=== PATIENT | male | born 1960 | race Caucasian/White ===

== ENCOUNTER → 2016-12-31 | Outpatient (CLI) | payer BC ==
[~2016-12-31] MED LIST: ALBU1AER9 INH; AMLO-110 PO; ASPI81TA28 PO; CLOP1TAB15 PO; LISI20TA3 PO; LPT40 PO; OMEP40CA PO
[2016-12-31 13:35] LABS: ARTERIAL BLD GAS O2 SATURATION 96.1 % (90-95); ARTERIAL BLOOD GAS BASE EXCESS 0.5 mEq/L (-9-1.8); ARTERIAL BLOOD GAS HCO3 23 mmol/L (19-24); ARTERIAL BLOOD GAS PO2 76 mm/Hg (80-95); ARTERIAL BLOOD GAS pH 7.47 (7.35-7.45)
[2016-12-31 13:36] LABS: O2 ADMINISTRATION ROOM TEMP
[2016-12-31 13:37] LABS: ALLEN TEST POS (POS)
== END | disposition home or self-care (01) ==
LOC: C.LAB 13:01
PROVIDERS: ATTEND Thoracic Surgery (Cardiothoracic Vascular Surgery)
DX: I25.10 Atherosclerotic heart disease of native coronary artery without angina pectoris (principal); I34.0 Nonrheumatic mitral (valve) insufficiency; I35.2 Nonrheumatic aortic (valve) stenosis with insufficiency

== ENCOUNTER → 2017-01-06 | Day surgery (SDC) | payer BC ==
[~2017-01-06] VITALS: Ht 180.3 cm; Wt 123.5 kg
[~2017-01-06] MED LIST changes: +ACETAMINOPHEN 325 MG TAB PO PRN; +ATROPINE SULFATE 0.1 MG/ML 5ML SYR IV PRN; +FENTANYL CITRATE INJ 50 MCG/1 ML 2 ML VIAL ONE; +HEPARIN SOD (PORCINE) 1000 UNIT/ML 10 ML VIAL ONE; +MIDAZOLAM HCL 1 MG/ML 2ML VIAL ONE; +NITROGLYCERIN/D5W 100MCG/ML 20ML SYR ONE; +NiCARDipine HCL INJ 2.5 MG/ML 10 ML AMP ONE; +ONDANSETRON INJ 2 MG/ML 2 ML VIAL IV PRN; +ONDANSETRON INJ 2 MG/ML 2 ML VIAL ONE; +SODIUM CHLORIDE 0.9% 1000ML 1,000 ML IV SCH; +SODIUM CHLORIDE 0.9% 1000ML 250 ML IV PRN
[2017-01-06 08:58] VITALS: BP 147/70; PULSE 77; TEMP 36.8; O2SAT 98; Ht 180.3 cm; Wt 123.5 kg
--- NOTE | 2017-01-06 11:41 | History & Physical Bridge Note ---
H&P Re-Evaluation Bridge Note: I have examined the patient, reviewed the History & Physical and in the interval since the performance of the History & Physical I have noted the following changes of clinical significance: No changes noted
--- NOTE | 2017-01-06 12:08 | [facility] Post Operative Brief Note ---
Preliminary Procedure Note Procedure Date Jan 06, 2017. Pre-Procedure Diagnosis Valvular Disease AUC Score 7 Post-Procedure Diagnosis Moderate CAD Procedure(s) Performed Coronary Angiography Fisheries Director Dr. Mathieu Adhikari Fire Tower Keeper(s) Daniele Goins Estimated Blood Loss <15 cc Medication(s) Heparin (5000u IV), Nicardipine (250mcg intraarterial after arterial sheath insertion), Lidocaine 1% (local infiltration) Preliminary Findings Right dominant coronary anatomy LM long with distal 40-50% extending into origin of LAD LAD Type 2 with large diagonal Patent proximal vessel stent. LAD origin discrete 50% Ramus no disease LCX Large OM with mild irregularities RCA Large dominant 30% mid vessel, origin PDA Recommendations valve replacement Specimens None Fluids (cc crystalloids) 60 Anesthesia Versed 1 mg , Fentanyl 12.5 mcg IV Procedural Complication(s) Nausea after first coronary injection Disposition Software Team Leader Holding/Recovery
--- NOTE | 2017-01-06 12:12 | Discharge Instructions ---
Discharge Instructions Procedure Procedure Date: Jan 06, 2017. Reason for Visit: Aoritc Valve Replacment Dr. Adhikari To Do*. Discharge Discharge Date: Jan 06, 2017. Discharge Diagnosis: Severe Aortic Valve Disease Moderate coronary artery disease Last Recorded Wt (Kilograms): 123.5 Anesthesia Post Anesthesia Instructions: If you have had General Anesthesia or IV Sedation: * Do not drive today. * Resume driving when surgeon permits. * Do not make important decisions or sign legal documents today. * Call surgeon for: 1. Temperature elevations greater than 101 degrees F. 2. Uncontrollable pain. 3. Excessive bleeding. 4. Persistent nausea and vomiting. 5. Medication intolerance (nausea, vomiting or rash). * For nausea and vomiting use only clear liquids such as: tea, soda, bouillon until nausea subsides, then gradually increase diet as tolerated. * If you have any concerns or questions, call your surgeon's office. If physician is unavailable and it is an emergency, call 911 or go to the nearest emergency room. Instructions Activity Recommendations: limitations as noted below Recommended Home Diet: resume previous diet Allergies: Coded Allergies: Acetaminophen (Unverified Allergy, Mild, ., 01/06/17) NSAIDs (Unverified Allergy, Mild, ., 01/06/17) Iodinated Diagnostic Agents (Verified Adverse Reaction, Mild, IMMEDIATE NAUSEA& VOMITING, 02/25/16) Methadone (Verified Adverse Reaction, Mild, HALLUCINATIONS, TREMBLING, ) Varenicline (Verified Adverse Reaction, Mild, HALLUCINATIONS, TREMBLING, ) Provider Instructions ACTIVITY RECOMMENDATIONS: Excess manipulation of the wrist should be avoided for the next 24-48 hours. * No lifting over 2 pounds (approximately a 1/2 gallon of milk) with the utilized arm for 24 hours. * No strenuous activity such as bowling or tennis for 3 days. * Keep the site of the procedure covered with a bandage for 24 hours. *You may shower the day after the procedure. Do not take a tub bath or submerge the puncture site in water for the next 3 days. *Do not operate any motorized equipment for 3 days. SPECIAL CARE INSTRUCTIONS: The site may be slightly bruised and sore following your procedure. Should any of the following occur, contact the DrAgustín who performed your procedure. 1. Redness/inflammation, swelling, chills, or fever, or colored drainage at procedure site within 3-7 days after your procedure. 2. Coldness, discoloration, ongoing numbness, severe pain, or swelling. Expect mild tingling of hand and tenderness at the puncture site for up to three days. If this persists beyond three days, or other symptoms develop, notify the Dr. who performed your procedure. BLEEDING: If the procedure site on your wrist begins to bleed, do not panic 1. Place 1 or 2 fingers firmly just slightly above the insertion site to stop the bleeding. You may be able to feel your pulse as you hold pressure. 2. Lift your finger after 5 minutes to see if the bleeding has stopped. 3. Once the bleeding has stopped, gently wipe the wrist area clean with a bandage. * If the bleeding from your wrist does not stop after 10 minutes, or if there is a large amount of bleeding or spurting, call 911 (do not drive yourself to the hospital). SKIN IRRITATION: * You may experience some redness and/or swelling in the area where radiation was administered. If any skin irritation occurs, please contact your family physician. FOLLOW UP VISIT: Keep any scheduled doctor appointments.ACTIVITY RECOMMENDATIONS: Excess manipulation of the wrist should be avoided for the next 24-48 hours. * No lifting over 2 pounds (approximately a 1/2 gallon of milk) with the utilized arm for 24 hours. * No strenuous activity such as bowling or tennis for 3 days. * Keep the site of the procedure covered with a bandage for 24 hours. *You may shower the day after the procedure. Do not take a tub bath or submerge the puncture site in water for the next 3 days. *Do not operate any motorized equipment for 3 days. SPECIAL CARE INSTRUCTIONS: The site may be slightly bruised and sore following your procedure. Should any of the following occur, contact the Dr. who performed your procedure. 1. Redness/inflammation, swelling, chills, or fever, or colored drainage at procedure site within 3-7 days after your procedure. 2. Coldness, discoloration, ongoing numbness, severe pain, or swelling. Expect mild tingling of hand and tenderness at the puncture site for up to three days. If this persists beyond three days, or other symptoms develop, notify the Dr. who performed your procedure. BLEEDING: If the procedure site on your wrist begins to bleed, do not panic 1. Place 1 or 2 fingers firmly just slightly above the insertion site to stop the bleeding. You may be able to feel your pulse as you hold pressure. 2. Lift your finger after 5 minutes to see if the bleeding has stopped. 3. Once the bleeding has stopped, gently wipe the wrist area clean with a bandage. * If the bleeding from your wrist does not stop after 10 minutes, or if there is a large amount of bleeding or spurting, call 911 (do not drive yourself to the hospital). SKIN IRRITATION: * You may experience some redness and/or swelling in the area where radiation was administered. If any skin irritation occurs, please contact your family physician. FOLLOW UP VISIT: Keep any scheduled doctor appointments. Follow Up Follow-up with: Dr Aldana as scheduled tomorrow [facility] Recommendations: Call your doctor if: * Temperature above 101 degrees * Pain not relieved by pain medicine ordered * There is increased drainage or redness from any incision * You have any unanswered questions or concerns. Your Doctors Instructions noted above were prepared by provider Mathieu Adhikari. Patient Signature Section: Patient Instructions Signature Page Jonas Dorsey Patient (or Guardian) Signature/Date: I have read and understand the instructions given to me by my caregivers. Caregiver/RN/Doctor Signature/Date: The above-named patient and/or guardian has received patient instructions on this date. + Original Patient Signature Page (only) stays with chart. Please make copy for patient.
[2017-01-06 13:45] VITALS: BP 118/71; PULSE 66; O2SAT 98
--- NOTE | 2017-01-06 15:31 | CARDIAC CATH REPORT ---
INDICATIONS: Preoperative evaluation, known coronary disease, planned aortic valve replacement. BRIEF CARDIAC HISTORY: The patient is a 56-year-old male who has had a history of known coronary disease having undergone prior coronary intervention with stent to the proximal left anterior descending in February 2016, known history of valvular heart disease that represented with worsening chest pain symptoms and evidence of progression of aortic valve disease now severe with aortic stenosis and aortic insufficiency. He is referred for diagnostic cardiac catheterization in anticipation of aortic valve replacement on 01/07/2017. There is no evidence of recurrent heart failure, symptoms of progressive to class 3+ severity of exertional dyspnea and fatigue. His history is also notable for contrast reaction with acute nausea on dye injections in the past. He did receive preoperative prep. ACCESS: Right radial artery. CATHETERS: A 6-[place] long sheath, 5-[place] brachial 3.5, 5-[place] JL 3.5. CONTRAST: Nonionic x120 mL Visipaque. IV FLUIDS: 60 mL normal saline solution. MEDICATIONS: Prior to procedure, the patient received oral prednisone prep and day of procedure received local anesthesia access site with 1% lidocaine. After arterial access gained, the patient received 250 mcg intra-arterial injection of nicardipine. After central access was gained, the patient received 5,000 units IV heparin. The patient did experience acute nausea after initial coronary injection was treated with a single dose of Zofran. SEDATION: Start time 11:11, end time 11:33. The patient received 1 mg IV Versed and 12.5 mcg of fentanyl. COMPLICATIONS: None other than nausea as noted above. RADIATION EXPOSURE: 3.4 minutes of fluoroscopy time, 2161 milligrays, DAP score 11296. RESULTS: CORONARY ANGIOGRAPHY: Coronary anatomy is right dominant. LEFT MAIN: Left main is long and large in caliber. It trifurcates to give rise to left anterior descending in ramus intermedius and the left circumflex. Within the left main there is a discrete calcified lesion at its distal portion, narrowing the vessel by 40-50% extending into the origin of the left anterior descending narrowing of origin of the left anterior descending by 50%. LEFT ANTERIOR DESCENDING: Left anterior descending is type 3 in distribution, gives rise to a trivial small diagonal branch followed by a large multi-branching second diagonal at the end of its proximal third. The left anterior descending then courses to terminate beyond the apex. Within the left anterior descending, there is an area of prior stenting in its proximal portion with excellent post-procedure result and no restenosis. As is described in the left main an area of discrete calcification and narrowing of the ostium of the left anterior descending, narrowing it by 50%. RAMUS INTERMEDIUS: This is a small caliber vessel without significant disease. LEFT CIRCUMFLEX: Left circumflex is moderately large consisting of a large multi-branching obtuse marginal and 2 small posterolateral branches. There are minimal irregularities in the left circumflex without obstruction. RIGHT CORONARY ARTERY: The right coronary is large and dominant in distribution, gives rise to a right ventricular branch in its mid portion, a long posterior descending artery reaching well beyond the apex and along the AV groove a large terminal posterior ventricular branch. Within the right coronary artery, there are moderate irregularities with a 30% narrowing just proximal to the acute margin and 30% narrowing at the origin of the posterior descending artery. LV angiography was not performed. Aortic valve was not crossed. Aortic root angiography was not performed due to issues with contrast reaction. HEMODYNAMICS: Initial aortic root pressure was 138/59 with a mean of 88. Following completion of the study aortic root pressure was 139/64 with a mean of 95. FINAL IMPRESSIONS: 1. Severe aortic valve disease with mixed aortic stenosis, aortic insufficiency with high velocity jet observed during current procedure. 2. Patent left anterior descending stent placed in February 2016. 3. Progression in coronary disease involving the distal left main and ostium of the left anterior descending and narrowing the left main by 40-50% ostium and left anterior descending by 50% with mild irregularities all vasculature. RECOMMENDATIONS: The patient will be referred for surgical therapies.
== END | disposition home or self-care (01) ==
LOC: C.CATH 08:24
PROVIDERS: ATTEND Internal Medicine Cardiovascular Disease
DX: I25.10 Atherosclerotic heart disease of native coronary artery without angina pectoris (principal); I35.1 Nonrheumatic aortic (valve) insufficiency; Z79.02 Long term (current) use of antithrombotics/antiplatelets; Z95.818 Presence of other cardiac implants and grafts; I34.0 Nonrheumatic mitral (valve) insufficiency; I10 Essential (primary) hypertension; E78.5 Hyperlipidemia, unspecified; K21.9 Gastro-esophageal reflux disease without esophagitis; E66.9 Obesity, unspecified; Z68.38 Body mass index [BMI] 38.0-38.9, adult; Z98.1 Arthrodesis status; Z79.82 Long term (current) use of aspirin; I73.9 Peripheral vascular disease, unspecified; Z90.89 Acquired absence of other organs; Z82.49 Family history of ischemic heart disease and other diseases of the circulatory system; Z83.3 Family history of diabetes mellitus; Z80.6 Family history of leukemia

== ENCOUNTER → 2018-01-28 | Outpatient (CLI) | payer BC ==
[~2018-01-28] MED LIST changes: -ACETAMINOPHEN 325 MG TAB PO PRN; -ALBU1AER9 INH; -AMLO-110 PO; +AMLO5TAB3 PO; +AMOX500C3 PO; +ASPCH81X PO; -ASPI81TA28 PO; +ATOR80TA PO; -ATROPINE SULFATE 0.1 MG/ML 5ML SYR IV PRN; -CLOP1TAB15 PO; -FENTANYL CITRATE INJ 50 MCG/1 ML 2 ML VIAL ONE; +GABA-113 PO; -HEPARIN SOD (PORCINE) 1000 UNIT/ML 10 ML VIAL ONE; -LISI20TA3 PO; -LPT40 PO; +METO50TA16 PO; -MIDAZOLAM HCL 1 MG/ML 2ML VIAL ONE; -NITROGLYCERIN/D5W 100MCG/ML 20ML SYR ONE; -NiCARDipine HCL INJ 2.5 MG/ML 10 ML AMP ONE; -OMEP40CA PO; +OMEP40CA41 PO; -ONDANSETRON INJ 2 MG/ML 2 ML VIAL IV PRN; -ONDANSETRON INJ 2 MG/ML 2 ML VIAL ONE; -SODIUM CHLORIDE 0.9% 1000ML 1,000 ML IV SCH; -SODIUM CHLORIDE 0.9% 1000ML 250 ML IV PRN; +TRAZ50TA35 PO; +VNTHFA/IN INH
[2018-01-28 09:05] LABS: BLOOD UREA NITROGEN 11 mg/dl (7-18); CALCIUM 9.2 mg/dl (8.5-10.1); CARBON DIOXIDE 23 mmol/L (21-32); CREATININE 0.91 mg/dl (0.60-1.40); GLUCOSE 116 mg/dl (70-99); POTASSIUM 4.3 mmol/L (3.5-5.1); SODIUM 137 mmol/L (136-145)
== END | disposition home or self-care (01) ==
LOC: C.LAB 08:11
PROVIDERS: ATTEND Internal Medicine
DX: I10 Essential (primary) hypertension (principal)

== ENCOUNTER 2023-08-22 06:42 | Inpatient (IN) ==
[2023-08-22] MEDS: ALBUT/IPRATROP 3MG/0.5MG NEB 3 ML VIAL INH STA (07:00)
[2023-08-22] MEDS: methylPREDNISolone 125 MG/2 ML VIAL IV STA (07:08)
[2023-08-22 07:17] LABS: iSTAT Hemoglobin 13.9 g/dl (14.0-18.0); iSTAT Ionized Calcium 1.15 mmol/l (1.12-1.32); iSTAT Potassium 4.6 mmol/L (3.3-5.0)
[2023-08-22 07:17] LABS: Basophils # (auto) 0.02 K/uL (0.00-0.20); Basophils % (auto) 0.3 %; Eosinophils # (auto) 0.02 K/uL (0.00-0.50); Eosinophils % (auto) 0.3 %; Hematocrit (blood only) 39.5 % (42.0-52.0); Hemoglobin 13.6 g/dl (14.0-18.0); Immature Granulocytes # (auto) 0.04 K/uL (0.01-0.20); Immature Granulocytes % (auto) 0.7 %; Lymphocytes # (auto) 1.02 K/uL (1.20-3.40); Lymphocytes % (auto) 17.7 %; Mean Corpuscular Hemoglobin 29.1 pg (25.0-34.0); Mean Corpuscular Hgb Conc 34.4 g/dL (32.0-36.0); Mean Corpuscular Volume 84.6 fL (80.0-100.0); Mean Platelet Volume 10.8 fL (9.4-12.4); Monocytes # (auto) 0.22 K/uL (0.11-0.59); Monocytes % (auto) 3.8 %; Neutrophils # (auto) 4.43 K/uL (1.40-6.50); Neutrophils % (auto) 77.2 %; Platelet Count 248 K/uL (130-400); RDW Coefficient of Variation 13.5 % (11.5-14.5); RDW Standard Deviation 41.3 fL (36.4-46.3); Red Blood Count 4.67 M/uL (4.70-6.10); White Blood Count 5.75 K/ul (4.8-10.8)
[2023-08-22 07:32] LABS: Albumin Globulin Ratio 1.5 (0.9-2); Albumin Level 4.6 gm/dl (3.4-5.0); BUN Creatinine Ratio 13.7 (10-20); Bilirubin,Total 0.7 mg/dl (0.2-1.0); Calcium 9.4 mg/dl (8.6-10.3); Creatinine Clr Calc Pharmacy 106.4 ml/min; Est GFR (African American) 98.3 ml/min; Est GFR (Non-African American) 84.9 ml/min; Potassium 4.6 mmol/L (3.5-5.1); Total Protein 7.6 gm/dl (6.0-8.3)
[2023-08-22 07:38] LABS: Troponin I High Sensitivity 23.9 pg/ml (0-20)
--- NOTE | 2023-08-22 07:39 | XRay Report ---
XR chest 1V portable HISTORY: Dyspnea COMPARISON: Chest 03/11/2017. FINDINGS: There are poststernotomy changes and cervical spinal fusion hardware again noted. The heart is mildly enlarged. There is diffuse interstitial/vascular thickening consistent with pulmonary poncho a. There are small bilateral pleural effusions. There is a right lower lobe airspace opacity which is new from the prior study. IMPRESSION: 1. Interval development of mild interstitial pulmonary edema and small bilateral pleural effusions. 2. There is a right lower lobe airspace opacity which is new from the prior study. This may represent a component of the pulmonary edema or superimposed pneumonia. ACT 112: Negative or not required by law. Electronically signed by: Gerson Nobles M.D. 08/22/2023 7:37 AM
[2023-08-22 07:47] LABS: INR 2.7 (0.9-1.1); Partial Thromboplastin Ratio 1.3; Partial Thromboplastin Time 38 Seconds (21-31); Prothrombin Time 28.2 Seconds (9.0-12.0)
[2023-08-22] MEDS: FUROSEMIDE 40 MG/4 ML VIAL IV ONE ×2 (07:50→11:55)
--- NOTE | 2023-08-22 08:04 | Emergency Department Note ---
Impression & Plan Acute dyspnea, Tobacco abuse disorder, CHF (congestive heart failure), Aortic stenosis, severe, Elevated troponin ED Provider Note NAME: GARY PUTNAM AGE: 63 SEX: Male INFORMANT: Patient ED PROVIDER(S): Jj Gloria MD CHIEF COMPLAINT: Shortness of breath PLAN: Disposition: Transferred Outpatient prescription management: none Referral: [facility] MEDICAL DECISION MAKING: Patient presented because of acute dyspnea that has been progressive over the last 3 weeks. History was concerning for his aortic valve problem. I did obtain old records from the [facility] system based upon his echocardiogram and March he has severe . The patient's cardiology visit from last month noted significant dyspnea on exertion and symptoms consistent with his AAS. I did emergently order a stat bedside echo as well as placed a consult with cardiology. The patient was given a DuoNeb and Solu-Medrol based upon his smoking history and some relief at home. The patient was on supplemental oxygen. He was mildly hypertensive. ECG showed lateral T wave inversions which were more concerning when compared to his 2016 ECG here however I did obtain an ECG from the [facility] system from 01 August 2023 and there is no significant change. I did consult with Dr. Braswell who reviewed his testing. Patient did have an echo performed here which shows severe aortic stenosis which has worsened since his prior. Cardiology recommended a dose of IV Lasix and this was administered. Patient did have some anxiety and tachypnea. He was given a Xopenex neb as well as a small dose of IV Ativan. He did feel much better with this. Vital signs stabilized. He did not do well lying flat for the echo. He feels much better sitting up. The patient was evaluated by cardiology in the emergency department and recommended for transfer to [facility] for definitive care via [facility]. Unfortunately [facility] does not have any medical or ICU beds available at this current time. The patient will be admitted under the care of of the ICU, [facility] hospitalist, as well as cardiology here for treatment and plan for transfer hopefully later today. Care/management discussed with: vessel manager Level of care consideration(s): After review of the information above and other included data, I feel the patient is admission Triage Nursing notes: reviewed and agree them. Vital Signs: reviewed and remarkable for tachycardia and tachypnea Additional History obtained from: none Chronic Medical/Social Conditions affecting care: Aortic stenosis Prior/ Outside/ External records reviewed: none Differential Diagnosis: Complications aortic stenosis reactive airway disease, pneumonia, pneumothorax, COPD, CHF, infections, cardiac ischemia, pulmonary embolism, musculoskeletal, gastrointestinal, as well as other pathologies. Diagnostics, independently interpreted by me: ECG: Twelve-lead ECG reveals sinus tachycardia with first-degree AV block at 101 bpm. LVH. Lateral T wave inversions noted. When compared to his prior ECG of 2016 these changes are new however when compared to his most recent hCG of 01 August 2023 they are not new. Cardiac Monitoring: Cardiac monitoring ordered by me: The patient was placed on continuous cardiac monitoring and observed. It revealed a sinus tachycardic rhythm at 116 Medical decision rules: none Imaging studies: Chest x-ray reveals cardiomegaly and pulmonary edema. HPI: 63 year old Male arrives for evaluation of acute shortness of breath. Patient has a history of severe arctic stenosis and is pending surgery. The patient notes over the last 3 weeks has had progressive symptoms with chest tightness, burning, and dyspnea on exertion. Patient also notes significant orthopnea. Symptoms progressed and he came to emergency room this morning for evaluation. He is supposed to see cardiothoracic surgery today for [facility]. No recent flu symptoms. Patient does note some relief with his nebulizer at home. Has some mild lower leg swelling but that has been unchanged. Patient did not take his home medications today. Pt denies LOC, headache, fevers, chills, diaphoresis, visual changes, neck pain, nausea, vomiting, abdominal pain, back pain, melena, hematochezia, urinary symptoms, numbness, weakness, lymphadenopathy, rash, or other complaints. PAST MEDICAL HISTORY: See Below, aortic stenosis, hypertension, CAD, PAD PAST SURGICAL HISTORY: See Below, aortic valve replacement SOCIAL HISTORY: See Below, HOME MEDICATIONS: See Below ALLERGIES: See Below VITALS: See Below PHYSICAL EXAMINATION: GENERAL: Awake, alert, dyspneic-appearing, in no distress HENT: Normocephalic, atraumatic. Oropharynx unremarkable. EYES: Normal conjunctiva. Sclera non-icteric. NECK: Inspection normal. Non-tender. Supple. No nuchal rigidity. FROM. No masses. RESPIRATORY: Few basilar crackles otherwise clear to auscultation. No wheezes. No rales. Increased respiratory effort. CARDIAC: Normal rate. Normal rhythm. Significant holosystolic murmur. No rubs. Extremities warm and well perfused. Pulses equal. No JVD. GI: Soft, non-distended. No tenderness to palpation. No rebound or guarding. No masses. RECTAL: Deferred. MUSCULOSKELETAL: Atraumatic. Chest examination reveals no tenderness. The back is symmetrical on inspection without obvious abnormality. There is no CVA tenderness to palpation. No joint edema. LOWER EXTREMITIES: Calves are equal size bilaterally and non-tender. 1+ edema. No discoloration. NEURO: Normal sensorium. No sensory or motor deficits noted. SKIN: No rash or jaundice noted. PROCEDURES: none CRITICAL CARE: I have personally spent 35 minutes of critical care time in the direct management of this patient. This includes bedside care, interpretation of diagnostic studies, and testing, discussion with consultants, patient, and family members, and other required patient management activities. These minutes are in excess of all separately billable procedures. OBSERVATION NOTE: none Past Med/Surg History Medical History Suspected sleep apnea On anticoagulant therapy Peripheral neuropathy Borderline diabetes no medications -- monitoring Chronic back pain Degenerative disc disease GERD (gastroesophageal reflux disease) Hyperlipemia HTN (hypertension) Alcohol abuse PAD (peripheral artery disease) CAD (coronary artery disease) s/p CABG x2 2017 Aortic stenosis, severe s/p TAVR Lumbar spinal stenosis (05/16/14) Surgical History History of esophagogastroduodenoscopy (EGD) S/P epidural steroid injection History of heart artery stent with 1 stent placed ~ (in the LAD that later was bypassed with CABG 2016). History of cardiac cath total of 4 or 5 caths. patient recalls 1 stent in the past ~2013/2014 (pt is unsure of the date) but the stent was placed at [facility] in the past. S/P peripheral artery angioplasty with stent placement done at [facility] in 2014 S/P cervical spinal fusion unsure of levels -- Full ROM "most of the time, depends on the day" H/O heart valve replacement with bioprosthetic valve ~2015 at [facility]. follows with Dr Braswell H/O heart bypass surgery unsure of the number of vessels done at [facility] ~2016 during the valve replacement [place] teeth extracted S/P lumbar spinal fusion "1997" History of lumbar laminectomy for spinal cord decompression "2013" History of appendectomy History of tonsillectomy and adenoidectomy Family History Other Cancer Heart disease No family history of adverse response to anesthesia Stroke Social History Smoking Status: Former smoker Tobacco Type: Cigarettes Cigarettes Per Day: 10-15; Second Hand Exposure: Yes; Do You Dip or Chew Tobacco: No; Hx Alcohol Use: Yes Alcohol type: beer Hx Substance Use: No Preferred Language: Fijian Communication Ability: Effective Alterations Workroom Clerk Required: No Beliefs That Will Affect Care: None Current Living Situation: Spouse Current Living Situation Comment: and adult daughter Other Information That Helps Us Care for You: No Feels Safe at Home: Yes Safety Concerns: Feels Safe At This Time Assistive Devices: Brace/Splint/Immobilizer Allergies Allergies Allergy/AdvReac Type Severity Reaction Status Date / Time valdecoxib AdvReac Intermediate "felt odd" Verified 04/07/23 07:06 per [facility] EMR Iodinated Contrast Media AdvReac Mild IMMEDIATE Verified 04/07/23 07:06 NAUSEA& VOMITING methadone AdvReac Mild HALLUCINATIONS, Verified 04/07/23 07:06 TREMBLING varenicline AdvReac Mild HALLUCINATIONS, Verified 04/07/23 07:06 TREMBLING Home Meds Home Medications Medication Instructions Recorded Confirmed lisinopril 40 mg tablet 40 mg PO QAM 06/19/19 08/22/23 ezetimibe 10 mg tablet (Zetia) 10 mg PO QAM 11/10/22 08/22/23 albuterol sulfate 90 mcg/actuation 1 inh inhalation QID PRN sob 03/30/23 08/22/23 aerosol inhaler amlodipine 10 mg tablet 10 mg PO QAM 03/30/23 08/22/23 amoxicillin 500 mg tablet 2,000 mg PO UD PRN dental work 03/30/23 08/22/23 aspirin 81 mg capsule 81 mg PO QAM 03/30/23 08/22/23 atorvastatin 80 mg tablet 80 mg PO QAM 03/30/23 08/22/23 diphenhydramine HCl 25 mg tablet 25 mg PO [id number] 03/30/23 08/22/23 (Benadryl Allergy) diphenhydramine HCl 25 mg tablet 25 mg PO UD 03/30/23 08/22/23 (Benadryl Allergy) isosorbide mononitrate 60 mg 60 mg PO QAM 03/30/23 08/22/23 tablet,extended release 24 hr metoprolol tartrate 50 mg tablet 50 mg PO QAM 03/30/23 08/22/23 omeprazole 40 mg capsule,delayed 40 mg PO QAM 03/30/23 08/22/23 release Results & Data (ED) Vital Signs Vital Signs - 24 hr 08/22/23 06:48 08/22/23 06:55 08/22/23 06:55 Temperature 37 C Temperature Source Oral Pulse Rate 96 H 90 Pulse Rate [Apical] Pulse Rate from SpO2 Sensor 89 Pulse Rhythm Regular Pulse Strength Normal Respiratory Rate 32 H 29 H Respiratory Effort / Characteristics Spontaneous Labored Short of Breath Respiratory Depth Deep Respiratory Pattern Tachypnea Blood Pressure 160/102 H 149/89 H Blood Pressure Mean 121 121 Blood Pressure Position Sitting Pulse Oximetry 90 93 Oxygen Delivery Method Nasal Cannula Oxygen Flow Rate 3 Fraction of Inspired Oxygen Sepsis Recent Fever Within 48 Hours No Sepsis New/Unexplained Change in Mental Status N/A Sepsis Action Taken by Nursing No Action Required 08/22/23 06:59 08/22/23 07:00 08/22/23 07:18 Temperature Temperature Source Pulse Rate 92 H 87 Pulse Rate [Apical] 107 H Pulse Rate from SpO2 Sensor 91 H Pulse Rhythm Pulse Strength Respiratory Rate 30 H Respiratory Effort / Characteristics Respiratory Depth Respiratory Pattern Blood Pressure Blood Pressure Mean Blood Pressure Position Pulse Oximetry 93 95 Oxygen Delivery Method High Flow Nasal Cannula Oxygen Flow Rate 40 Fraction of Inspired Oxygen 40 Sepsis Recent Fever Within 48 Hours Sepsis New/Unexplained Change in Mental Status Sepsis Action Taken by Nursing 08/22/23 07:30 08/22/23 07:30 08/22/23 07:47 Temperature Temperature Source Pulse Rate 83 Pulse Rate [Apical] Pulse Rate from SpO2 Sensor 84 Pulse Rhythm Pulse Strength Respiratory Rate 18 Respiratory Effort / Characteristics Respiratory Depth Respiratory Pattern Blood Pressure 96/62 L 163/103 H Blood Pressure Mean 75 119 Blood Pressure Position Pulse Oximetry 95 Oxygen Delivery Method High Flow Nasal Cannula Oxygen Flow Rate 40 Fraction of Inspired Oxygen 40 Sepsis Recent Fever Within 48 Hours Sepsis New/Unexplained Change in Mental Status Sepsis Action Taken by Nursing 08/22/23 07:47 08/22/23 08:00 08/22/23 08:02 Temperature Temperature Source Pulse Rate 98 H 105 H Pulse Rate [Apical] Pulse Rate from SpO2 Sensor 96 H 106 H Pulse Rhythm Pulse Strength Respiratory Rate 34 H 34 H Respiratory Effort / Characteristics Respiratory Depth Respiratory Pattern Blood Pressure 151/84 H Blood Pressure Mean 87 Blood Pressure Position Pulse Oximetry 93 93 Oxygen Delivery Method High Flow Nasal Cannula Oxygen Flow Rate 40 Fraction of Inspired Oxygen 40 Sepsis Recent Fever Within 48 Hours Sepsis New/Unexplained Change in Mental Status Sepsis Action Taken by Nursing 08/22/23 08:02 08/22/23 08:12 08/22/23 08:15 Temperature Temperature Source Pulse Rate 112 H Pulse Rate [Apical] 126 H 103 H Pulse Rate from SpO2 Sensor Pulse Rhythm Pulse Strength Respiratory Rate 24 34 H 20 Respiratory Effort / Characteristics Labored Short of Breath SOB on Exertion Splinting (from pain) Tripoding Spontaneous Labored Short of Breath Respiratory Depth Respiratory Pattern Blood Pressure Blood Pressure Mean Blood Pressure Position Pulse Oximetry 95 95 Oxygen Delivery Method Oxymask High Flow Nasal Cannula Oxygen Flow Rate 10 50 Fraction of Inspired Oxygen 40 Sepsis Recent Fever Within 48 Hours Sepsis New/Unexplained Change in Mental Status Sepsis Action Taken by Nursing 08/22/23 08:30 08/22/23 09:00 08/22/23 09:00 Temperature Temperature Source Pulse Rate 102 H 86 Pulse Rate [Apical] Pulse Rate from SpO2 Sensor 102 H 85 Pulse Rhythm Pulse Strength Respiratory Rate 19 13 Respiratory Effort / Characteristics Respiratory Depth Respiratory Pattern Blood Pressure 118/77 Blood Pressure Mean 91 Blood Pressure Position Pulse Oximetry 95 95 Oxygen Delivery Method High Flow Nasal Cannula High Flow Nasal Cannula Oxygen Flow Rate Fraction of Inspired Oxygen Sepsis Recent Fever Within 48 Hours Sepsis New/Unexplained Change in Mental Status Sepsis Action Taken by Nursing 08/22/23 09:30 08/22/23 10:00 08/22/23 10:00 Temperature Temperature Source Pulse Rate 95 H 95 H Pulse Rate [Apical] Pulse Rate from SpO2 Sensor 95 H Pulse Rhythm Pulse Strength Respiratory Rate 15 20 Respiratory Effort / Characteristics Respiratory Depth Respiratory Pattern Blood Pressure 139/80 Blood Pressure Mean 90 Blood Pressure Position Pulse Oximetry 96 Oxygen Delivery Method Room Air Oxygen Flow Rate Fraction of Inspired Oxygen Sepsis Recent Fever Within 48 Hours Sepsis New/Unexplained Change in Mental Status Sepsis Action Taken by Nursing Laboratory Data 08/22/23 06:55 08/22/23 06:55 Lab Results 08/22/23 08/22/23 08/22/23 Range/Units 06:55 07:02 07:04 WBC 5.75 (4.8-10.8) K/ul RBC 4.67 L (4.70-6.10) M/uL Hgb 13.6 L (14.0-18.0) g/dl POC Hgb 13.9 L (14.0-18.0) g/dl Hct 39.5 L (42.0-52.0) % POC Hct 41 L (42-52) % MCV 84.6 (80.0-100.0) fL MCH 29.1 (25.0-34.0) pg MCHC 34.4 (32.0-36.0) g/dL RDW Std Deviation 41.3 (36.4-46.3) fL RDW Coeff of Cricket 13.5 (11.5-14.5) % Plt Count 248 (130-400) K/uL MPV 10.8 (9.4-12.4) fL Immature Gran % (Auto) 0.7 % Neut % (Auto) 77.2 % Lymph % (Auto) 17.7 % [place] % (Auto) 3.8 % Eos % (Auto) 0.3 % Baso % (Auto) 0.3 % Neut # (Auto) 4.43 (1.40-6.50) K/uL Lymph # (Auto) 1.02 L (1.20-3.40) K/uL [place] # (Auto) 0.22 (0.11-0.59) K/uL Eos # (Auto) 0.02 (0.00-0.50) K/uL Baso # (Auto) 0.02 (0.00-0.20) K/uL Immature Gran # (Auto) 0.04 (0.01-0.20) K/uL PT 28.2 H (9.0-12.0) Seconds INR 2.7 H (0.9-1.1) APTT 38 H (21-31) Seconds PTT Ratio 1.3 POC Sodium 128 L (135-144) mmol/L Sodium 126 L (136-145) mmol/L POC Potassium 4.6 (3.3-5.0) mmol/L Potassium 4.6 (3.5-5.1) mmol/L POC Chloride 97 L (101-112) mmol/L Chloride 96 L (98-107) mmol/L Carbon Dioxide 18 L (21-32) mmol/L POC Total CO2 17 L (24-31) mmol/L Anion Gap 12 H (3-11) POC Anion Gap 19.0 (16-25) mmol/L POC BUN 13 (7-18) mg/dl BUN 13 (6-23) mg/dl Creatinine 0.95 (0.6-1.4) mg/dl POC Creatinine 1.0 (0.6-1.3) mg/dl Est Cr Clr Drug Dosing 106.4 ml/min Est GFR ( Amer) 98.3 ml/min Est GFR (Non-Af Amer) 84.9 ml/min BUN/Creatinine Ratio 13.7 (10-20) Glucose 150 H (70-99(Fasting)) mg/dl POC Glucose (other) 148 H (70-99) mg/dl Osmolality (280-300) mOsm/kg Calcium 9.4 (8.6-10.3) mg/dl POC Ioniz Calcium Dev 1.15 (1.12-1.32) mmol/l Total Bilirubin 0.7 (0.2-1.0) mg/dl AST 25 (13-39) U/L ALT 38 (7-52) U/L Alkaline Phosphatase 96 (34-104) U/L Troponin I High Sens 23.9 H (0-20) pg/ml B-Natriuretic Peptide 734 H (0-100) pg/ml Total Protein 7.6 (6.0-8.3) gm/dl Albumin 4.6 (3.4-5.0) gm/dl Globulin 3.0 (2.5-4.0) gm/dl Albumin/Globulin Ratio 1.5 (0.9-2) TSH 1.647 (0.300-4.500) uIu/ml Urine Color Urine Appearance (Clear) Urine pH (4.5-7.5) Ur Specific [place] (1.000-1.030) Urine Protein (Negative) Urine Glucose (UA) (Negative) Urine Ketones (Negative) Urine Blood (Negative) Urine Nitrite (Negative) Urine Bilirubin (Negative) Urine Urobilinogen (Negative) Ur Leukocyte Esterase (Negative) Urine Osmolality (500-800) mOsm/kg Ur Random Creatinine mg/dl Ur Random Sodium mmol/L Ur Random Potassium mmol/L Ur Random Chloride mmol/L Adenovirus (PCR) (NotDetected) B. pertussis DNA (PCR) (NotDetected) B.parapertussis DNA PCR (NotDetected) C. pneumoniae DNA (PCR) (NotDetected) Coronavirus OC43 (PCR) (NotDetected) Coronavirus HKU1 (PCR) (NotDetected) Coronavirus 229E (PCR) (NotDetected) SARS-CoV-2 (PCR) (NotDetected) Coronavirus NL63 (PCR) (NotDetected) Human Metapneumovir PCR (NotDetected) Influenza Type A (PCR) (NotDetected) Influenza Type B (PCR) (NotDetected) M. pneumoniae (PCR) (NotDetected) Parainfluenza 1 (PCR) (NotDetected) Parainfluenza 2 (PCR) (NotDetected) Parainfluenza 3 (PCR) (NotDetected) Parainfluenza 4 (PCR) (NotDetected) RSV (PCR) (NotDetected) Entero/Rhino (PCR) (NotDetected) Blood Type O Positive Antibody Screen NEGATIVE 08/22/23 08/22/23 08/22/23 Range/Units 07:15 08:48 09:55 WBC (4.8-10.8) K/ul RBC (4.70-6.10) M/uL Hgb (14.0-18.0) g/dl POC Hgb (14.0-18.0) g/dl Hct (42.0-52.0) % POC Hct (42-52) % MCV (80.0-100.0) fL MCH (25.0-34.0) pg MCHC (32.0-36.0) g/dL RDW Std Deviation (36.4-46.3) fL RDW Coeff of Cricket (11.5-14.5) % Plt Count (130-400) K/uL MPV (9.4-12.4) fL Immature Gran % (Auto) % Neut % (Auto) % Lymph % (Auto) % [place] % (Auto) % Eos % (Auto) % Baso % (Auto) % Neut # (Auto) (1.40-6.50) K/uL Lymph # (Auto) (1.20-3.40) K/uL [place] # (Auto) (0.11-0.59) K/uL Eos # (Auto) (0.00-0.50) K/uL Baso # (Auto) (0.00-0.20) K/uL Immature Gran # (Auto) (0.01-0.20) K/uL PT (9.0-12.0) Seconds INR (0.9-1.1) APTT (21-31) Seconds PTT Ratio POC Sodium (135-144) mmol/L Sodium (136-145) mmol/L POC Potassium (3.3-5.0) mmol/L Potassium (3.5-5.1) mmol/L POC Chloride (101-112) mmol/L Chloride (98-107) mmol/L Carbon Dioxide (21-32) mmol/L POC Total CO2 (24-31) mmol/L Anion Gap (3-11) POC Anion Gap (16-25) mmol/L POC BUN (7-18) mg/dl BUN (6-23) mg/dl Creatinine (0.6-1.4) mg/dl POC Creatinine (0.6-1.3) mg/dl Est Cr Clr Drug Dosing ml/min Est GFR ( Amer) ml/min Est GFR (Non-Af Amer) ml/min BUN/Creatinine Ratio (10-20) Glucose (70-99(Fasting)) mg/dl POC Glucose (other) (70-99) mg/dl Osmolality (280-300) mOsm/kg Calcium (8.6-10.3) mg/dl POC Ioniz Calcium Dev (1.12-1.32) mmol/l Total Bilirubin (0.2-1.0) mg/dl AST (13-39) U/L ALT (7-52) U/L Alkaline Phosphatase (34-104) U/L Troponin I High Sens 30.2 H (0-20) pg/ml B-Natriuretic Peptide (0-100) pg/ml Total Protein (6.0-8.3) gm/dl Albumin (3.4-5.0) gm/dl Globulin (2.5-4.0) gm/dl Albumin/Globulin Ratio (0.9-2) TSH (0.300-4.500) uIu/ml Urine Color Yellow Urine Appearance Clear (Clear) Urine pH 5.0 (4.5-7.5) Ur Specific [place] 1.007 (1.000-1.030) Urine Protein Negative (Negative) Urine Glucose (UA) Negative (Negative) Urine Ketones Negative (Negative) Urine Blood Negative (Negative) Urine Nitrite Negative (Negative) Urine Bilirubin Negative (Negative) Urine Urobilinogen Negative (Negative) Ur Leukocyte Esterase Negative (Negative) Urine Osmolality 290 L (500-800) mOsm/kg Ur Random Creatinine 23.2 mg/dl Ur Random Sodium 83 mmol/L Ur Random Potassium 28.3 mmol/L Ur Random Chloride 108 mmol/L Adenovirus (PCR) Not Detected (NotDetected) B. pertussis DNA (PCR) Not Detected (NotDetected) B.parapertussis DNA PCR Not Detected (NotDetected) C. pneumoniae DNA (PCR) Not Detected (NotDetected) Coronavirus OC43 (PCR) Not Detected (NotDetected) Coronavirus HKU1 (PCR) Not Detected (NotDetected) Coronavirus 229E (PCR) Not Detected (NotDetected) SARS-CoV-2 (PCR) Not Detected (NotDetected) Coronavirus NL63 (PCR) Not Detected (NotDetected) Human Metapneumovir PCR Not Detected (NotDetected) Influenza Type A (PCR) Not Detected (NotDetected) Influenza Type B (PCR) Not Detected (NotDetected) M. pneumoniae (PCR) Not Detected (NotDetected) Parainfluenza 1 (PCR) Not Detected (NotDetected) Parainfluenza 2 (PCR) Not Detected (NotDetected) Parainfluenza 3 (PCR) Not Detected (NotDetected) Parainfluenza 4 (PCR) Not Detected (NotDetected) RSV (PCR) Not Detected (NotDetected) Entero/Rhino (PCR) Not Detected (NotDetected) Blood Type Antibody Screen 08/22/23 Range/Units 10:24 WBC (4.8-10.8) K/ul RBC (4.70-6.10) M/uL Hgb (14.0-18.0) g/dl POC Hgb (14.0-18.0) g/dl Hct (42.0-52.0) % POC Hct (42-52) % MCV (80.0-100.0) fL MCH (25.0-34.0) pg MCHC (32.0-36.0) g/dL RDW Std Deviation (36.4-46.3) fL RDW Coeff of Cricket (11.5-14.5) % Plt Count (130-400) K/uL MPV (9.4-12.4) fL Immature Gran % (Auto) % Neut % (Auto) % Lymph % (Auto) % [place] % (Auto) % Eos % (Auto) % Baso % (Auto) % Neut # (Auto) (1.40-6.50) K/uL Lymph # (Auto) (1.20-3.40) K/uL [place] # (Auto) (0.11-0.59) K/uL Eos # (Auto) (0.00-0.50) K/uL Baso # (Auto) (0.00-0.20) K/uL Immature Gran # (Auto) (0.01-0.20) K/uL PT (9.0-12.0) Seconds INR (0.9-1.1) APTT (21-31) Seconds PTT Ratio POC Sodium (135-144) mmol/L Sodium (136-145) mmol/L POC Potassium (3.3-5.0) mmol/L Potassium (3.5-5.1) mmol/L POC Chloride (101-112) mmol/L Chloride (98-107) mmol/L Carbon Dioxide (21-32) mmol/L POC Total CO2 (24-31) mmol/L Anion Gap (3-11) POC Anion Gap (16-25) mmol/L POC BUN (7-18) mg/dl BUN (6-23) mg/dl Creatinine (0.6-1.4) mg/dl POC Creatinine (0.6-1.3) mg/dl Est Cr Clr Drug Dosing ml/min Est GFR ( Amer) ml/min Est GFR (Non-Af Amer) ml/min BUN/Creatinine Ratio (10-20) Glucose (70-99(Fasting)) mg/dl POC Glucose (other) (70-99) mg/dl Osmolality 276 L (280-300) mOsm/kg Calcium (8.6-10.3) mg/dl POC Ioniz Calcium Dev (1.12-1.32) mmol/l Total Bilirubin (0.2-1.0) mg/dl AST (13-39) U/L ALT (7-52) U/L Alkaline Phosphatase (34-104) U/L Troponin I High Sens (0-20) pg/ml B-Natriuretic Peptide (0-100) pg/ml Total Protein (6.0-8.3) gm/dl Albumin (3.4-5.0) gm/dl Globulin (2.5-4.0) gm/dl Albumin/Globulin Ratio (0.9-2) TSH (0.300-4.500) uIu/ml Urine Color Urine Appearance (Clear) Urine pH (4.5-7.5) Ur Specific [place] (1.000-1.030) Urine Protein (Negative) Urine Glucose (UA) (Negative) Urine Ketones (Negative) Urine Blood (Negative) Urine Nitrite (Negative) Urine Bilirubin (Negative) Urine Urobilinogen (Negative) Ur Leukocyte Esterase (Negative) Urine Osmolality (500-800) mOsm/kg Ur Random Creatinine mg/dl Ur Random Sodium mmol/L Ur Random Potassium mmol/L Ur Random Chloride mmol/L Adenovirus (PCR) (NotDetected) B. pertussis DNA (PCR) (NotDetected) B.parapertussis DNA PCR (NotDetected) C. pneumoniae DNA (PCR) (NotDetected) Coronavirus OC43 (PCR) (NotDetected) Coronavirus HKU1 (PCR) (NotDetected) Coronavirus 229E (PCR) (NotDetected) SARS-CoV-2 (PCR) (NotDetected) Coronavirus NL63 (PCR) (NotDetected) Human Metapneumovir PCR (NotDetected) Influenza Type A (PCR) (NotDetected) Influenza Type B (PCR) (NotDetected) M. pneumoniae (PCR) (NotDetected) Parainfluenza 1 (PCR) (NotDetected) Parainfluenza 2 (PCR) (NotDetected) Parainfluenza 3 (PCR) (NotDetected) Parainfluenza 4 (PCR) (NotDetected) RSV (PCR) (NotDetected) Entero/Rhino (PCR) (NotDetected) Blood Type Antibody Screen Administered Medications Miscellaneous (Icu Protocol For Hyperglycemia) 1 each N/A ACHS JES Stop: 08/24/23 13:14 Last Admin: 08/22/23 14:44 Dose: Not Given Documented By: IVONNE Discontinued Medications Albuterol (Albut/Ipratrop 3mg/0.5mg Neb 3 Ml Vial) 3 ml INH NOW STA Stop: 08/22/23 07:02 Last Admin: 08/22/23 07:00 Dose: 3 ml Documented By: RITO Aspirin (Aspirin 81 Mg Ectab) 81 mg PO NOW STA Stop: 08/22/23 09:30 Last Admin: 08/22/23 09:50 Dose: 81 mg Documented By: RITO Atorvastatin Calcium (Atorvastatin 40 Mg Tab) 80 mg PO NOW ONE Stop: 08/22/23 12:01 Last Admin: 08/22/23 12:28 Dose: 80 mg Documented By: CAPRI Ezetimibe (Ezetimibe 10 Mg Tab) 10 mg PO NOW ONE Stop: 08/22/23 12:01 Last Admin: 08/22/23 12:27 Dose: 10 mg Documented By: CAPRI Furosemide (Furosemide 40 Mg/4 Ml Vial) 40 mg IV ONE ONE Stop: 08/22/23 07:34 Last Admin: 08/22/23 07:50 Dose: 40 mg Documented By: RITO Furosemide (Furosemide 40 Mg/4 Ml Vial) 40 mg IV ONE ONE Stop: 08/22/23 12:01 Last Admin: 08/22/23 11:55 Dose: 40 mg Documented By: RITO Levalbuterol HCl (Levalbuterol Hcl 0.63 Mg/3 Ml Neb) 0.63 mg NEB NOW STA; Protocol Stop: 08/22/23 08:07 Last Admin: 08/22/23 08:12 Dose: 0.63 mg Documented By: [id number] Lidocaine HCl (Lidocaine 2% Jelly 5 Ml Tube) 5 ml EXT NOW ONE Stop: 08/22/23 09:28 Last Admin: 08/22/23 09:50 Dose: Not Given Documented By: RITO Lisinopril (Lisinopril 10 Mg Tab) 10 mg PO NOW STA Stop: 08/22/23 10:52 Last Admin: 08/22/23 11:11 Dose: 10 mg Documented By: RITO Lorazepam (Lorazepam 1 Mg/1 Ml Syr Ed Inj Use) 0.25 mg IV ONE STA Stop: 08/22/23 08:06 Last Admin: 08/22/23 08:09 Dose: 0.25 mg Documented By: RITO Methylprednisolone (Methylprednisolone 125 Mg/2 Ml Vial) 125 mg IV NOW STA Stop: 08/22/23 07:02 Last Admin: 08/22/23 07:08 Dose: 125 mg Documented By: RITO Metoprolol Succinate (Metoprolol Succ 50mg Ext Rel Tab) 50 mg PO NOW STA Stop: 08/22/23 10:53 Last Admin: 08/22/23 11:11 Dose: 50 mg Documented By: RITO Imaging Data Radiologist's Impression: Chest X-Ray 08/22/23 07:01 XR chest 1V portable HISTORY: Dyspnea COMPARISON: Chest 03/11/2017. FINDINGS: There are poststernotomy changes and cervical spinal fusion hardware again noted. The heart is mildly enlarged. There is diffuse interstitial/vascular thickening consistent with pulmonary edema. There are small bilateral pleural effusions. There is a right lower lobe airspace opacity which is new from the prior study. IMPRESSION: 1. Interval development of mild interstitial pulmonary edema and small bilateral pleural effusions. 2. There is a right lower lobe airspace opacity which is new from the prior study. This may represent a component of the pulmonary edema or superimposed pneumonia. ACT 112: Negative or not required by law. Electronically signed by: Gerson Nobles M.D. 08/22/2023 7:37 AM Discharge Plan Visit Data Chief Complaint: Respiratory Problems Stated Complaint: HAVING TROUBLE BREATHING ED Provider: Jj Gloria Discharge Problem: Acute dyspnea, Tobacco abuse disorder, CHF (congestive heart failure), Aortic stenosis, severe, Elevated troponin Patient Disposition: Admitted As Inpatient Discharge Instructions Interventions: ED Discharge Assessment Last Done: 08/22/23 12:40
[2023-08-22] MEDS: LORazepam 1 MG/1 ML SYR ED Inj Use IV STA (08:09)
[2023-08-22] MEDS: LEVALBUTEROL HCL 0.63 MG/3 ML NEB NEB STA (08:12)
[2023-08-22 08:15] LABS: Adenovirus PCR Not Detected (NotDetected); Bordetella parapertussis PCR Not Detected (NotDetected); Bordetella pertussis PCR Not Detected (NotDetected); Chlamydia pneumoniae PCR Not Detected (NotDetected); Coronavirus 229E PCR Not Detected (NotDetected); Coronavirus CoV-2 (COVID19)PCR Not Detected (NotDetected); Coronavirus HKU1 PCR Not Detected (NotDetected); Coronavirus NL63 PCR Not Detected (NotDetected); Coronavirus OC43PCR Not Detected (NotDetected); Human Metapneumovirus PCR Not Detected (NotDetected); Influenza A PCR Not Detected (NotDetected); Influenza B PCR Not Detected (NotDetected); Mycoplasma pneumoniae PCR Not Detected (NotDetected); Parainfluenza Virus 1 PCR Not Detected (NotDetected); Parainfluenza Virus 2 PCR Not Detected (NotDetected); Parainfluenza Virus 3 PCR Not Detected (NotDetected); Parainfluenza Virus 4 PCR Not Detected (NotDetected); Respiratory Syncytial VirusPCR Not Detected (NotDetected); Rhinovirus/Enterovirus PCR Not Detected (NotDetected)
[2023-08-22] MEDS: LIDOCAINE 2% JELLY 5 ML TUBE EXT ONE (09:50)
[2023-08-22] MEDS: ASPIRIN 81 MG ECTAB PO STA (09:50)
--- NOTE | 2023-08-22 09:54 | Cardiology Consultation ---
Date of Consultation August 22, 2023 Assessment & Plan (1) Acute on chronic heart failure with reduced ejection fraction and diastolic dysfunction: (2) Aortic stenosis, severe: Plan The patient underwent bedside transthoracic echocardiogram in the emergency department after receiving a dose of IV Solu-Medrol as well as 40 mg of IV furosemide. He was noted to be orthopneic at the time of the echocardiogram. Moderate concentric left ventricular hypertrophy was present with a moderate- sized apical, septal, anteroseptal, and anterior wall motion abnormality with hypokinesis of the segments, and mildly reduced left ventricular systolic function, LVEF in the range of 40-45%. Severe stenosis of the bioprosthetic aortic valve noted with peak continuous- wave Doppler velocity of 5.2 m/s, mean gradient 66 mmHg, dimensionless index= 0.14. No significant prosthetic regurgitation present. Mild tricuspid regurgitation, mild to moderate mitral regurgitation, moderate to severe pulmonary hypertension present with pulmonary artery systolic pressure estimated to be 57 mmHg. Grade II diastolic dysfunction is present The aortic root is mildly dilated, 4.1 cm Compared to the previous outpatient transthoracic echocardiogram performed in February, there has been interval decline in the left ventricular systolic function with ejection fraction in the range of 60-64% at that time. The peak continuous-wave Doppler velocity at the time of the previous study was 4.6 m/s as compared to 5.2 m/s on the present study consistent with worsening prosthetic stenosis. Mild to moderate mitral gravitation is now present as well as elevated pulmonary artery systolic pressure. The patient initially had shortness of breath in the spring 2022 and has had progression of his symptoms which have been especially worse over the last 4 weeks in the last 2 weeks. As previously noted, a trial of anticoagulation was initiated in November, due to concerns that thrombus could be playing a role in the early prosthetic valve stenosis, however ongoing prosthetic stenosis has persisted despite a trial of anticoagulation and I feel his transthoracic echocardiogram as well as transesophageal echocardiogram studies are consistent with early prosthetic degeneration. At this time we will hold Coumadin. The patient's degree of respiratory distress has significantly improved as far. Continue supplementary oxygen. Recommend placement of a Pierson catheter and transferred to the medical intensive care unit. Continue aspirin 81 mg daily, atorvastatin 80 mg daily and ezetimibe 10 mg daily. He did not have any of his medications yet today. Instead of his prior to hospital treatment with metoprolol tartrate 50 mg daily will utilize metoprolol succinate 50 mg daily. At present, will hold amlodipine, isosorbide mononitrate and lisinopril due to concerns of not wanting to reduce his afterload to abruptly in the setting of severe aortic stenosis and will continue furosemide. Patient to be reassessed later today with regards to candidacy for another dose of diuretic therapy. Recommend transfer to tertiary center for further optimization and expediting valve procedure. It is noted that the patient has a contrast allergy and will need prophylaxis for preprocedure CT scan performed or repeat coronary angiography if deemed to be indicated. The patient has been accepted in transfer by Dr. Walsh [place] [facility] [place]. [facility] Dr Thomas of the ICU for the purpose of coordination of care. I spent a total of 65 minutes on the date of service in preparation, delivery, and documentation of the care provided to this patient, excluding any time spent in the performance of separately billed services. History of Present Illness History of Present Illness Mr Dorsey is a 63 year old male seen in cardiology consultation per the request of Dr Gloria for the evaluation of shortness of breath. Patient notes worsening shortness of breath for the last month, and acutely worse for the last two weeks. Last night had difficulty catching his breath with an associated burning sensation in his midline anterior chest with noted orthopnea. Patient seen in the emergency room, bay A10, accompanied by his spouse, Debo. Patient has a h/o CAD and severe aortic stenosis prompting surgical AVR (27 mm Magna Ease pericardial valve) & CABG x 2 (SVG-LAD, SVG-OM) 12/2016 In the spring 2022, he was noted to have shortness of breath and underwent diagnostic coronary/bypass angiography at [facility] revealing patent grafts and ongoing medical therapy was recommended. An echocardiogram in Oct, 2022 revealed preserved left ventricular ejection fraction of 6065%, with abnormal prosthetic valve gradient suggestive of p rosthetic stenosis, maximum continuous-wave Doppler velocity of 4.78 m/s, mean gradient 54 mmHg at that time. The patient was placed on a trial of anticoagulation with Coumadin in November, and a repeat transthoracic echocardiogram performed in February, was suggestive of ongoing prosthetic stenosis not improved with anticoagulation. He went on to have a transesophageal echocardiogram performed by the undersigned in March, with findings of severe prosthetic leaflet thickening and reduced excursion and severe prosthetic aortic valve stenosis with aortic valve area of 0.94 cm by planimetry. He had been referred to the comprehensive valve clinic within the [facility] and ultimately had an appointment in July, with discussion with regards to proceeding with valve in valve transcatheter aortic valve replacement for open procedure. He was to receive a cardiac CT scan for preprocedure planning and to have a CT surgery consultation. The CT surgery consultation was actually planned for today. History: S/P RIGHT SFA 07/09/2015 S/P LAD PCI (Xience) 02/25/2016 S/P AVR (27 mm Magna Ease pericardial valve) & CABG x 2 (SVG-LAD, SVG-OM) 12/2016 - Dr. Aldana ECHO 08/2020 (The qualitative LV ejection fraction is 55-59% (normal). The LV wall thickness is mildly increased (concentric). The septal motion is abnormal consistent with the post-operative state. The regional left ventricular wall motion is otherwise normal. There is an aortic valve bioprosthetic present. The aortic valve prosthesis systolic gradients are normal for this type prosthesis. Ao V2 max: 230.6 cm/sec, Ao mean PG (full): 10.6 mmHg, EMMANUEL(I,D): 1.4 cm2) Significant aortic valve prosthesis regurgitation is absent. The aortic root is mildly enlarged. Compared to last available study changes are noted as follows: Bioprosthetic aortic valve replacement now present.) CARDIAC CATH 10/2022 @ [facility] (patent SVG-LAD & patent SVG-OM. 30% dLM, 99% instent LAD stenosis, 40% D1, 30% pCIRC, 80% OM, 30% pRCA, 50% ostial rPDA) ECHO 10/2022 (EF 60-65%, abnormal AVR gradients (VMax 478, mean 54, EMMANUEL 0.61) ECHO 02/2023 (The qualitative LV ejection fraction is 60-64% (normal). The LV wall thickness is moderately increased (concentric). There is an aortic valve bioprosthetic present. Bioprosthetic leaflets appear thickened with reduced excursion. The aortic valve prosthesis systolic gradients are abnormal for this type prosthesis suggesting obstruction. Dimensionless index 0.14 (Ao V2 max: 462.8 cm/sec, Ao mean PG (full): 51.2 mmHg, EMMANUEL(I,D): 0.42 cm2) SANDRA 03/2023 @ [facility] (EF 55-60%, the bioprosthetic leaflets are thickened with severely reduced excursion. There is severe with an EMMANUEL .94) EFRAIN 02/25/2024: EFRAIN at rest is 0.64 on the right and 0.57 on the left. Allergies Allergy/AdvReac Type Severity Reaction Status Date / Time valdecoxib AdvReac Intermediate "felt odd" Verified 04/07/23 07:06 per [facility] EMR Iodinated Contrast Media AdvReac Mild IMMEDIATE Verified 04/07/23 07:06 NAUSEA& VOMITING methadone AdvReac Mild HALLUCINATIONS, Verified 04/07/23 07:06 TREMBLING varenicline AdvReac Mild HALLUCINATIONS, Verified 04/07/23 07:06 TREMBLING Home Medications Medication Instructions Recorded Confirmed Type lisinopril 40 mg tablet 40 mg PO QAM 06/19/19 04/07/23 History ezetimibe 10 mg tablet (Zetia) 10 mg PO QAM 11/10/22 04/07/23 History albuterol sulfate 90 mcg/actuation 1 inh inhalation QID PRN sob 03/30/23 04/07/23 History aerosol inhaler amlodipine 10 mg tablet 10 mg PO QAM 03/30/23 04/07/23 History amoxicillin 500 mg tablet 2,000 mg PO UD PRN dental work 03/30/23 04/07/23 Histo ry aspirin 81 mg capsule 81 mg PO QAM 03/30/23 04/07/23 History atorvastatin 80 mg tablet 80 mg PO QAM 03/30/23 04/07/23 History diphenhydramine HCl 25 mg tablet 25 mg PO 5XWK 03/30/23 04/07/23 History (Benadryl Allergy) diphenhydramine HCl 25 mg tablet 25 mg PO UD 03/30/23 04/07/23 History (Benadryl Allergy) isosorbide mononitrate 60 mg 60 mg PO QAM 03/30/23 03/30/23 History tablet,extended release 24 hr metoprolol tartrate 50 mg tablet 50 mg PO QAM 03/30/23 04/07/23 History omeprazole 40 mg capsule,delayed 40 mg PO QAM 03/30/23 04/07/23 History release warfarin 5 mg tablet 5 mg PO 5XWK 03/30/23 04/07/23 History warfarin 5 mg tablet 10 mg PO 2XWK 03/30/23 04/07/23 History Patient History Medical History Suspected sleep apnea On anticoagulant therapy Peripheral neuropathy Borderline diabetes no medications -- monitoring Chronic back pain Degenerative disc disease GERD (gastroesophageal reflux disease) Hyperlipemia HTN (hypertension) Alcohol abuse PAD (peripheral artery disease) CAD (coronary artery disease) s/p CABG x2 2017 Aortic stenosis, severe s/p TAVR Lumbar spinal stenosis (05/16/14) Surgical History History of esophagogastroduodenoscopy (EGD) S/P epidural steroid injection History of heart artery stent with 1 stent placed ~ (in the LAD that later was bypassed with CABG 2015). History of cardiac cath total of 4 or 5 caths. patient recalls 1 stent in the past ~ (pt is unsure of the date) but the stent was placed at [facility] in the past. S/P peripheral artery angioplasty with stent placement done at [facility] in 2014 S/P cervical spinal fusion unsure of levels -- Full ROM "most of the time, depends on the day" H/O heart valve replacement with bioprosthetic valve ~2015 at [facility]. follows with Dr Braswell H/O heart bypass surgery unsure of the number of vessels done at [facility] ~2015 during the valve replacement [place] teeth extracted S/P lumbar spinal fusion "1997" History of lumbar laminectomy for spinal cord decompression "2013" History of appendectomy History of tonsillectomy and adenoidectomy Family History Other Cancer Heart disease No family history of adverse response to anesthesia Stroke Social History Smoking Status: Current every day smoker Tobacco Type: Cigarettes Cigarettes Per Day: 10-15; Second Hand Exposure: Yes; Do You Dip or Chew Tobacco: No; Hx Alcohol Use: Yes Alcohol type: beer and hard liquor Hx Substance Use: No Preferred Language: Turkmen Communication Ability: Effective Lsat Instructor Required: No Beliefs That Will Affect Care: None Current Living Situation: Spouse and Family Current Living Situation Comment: and adult daughter Feels Safe at Home: Yes Assistive Devices: Brace/Splint/Immobilizer Review of Systems Review of Systems: All systems reviewed & are unremarkable except as noted in HPI & below Physical Exam Constitutional: + ill appearing Respiratory: + respiratory distress and + tachypneic; no cough Auscultation: + diminished lung sounds (decreased BS bilaterally at the bases ); no crackles and no wheezes Cardiovascular: Rate/Rhythm: regular rate Heart Sounds: + murmur (2/6 SM ) Extremities: + edema (2+ LE edema ) Gastrointestinal (Abdomen): normal bowel sounds, soft, nontender, no hepatosplenomegaly Neurologic: PERRL, EOMI, accommodation nl, no face palsy, no dysarthria Psychiatric: A+Ox3, euthymic affect Results & Data Vital Signs (Past 12 Hours) Vital Signs Temp Pulse Pulse Resp BP Pulse Ox O2 Del Method 08/22/23 09:00 86 13 95 High Flow Nasal Cannula 08/22/23 09:00 118/77 08/22/23 08:30 102 H 19 95 High Flow Nasal Cannula 08/22/23 08:15 103 H 20 95 High Flow Nasal Cannula 08/22/23 08:12 126 H 34 H 95 Oxymask 08/22/23 08:02 112 H 24 08/22/23 08:02 151/84 H 08/22/23 08:00 105 H 34 H 93 08/22/23 07:47 98 H 34 H 93 High Flow Nasal Cannula 08/22/23 07:47 163/103 H 08/22/23 07:30 83 18 95 High Flow Nasal Cannula 08/22/23 07:30 96/62 L 08/22/23 07:18 107 H 95 High Flow Nasal Cannula 08/22/23 07:00 87 30 H 93 08/22/23 06:59 92 H 08/22/23 06:55 90 29 H 93 08/22/23 06:55 149/89 H 08/22/23 06:48 37 C 96 H 32 H 160/102 H 90 Nasal Cannula O2 Flow Rate FiO2 08/22/23 09:00 08/22/23 09:00 08/22/23 08:30 08/22/23 08:15 50 40 08/22/23 08:12 10 08/22/23 08:02 08/22/23 08:02 08/22/23 08:00 08/22/23 07:47 40 40 08/22/23 07:47 08/22/23 07:30 40 40 08/22/23 07:30 08/22/23 07:18 40 40 08/22/23 07:00 08/22/23 06:59 08/22/23 06:55 08/22/23 06:55 08/22/23 06:48 3 Laboratory Results Cardiac Enzymes 08/22/23 08/22/23 Range/Units 06:55 08:48 AST 25 (13-39) U/L Troponin I High Sens 23.9 H 30.2 H (0-20) pg/ml B-Natriuretic Peptide 734 H (0-100) pg/ml Coagulation 08/22/23 Range/Units 06:55 PT 28.2 H (9.0-12.0) Seconds APTT 38 H (21-31) Seconds B-Natriuretic Peptide 734 H (0-100) pg/ml CBC 08/22/23 Range/Units 06:55 WBC 5.75 (4.8-10.8) K/ul RBC 4.67 L (4.70-6.10) M/uL Hgb 13.6 L (14.0-18.0) g/dl Hct 39.5 L (42.0-52.0) % Plt Count 248 (130-400) K/uL Neut # (Auto) 4.43 (1.40-6.50) K/uL Lymph # (Auto) 1.02 L (1.20-3.40) K/uL [place] # (Auto) 0.22 (0.11-0.59) K/uL Eos # (Auto) 0.02 (0.00-0.50) K/uL Baso # (Auto) 0.02 (0.00-0.20) K/uL Comprehensive Metabolic Panel 08/22/23 Range/Units 06:55 Sodium 126 L (136-145) mmol/L Potassium 4.6 (3.5-5.1) mmol/L Chloride 96 L (98-107) mmol/L Carbon Dioxide 18 L (21-32) mmol/L BUN 13 (6-23) mg/dl Creatinine 0.95 (0.6-1.4) mg/dl Glucose 150 H (70-99(Fasting)) mg/dl Calcium 9.4 (8.6-10.3) mg/dl AST 25 (13-39) U/L ALT 38 (7-52) U/L Alkaline Phosphatase 96 (34-104) U/L Total Protein 7.6 (6.0-8.3) gm/dl Albumin 4.6 (3.4-5.0) gm/dl Diagnostic Findings EKG performed 08/22/2023 at 6:49 AM revealed sinus tachycardia 101 bpm with first-degree AV block, ST-T wave abnormality consistent with lateral ischemia versus left ventricular hypertrophy.Compared to the previous outpatient tracing, T wave changes are slightly more prominent.
[2023-08-22 10:04] LABS: Appearance Urine Clear (Clear); Bilirubin Urine Negative (Negative); Blood Urine Negative (Negative); Color Urine Yellow; Glucose Urine UA Negative (Negative); Ketones Urine Negative (Negative); Leukocyte Esterase Urine Negative (Negative); Nitrite Urine Negative (Negative); Protein Urine Negative (Negative); Specific Gravity Urine 1.007 (1.000-1.030); Urobilinogen Urine Negative (Negative)
--- NOTE | 2023-08-22 10:16 | History & Physical Report ---
Date of Service August 22, 2023 Assessment & Plan (1) Aortic stenosis, severe: (2) CHF (congestive heart failure): (3) Acute dyspnea: Plan Mr. Jonas Dorsey is a 63 year old year old gentleman with known CAD s/p CABG, aortic stenosis s/p AVR, bioprosthetic , hypertension, hyperlipidemia, PAD, COPD, GERD and tobacco use who presented for acute dyspnea and found to be in acute heart failure secondary to progression for bioprosthetic AVR stenosis. Dyspnea has been an ongoing onconcern over last year with repeated ECHO/imaging demonstarting severe . Patient established with interventional cardiology for evaluation of SUE replacement or surgical options, but has not yet completed process for moving forward. Patient with hemodynamically tenuous circumstances requiring close ICU monitoring for IV diuersis and management of heart failure while awaiting boyle sfer to [facility] [place]. #Acute hypoxic respiratory failure -ISO decompensated heart failure 2/2 aortic valve stenosis -Didn't tolerate bipap, currently on HFNC -Improving with lasix -CTM and wean as tolerated Management of airway per ICU recommendations #Acute heart failure with mid-rang EF (40-45% 2023) #Pulmonary hypertension, PASP 57mmhg #Severe aortic stenosis now c/b severe bioprosthetic aortic valve stenosis (AVR in 2017) #Multivessel coronary artery disease s/p LAD PCI 02/25/2016; s/p CABG x 2 (SVG- LAD, SVG-OM) 12/2016 #Peripheral arterial disease s/p RSFA stenting 2015 ECHO 08/22/2023 aortic stenosis, velocity 5.2m/s, gradient 66, DI 0.14 [facility] 10/2022 with patent grafts and non obstructive CAD Established with interventional at [facility] [place], Dr Lovell last seen 07/2023 -Plans for CT coronary for surgical planning -BNP 734, biofire negative -Cardiology following - Lisinopril 10mg BID -Metoprolol XL 50mg daily -Wright placed -Continue ASA -IV diuresis per cards/ICU -Given hemodynamic liability of patient's valvular pathology will monitor in ICU until transfer facilitated to [facility] [employer] on consult, appreciate further recommendations #Chronic anticoagulation -Warfarin started to r/o valve thrombosis as etiology of progressive stenosis -Will discontinue at this time 2/2 cardiology recommendations as there are no other indications for AC at this time Trend INR, SCDs at this time #Hypervolemic hyponatremia iso congestive heart failure -IV diuresis per Cardiology -Repeat BMP q12 #Acute anemia, borderline microcytic -Reports occasional hematochezia/hemorrhoids -on warfarin -Iron studies, B12, folate in am Hold AC at this time #Elevated Troponin likely iso decompensated HF -Trend troponin -Monitor on tele #HLD Continue zetia and statin #Tobacco use -1 week ago last cigarette Declines any need for patch at this time #COPD -appears stable, symptoms likely 2/2 ongoing decompensated heart failure albuterol prn, duonebs prn at home duonebs prn while admitted Incruse inhaler daily Continue home loratadine #Alcohol Use -Reports daily alcohol use -AWSS Folate, thiamine supplementation Diet NPO until stable improvement in respiratory status DVT SCDS, INR 2.7, repeat INR in am (no further coumadin per Cards) Admit ICU pending transfer to [facility] for valve assessment Admission and Anticipated Discharge Date Admission Date: Time spent evaluating patient, direct bedside care, chart review, placing orders, interpretation of diagnostic studies, discussion with consultants, patient, and family members, as well as other required patient management activities is 60 minutes. History of Present Illness Chief Complaint: Dyspnea Primary Care Provider: Brad Thompson MD Mr. Jonas Dorsey is a 63 year old year old gentleman with known CAD s/p CABG, aortic stenosis s/p AVR, bioprosthetic , hypertension, hyperlipidemia, PAD, COPD, GERD and tobacco use who presented to [facility] ED due to for acute dyspnea and found to be in acute heart failure secondary to progression for bioprosthetic AVR stenosis Patient with concerns of dyspnea for nearly the last year and undergoing evalua tion for replacement of bioprosthetic valve that is severely stenosis. Patient trialed on coumadin in hopes to assess if thrombosis the source of progressive stenosis with no improvement noted. Patient states symptoms worsened prompting him to stop smoking over 1 week prior to presentation given difficulty breathing. Patient reports occasional chest tightness, mostly IRIZARRY and orthopnea. In the ED, vitals were notable for BP of 90s-160s, HR of 80-100s, and O2 sat of high 90s on HFNC labs with hyponatremia to 128, bicarb 18, gap 12, low osmo 276, lactate 2.9, trop 30.2 and BNP 734, biofire negative Imaging revealed EKG sinus tachy ACV block,artifact, t wave changes noted ECHO with reduced EF to 40-45%, phtn 57mmhg and severe aortic stenosis noted ED interventions: wright placed, IV lasix 40mg Consultants: Cardiology Patient to be admitted to ICU for further evaluation and management of acute heart failure iso severe aortic bioprosthetic valve stenosis. Awaiting transfer contingent on bed availability Allergies Allergy/AdvReac Type Severity Reaction Status Date / Time valdecoxib AdvReac Intermediate "felt odd" Verified 04/07/23 07:06 per S EMR Iodinated Contrast Media AdvReac Mild IMMEDIATE Verified 04/07/23 07:06 NAUSEA& VOMITING methadone AdvReac Mild HALLUCINATIONS, Verified 04/07/23 07:06 TREMBLING varenicline AdvReac Mild HALLUCINATIONS, Verified 04/07/23 07:06 TREMBLING Home Medications Medication Instructions Recorded Confirmed Type lisinopril 40 mg tablet 40 mg PO QAM 06/19/19 08/22/23 History ezetimibe 10 mg tablet (Zetia) 10 mg PO QAM 11/10/22 08/22/23 History albuterol sulfate 90 mcg/actuation 1 inh inhalation QID PRN sob 03/30/23 08/22/23 History aerosol inhaler amlodipine 10 mg tablet 10 mg PO QAM 03/30/23 08/22/23 History amoxicillin 500 mg tablet 2,000 mg PO UD PRN dental work 03/30/23 08/22/23 History aspirin 81 mg capsule 81 mg PO QAM 03/30/23 08/22/23 History atorvastatin 80 mg tablet 80 mg PO QAM 03/30/23 08/22/23 History diphenhydramine HCl 25 mg tablet 25 mg PO 5XWK 03/30/23 08/22/23 History (Benadryl Allergy) diphenhydramine HCl 25 mg tablet 25 mg PO UD 03/30/23 08/22/23 History (Benadryl Allergy) isosorbide mononitrate 60 mg 60 mg PO QAM 03/30/23 08/22/23 History tablet,extended release 24 hr metoprolol tartrate 50 mg tablet 50 mg PO QAM 03/30/23 08/22/23 History omeprazole 40 mg capsule,delayed 40 mg PO QAM 03/30/23 08/22/23 History release warfarin 5 mg tablet 5 mg PO 5XWK 03/30/23 08/22/23 History warfarin 5 mg tablet 10 mg PO 2XWK 03/30/23 08/22/23 History Past Med/Surg History Medical History Suspected sleep apnea On anticoagulant therapy Peripheral neuropathy Borderline diabetes no medications -- monitoring Chronic back pain Degenerative disc disease GERD (gastroesophageal reflux disease) Hyperlipemia HTN (hypertension) Alcohol abuse PAD (peripheral artery disease) CAD (coronary artery disease) s/p CABG x2 2017 Aortic stenosis, severe s/p TAVR Lumbar spinal stenosis (05/16/14) Surgical History History of esophagogastroduodenoscopy (EGD) S/P epidural steroid injection History of heart artery stent with 1 stent placed ~ (in the LAD that later was bypassed with CABG 2015). History of cardiac cath total of 4 or 5 caths. patient recalls 1 stent in the past ~ (pt is unsure of the date) but the stent was placed at [facility] in the past. S/P peripheral artery angioplasty with stent placement done at [facility] in 2014 S/P cervical spinal fusion unsure of levels -- Full ROM "most of the time, depends on the day" H/O heart valve replacement with bioprosthetic valve ~2015 at [facility]. follows with Dr Braswell H/O heart bypass surgery unsure of the number of vessels done at [facility] ~2015 during the valve replacement Ernul teeth extracted S/P lumbar spinal fusion "1997" History of lumbar laminectomy for spinal cord decompression "2013" History of appendectomy History of tonsillectomy and adenoidectomy Family History Other Cancer Heart disease No family history of adverse response to anesthesia Stroke Social History Smoking Status: Current every day smoker Tobacco Type: Cigarettes Cigarettes Per Day: 10-15; Second Hand Exposure: Yes; Do You Dip or Chew Tobacco: No; Hx Alcohol Use: Yes Alcohol type: beer and hard liquor Hx Substance Use: No Preferred Language: Maltese Communication Ability: Effective Transfer [employer] Operator Required: No Beliefs That Will Affect Care: None Current Living Situation: Spouse and Family Current Living Situation Comment: and adult daughter Feels Safe at Home: Yes Assistive Devices: Brace/Splint/Immobilizer Review of Systems Review of Systems: Constitutional: (-) fever/chills, (-) recent loss of weight, (-) appetite changes, (-) night sweats. Head: (-) headache, (-) dizziness. Eye: (-) blurring of vision, (-) double vision, (-) redness. Ear: (-) hearing loss, (-) discharge, (-) vertigo Nose: (-) discharge, (-) bleeding, (-) congestion, (-) post nasal drip. Throat: (-) sore throat, (-) hoarseness of voice, (-) odynophagia. Cardiovascular: (+) chest pain, (-) palpitations, (-) syncope, (++) orthopnea, (++) PND, (++) leg swelling. Respiratory: (+)shortness of breath, (-) cough, (-) wheezing, (-) hemoptysis. Neuro: (-) weakness in extremities, (-) numbness, (-) tingling, (-) tremor. Gastrointestinal: (-) belly pain, (-) belly distension, (-) nausea, (-) vomiting, (-) diarrhea, (-) constipation Genitourinary: (-) hematuria, (-) dysuria, (-) polyuria, (-) hesitancy, (-) frequency, (-) urinary incontinence. Musculoskeletal: (-) myalgia, (-) arthralgia. Skin: (-) rashes. Endocrine: (-) heat/cold intolerance. Psychiatry: (-) depression, (-) hallucination. Physical Exam Physical Exam: GENERAL APPEARANCE: AxOx4, generally uncomfortable appearing male, mild distress with abrupt positional changes HEENT: NC, AT. MMM. EOMI, clear conjunctiva, oropharynx clear. NECK: Supple without lymphadenopathy. No stiffness or restricted ROM. HEART: Normal rate and regular rhythm, +EDNA, 2+edema to mid BLE LUNGS: bilateral crackles appreciated L>R, decreased basilar breathsounds HFNC in place ABDOMEN: Soft, nontender, nondistended with good bowel sounds heard. Wright in place, yellow/clear urine draining BACK: No CVAT, no obvious deformity. EXTREMITIES: Without cyanosis, clubbing or edema. NEUROLOGICAL: Grossly nonfocal. Alert and oriented, moving all 4 extremities. CN not formally tested but appear grossly intact Skin: Warm and dry without any rash, few excoriations/lesions on hands 2/2 career, no signs of superimposed infection Results & Data Results & Data Vital Signs (Past 12 Hours) Vital Signs Temp Pulse Pulse Resp BP Pulse Ox O2 Del Method 08/22/23 10:00 139/80 08/22/23 10:00 95 H 20 96 Room Air 08/22/23 09:30 95 H 15 08/22/23 09:00 86 13 95 High Flow Nasal Cannula 08/22/23 09:00 118/77 08/22/23 08:30 102 H 19 95 High Flow Nasal Cannula 08/22/23 08:15 103 H 20 95 High Flow Nasal Cannula 08/22/23 08:12 126 H 34 H 95 Oxymask 08/22/23 08:02 112 H 24 08/22/23 08:02 151/84 H 08/22/23 08:00 105 H 34 H 93 08/22/23 07:47 98 H 34 H 93 High Flow Nasal Cannula 08/22/23 07:47 163/103 H 08/22/23 07:30 83 18 95 High Flow Nasal Cannula 08/22/23 07:30 96/62 L 08/22/23 07:18 107 H 95 High Flow Nasal Cannula 08/22/23 07:00 87 30 H 93 08/22/23 06:59 92 H 08/22/23 06:55 90 29 H 93 08/22/23 06:55 149/89 H 08/22/23 06:48 37 C 96 H 32 H 160/102 H 90 Nasal Cannula O2 Flow Rate FiO2 08/22/23 10:00 08/22/23 10:00 08/22/23 09:30 08/22/23 09:00 08/22/23 09:00 08/22/23 08:30 08/22/23 08:15 50 40 08/22/23 08:12 10 08/22/23 08:02 08/22/23 08:02 08/22/23 08:00 08/22/23 07:47 40 40 08/22/23 07:47 08/22/23 07:30 40 40 08/22/23 07:30 08/22/23 07:18 40 40 08/22/23 07:00 08/22/23 06:59 08/22/23 06:55 08/22/23 06:55 08/22/23 06:48 3 Laboratory Results Short CBC 08/22/23 Range/Units 06:55 WBC 5.75 (4.8-10.8) K/ul Hgb 13.6 L (14.0-18.0) g/dl Hct 39.5 L (42.0-52.0) % Plt Count 248 (130-400) K/uL BMP 08/22/23 06:55 Sodium 126 L Potassium 4.6 Chloride 96 L Carbon Dioxide 18 L BUN 13 Creatinine 0.95 Glucose 150 H Calcium 9.4 Liver Function 08/22/23 Range/Units 06:55 Total Bilirubin 0.7 (0.2-1.0) mg/dl AST 25 (13-39) U/L ALT 38 (7-52) U/L Alkaline Phosphatase 96 (34-104) U/L Albumin 4.6 (3.4-5.0) gm/dl Urine 08/22/23 Range/Units 09:55 Urine Color Yellow Urine Appearance Clear (Clear) Urine pH 5.0 (4.5-7.5) Ur Specific Colo 1.007 (1.000-1.030) Urine Protein Negative (Negative) Urine Glucose (UA) Negative (Negative) Medications Administered Home Medications Medication Instructions Recorded Confirmed Last Taken lisinopril 40 mg tablet 40 mg PO QAM 06/19/19 04/07/23 04/07/23 ezetimibe 10 mg tablet (Zetia) 10 mg PO QAM 11/10/22 04/07/23 Unknown albuterol sulfate 90 mcg/actuation 1 inh inhalation QID PRN sob 03/30/23 04/07/23 Unknown aerosol inhaler amlodipine 10 mg tablet 10 mg PO QAM 03/30/23 04/07/23 04/07/23 amoxicillin 500 mg tablet 2,000 mg PO UD PRN dental work 03/30/23 04/07/23 Unknown aspirin 81 mg capsule 81 mg PO QAM 03/30/23 04/07/23 04/07/23 atorvastatin 80 mg tablet 80 mg PO QAM 03/30/23 04/07/23 04/07/23 diphenhydramine HCl 25 mg tablet 25 mg PO 5XWK 03/30/23 04/07/23 04/07/23 (Benadryl Allergy) diphenhydramine HCl 25 mg tablet 25 mg PO UD 03/30/23 04/07/23 04/07/23 (Benadryl Allergy) isosorbide mononitrate 60 mg 60 mg PO QAM 03/30/23 03/30/23 Unknown tablet,extended release 24 hr metoprolol tartrate 50 mg tablet 50 mg PO QA 03/30/23 04/07/23 04/07/23 omeprazole 40 mg capsule,delayed 40 mg PO QA 03/30/23 04/07/23 Unknown release warfarin 5 mg tablet 5 mg PO 5XWK 03/30/23 04/07/23 04/06/23 warfarin 5 mg tablet 10 mg PO 2XWK 03/30/23 04/07/23 04/04/23
--- NOTE | 2023-08-22 10:31 | Critical Care Consultation ---
Date of Consultation August 22, 2023 Assessment & Plan (1) Acute on chronic heart failure with reduced ejection fraction and diastolic dysfunction: (2) Elevated troponin: (3) Aortic stenosis, severe: (4) CHF (congestive heart failure): (5) Tobacco abuse disorder: (6) HTN (hypertension): (7) Hyponatremia: (8) Acute respiratory failure with hypoxia: (9) Metabolic acidosis: Plan Reason Critically Ill: 63-year-old male past medical history of CABG and prosthetic aortic valve with severe aortic stenosis presents to the hospital with complaints of shortness of breath. He was found to be in CHF exacerbation Neuro - [facility] ICU: Negative Cardiac - --Acute systolic plus diastolic CHF exacerbation Continue with diuretics to keep the patient negative balance Strict ins and out Will benefit from BiPAP 2D echo 08/22/2023: Does show new wall motion abnormalities with EF 40-45%, grade 2 diastolic dysfunction --Elevated troponin Likely type II UT Continue to trend troponin EKG 08/22/2023 6:49 AM: Sinus tachycardia, T wave inversions appreciated in leads I and II, no ST changes, normal axis -- History of coronary artery disease s/p CABG Respiratory - -- Acute hypoxic respiratory failure Secondary to systolic CHF along with severe aortic stenosis BNP 734 Respiratory bio fire negative for everything on 08/22/2023 Chest x-ray 08/22/2023: Portable film, good inspiratory effort, increased pulmonary vascular markings appreciated bilaterally with hilar vascular congestion, increased cardiac silhouette -- Current smoker [id number] smoking history Currently smoking half a pack a day Importance of quitting explained to the patient in depth GI - -- Hematochezia On and off every 2 to 3 days Denies any constipation Was supposed to follow-up with GI RENAL/LYTES - -- Hyponatremia with hypochloremia Hypervolemic Follow-up urine osmolality, urine sodium as well as serum osmolality -- Normal anion gap metabolic acidosis Follow-up lactic acid - -- Continue with Pierson catheter ENDO - Continue with ICU hyperglycemia protocol HEME - --On chronic anticoagulation a trial of anticoagulation was initiated in November, due to concerns that thrombus could be playing a role in the early prosthetic valve stenosis But given the persistence of prosthetic stenosis on anticoagulation, cardiology feels his transthoracic echocardiogram as well as transesophageal echocardiogram studies are consistent with early prosthetic degeneration. -- Monitor H&H ID - -- No current issues --Prophylaxis VTE: Warfarin, which will be held GI: PPI Lines: Peripheral Diet: Cardiac Plan: Patient with severe aortic stenosis are preload dependent, avoid getting the patient to hypotensive. Gradually decreasing afterload will be beneficial. Continue with diuretics to keep the patient negative balance. Consider another dose to be given later today based on patient's output Follow-up TSH and lactate Patient has been accepted at [facility] for possible aortic valve intervention. BiPAP nightly and as needed shortness of breath. Patient does have severe anxiety/claustrophobia. I do not think he needs BiPAP right now given the improvement with diuretics. But if there is any worsening this would be the next step. He was made to understand and is agreeable to use it in future if need be Case was discussed with Dr. Braswell on the phone and Dr. Morrison at bedside I have personally spent 52 minutes of critical care time in the direct management of this patient. This is a life/limb threatening event. This includes time spent evaluating patient, direct bedside care, chart review, placing orders, interpretation of diagnostic studies, discussion with consultants, patient, and family members, as well as other required patient management activities. This time is exclusive of all separately billable procedures, and teaching time and separate from and in addition to any other critical care service time. History of Present Illness History of Present Illness 63-year-old male present to the hospital complains of shortness of breath Past medical history: Coronary artery disease status post CABG, aortic valve replacement with severe aortic stenosis, hypertension, active smoker, dyslipidemia ICU was consulted for requirement of high flow At the time of examination patient was on 50 L high flow, 50% saturating 97-98%. By the end of the interrogation I was able to go down to 35 L and 35% with patient still maintaining saturation around 93-94% Patient said that he was progressively getting short of breath but today in the morning he was really short of breath is worse when he is laying down. He had some chest discomfort as well which was nonradiating. [place] little bit of nausea. Did not throw up. No recent upper respite tract infection. Bringing up clear phlegm. Denies any hemoptysis. Has been compliant with his medications. Does complain of hematochezia which is on and off every couple of days. No constipation No hematuria. Social history: 95-zybv-cist smoking history, currently smoking half a pack a day, Allergies Allergy/AdvReac Type Severity Reaction Status Date / Time valdecoxib AdvReac Intermediate "felt odd" Verified 04/07/23 07:06 per S EMR Iodinated Contrast Media AdvReac Mild IMMEDIATE Verified 04/07/23 07:06 NAUSEA& VOMITING methadone AdvReac Mild HALLUCINATIONS, Verified 04/07/23 07:06 TREMBLING varenicline AdvReac Mild HALLUCINATIONS, Verified 04/07/23 07:06 TREMBLING Home Medications Medication Instructions Recorded Confirmed Type lisinopril 40 mg tablet 40 mg PO QAM 06/19/19 08/22/23 History ezetimibe 10 mg tablet (Zetia) 10 mg PO QAM 11/10/22 08/22/23 History albuterol sulfate 90 mcg/actuation 1 inh inhalation QID PRN sob 03/30/23 08/22/23 History aerosol inhaler amlodipine 10 mg tablet 10 mg PO QAM 03/30/23 08/22/23 History amoxicillin 500 mg tablet 2,000 mg PO UD PRN dental work 03/30/23 08/22/23 History aspirin 81 mg capsule 81 mg PO QAM 03/30/23 08/22/23 History atorvastatin 80 mg tablet 80 mg PO QAM 03/30/23 08/22/23 History diphenhydramine HCl 25 mg tablet 25 mg PO 5XWK 03/30/23 08/22/23 History (Benadryl Allergy) diphenhydramine HCl 25 mg tablet 25 mg PO UD 03/30/23 08/22/23 History (Benadryl Allergy) isosorbide mononitrate 60 mg 60 mg PO QAM 03/30/23 08/22/23 History tablet,extended release 24 hr metoprolol tartrate 50 mg tablet 50 mg PO QAM 03/30/23 08/22/23 History omeprazole 40 mg capsule,delayed 40 mg PO QAM 03/30/23 08/22/23 History release warfarin 5 mg tablet 5 mg PO 5XWK 03/30/23 08/22/23 History warfarin 5 mg tablet 10 mg PO 2XWK 03/30/23 08/22/23 History Patient History Medical History Suspected sleep apnea On anticoagulant therapy Peripheral neuropathy Borderline diabetes no medications -- monitoring Chronic back pain Degenerative disc disease GERD (gastroesophageal reflux disease) Hyperlipemia HTN (hypertension) Alcohol abuse PAD (peripheral artery disease) CAD (coronary artery disease) s/p CABG x2 2017 Aortic stenosis, severe s/p TAVR Lumbar spinal stenosis (05/16/14) Surgical History History of esophagogastroduodenoscopy (EGD) S/P epidural steroid injection History of heart artery stent with 1 stent placed ~ (in the LAD that later was bypassed with CABG 2015). History of cardiac cath total of 4 or 5 caths. patient recalls 1 stent in the past ~ (pt is unsure of the date) but the stent was placed at [facility] in the past. S/P peripheral artery angioplasty with stent placement done at [facility] in 2014 S/P cervical spinal fusion unsure of levels -- Full ROM "most of the time, depends on the day" H/O heart valve replacement with bioprosthetic valve ~2015 at [facility]. follows with Dr Braswell H/O heart bypass surgery unsure of the number of vessels done at [facility] ~2015 during the valve replacement [place] teeth extracted S/P lumbar spinal fusion "1997" History of lumbar laminectomy for spinal cord decompression "2013" History of appendectomy History of tonsillectomy and adenoidectomy Family History Other Cancer Heart disease No family history of adverse response to anesthesia Stroke Social History Smoking Status: Current every day smoker Tobacco Type: Cigarettes Cigarettes Per Day: 10-15; Second Hand Exposure: Yes; Do You Dip or Chew Tobacco: No; Hx Alcohol Use: Yes Alcohol type: beer and hard liquor Hx Substance Use: No Preferred Language: Yi Communication Ability: Effective Education Rep Required: No Beliefs That Will Affect Care: None Current Living Situation: Spouse and Family Current Living Situation Comment: and adult daughter Feels Safe at Home: Yes Assistive Devices: Brace/Splint/Immobilizer Review of Systems 2 Review of Systems: All systems reviewed & are unremarkable except as noted in HPI & below Physical Exam 2 Physical Exam: Constitutional: No acute distress HEENT: EOMI, PERRLA Respiratory system: Decreased air entry bilaterally, no wheeze, no rhonchi, mild crackles bilaterally CVS: S1-S2 positive, positive 3 out of 6 systolic murmur appreciated best at aorta Abdomen: Soft, nontender, nondistended, positive bowel sounds x4, obese Extremities: +2 pulses bilaterally radialis/ dorsalis pedis, no cyanosis, +2 pitting edema bilateral lower extremity Neuro: Awake alert oriented x3 Psych: Normal mood and affect G/U: Positive Pierson Skin: no rashes, warm and dry Lymphatic: no cervical or axillary lymphadenopathy Results & Data Results & Data Vital Signs (Past 12 Hours) Vital Signs Temp Pulse Pulse Resp BP Pulse Ox O2 Del Method 08/22/23 10:00 139/80 08/22/23 10:00 95 H 20 96 Room Air 08/22/23 09:30 95 H 15 08/22/23 09:00 86 13 95 High Flow Nasal Cannula 08/22/23 09:00 118/77 08/22/23 08:30 102 H 19 95 High Flow Nasal Cannula 08/22/23 08:15 103 H 20 95 High Flow Nasal Cannula 08/22/23 08:12 126 H 34 H 95 Oxymask 08/22/23 08:02 112 H 24 08/22/23 08:02 151/84 H 08/22/23 08:00 105 H 34 H 93 08/22/23 07:47 98 H 34 H 93 High Flow Nasal Cannula 08/22/23 07:47 163/103 H 08/22/23 07:30 83 18 95 High Flow Nasal Cannula 08/22/23 07:30 96/62 L 08/22/23 07:18 107 H 95 High Flow Nasal Cannula 08/22/23 07:00 87 30 H 93 08/22/23 06:59 92 H 08/22/23 06:55 90 29 H 93 08/22/23 06:55 149/89 H 08/22/23 06:48 37 C 96 H 32 H 160/102 H 90 Nasal Cannula O2 Flow Rate FiO2 08/22/23 10:00 08/22/23 10:00 08/22/23 09:30 08/22/23 09:00 08/22/23 09:00 08/22/23 08:30 08/22/23 08:15 50 40 08/22/23 08:12 10 08/22/23 08:02 08/22/23 08:02 08/22/23 08:00 08/22/23 07:47 40 40 08/22/23 07:47 08/22/23 07:30 40 40 08/22/23 07:30 08/22/23 07:18 40 40 08/22/23 07:00 08/22/23 06:59 08/22/23 06:55 08/22/23 06:55 08/22/23 06:48 3 Laboratory Results 08/22/23 06:55 08/22/23 06:55 Diagnostic Findings 08/22/23 06:55 08/22/23 06:55 Coding Level of Care Code 60001 CRITICAL CARE 1ST 30-74M Diagnoses Acute on chronic heart failure with reduced ejection fraction and diastolic dysfunction I50.43 Elevated troponin R79.89 Aortic stenosis, severe I35.0 CHF (congestive heart failure) I50.9 Tobacco abuse disorder Z72.0 HTN (hypertension) I10 Hyponatremia E87.1 Acute respiratory failure with hypoxia J96.01 Metabolic acidosis E87.20
[2023-08-22] MEDS: lisinopril 10 MG TAB PO STA (11:11)
[2023-08-22] MEDS: METOPROLOL SUCC 50MG EXT REL TAB PO STA (11:11)
[2023-08-22 11:21] LABS: Potassium Random Urine 28.3 mmol/L
[2023-08-22 11:29] LABS: Creatinine Urine Random 23.2 mg/dl
[2023-08-22] MEDS ORDERED: ATORVASTATIN 40 MG TAB PO ONE (12:00)
[2023-08-22 12:03] LABS: Thyroid Stimulating Hormone 1.647 uIu/ml (0.300-4.500)
[2023-08-22] MEDS: EZETIMIBE 10 MG TAB PO ONE (12:27)
[2023-08-22] MEDS: ATORVASTATIN 40 MG TAB PO ONE (12:28)
--- NOTE | 2023-08-22 12:38 | Communication Note ---
Date of Service: August 22, 2023 Patient reassessed after Pierson catheter was placed with 700 mL of urine output noted at that time. Second dose of furosemide 40 mg IV x 1 ordered. Discussed plan with nursing. Transfer paperwork completed. Heide Braswell DO
[2023-08-22] MEDS ORDERED: ALBUT/IPRATROP 3MG/0.5MG NEB 3 ML VIAL NEB PRN (13:15)
[2023-08-22] MEDS: ICU Protocol for HYPERglycemia SCH (14:44)
[2023-08-22 16:45] LABS: BUN Creatinine Ratio 22.4 (10-20); Calcium 6.8 mg/dl (8.6-10.3); Creatinine Clr Calc Pharmacy 150.9 ml/min; Est GFR (African American) 118.5 ml/min; Est GFR (Non-African American) 102.3 ml/min; Potassium 3.2 mmol/L (3.5-5.1)
--- NOTE | 2023-08-22 17:20 | Communication Note ---
Date of Service: August 22, 2023 Patient reassessed in the medical ICU. He is comfortable. Oxygen requirements down to 4 L/min high flow nasal cannula Repeat EKG performed at 1520 revealed sinus rhythm 81 bpm with first-degree AV block left ventricular hypertrophy by voltage criteria, T wave inversions in the high lateral leads I and aVL, unchanged compared to previous. 2.8 L of urine output noted thus far. Data: Repeat metabolic panel performed at 1555 revealed stable kidney function. Potassium down to 3.2 having been 4.6 earlier today. Sodium now 133 having been 126. it is felt that the sodium was low due to dilution from volume overload. Plan: Supplement potassium. Hold of on additional diuretic until reassessed on 08/23/23.
[2023-08-22] MEDS: POTASSIUM CHLORIDE CRTAB 20 MEQ TABCR PO STA (17:40)
[2023-08-22] MEDS ORDERED: BEER 1 CAN PO SCH (21:00)
[2023-08-22] MEDS ORDERED: GLUCAGON FOR INJ 1 MG VIAL SQ PRN (21:07)
[2023-08-22] MEDS ORDERED: GLUCOSE 40% GEL 15 GM TUBE PO PRN (21:07)
[2023-08-22] MEDS ORDERED: DEXTROSE 50% 50 ML SYRINGE IV PRN (21:07)
[2023-08-22] MEDS ORDERED: GLUCOSE 10 TAB/TUBE PO PRN (21:07)
[2023-08-22] MEDS ORDERED: CARBOHYDRATES FOR HYPOGLYCEMIA PO PRN (21:07)
[2023-08-22] MEDS: lisinopril 10 MG TAB PO SCH (21:14)
[2023-08-22] MEDS: ALBUT/IPRATROP 3MG/0.5MG NEB 3 ML VIAL ONE (22:30)
[2023-08-22] MEDS: INSULIN ASPART PER UNIT CHARGE ONE (22:30)
--- OUTSIDE RECORDS SUMMARY | 2023-08-22 23:07 | External Medical Summary | Summary of Care ---
Author Name Unknown Organization [facility] Address [address] [facility] [place] [address] Phone [phone] Care Team Providers Care Quality Assurance Coach Name Role Phone Brad Thompson MD Primary Care Provider + Reason for Visit * Reason Comments eRx-Medication Refill Encounter Details Date Type Department Care Team (Late st Contact Info) Description 08/12/2023 Refill General Internal Medicine [facility] [place] [address] [facility] [place] [address] [facility] [address] HTN, goal below 140/90 Allergies Active Allergy Reactions Criticality Noted Date Comments Varenicline Tartrate Nausea/vomiting,Psy ch complications High 08/05/2010 Iodinated Contrast Media Nausea/vomiting 2015 Methadone Other (Please comment) 09/04/2010 Shakes Valdecoxib 03/18/2004 felt odd documented as of this encounter (statuses as of 2023) Medications Medication Sig Dispensed Refills Start Date End Date Status acetaminophen (TYLENOL) 500 MG TabletIndications:G eneralized headache Take 2 Tablets by mouth every 8 hours as needed for Pain. 100 Tab 0 9 Active Fluticasone Propionate 50 MCG/ACT Nasal SuspensionIndicatio ns:Runny nose Administer 2 Sprays into each nostril daily. 16 g 1 0 Active Isosorbide Mononitrate ER 60 MG Oral Tablet Extended Release 24 Hour (Imdur) Take 1 Tablet by mouth in the morning. 34 Tablet 11 3 Active Atorvastatin Calcium 80 MG Oral Tablet (Lipitor)Indication s:Dyslipidemia, goal LDL below 70 Take 1 Tablet by mouth in the morning. 90 Tablet 3 3 Active Amoxicillin 500 MG Oral Capsule (Amoxil)Indications :S/P AVR (aortic valve replacement) TAKE FOUR CAPSULES BY MOUTH ONE HOUR PRIOR TO APPOINTMENT 4 Capsule 0 3 Active Warfarin Sodium 10 MG Oral Tablet (Jantoven) take 1 tablet by mouth on tuesday, tuesday, and tuesday 30 Tablet 3 3 Active Albuterol Sulfate HFA 108 (90 Base) MCG/ACT Inhalation Aerosol SolutionIndications :Bronchospasm INHALE TWO PUFFS BY MOUTH EVERY 6 HOURS NEEDED FOR WHEEZING 18 g 5 3 Active diphenhydrAMINE HCl 25 MG Oral Capsule (Benadryl Allergy) Take 1 Capsule by mouth every 6 hours as needed for Itching. 0 Active Loratadine 10 MG Oral Tablet (Claritin)Indicatio ns:Itchy skin Take 1 Tablet by mouth in the morning. 0 3 Active Ezetimibe 10 MG Oral Tablet (Zetia)Indications: Dyslipidemia, goal LDL below 70 TAKE ONE TABLET BY MOUTH ONE TIME DAILY 90 Tablet 3 3 Active Lisinopril 40 MG Oral TabletIndications:H TN, goal below 140/90 TAKE ONE TABLET BY MOUTH ONE TIME DAILY 90 Tablet 3 3 Active Metoprolol Tartrate 50 MG Oral Tablet (Lopressor)Indicati ons:HTN, goal below 140/90 TAKE 1 TABLET BY MOUTH ONCE DAILY 90 Tablet 1 4 Active amLODIPine Besylate 10 MG Oral Tablet (Norvasc)Indication s:HTN, goal below 140/90 TAKE 1 TABLET BY MOUTH ONCE DAILY 90 Tablet 1 4 Active Omeprazole 40 MG Oral Capsule Delayed Release (PriLOSEC) TAKE 1 CAPSULE BY MOUTH ONCE DAILY 90 Capsule 1 4 Active Nitroglycerin 0.4 MG Sublingual Tablet Sublingual (Nitrostat)Indicati ons:Coronary artery disease involving hoh coronary artery of hoh heart without angina pectoris Place 1 Tablet under the tongue every 5 minutes as needed for Pain, Chest. up to 3 doses in 15 minutes 25 Tablet 11 4 Active Additional Information Patient not taking.Reported on 08/01/2023 Ipratropium-Albuter ol 0.5-2.5 (3) MG/3ML Inhalation Solution (Duoneb)Indications :IRIZARRY (dyspnea on exertion),Tobacco use disorder,COPD, group B, by GOLD 2017 classification ([facility]) Inhale 3 mL via nebulizer 4 times a day as needed for Wheezing. 360 mL 1 4 Active Aspirin Low Dose 81 MG Oral Tablet Delayed Release (aspirin enteric coated)Indications: HTN, goal below 140/90 TAKE 1 TABLET BY MOUTH EVERY MORNING 90 Tablet 3 4 Active Warfarin Sodium 5 MG Oral Tablet (Guerotoven)Indicatio ns:Accelerating angina ([facility]),S/P CABG (coronary artery bypass graft) Take 1 tablet by mouth Tues, Wed, Th, Sat, and Sun. 45 Tablet 0 4 Active Aspirin 81 MG Oral Tablet Delayed Release (Aspirin Low Dose)Indications:HT N, goal below 140/90 Take 1 Tablet by mouth in the morning. 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 10/15/2021 Spinal stenosis of lumbar re gion with neurogenic claudication 03/11/2021 Moderate single current epis ode of major depressive disorder 10/10/2020 Dyslipidemia, goal LDL below 70 10/24/2019 DISH (diffuse idiopathic skeletal hyperostosis) 05/15/2019 Type 2 diabetes mellitus wit h hemoglobin A1c goal of less than 7.5% 05/08/2019 Diabetes mellitus with peripheral angiopathy Chronic bilateral low back pain with bilateral s ciatica 07/18/2017 S/P AVR (aortic valve replacement) 01/11/2017 S/P CABG (coronary artery bypass graft) 01/12/20 17 Coronary artery disease invo lving hoh coronary artery of hoh heart without angina pectoris 03/01/2016 Overview: [facility] 02/25/16 - . Severe single vessel coronary artery disease with Successful PCI of mid LAD with 2.75 x 18 Xience DICK post-dilated to 3.5 mm PAD (peripheral artery disease) 08/20/2015 Overview: Bilateral HTN, goal below 140/90 03/11/2010 Obesity, Class II, BMI 35-39.9, isolated (see ac tual BMI) 11/24/2009 Overview: Per Obesity Protocol, #19 Cervical spinal stenosis 12/11/2008 Impotence of organic origin 05/29/2008 Tobacco use disorder 09/07/2004 Esophageal reflux 05/13/2004 documented as of this encounter (statuses as of 2023) Resolved Problems Problem Noted Date Diagnosed Date Resolved Date Food insecurity 01/19/2021 05/27/2022 Overview: Per [facility] Protocol Alcohol abuse 01/11/2017 01/11/2017 Beta-blockers contraindicated 03/01/2016 07/20/2017 Overview: Due to [facility] cardiology Spinal stenosis of lumbar re gion without neurogenic claudication 11/21/2008 03/11/2021 ADVANCE DIRECTIVE INFORMATION 03/02/2006 12/13/2017 Overview: No, Advance Directive brochure given to patient at prior appointment. Displacement of lumbar inter vertebral disc without myelopathy 09/01/2010 documented as of this encounter (statuses as of 2023) Immunizations Name Administration Dates Next Due COVID-19 mRNA, LNP-s, No Pre serve, 2-Dose Series (Moderna) 08/11/2020,07/14/2020 COVID-19, mRNA, LNP-s, PF, B ooster, 100mcg/0.5mg (Moderna) 05/04/2021 Hepatitis B, 20+ yrs 03/11/2021,07/09/2019,05/0811/06/2019 PPD 03/11/2010,03/05/2008,03/02/2006 Pneumococcal Conjugate Vacci ne, 20-valent ([id number]) 10/28/2022 Pneumococcal Polysaccharide PPV23 (Pneumovax) 09/04/2010 Seasonal Influenza, PF, 6 M & above, IM , (FluLaval or Fluzone) 03/19/2023,04/26/2022,03/11/2021,02/11,05/08/2019,03/11/2017 Seasonal Influenza, Quad, Na june (Flumist) 03/29/2018 Seasonal Influenza, Quadriva lent, No Preserve, IM 03/01/2016 Seasonal Influenza, Split, I IV3, With Preserve, Inj 05/01/2014,02/28/2013 TD, Preservative Free 07/09/2019 TDAP (age 11 and older)(Adacel) 06/17/2009 Zoster Vaccine Recombinant (Shingrix) 07/09/2019 ,05/08/2019 07/08/2019 documented as of this encounter Social History Tobacco Use Types Packs/Day Years Used Date Smoking Tobacco: Every Day Cigarettes 1 47 Smokeless Tobacco: Never Comments:Cut back to / to 3/4 ppd 11/10/22. Less than 10 cigarettes a day as of 08/01/23. Alcohol Use Standard Drinks/Week Comments Yes 70 (1 standard drink = 0.6 oz pu re alcohol) Beer PHQ-2 Answer Date Recorded PHQ Adult Total Score 11 05/02/2023 Hunger Vital Sign Answer Date Recorded Within the past 12 months, y ou worried that your food would run out before you got the money to buy more. Never true 04/26/20 22 Within the past 12 months, t he food you bought just didn't last and you didn't have money to get more. Never true 04/26/2022 Sex and Gender Information Value Date Recorded Sex Assigned at Male 01/31/2019 1:30 PM EDT Gender Identity Male 01/31/2019 1:30 PM EDT Sexual Orientation Straight 01/31/2019 1: 30 PM EDT Job Start Date Occupation Industry Not on file Not on file Not on file documented as of this encounter Functional Status Functional Status Response Date of Assess ment Are you deaf or do you have serious difficulty h earing? No 01/07/2017 Are you blind or do you have serious difficulty seeing, even when wearing glasses? No 01/07/2017 Do you have serious difficul ty walking or climbing stairs? (5 years old or older) No 01/07/2017 Do you have difficulty dress ing or bathing? (5 years old or older) No 01/07/2017 Because of a physical, menta l, or emotional condition, do you have difficulty doing errands alone such as visiting a doctor s office or shopping? (15 years old or older) No 01/08/20 17 Cognitive Status Response Date of Assessm ent Because of a physical, menta l, or emotional condition, do you have serious difficulty concentrating, remembering, or making decisions? (5 years old or older) No 01/07/2017 documented as of this encounter Miscellaneous Notes * Telephone Encounter - Abbe Thompson RPh - 2023 8:47 AM ESTSigned Prescriptions: Disp Refills Aspirin Low Dose 81 MG Oral Tablet Delayed*90 Tab*3 Sig: TAKE 1 TABLET BY MOUTH EVERY MORNINGAuthorizing Provider: BRAD THOMPSON User: ABBE THOMPSON C documented in this encounter Plan of Treatment Upcoming Encounters Date Type Department Care Team (Late st Contact Info) Description 08/22/2023 10:30 AM EDT [facility]ointment [facility], [place] [address] [facility] [place] [phone] 08/22/2023 12:00 PM EDT [facility] [place] [address] [facility] [address] Servando West [facility] [address] [facility] [place] [address] 08/23/2023 8:50 AM EDT Anticoagulation Pharmacy, [facility] [address] [facility] [place] [address] [facility] [address] [facility] [place] [address] 10/05/2023 2:00 PM EDT Office Visit Gastroenterology, [facility] [address] [place] [address] Ama Robertson CRNP [address] [place] [address] 10/31/2023 2:20 PM EDT Office Visit General Internal Medicine [facility] [address] [place] [address] Brad Thompson MD [address] [facility] [place] [address] Health Maintenance Due Date Last Done Comments DISCUSS TOBACCO CESSATION (REFER TO SMARTSET #3291) 1960 Cologuard 2005 Colonoscopy 2005 Colorectal Cancer Screening 2005 Fecal Occult Blood Test 2005 Sigmoidoscopy 2005 COVID-19 Vaccine ( season) 2023 05/04/2021, 08/11/2020, 07/14/2020 Depression, Most Recent Score >= 10 (will fire each visit until score < 10) 05/03/2023 05/02/2023 Diabetic Foot Exam 10/29/2023 10/28/2022, 0 10/15/2021, 10/10/2020, Additional history exists HbA1c 11/02/2023 05/04/2023, 04/14, 10/28/2022, Additional history exists Diabetic Eye Exam 11/24/2023 11/23/2022, , 10/10/2020, Additional history exists Albumin/Creatinine Ratio 05/02/2024 023, 04/26/2022, 05/08/2019, Additional history exists GFR 05/04/2024 05/04/2023, 04/14, 03/29/2023, Additional history exists DTaP,Tdap,and Td Vaccines (3 - Td or Tdap) 07/09/2029 07/09/2019, 06/17/2009 Zoster Vaccines Completed 07/09/2019, 05/08/2019 Hepatitis B Completed 03/11/2021, 06/14, 05/08/2019 Pneumococcal Vaccine: Pediatrics (0 to 5 Years) and At-Risk Patients (6 to 64 Years) Completed 10/28/2022, 05/17/2014, 09/04/2010 Influenza Vaccine (FLU shot) Completed 12/2022, 04/26/2022, 03/11/2021, Additional history exists LUNG CANCER SCREENING - USE SMARTSET 60911 Completed 03/29/2023, 03/25/2022, 03/24/2021, Additional history exists GARDASIL-HPV IMMUNIZATION SERIES Aged Out No longer eligible based on patient's age to complete this topic MENINGOCOCCAL (MENACTRA/MENVEO) Aged Out No longer eligible based on patient's age to complete this topic documented as of this encounter Medical Devices Implanted Type Area Intern Brand Device Identifier Shelf Expiration Date Model / Serial / Lot Sut Steel 6 [id number] - [id number] Implanted:Qty: 4 on 01/07/2017 by Silas Aldana MD at OR [facility] N/A: Sternum JNJ : [employer] 09/10/2021 [id number] / / [id number] Vavle Aortic 27mm [id number] - [id number] - [id number] Implanted:Qty: 1 on 01/07/2017 by Silas Aldana MD at OR [facility] Heart [employer] 03/29/2020 [id number] / [id number] / documented as of this encounter Visit Diagnoses Diagnosis HTN, goal below 140/90 Unspecified essential hypertension documented in this encounter Advance Directives Latest Code Status on File Code Status Date Activated Date Inactivated Comments Full Code 09/15/2022 9:38 AM 09/15/2022 2:57 PM This or rick reflects the patients wishes and were consensually agreed upon. Question Answer Comments Discussion of Advance Directives occurred with: Patient Code Status History Code Status Date Activated Date Inactivated Comments Full Code 09/15/2022 6:58 AM 09/15/2022 9:38 AM This or rick reflects the patients wishes and were consensually agreed upon. Question Answer Comments Discussion of Advance Directives occurred with: Patient Full Code 01/07/2017 12:49 PM 01/11/2017 2:57 PM This order reflects the patients wishes and were consensually agreed upon. Care Teams Quality Assurance Coach Relationship Specialty Start Date End Date Brad Thompson MD [address] [place] [address] PCP - General Internal Medicine 11/20/17 documented as of this encounter
--- OUTSIDE RECORDS SUMMARY | 2023-08-22 23:07 | External Medical Summary | Summary of Care ---
Author Name Unknown Organization [facility] Address [address] [facility] [place] [address] Phone [phone] Care Team Providers Care Touch Up Carver Name Role Phone Brad Thompson MD Primary Care Provider + Reason for Visit * Reason Comments eRx-Medication Refill Encounter Details Date Type Department Care Team (Late st Contact Info) Description 08/12/2023 Refill Pharmacy, [facility] [address] [place] [address] Nicola Brower DO [address] [place] [address] Accelerating angina (HCC); S/P CABG (coronary artery bypass graft) Allergies Active Allergy Reactions Criticality Noted Date Comments Varenicline Tartrate Nausea/vomiting,Psy ch complications High 08/05/2010 Iodinated Contrast Media Nausea/vomiting 2015 Methadone Other (Please comment) 09/04/2010 Shakes Valdecoxib 03/18/2004 felt odd documented as of this encounter (statuses as of 2023) Medications Medication Sig Dispensed Refills Start Date End Date Status acetaminophen (TYLENOL) 500 MG TabletIndications: Generalized headache Take 2 Tablets by mouth every 8 hours as needed for Pain. 100 Tab 0 02/01/20 19 Active Fluticasone Propionate 50 MCG/ACT Nasal SuspensionIndicati ons:Runny nose Administer 2 Sprays into each nostril daily. 16 g 1 06/04/20 20 Active Aspirin 81 MG Oral Tablet Delayed Release (Aspirin Low Dose)Indications:H TN, goal below 140/90 Take 1 Tablet by mouth in the morning. 90 Tablet 3 08/17/19 23 Active Isosorbide Mononitrate ER 60 MG Oral Tablet Extended Release 24 Hour (Imdur) Take 1 Tablet by mouth in the morning. 34 Tablet 11 11/06/19 23 Active Atorvastatin Calcium 80 MG Oral Tablet (Lipitor)Indicatio ns:Dyslipidemia, goal LDL below 70 Take 1 Tablet by mouth in the morning. 90 Tablet 3 11/23/19 23 Active Amoxicillin 500 MG Oral Capsule (Amoxil)Indication s:S/P AVR (aortic valve replacement) TAKE FOUR CAPSULES BY MOUTH ONE HOUR PRIOR TO APPOINTMENT 4 Capsule 0 12/03/19 23 Active Warfarin Sodium 10 MG Oral Tablet (Jantoven) take 1 tablet by mouth on tuesday, tuesday, and tuesday 30 Tablet 3 12/28/19 23 Active Albuterol Sulfate HFA 108 (90 Base) MCG/ACT Inhalation Aerosol SolutionIndication s:Bronchospasm INHALE TWO PUFFS BY MOUTH EVERY 6 HOURS NEEDED FOR WHEEZING 18 g 5 01/07/20 23 Active diphenhydrAMINE HCl 25 MG Oral Capsule (Benadryl Allergy) Take 1 Capsule by mouth every 6 hours as needed for Itching. 0 Active Loratadine 10 MG Oral Tablet (Claritin)Indicati ons:Itchy skin Take 1 Tablet by mouth in the morning. 0 05/02/20 23 Active Ezetimibe 10 MG Oral Tablet (Zetia)Indications :Dyslipidemia, goal LDL below 70 TAKE ONE TABLET BY MOUTH ONE TIME DAILY 90 Tablet 3 05/14/20 23 Active Lisinopril 40 MG Oral TabletIndications: HTN, goal below 140/90 TAKE ONE TABLET BY MOUTH ONE TIME DAILY 90 Tablet 3 05/14/20 23 Active Metoprolol Tartrate 50 MG Oral Tablet (Lopressor)Indicat ions:HTN, goal below 140/90 TAKE 1 TABLET BY MOUTH ONCE DAILY 90 Tablet 1 06/21/19 24 Active amLODIPine Besylate 10 MG Oral Tablet (Norvasc)Indicatio ns:HTN, goal below 140/90 TAKE 1 TABLET BY MOUTH ONCE DAILY 90 Tablet 1 06/21/19 24 Active Omeprazole 40 MG Oral Capsule Delayed Release (PriLOSEC) TAKE 1 CAPSULE BY MOUTH ONCE DAILY 90 Capsule 1 06/21/19 24 Active Nitroglycerin 0.4 MG Sublingual Tablet Sublingual (Nitrostat)Indicat ions:Coronary artery disease involving [place] coronary artery of [place] heart without angina pectoris Place 1 Tablet under the tongue every 5 minutes as needed for Pain, Chest. up to 3 doses in 15 minutes 25 Tablet 11 06/28/19 24 Active Additional Information Patient not taking.Reported on 08/01/2023 Ipratropium-Albute rol 0.5-2.5 (3) MG/3ML Inhalation Solution (Duoneb)Indication s:IRIZARRY (dyspnea on exertion),Tobacco use disorder,COPD, group B, by GOLD 2017 classification (HCC) Inhale 3 mL via nebulizer 4 times a day as needed for Wheezing. 360 mL 1 07/26/19 24 Active Warfarin Sodium 5 MG Oral Tablet (Jantoven)Indicati ons:Accelerating angina (HCC),S/P CABG (coronary artery bypass graft) Take 1 tablet by mouth Tues, Wed, , Sat, and Sun. 45 Tablet 0 08/13/19 24 Active Warfarin Sodium 5 MG Oral Tablet (Coumadin)Indicati ons:Accelerating angina (HCC),S/P CABG (coronary artery bypass graft) Take 1 to 2 tablets by mouth every evening as directed by anticoagulation clinic 45 Tablet 5 11/24/19 23 024 Discontinued documented as of this encounter (statuses as of 2023) Active Problems Problem Noted Date Diagnosed Date Stenosis of prosthetic aortic valve 03/31/2023 Accelerating angina 11/12/2022 Coronary artery disease of n ative artery of [place] heart with stable angina pectoris 10/15/2021 Spinal [...] 01/12/20 17 Coronary artery disease invo lving [place] coronary artery of [place] heart without angina pectoris 03/01/2016 Overview: [facility] 02/25/16 - . Severe single vessel coronary [...] PPD 03/11/2010,03/05/2008,03/02/2006 Pneumococcal Conjugate Vacci ne, 20-valent ([id number]) 10/28/2022 Pneumococcal Polysaccharide PPV23 (Pneumovax) 09/04/2010 Seasonal [...] 47 Smokeless Tobacco: Never Comments:Cut back to 1/2 to 3/4 ppd 11/10/22. Less than 10 [...] encounter Miscellaneous Notes * Telephone Encounter - Nicola Brower DO - 2023 7:27 AM ESTSigned Prescriptions: Disp Refills Warfarin Sodium 5 MG Oral Tablet (Jantoven)45 Tab*0 Sig: Take 1 tablet by mouth Tu, Tue, Th, Sat, and Sun. Authorizing Provider: NICOLA BROWER * Telephone Encounter - Tere Nunes MED ZEESHAN - 08/12/2023 3:38 PM EST Pending Prescriptions: Disp Refills Jantoven 5 MG Oral Tablet [Pharmacy Med Na*45 Tab*0 Sig: TAKE 1TO 2 TABLETS BY MOUTH EVERY EVENING DIRECTED BY ANTICOAGULATION CLINIC documented in this encounter Plan of Treatment Upcoming Encounters Date Type Department Care Team (Late st Contact Info) Description 08/22/2023 10:30 AM EDT Appointment Radiology, [place] [address] [place] [id number] 08/22/2023 12:00 PM EDT Office Visit [facility]or[facility], [place] [address] [place] [address] Nicola West MD [address] [place] [address] 08/23/2023 8:50 AM EDT Anticoagulation Pharmacy, [facility] [address] [facility] [place] [address] [facility] [address] [facility] [place] [address] 10/05/2023 2:00 PM EDT Office Visit Gastroenterology, [facility] [address] [facility] [place] [address] Ama Robertson CRNP [address] [facility] [place] [address] 10/31/2023 2:20 PM EDT Office Visit General Internal Medicine [facility] [place] [address] [place] [address] Brad Thompson MD [address] [place] [address] Health Maintenance Due Date Last Done Comments [...] exists LUNG CANCER SCREENING - USE SMARTSET 65682 Completed 03/29/2023, 03/25/2022, 03/24/2021, Additional history exists GARDASIL-HPV IMMUNIZATION SERIES Aged Out No longer eligible based on patient's age to complete this topic MENINGOCOCCAL (MENACTRA/MENVEO) Aged Out No longer eligible based on patient's age to complete this topic documented as of this encounter Medical Devices Implanted Type Area Administrative Clerk Device Identifier Shelf Expiration Date Model / Serial / Lot Sut Steel 6 M654g - [id number] Implanted:Qty: 4 on 01/07/2017 by Silas Aldana MD at [place] [facility] [place] N/A: Sternum JNJ : [employer] 09/10/2021 [id number] / / [id number] Vavle Aortic 27mm 3300tfx - [id number] - [id number] Implanted:Qty: 1 on 01/07/2017 by Silas Aldana MD at [place] [facility] Heart [employer]EL [employer]IGAIL 03/29/2020 [id number] / [id number] / documented as of this encounter Visit Diagnoses Diagnosis Accelerating angina (HCC) Intermediate coronary syndrome S/P CABG (coronary artery bypass graft) Postsurgical aortocoronary bypass status documented in this encounter Advance Directives Latest Code Status on File Code Status Date Activated Date Inactivated Comments Full Code 09/15/2022 9:38 AM 09/15/2022 2:57 PM This o rder reflects the patients wishes and were consensually [...] and were consensually agreed upon. Care Teams Touch Up Carver Relationship Specialty Start Date End Date Brad Thompson MD [address] [facility], [place] [address] PCP - General Internal Medicine 11/20/17 documented as of this encounter
--- OUTSIDE RECORDS SUMMARY | 2023-08-22 23:07 | External Medical Summary | Summary of Care ---
Author Name Unknown Organization [facility] Address [address] [place] [address] Phone [phone] Care Team Providers Care Rn Maternal Child Name Role Phone Brad Thompson MD Primary Care Provider + Encounter Details Date Type Department Care Team (Late st Contact Info) Description 08/16/2023 Orders Only [facility]iology [facility] [address] [place] [address] Shannan Shetty CRNP [address] [place] [address] Allergies Active Allergy Reactions Criticality Noted Date Comments Varenicline Tartrate Nausea/vomiting,Psy ch complications High 08/05/2010 Iodinated Contrast Media Nausea/vomiting 2015 Methadone Other (Please comment) 09/04/2010 Shakes Valdecoxib 03/18/2004 felt odd documented as of this encounter (statuses as of 08/16/2023) Medications Medication Sig Dispensed Refills Start Date End Date Status acetaminophen (TYLENOL) 500 MG TabletIndications:Ge neralized headache Take 2 Tablets by mouth every 8 hours as needed for Pain. 100 Tab 0 01/31/2019 Active Fluticasone Propionate 50 MCG/ACT Nasal SuspensionIndication s:Runny nose Administer 2 Sprays into each nostril daily. 16 g 1 06/04/2020 Active Isosorbide Mononitrate ER 60 MG Oral Tablet Extended Release 24 Hour (Imdur) Take 1 Tablet by mouth in the morning. 34 Tablet 11 11/05/2022 Active Atorvastatin Calcium 80 MG Oral Tablet (Lipitor)Indications :Dyslipidemia, goal LDL below 70 Take 1 Tablet by mouth in the morning. 90 Tablet 3 11/22/2022 Active Amoxicillin 500 MG Oral Capsule (Amoxil)Indications: S/P AVR (aortic valve replacement) TAKE FOUR CAPSULES BY MOUTH ONE HOUR PRIOR TO APPOINTMENT 4 Capsule 0 12/02/2022 Active Warfarin Sodium 10 MG Oral Tablet (Jantoven) take 1 tablet by mouth on tuesday, tuesday, and tuesday 30 Tablet 3 12/27/2022 Active Albuterol Sulfate HFA 108 (90 Base) MCG/ACT Inhalation Aerosol SolutionIndications: Bronchospasm INHALE TWO PUFFS BY MOUTH EVERY 6 HOURS NEEDED FOR WHEEZING 18 g 5 01/06/2023 Active diphenhydrAMINE HCl 25 MG Oral Capsule (Benadryl Allergy) Take 1 Capsule by mouth every 6 hours as needed for Itching. 0 Active Loratadine 10 MG Oral Tablet (Claritin)Indication s:Itchy skin Take 1 Tablet by mouth in the morning. 0 05/02/2023 Active Ezetimibe 10 MG Oral Tablet (Zetia)Indications:D yslipidemia, goal LDL below 70 TAKE ONE TABLET BY MOUTH ONE TIME DAILY 90 Tablet 3 05/14/2023 Active Lisinopril 40 MG Oral TabletIndications:HT N, goal below 140/90 TAKE ONE TABLET BY MOUTH ONE TIME DAILY 90 Tablet 3 05/14/2023 Active Metoprolol Tartrate 50 MG Oral Tablet (Lopressor)Indicatio ns:HTN, goal below 140/90 TAKE 1 TABLET BY MOUTH ONCE DAILY 90 Tablet 1 06/21/2023 Active amLODIPine Besylate 10 MG Oral Tablet (Norvasc)Indications :HTN, goal below 140/90 TAKE 1 TABLET BY MOUTH ONCE DAILY 90 Tablet 1 06/21/2023 Active Omeprazole 40 MG Oral Capsule Delayed Release (PriLOSEC) TAKE 1 CAPSULE BY MOUTH ONCE DAILY 90 Capsule 06/21/2023 Active Nitroglycerin 0.4 MG Sublingual Tablet Sublingual (Nitrostat)Indicatio ns:Coronary artery disease involving [place] coronary artery of [place] heart without angina pectoris Place 1 Tablet under the tongue every 5 minutes as needed for Pain, Chest. up to 3 doses in 15 minutes 25 Tablet 11 06/28/2023 Active Additional Information Patient not taking.Reported on 08/01/2023 Ipratropium-Albutero l 0.5-2.5 (3) MG/3ML Inhalation Solution (Duoneb)Indications: IRIZARRY (dyspnea on exertion),Tobacco use disorder,COPD, group B, by GOLD 2017 classification ([facility]) Inhale 3 mL via nebulizer 4 times a day as needed for Wheezing. 360 mL 1 07/26/2023 Active Aspirin Low Dose 81 MG Oral Tablet Delayed Release (aspirin enteric coated)Indications:H TN, goal below 140/90 TAKE 1 TABLET BY MOUTH EVERY MORNING 90 Tablet 3 2023 Active Warfarin Sodium 5 MG Oral Tablet (Jantoven)Indication s:Accelerating angina ([facility]),S/P CABG (coronary artery bypass graft) Take 1 tablet by mouth Tues, Wed, Thurs, Sat, and Sun. 45 Tablet 0 2023 Active predniSONE 50 MG Oral Tablet (Deltasone) Take 1 tablet 13 hours, 7 hours and [address] scan 3 Tablet 2 08/16/2023 Active documented as of this encounter (statuses as of 08/16/2023) Active Problems Problem Noted Date Diagnosed Date Stenosis of prosthetic aortic valve 03/31/2023 Accelerating angina 11/12/2022 Coronary artery disease of n ative artery of [place] heart with stable angina pectoris 10/15/2021 Spinal [...] 01/12/20 17 Coronary artery disease invo lving [place] coronary artery of [place] heart without angina pectoris 03/01/2016 Overview: [facility] 02/25/16 - . Severe single vessel [...] as of this encounter (statuses as of 08/16/2023) Resolved Problems Problem Noted Date Diagnosed Date [...] as of this encounter (statuses as of 08/16/2023) Immunizations Name Administration Dates Next Due COVID-19 mRNA, LNP-s, No Pre serve, 2-Dose Series (Moderna) 08/11/2020,07/14/2020 COVID-19, mRNA, LNP-s, PF, B ooster, 100mcg/0.5mg (Moderna) 05/04/2021 Hepatitis B, 20+ yrs 03/11/2021,07/09/2019,05/0811/06/2019 PPD 03/11/2010,03/05/2008,03/02/2006 Pneumococcal Conjugate Vacci ne, 20-valent ([id number]) 10/28/2022 Pneumococcal Polysaccharide PPV23 (Pneumovax) 09/04/2010 Seasonal [...] No 01/07/2017 documented as of this encounter Plan of Treatment Upcoming Encounters Date Type Department Care Team (Late st Contact Info) Description 08/22/2023 10:30 AM EDT Appointment Radiology, [place] [address] [place] [address] 08/22/2023 12:00 PM EDT Office Visit Cardiothoracic Surg [facility], [place] [address] [place] [address] Servando West MD [address] [place] [address] 08/23/2023 8:50 AM EDT Anticoagulation Pharmacy, [facility] [address] [facility] [place] [address] [facility] [address] [facility] [place] [address] 10/05/2023 2:00 PM EDT Office Visit [facility]enterology, [facility] [place] [address] Ama Robertson CRNP [address] [facility] [place] [address] 10/31/2023 2:20 PM EDT Office Visit General Internal Medicine [address] [place] [address] [place] [address] Brad Thompson MD [address] [place] [address] Health Maintenance Due Date Last Done Comments [...] exists LUNG CANCER SCREENING - USE SMARTSET 06883 Completed 03/29/2023, 03/25/2022, 03/24/2021, Additional history exists GARDASIL-HPV IMMUNIZATION SERIES Aged Out No longer eligible based on patient's age to complete this topic MENINGOCOCCAL (MENACTRA/MENVEO) Aged Out No longer eligible based on patient's age to complete this topic documented as of this encounter Medical Devices Implanted Type Area Case Making Machine Operator Device Identifier Shelf Expiration Date Model / Serial / Lot Sut Steel 6 [id number] - [id number] Implanted:Qty: 4 on 01/07/2017 by Silas Aldana MD [place] [facility] [place]/A: Sternum J[place] : [employer] 09/10/2021 [id number] / / [id number] Vavle Aortic 27mm [id number] - [id number] - [id number] Implanted:Qty: 1 on 01/07/2017 by Silas Aldana MD at [place] [facility] [place] Heart PATEL LIFESCINanapi ABIGAIL 03/29/2020 [id number] / [id number] / documented as of this encounter Advance Directives Latest Code Status [...] and were consensually agreed upon. Care Teams Rn Maternal Child Relationship Specialty Start Date End Date Brad Thompson MD [address] [facility] [place] [address] PCP - General Internal Medicine 11/20/17 documented as of this encounter
--- OUTSIDE RECORDS SUMMARY | 2023-08-22 23:08 | External Medical Summary ---
Author Name Unknown Address Unknown Organization [id number]:[facility] [address] [place] [id number] Laboratory Report Ordering Provider Test Date Status MOSES MONET 06/28/2023 14:28:38 Final Therapeutic ranges for non-o perative patients:
Prophylaxsis/treatment of DVT: (Range:2.0-3.0)
Treatment of pulmonary embolism:(Range:2.0-3.0)
Prevention of systemic embolism from:
-tissue heart valves
-acute myocardial infarction
-valvular heart disease
-atrial fibrillation
(Range: 2.0-3.0)
Mechanical prosthetic valves: (Range: 2.5-3.5) Observation Date Value Abnormality Reference (Units ) Status INR in Capillary blood by Coagulation assay 06/28/2023 14:28:38 1.5 (INR) Final Performing Location [facility] [address] - [address] [place] [address]
--- OUTSIDE RECORDS SUMMARY | 2023-08-22 23:08 | External Medical Summary ---
Author Name Unknown Address Unknown Organization [id number]:[facility] [address] - [address] [place] [address] Laboratory Report Ordering Provider Test Date Status MOSES MONET 08/02/2023 08:45:54 Final Therapeutic ranges for non-o perative patients:
Prophylaxsis/treatment of DVT: (Range:2.0-3.0)
Treatment of pulmonary embolism:(Range:2.0-3.0)
Prevention of systemic embolism from:
-tissue heart valves
-acute myocardial infarction
-valvular heart disease
-atrial fibrillation
(Range: 2.0-3.0)
Mechanical prosthetic valves: (Range: 2.5-3.5) Observation Date Value Abnormality Reference (Units ) Status INR in Capillary blood by Coagulation assay 08/02/2023 08:45:54 1.7 (INR) Final Performing Location [facility] [address] - [address] [place] [address]
--- OUTSIDE RECORDS SUMMARY | 2023-08-22 23:08 | External Medical Summary | Summary of Care ---
Author Name Unknown Organization [facility] Address [address] [facility] [place] [address] Phone [phone] Care Team Providers Care Chief Ophthalmic Technician Name Role Phone Brad Thompson MD Primary Care Provider + Reason for Visit * Reason Comments Dosage Adjustment In Person (Anticoag Cl inic) Encounter Details Date Type Department Care Team (Latest Contact Info) Description 06/28/2023 2:50 PM EST Anticoagulation Pharmacy, [facility] 132 [facility] [place] [address] [facility] 132 [facility] [place] [address] Accelerating angina (HCC)*; S/P CABG (coronary artery bypass graft); S/P AVR (aortic valve replacement) Allergies Active Allergy Reactions Criticality Noted Date Comments Varenicline Tartrate Nausea/vomiting,Psy ch complications High 08/05/2010 Iodinated Contrast Media Nausea/vomiting 2015 Methadone Other (Please comment) 09/04/2010 Shakes Valdecoxib 03/18/2004 felt odd documented as of this encounter (statuses as of 06/28/2023) Medications Medication Sig Dispensed Refills Start Date End Date Status acetaminophen (TYLENOL) 500 MG TabletIndications :Generalized headache Take 2 Tablets by mouth every 8 hours as needed for Pain. 100 Tab 0 01/31/2019 Active Fluticasone Propionate 50 MCG/ACT Nasal SuspensionIndicat ions:Runny nose Administer 2 Sprays into each nostril daily. 16 g 1 06/04/2020 Active Aspirin 81 MG Oral Tablet Delayed Release (Aspirin Low Dose)Indications: HTN, goal below 140/90 Take 1 Tablet by mouth in the morning. 90 Tablet 3 08/16/2022 Active Nitroglycerin 0.4 MG Sublingual Tablet Sublingual (Nitrostat)Indica tions:Coronary artery disease involving [place] coronary artery of [place] heart without angina pectoris Place 1 Tablet under the tongue every 5 minutes as needed for Pain, Chest. up to 3 doses in 15 minutes 25 Tablet 11 11/01/2022 Active Isosorbide Mononitrate ER 60 MG Oral Tablet Extended Release 24 Hour (Imdur) Take 1 Tablet by mouth in the morning. 34 Tablet 11 11/05/2022 Active Atorvastatin Calcium 80 MG Oral Tablet (Lipitor)Indicati ons:Dyslipidemia, goal LDL below 70 Take 1 Tablet by mouth in the morning. 90 Tablet 3 11/22/2022 Active Warfarin Sodium 5 MG Oral Tablet (Coumadin)Indicat ions:Accelerating angina (HCC),S/P CABG (coronary artery bypass graft) Take 1 to 2 tablets by mouth every evening as directed by anticoagulation clinic 45 Tablet 5 11/23/2022 Active Additional Information Patient taking differently: Take 1 tablet by mouth , Tue, , Sat, and Sun., Reported on 05/02/2023 Amoxicillin 500 MG Oral Capsule (Amoxil)Indicatio ns:S/P AVR (aortic valve replacement) TAKE FOUR CAPSULES BY MOUTH ONE HOUR PRIOR TO APPOINTMENT 4 Capsule 0 12/02/2022 Active Warfarin Sodium 10 MG Oral Tablet (Jantoven) take 1 tablet by mouth on tuesday, tuesday, and tuesday 30 Tablet 3 12/27/2022 Active Additional Information Patient taking differently: take 1 tablet by mouth on Tuesday and tuesday, Reported on 05/02/2023 Albuterol Sulfate HFA 108 (90 Base) MCG/ACT Inhalation Aerosol SolutionIndicatio ns:Bronchospasm INHALE TWO PUFFS BY MOUTH EVERY 6 HOURS NEEDED FOR WHEEZING 18 g 5 01/06/2023 Active diphenhydrAMINE HCl 25 MG Oral Capsule (Benadryl Allergy) Take 1 Capsule by mouth every 6 hours as needed for Itching. 0 Active Loratadine 10 MG Oral Tablet (Claritin)Indicat ions:Itchy skin Take 1 Tablet by mouth in the morning. 0 05/02/2023 Active Ezetimibe 10 MG Oral Tablet (Zetia)Indication s:Dyslipidemia, goal LDL below 70 TAKE ONE TABLET BY MOUTH ONE TIME DAILY 90 Tablet 3 05/14/2023 Active Lisinopril 40 MG Oral TabletIndications :HTN, goal below 140/90 TAKE ONE TABLET BY MOUTH ONE TIME DAILY 90 Tablet 3 05/14/2023 Active Metoprolol Tartrate 50 MG Oral Tablet (Lopressor)Indica tions:HTN, goal below 140/90 TAKE 1 TABLET BY MOUTH ONCE DAILY 90 Tablet 1 06/21/2023 Active amLODIPine Besylate 10 MG Oral Tablet (Norvasc)Indicati ons:HTN, goal below 140/90 TAKE 1 TABLET BY MOUTH ONCE DAILY 90 Tablet 1 06/21/2023 Active Omeprazole 40 MG Oral Capsule Delayed Release (PriLOSEC) TAKE 1 CAPSULE BY MOUTH ONCE DAILY 90 Capsule 1 06/21/2023 Active Fluticasone-Salme terol 250-50 MCG/ACT Inhalation Aerosol Powder Breath Activated (Wixela Inhub)Indications :IRIZARRY (dyspnea on exertion) Inhale 1 Puff by mouth in the morning and 1 Puff before bedtime. 60 Each 12 06/21/2023 Active Hospital, Clinic, or Other Facility Administered Medication Ordered Dose Route Frequency Start Date End Date Status Albuterol Sulfate (Proventil) (2.5 MG/3ML) 0.083% inhalation solution 2.5 mgIndications:IRIZARRY (dyspnea on exertion) 2.5 mg NEBULIZER PRN 06/29/2022 06/29/2023 Act shirley documented as of this encounter (statuses as of 06/28/2023) Active Problems Problem Noted Date Diagnosed Date Stenosis of prosthetic aortic valve 03/31/2023 Accelerating angina 11/12/2022 Coronary artery disease of n ative artery of [place] heart with stable angina pectoris 10/15/2021 Spinal [...] 01/12/20 17 Coronary artery disease invo lving [place] coronary artery of [place] heart without angina pectoris 03/01/2016 Overview: [facility] 02/25/16 - . Severe single vessel [...] as of this encounter (statuses as of 06/28/2023) Resolved Problems Problem Noted Date Diagnosed Date [...] as of this encounter (statuses as of 06/28/2023) Immunizations Name Administration Dates Next Due COVID-19 mRNA, LNP-s, No Pre serve, 2-Dose Series (Moderna) 08/11/2020,07/14/2020 COVID-19, mRNA, LNP-s, PF, B ooster, 100mcg/0.5mg (Moderna) 05/04/2021 Hepatitis B, 20+ yrs 03/11/2021,07/09/2019,05/0811/06/2019 PPD 03/11/2010,03/05/2008,03/02/2006 Pneumococcal Conjugate Vacci ne, 20-valent ([id number]) 10/28/2022 Pneumococcal Polysaccharide PPV23 (Pneumovax) 09/04/2010 Seasonal [...] Comments:Cut back to 1/2 to 3/4 ppd 11/10/22 Alcohol Use Standard Drinks/Week Comments Yes 70 (1 standard drink = 0.6 oz pu re alcohol) beer PHQ-2 Answer Date Recorded PHQ Adult Total [...] No 01/07/2017 documented as of this encounter Progress Notes * Charisse Bae RPh - 06/28/2023 2:24 PM EST Images from the original note were not included. Medication Therapy Disease Management - Anticoagulation Patient: Jonas Dorsey | : 1960 Subjective Patient-Reported Symptoms: Patient Findings Positives: Missed doses (patient stopped 10 mg doses due to itchiness) Negatives: Signs/symptoms of thrombosis, Signs/symptoms of bleeding, Change in health, Change in alcohol use, Change in activity, Upcoming invasive procedure, Extra doses, Change in medications, Change in diet/appetite, Bruising Objective Current Warfarin Dose As of 06/28/2023 Warfarin maintenance plan: 5 mg (5 mg x 1) every Tue, Emily, Sat; 7.5 mg (5 mg x 1.5) all other days INR Result As of 06/28/2023 INR goal: 2.0-3.0 INR used for dosin.5 (06/28/2023) Assessment & Plan Warfarin Plan As of 06/28/2023 Full warfarin instructions: 5 mg every Tue, Emily, Sat; 7.5 mg all other days Next INR check: 07/12/2023 Repeat PT/INR in 2 week(s) Weekly dose: not changed Additional Dosing Information: Charisse Bae [facility] Clinical Pharmacist 06/28/2023, 2:50 PM documented in this encounter Plan of Treatment Upcoming Encounters Date Type Department Care Team (Late st Contact Info) Description 07/12/2023 3:10 PM EST Anticoagulation Pharmacy, [facility] [address] [facility] [place] [address] [facility] [address] [facility] [place] [address] 08/01/2023 9:30 AM EST Cardiac Studies Cardiac Studies [facility] [place] [address] [place] [address] [place], [facility] [address] [place] [address] 08/01/2023 10:00 AM EST Office Visit Cardiology [facility] [place] [address] [place] [address] oLuis Mckeon MD [address] [place] [address] 10/05/2023 2:00 PM EDT Office Visit Gastroenterology, [facility] [address] [facility] [place] [address] Ama Robertson CRNP 132 [facility] [place] [address] 10/31/2023 2:20 PM EDT Office Visit General Internal Medicine [facility] [place] [address] [address] [place] [address] Brad Thompson MD [address] [place] [address] [place] [address] Health Maintenance Due Date Last Done Comments DISCUSS TOBACCO CESSATION (REFER TO SMARTSET #3012) 1960 Cologuard 2005 Colonoscopy 2005 Colorectal Cancer [...] exists Diabetic Eye Exam 11/24/2023 11/23/2022, , 05/08/2019 Albumin/Creatinine Ratio 05/02/2024 023, 04/26/2022, 05/08/2019, Additional [...] exists LUNG CANCER SCREENING - USE SMARTSET 52187 Completed 03/29/2023, 03/25/2022, 03/24/2021, Additional history exists GARDASIL-HPV IMMUNIZATION SERIES Aged Out No longer eligible based on patient's age to complete this topic MENINGOCOCCAL (MENACTRA/MENVEO) Aged Out No longer eligible based on patient's age to complete this topic documented as of this encounter Medical Devices Implanted Type Area Inter Fold Roll Cutter Device Identifier Shelf Expiration Date Model / Serial / Lot Vavle Aortic 27mm 3300tfx - [id number] - [id number] Implanted:Qty: 1 on 01/07/2017 by Silas Ald[place] [facility] [place] [employer]EL [employer] ABIGAIL 03/29/2020 [id number] / [id number] / documented as of this encounter Procedures Procedure Name Priority Date/Time Associated Diagnosis Comments INR FINGERSTICK, POINT OF CARE STAT 06/28/2023 2:28 PM EST S/P CABG (coronary artery bypass graft) S/P AVR (aortic valve replacement) documented in this encounter Results * INR FINGERSTICK, POINT OF CARE (06/28/2023 2:28 PM EST) Fingerstick INR 1.5 INR 2:35 PM EST [facility] Blood 06/28/2023 2:28 PM EST 06/28/2023 2:35 PM EST Narrative [facility] - 06/28/2023 2:35 PM EST Therapeutic ranges for non-operative patients: Prophylaxsis/treatment of DVT: (Range:2.0-3.0) Treatment of pulmonary embolism:(Range:2.0-3.0) Prevention of systemic embolism from: -tissue heart valves -acute myocardial infarction -valvular heart disease -atrial fibrillation (Range: 2.0-3.0) Mechanical prosthetic valves: (Range: 2.5-3.5) [facility] LAB POINT O F CARE TEST DOCKED DEVICE UNSOLICITED RESULTS [facility] [facility] [place] [address] documented in this encounter Visit Diagnoses Diagnosis Accelerating angina (HCC)- Primary Intermediate coronary syndrome S/P CABG (coronary artery bypass graft) Postsurgical aortocoronary bypass status S/P AVR (aortic valve replacement) Heart valve replaced by other means documented in this encounter Advance Directives Latest [...] 09/15/2022 6:58 AM 09/15/2022 9:38 AM This o rder reflects the patients wishes and were consensually agreed upon. Question Answer Comments Discussion of Advance Directives occurred with: Patient Full Code 01/07/2017 12:49 PM 01/11/2017 2:57 PM This order reflects the patients wishes and were consensually agreed upon. Care Teams Chief Ophthalmic Technician Relationship Specialty Start Date End Date Brad Thompson MD [address] [place] [address] PCP - General Internal Medicine 11/20/17 documented as of this encounter"
--- OUTSIDE RECORDS SUMMARY | 2023-08-22 23:08 | External Medical Summary | Summary of Care ---
Author Name Unknown Organization [facility] Address [address] [facility] [place] [address] Phone [phone] Care Team Providers Care Coatings Inspector Name Role Phone Brad Thompson MD Primary Care Provider + Reason for Visit * Reason Comments Dosage Adjustment In Person (Anticoag Cl inic) Encounter Details Date Type Department Care Team (Latest Contact Info) Description 07/12/2023 3:10 PM EST Anticoagulation Pharmacy, [facility] [address] [facility] [place] [address] [facility] 132 [facility] [place] [address] Accelerating angina (HCC)*; S/P CABG (coronary artery bypass graft); S/P AVR (aortic valve replacement) Allergies Active Allergy Reactions Criticality Noted Date Comments Varenicline Tartrate Nausea/vomiting,Psy ch complications High 08/05/2010 Iodinated Contrast Media Nausea/vomiting 2015 Methadone Other (Please comment) 09/04/2010 Shakes Valdecoxib 03/18/2004 felt odd documented as of this encounter (statuses as of 07/12/2023) Medications Medication Sig Dispensed Refills Start Date [...] the morning. 90 Tablet 3 08/16/2022 Active Isosorbide Mononitrate ER 60 MG Oral [...] Tablet 3 12/27/2022 Active Additional Information Patient not taking.Reported on 06/28/2023 Albuterol Sulfate HFA 108 (90 Base) MCG/ACT [...] ONCE DAILY 90 Capsule 1 06/21/2023 Active Nitroglycerin 0.4 MG Sublingual Tablet Sublingual (Nitrostat)Indica tions:Coronary artery disease involving klamath coronary artery of klamath heart without angina pectoris Place 1 Tablet under the tongue every 5 minutes as needed for Pain, Chest. up to 3 doses in 15 minutes 25 Tablet 11 06/28/2023 Active Fluticasone-Salme terol 115-21 MCG/ACT Inhalation Aerosol (Advair HFA) Inhale 2 Puffs by mouth in the morning and 2 Puffs before bedtime. 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 Severe single [...] as of this encounter (statuses as of 07/12/2023) Resolved Problems Problem Noted Date Diagnosed Date [...] as of this encounter (statuses as of 07/12/2023) Immunizations Name Administration Dates Next Due COVID-19 mRNA, LNP-s, No Pre serve, 2-Dose Series (Moderna) 08/11/2020,07/14/2020 COVID-19, mRNA, LNP-s, PF, B ooster, 100mcg/0.5mg (Moderna) 05/04/2021 Hepatitis B, 20+ yrs 03/11/2021,07/09/2019,05/0811/06/2019 PPD 03/11/2010,03/05/2008,03/02/2006 Pneumococcal Conjugate Vacci ne, 20-valent ([id number]) 10/28/2022 Pneumococcal Polysaccharide PPV23 (Pneumovax) 09/04/2010 Seasonal [...] Progress Notes * Charisse Bae RPh - 07/12/2023 2:11 PM EST Images from the original note were not included. Medication Therapy Disease Management - Anticoagulation Patient: Jonas Dorsey | : 1960 Subjective Patient-Reported Symptoms: Patient Findings Negatives: Signs/symptoms of thrombosis, Signs/symptoms of bleeding, Change in health, Change in alcohol use, Change in activity, Upcoming invasive procedure, Missed doses, Extra doses, Change in medications, Change in diet/appetite, Bruising Objective Current Warfarin Dose As of 07/12/2023 Warfarin maintenance plan: 5 mg (5 mg x 1) every Tue, Emily, Sat; 7.5 mg (5 mg x 1.5) all other days INR Result As of 07/12/2023 INR goal: 2.0-3.0 INR used for dosin.6 (07/12/2023) Assessment & Plan Warfarin Plan As of 07/12/2023 Full warfarin instructions: 5 mg every Tue, Emily, Sat; 7.5 mg all other days Next INR check: 08/02/2023 Repeat PT/INR in 3 week(s) Weekly dose: not changed Additional Dosing Information: Charisse Bae [facility] Clinical Pharmacist 07/12/2023, 2:39 PM documented in this encounter Plan of Treatment Upcoming Encounters Date Type Department Care Team (Late st Contact Info) Description 08/01/2023 9:30 AM EST Cardiac Studies Cardiac Studies [facility], [place] [address] [place] [address] [place], [place] [address] [place] [address] 08/01/2023 10:00 AM EST Office Visit Cardiology [facility], [place] [address] [place] [address] Louis Mckeon MD [address] [place] [address] 08/02/2023 8:50 AM EST Anticoagulation Pharmacy, [facility] 132 [place] [address] [facility], [facility] 132 [facility] [place] [address] 10/05/2023 2:00 PM EDT Office Visit Gastroenterology, [facility] [address] [place] [address] Ama Robertson CRNP 132 [place] [address] 10/31/2023 2:20 PM EDT Office Visit General Internal Medicine [facility] [address] [place] [address] Brad Thompson MD [address] [place] [address] Health Maintenance Due Date Last Done Comments DISCUSS TOBACCO CESSATION (REFER TO SMARTSET #[id number]) 1960 Cologuard 2005 Colonoscopy 2005 Colorectal Cancer [...] exists LUNG CANCER SCREENING - USE SMARTSET 29048 Completed 03/29/2023, 03/25/2022, 03/24/2021, Additional history exists GARDASIL-HPV IMMUNIZATION SERIES Aged Out No longer eligible based on patient's age to complete this topic MENINGOCOCCAL (MENACTRA/MENVEO) Aged Out No longer eligible based on patient's age to complete this topic documented as of this encounter Medical Devices Implanted Type Area Director Semiconductor Device Identifier Shelf Expiration Date Model / Serial / Lot Vavle Aortic 27mm [id number] - [id number] - [id number] Implanted:Qty: 1 on 01/07/2017 by Silas Aldana MD at [place] [facility] Company[employer] ABIGAIL 03/29/2020 [id number] / [id number] / documented as of this encounter Procedures Procedure Name Priority Date/Time Associated Diagnosis Comments INR FINGERSTICK, POINT OF CARE STAT 07/12/2023 2:15 PM EST S/P CABG (coronary artery bypass graft) S/P AVR (aortic valve replacement) documented in this encounter Results * INR FINGERSTICK, POINT OF CARE (07/12/2023 2:15 PM EST) Fingerstick INR 1.6 INR 2:22 PM EST [facility]ORAT[facility] SU[facility]IL SANTAMARIA 57-10 Blood 07/12/2023 2:15 PM EST 07/12/2023 2:22 PM EST Narrative [facility] SANTAMARIA 57-10 - 07/12/2023 2:22 PM EST Therapeutic ranges for non-operative patients: Prophylaxsis/treatment of DVT: (Range:2.0-3.0) Treatment of pulmonary embolism:(Range:2.0-3.0) Prevention of systemic embolism from: -tissue heart valves -acute myocardial infarction -valvular heart disease -atrial fibrillation (Range: 2.0-3.0) Mechanical prosthetic valves: (Range: 2.5-3.5) Bryant Allen [facility] LAB POINT O F CARE TEST DOCKED DEVICE UNSOLICITED RESULTS Performing Organization Address City/State/[facility] Co de Phone Number LABORATORY SUHAIL [address] [place] [address] documented in this encounter Visit Diagnoses Diagnosis Accelerating angina (HCC)- Primary Intermediate coronary syndrome S/P CABG (coronary artery bypass graft) Postsurgical aortocoronary bypass status S/P AVR (aortic valve replacement) Heart valve replaced by other means documented in this encounter Advance Directives Latest Code Status on File Code Status Date Activated Date Inactivated Comments Full Code 09/15/2022 9:38 AM 09/15/2022 2:57 PM This or irck reflects the patients wishes and were consensually [...] and were consensually agreed upon. Care Teams Coatings Inspector Relationship Specialty Start Date End Date Brad Thompson MD [address] [place] [address] PCP - General Internal Medicine 11/20/17 documented as of this encounter"
--- OUTSIDE RECORDS SUMMARY | 2023-08-22 23:08 | External Medical Summary | Summary of Care ---
Author Name Unknown Organization [facility] Address [address] [place] [address] Phone [phone] Care Team Providers Care Rubber Flap Cutter Name Role Phone Brad Thompson MD Primary Care Provider + Reason for Referral * Precert (Within 10 days (routine)) - Authorized Specialty Diagnoses / Procedures Referred By Contac t Referred To Contact Radiology Diagnoses Aortic stenosis Procedures CTA TAVR GATED STUDY Louis Mckeon MD [address] [place] [address] Referral ID Status Reason Start Date Expiration Date V isits Requested Visits Authorized [id number] Authorized 08/16/2023 999 [id number] Encounter Details Date Type Department Care Team (Late st Contact Info) Description 08/02/2023 Orders Only [facility], Cardiac Recovery Suite, [facility] [address] [place] [address] Vanessa Benson RN Aortic stenosis* Allergies Active Allergy Reactions Criticality Noted Date Comments Varenicline Tartrate Nausea/vomiting,Psy ch complications High 08/05/2010 Iodinated Contrast Media Nausea/vomiting 2015 Methadone Other (Please comment) 09/04/2010 Shakes Valdecoxib 03/18/2004 felt odd documented as of this encounter (statuses as of 08/02/2023) Medications Medication Sig Dispensed Refills Start Date End Date Status acetaminophen (TYLENOL) 500 MG TabletIndications:G eneralized headache Take 2 Tablets by mouth every 8 hours as needed for Pain. 100 Tab 0 01/31/2019 Active Fluticasone Propionate 50 MCG/ACT Nasal SuspensionIndicatio [...] Active Warfarin Sodium 5 MG Oral Tablet (Coumadin)Indicatio ns:Accelerating angina (HCC),S/P CABG (coronary artery bypass graft) Take 1 to 2 tablets by mouth every evening as directed by anticoagulation clinic 45 Tablet 5 11/23/2022 Active Additional Information Patient taking differently: Take 1 tablet by mouth , Tue, , Sat, and Sun., Reported on 05/02/2023 Amoxicillin 500 MG Oral Capsule (Amoxil)Indications :S/P [...] 05/02/2023 Active Ezetimibe 10 MG Oral Tablet (Zetia)Indications: Dyslipidemia, goal LDL below 70 TAKE ONE TABLET BY MOUTH ONE TIME DAILY 90 Tablet 3 05/14/2023 Active Lisinopril 40 MG Oral TabletIndications:H TN, [...] Tablet Sublingual (Nitrostat)Indicati ons:Coronary artery disease involving pala coronary artery of pala heart without angina pectoris Place 1 Tablet [...] for Wheezing. 360 mL 1 07/26/2023 Active documented as of this encounter (statuses as of 08/02/2023) Active Problems Problem Noted Date Diagnosed Date Stenosis of prosthetic aortic valve 03/31/2023 Accelerating angina 11/12/2022 Coronary artery disease of n ative artery of pala heart with stable angina pectoris 10/15/2021 Spinal [...] 01/12/20 17 Coronary artery disease invo lving pala coronary artery of pala heart without angina pectoris 03/01/2016 Overview: [facility] 02/25/16 - . Severe single [...] as of this encounter (statuses as of 08/02/2023) Resolved Problems Problem Noted Date Diagnosed Date [...] as of this encounter (statuses as of 08/02/2023) Immunizations Name Administration Dates Next Due COVID-19 mRNA, LNP-s, No Pre serve, 2-Dose Series (Moderna) 08/11/2020,07/14/2020 COVID-19, mRNA, LNP-s, PF, B ooster, 100mcg/0.5mg (Moderna) 05/04/2021 Hepatitis B, 20+ yrs 03/11/2021,07/09/2019,05/0811/06/2019 PPD 03/11/2010,03/05/2008,03/02/2006 Pneumococcal Conjugate Vacci ne, 20-valent ([id number]) 10/28/2022 Pneumococcal Polysaccharide PPV23 (Pneumovax) 09/04/2010 Seasonal [...] 47 Smokeless Tobacco: Never Comments:Cut back to 1/ to 3/4 ppd 11/10/22. Less than 10 [...] Description 08/22/2023 10:30 AM EDT Appointment Radiology, [place] [address] [place] [address] 08/22/2023 12:00 PM EDT Office Visit Cardiothoracic Surg [facility], [place] [address] [place] [address] Servando West MD [address] [place] [address] 08/23/2023 8:50 AM EDT Anticoagulation Pharmacy, [facility] 132 [facility] [place] [address] [facility] 132 [facility] [place] [address] 10/05/2023 2:00 PM EDT Office Visit Gastroenterology, [facility] [address] [place] [address] Ama Robertson CRNP 132 [facility] [place] [address] 10/31/2023 2:20 PM EDT Office Visit General Internal Medicine [facility] [place] [address] [facility] [place], [place] [address] Brad Thompson MD [address] [facility] [place] [address] Scheduled Orders Name Type Priority Associated Diagnoses Orde r Schedule CTA TAVR GATED STUDY Medical Imaging Routine Aortic stenosis Expected: 08/16/2023, Expires: 08/31/2023 Health Maintenance Due Date Last Done Comments [...] exists LUNG CANCER SCREENING - USE SMARTSET [id number] Completed 03/29/2023, 03/25/2022, 03/24/2021, Additional history exists GARDASIL-HPV IMMUNIZATION SERIES Aged Out No longer eligible based on patient's age to complete this topic MENINGOCOCCAL (MENACTRA/MENVEO) Aged Out No longer eligible based on patient's age to complete this topic documented as of this encounter Medical Devices Implanted Type Area Distribution Specialist Device Identifier Shelf Expiration Date Model / Serial / Lot Sut Steel 6 [id number] - [id number] Implanted:Qty: 4 on 01/07/2017 by Silas Aldana MD at OR [facility] N/A: Sternum [place] : [employer] 09/10/2021 [id number] / / [id number] Vavle Aortic 27mm [id number] - [id number] - [id number] Implanted:Qty: 1 on 01/07/2017 by Silas Aldana MD at OR [facility] Heart [employer] ABIGAIL 03/29/2020 [id number] / [id number] / documented as of this encounter Visit Diagnoses Diagnosis Aortic stenosis- Primary Aortic valve disorders documented in this encounter Advance Directives Latest [...] and were consensually agreed upon. Care Teams Rubber Flap Cutter Relationship Specialty Start Date End Date Brad Thompson MD [address] [place] [address], [place] [address] PCP - General Internal Medicine 11/20/17 documented as of this encounter
--- OUTSIDE RECORDS SUMMARY | 2023-08-22 23:08 | External Medical Summary | Summary of Care ---
Author Name Unknown Organization [facility] Address [address] [place] [address] Phone [phone] Care Team Providers Care Corridor Redevelopment Manager Name Role Phone Brad Thomposn MD Primary Care Provider + Reason for Visit * Reason Comments NEW PATIENT Encounter Details Date Type Department Care Team (Late st Contact Info) Description 08/01/2023 10:00 AM EST Office Visit Cardiology [facility] [address], [place] [id number] Louis Mckeon MD [address], [place] [phone] Coronary artery disease involving mentasta coronary artery of mentasta heart without angina pectoris*; Dyslipidemia, goal LDL below 70; Tobacco use disorder; PAD (peripheral artery disease) ([facility]); HTN, goal below 140/90; S/P CABG (coronary artery bypass graft); S/P AVR (aortic valve replacement); Stenosis of prosthetic aortic valve, subsequent encounter Allergies Active Allergy Reactions Criticality Noted Date Comments Varenicline Tartrate Nausea/vomiting,Psy ch complications High 08/05/2010 Iodinated Contrast Media Nausea/vomiting 2015 Methadone Other (Please comment) 09/04/2010 Shakes Valdecoxib 03/18/2004 felt odd documented as of this encounter (statuses as of 08/01/2023) Medications Medication Sig Dispensed Refills Start Date [...] Tablet Sublingual (Nitrostat)Indicati ons:Coronary artery disease involving mentasta coronary artery of mentasta heart without angina pectoris Place 1 Tablet [...] as of this encounter (statuses as of 08/01/2023) Active Problems Problem Noted Date Diagnosed Date Stenosis of prosthetic aortic valve 03/31/2023 Accelerating angina 11/12/2022 Coronary artery disease of n ative artery of mentasta heart with stable angina pectoris 10/15/2021 Spinal [...] 01/12/20 17 Coronary artery disease invo lving mentasta coronary artery of mentasta heart without angina pectoris 03/01/2016 Overview: [facility] 02/25/16 - . Severe single vessel [...] as of this encounter (statuses as of 08/01/2023) Resolved Problems Problem Noted Date Diagnosed Date [...] as of this encounter (statuses as of 08/01/2023) Immunizations Name Administration Dates Next Due COVID-19 mRNA, LNP-s, No Pre serve, 2-Dose Series (Moderna) 08/11/2020,07/14/2020 COVID-19, mRNA, LNP-s, PF, B ooster, 100mcg/0.5mg (Moderna) 05/04/2021 Hepatitis B, 20+ yrs 03/11/2021,07/09/2019,05/0811/06/2019 PPD 03/11/2010,03/05/2008,03/02/2006 Pneumococcal Conjugate Vacci ne, 20-valent ([id number]) 10/28/2022 Pneumococcal Polysaccharide PPV23 (Pneumovax) 09/04/2010 Seasonal [...] on file documented as of this encounter Last Filed Vital Signs Vital Sign Reading Time Taken Comments Blood Pressure 102/64 08/01/2023 9:58 AM EST Pulse 66 08/01/2023 9:54 AM EST Temperature - - Respiratory Rate - - Oxygen Saturation 95% 08/01/2023 9:54 AM EST Inhaled Oxygen Concentration - - Weight 117.3 kg (258 lb 8 oz) 08/01/2023 9:54 AM EST Height 180.3 cm (5' 11") 08/01/2023 9:54 AM EST Body Mass Index 36.05 08/01/2023 9:54 AM EST documented in this encounter Functional Status Functional Status Response [...] as of this encounter Progress Notes * Louis Mckeon MD - 08/01/2023 10:14 AM EST I have reviewed the advanced practitioner's documentation on the date of service referenced in note, and I agree with, and take responsibility for the plan of care. 62 year old male with bioprosthetic AVR and CABG in 2017 Now with aortic stenosis. SOBOE and chest tightness Cath in 10/2022 showed patent SVG-LAD, SVG-OM and non obstructive disease Vmax: 462 with normal EF in 02/2023 SANDRA was performed in 03/2023 which confirmed severe H/o PAD, RSFA stent in 2015 Current smoker--> PFTs in 07/2022 normal FEV1 Plan for CT scan to assess coronary height / access and surgical risk stratification. On coronary angiogram, coronary height appears feasible for a SUE implantation He has been instructed to contact his dentist for clearance. Louis Mckeon MD MPH Interventional Cardiology Pager: [phone] 08/01/23 10:25 AM * Shannan Shetty CRNP - 08/01/2023 10:00 AM EST PCP: MD Cyndee Powers PA-C requested a consultation for this 62 year old year old male for evaluation of: -BIOPROSTHETIC AORTIC VALVE STENOSIS Jonas Dorsey is a 62 year old year old male with known CAD s/p CABG, aortic stenosis s/p AVR, bioprosthetic , hypertension, hyperlipidemia, PAD, COPD, GERD and tobacco use (cutting back). Over the last 7-10 months, he has experienced worsening dyspnea and chest tightness. He underwent repeat cardiac cath in October 2022 with stable findings, patent grafts without obstructive disease elsewhere. Med management recommended. AVR was found to have elevated gradients suggesting obstruction. He was started on anticoagulation to see if this would improve and if obstruction was caused by thrombus. Unfortunately no significant improvement. Since last visit, patient underwent SANDRA with Dr. Braswell at [facility]. SANDRA revealed severe stenosis of his AVR. He gets very weak and tired with exertion. With continued walking, he notices a pinching sensation in the upper part of his chest. If he does not stop to rest, his symptoms will worsen and then he has to take NTG. He also feels very short of breath. He can walk about 1/2 block before having to stop due to his symptoms. He has no symptoms that start at rest. If he overdoes it during the day, he may wake up feeling short of breath and chest discomfort. Symptoms resolve within 30 minutes without intervention. He has no leg swelling. He has upper dentures. He has some lower teeth and is waiting for a partial. He was at the dentist last month. No issues with his own teeth. He is no longer working, he is disabled due to issues with his back. When he walks, he feels as if he is walking on stumps. The more he walks, the more severe his leg symptoms get and he eventually feels like his legs might explode. Prior cardiac testing: S/P RIGHT SFA 07/09/2015 S/P LAD PCI ([facility]) 02/25/2016 S/P AVR (27 mm Magna Ease pericardial valve) & CABG x 2 (SVG-LAD, SVG-OM) 12/2016 - Dr. Aldana ECHO 08/2020 (The qualitative LV ejection fraction is 55-59% (normal). The LV wall thickness is mildly increased (concentric). The septal motion is abnormal consistent with the post-operative state. The regional left ventricular wall motion is otherwise normal. There is an aortic valve bioprostheticpresent. The aortic valve prosthesis systolic gradients are normal for this type prosthesis. Ao V2 max: 230.6 cm/sec, Ao mean PG (full): 10.6 mmHg, EMMANUEL(I,D): 1.4 cm2) Significant aortic valve prosthesis regurgitation is absent. The aortic root is mildly enlarged. Compared to last available study changes are noted as follows: Bioprosthetic aortic valve replacement now present.) CARDIAC CATH 10/2022 @ [facility] (patent SVG-LAD & patent SVG-OM. 30% dLM, 99% instent LAD stenosis, 40% D1, 30% pCIRC, 80% OM, 30% pRCA, 50% ostial rPDA) ECHO 10/2022 (EF 60-65%, abnormal AVR gradients (VMax 478, mean 54, EMMANUEL 0.61) ECHO 02/2023 (The qualitative LV ejection fraction is 60-64% (normal). The LV wall thickness is moderately increased (concentric). There is an aortic valve bioprosthetic present. Bioprosthetic leaflets appear thickened with reduced excursion. The aortic valve prosthesis systolic gradients are abnormal for this type prosthesis suggesting obstruction. Dimensionless index 0.14 (Ao V2 max: 462.8 cm/sec, Ao mean PG (full): 51.2 mmHg, EMMANUEL(I,D): 0.42 cm2) SANDRA 03/2023 @ [facility] (EF 55-60%, the bioprosthetic leaflets are thickened with severely reduced excursion. There is severe with an EMMANUEL .94) EFRAIN 02/25/2024: EFRAIN at rest is 0.64 on the right and 0.57 on the left. PFT's 07/2022: FEV1 was normal Current Outpatient Medications Medication Sig Dispense Refill Fluticasone Propionate 50 MCG/ACT Nasal Suspension Administer 2 Sprays into each nostril daily. 16 g 1 Aspirin 81 MG Oral Tablet Delayed Release (Aspirin Low Dose) Take 1 Tablet by mouth in the morning.90 Tablet 3 Isosorbide Mononitrate ER 60 MG Oral Tablet Extended Release 24 Hour (Imdur) Take 1 Tablet by mouthin the morning. 34 Tablet 11 Atorvastatin Calcium 80 MG Oral Tablet (Lipitor) Take 1 Tablet by mouth in the morning. 90 Tablet 3 Warfarin Sodium 5 MG Oral Tablet (Coumadin) Take 1 to 2 tablets by mouth every evening as directed by anticoagulation clinic (Patient taking differently: Take 1 tablet by mouth , Tue, , Tue,and Sun.) 45 Tablet 5 Amoxicillin 500 MG Oral Capsule (Amoxil) TAKE FOUR CAPSULES BY MOUTH ONE HOUR PRIOR TO APPOINTMENT 4 Capsule 0 Warfarin Sodium 10 MG Oral Tablet (Jantoven) take 1 tablet by mouth on tuesday, tuesday, and tuesday 30 Tablet 3 Albuterol Sulfate HFA 108 (90 Base) MCG/ACT Inhalation Aerosol Solution INHALE TWO PUFFS BY MOUTH EVERY 6 HOURS NEEDED FOR WHEEZING 18 g 5 diphenhydrAMINE HCl 25 MG Oral Capsule (Benadryl Allergy) Take 1 Capsule by mouth every 6 hours as needed for Itching. Ezetimibe 10 MG Oral Tablet (Zetia) TAKE ONE TABLET BY MOUTH ONE TIME DAILY 90 Tablet 3 Lisinopril 40 MG Oral Tablet TAKE ONE TABLET BY MOUTH ONE TIME DAILY 90 Tablet 3 Metoprolol Tartrate 50 MG Oral Tablet (Lopressor) TAKE 1 TABLET BY MOUTH ONCE DAILY 90 Tablet 1 amLODIPine Besylate 10 MG Oral Tablet (Norvasc) TAKE 1 TABLET BY MOUTH ONCE DAILY 90 Tablet 1 Omeprazole 40 MG Oral Capsule Delayed Release (PriLOSEC) TAKE 1 CAPSULE BY MOUTH ONCE DAILY 90 Capsule 1 Ipratropium-Albuterol 0.5-2.5 (3) MG/3ML Inhalation Solution (Duoneb) Inhale 3 mL via nebulizer 4 times a day as needed for Wheezing. 360 mL 1 acetaminophen (TYLENOL) 500 MG Tablet Take 2 Tablets by mouth every 8 hours as needed for Pain. 100Tab 0 Loratadine 10 MG Oral Tablet (Claritin) Take 1 Tablet by mouth in the morning. Nitroglycerin 0.4 MG Sublingual Tablet Sublingual (Nitrostat) Place 1 Tablet under the tongue every5 minutes as needed for Pain, Chest. up to 3 doses in 15 minutes (Patient not taking: Reported on 08/01/2023) 25 Tablet 11 No current facility-administered medications for this visit. Review of patient's allergies indicates: Allergen Reactions Chantix [Varenicline Tartrate] Nausea/vomiting and Psych complications Iodinated Contrast Media Nausea/vomiting Methadone Other (Please comment) Shakes Valdecoxib felt odd Past Medical History: Diagnosis Date Aortic regurgitation 08/20/2015 Aortic valve stenosis 08/20/2015 Beta-blockers contraindicated 03/01/2016 Due to AI per cardiology COPD (chronic obstructive pulmonary disease) ([facility]) DISH (diffuse idiopathic skeletal hyperostosis) 05/15/2019 Displacement of lumbar intervertebral disc without myelopathy 1997 Esophageal reflux HTN (hypertension) Hyperlipidemia PAD (peripheral artery disease) ([facility]) 08/20/2015 Bilateral Past Surgical History: Procedure Laterality Date CORONARY ARTERIES BYPASS, TWO 01/07/2017 CORONARY ARTERY BYPASS GRAFT WITH 2 VEIN GRAFTS performed [place] Silas Aldana MD [place] [facility] LUMBAR SPINAL CORD SEG 06/13/2013 Dr. Yip, L4/5 DENTAL SURGERY PROCEDURE NEC wisdom teeth ENDO,VIDEO ASSIST HARVEST KAYDEN 01/07/2017 ENDOSCOPY VIDEO ASSISTED HARVEST VEIN performed by Silas Aldana MD [place] [facility] INFORMATION orif right metacarpal INFORMATION Right 06/2015 right SFA stent 06/[address] Bright for claudication LEG ARTERY DISEASE EDU. 06/13/2014 right sfa LUMBAR SPINE FUSION, POST INTERBODY 04/13/1998 Lumbar Spine Fusion,Post Interbody, Dr Shonna Rolle NECK/CHEST SURGERY PROCEDURE NEC 06/13/[address] Yip REMOVAL OF APPENDIX age 8 REMOVAL OF HYDROCELE, UNILATERAL Left 09/15/2022 EXCISION HYDROCELE UNILATERAL performed by Silvio Morgan MD at OR [facility] REMOVE TONSILS & ADENOIDS, UNDER 12 Tonsillectomy/Adenoids,<12 Y/O REPLACEMENT AORTIC VALVE, BYPASS WITH PROSTHETIC VALVE N/A 01/07/2017 REPLACEMENT AORTIC VALVE, BYPASS WITH PROSTHETIC VALVE performed by Silas Aldana MD [place] [facility] RIGHT HEART CATHETERIZATION 06/13/2000 Cardiac Catheterization, Right Heart UPPER GI ENDOSCOPY/EXAM 01/11/2001 Family History Problem Relation Age of Onset Heart Disorder Father age 52 [place] Cancer Mother age 62, unknown [place] Diabetes Mother Blood Disorder Sister age 15 leukemia Diabetes Sister Social History Tobacco Use Smoking status: Every Day Current packs/day: 1.00 Average packs/day: 1 pack/day for 47.0 years (47.0 ttl pk-yrs) Types: Cigarettes Smokeless tobacco: Never Tobacco comments: Cut back to 1/2 to 3/4 ppd 11/10/22. Less than 10 cigarettes a day as of 08/01/23. Vaping Use Vaping Use: Never used Substance Use Topics Alcohol use: Yes Alcohol/week: 70.0 standard drinks of alcohol Types: 70 12 oz of beer per week Comment: Beer Drug use: No Occupational History: disabled. 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 Pulmonary: No dyspnea, no cough. Cardiac: As above Gastrointestinal: Negative Vascular: + claudication. Hematology: Denies bleeding problems. Musculoskeletal: back and neck pain Skin: Negative Neuro: No TIA/CVA symptoms. : No dysuria, no frequency and no nocturia. Psych: No depression and no anxiety. Physical Exam: BP 102/64 (BP Site: Right Arm, BP Position: Sitting, BP Cuff Size: Large) | Pulse 66 | Ht 1.803 m (5' 11") | Wt 117.3 kg (258 lb 8 oz) | SpO2 95% | BMI 36.05 kg/m | BSA 2.42 m General: No acute distress. HEENT: Unremarkable. Neck: No adenopathy; thyroid ok; no JVD. Pulmonary: Clear to auscultation bilaterally, no distress, no dullness to percussion, no wheezing. Cardiac: Regular, III/ EDNA @ [facility], normal S1, and S2, no S3, no S4, no rub, normal PMI. CAROTID Right +3 Left+3 Bruit no BRACHIAL Right +3 Left+3 RADIAL Right +2 Left+2 FEMORAL Right +1 LEFT +1 Neuro: AAOx3, car examiner strength equal, no facial drooping. Abdomen: soft, nontender, no hepatomegaly felt, +BS, no bruits. Musculoskeletal: Unremarkable. Extremities: No edema. Skin: Unremarkable. Lipid Panel Results: Results for orders placed or performed in visit on 03/29/23 LIPID PANEL WITH DIRECT LDL IF TG IS HIGH Result Value Ref Range Triglycerides 61 <=174 mg/dL Cholesterol 117 <200 mg/dL HDL Cholesterol 45 >39 mg/dL Non-HDL Cholesterol 72 <=159 mg/dL LDL Cholesterol 60 <=129 mg/dL Impressions and Recommendations: 1. SEVERE AORTIC STENOSIS NOW WITH SEVERE BIOPROSTHETIC AORTIC STENOSIS S/P AVR (27 mm Magna Ease pericardial valve) 12/2016 - Dr. Aldana 2. CORONARY ARTERY DISEASE S/P LAD PCI (Xience) 02/25/2016 S/P CABG x 2 (SVG-LAD, SVG-OM) 12/2016 3. HYPERTENSION 4. HYPERLIPIDEMIA 5. PERIPHERAL ARTERIAL DISEASE S/P RSFA stenting 2015 6. TOBACCO USE Mr. Dorsey had AVR & CABG in 2016. Over the past 7-10 months, he has experienced increasing IRIZARRY and chest tightness. Catheterization in October showed patent bypass grafts with non-obstructive CAD elsewhere. Echo showed elevated AVR gradients. He was started on warfarin and repeat echo showed no improvement in AV gradients. Recent SANDRA confirms severe . Will get CTA for further risk stratification. Likely will recommend redo SAVR, will consider mechanical AVR now that he is retired. It was previously decided not to use a mechanical valve due to his bleeding risk related to his occupation. However, he states that he has been itching since starting warfarin. BP and lipids are excellent. He is trying to stop smoking. PFT's last year showed a normal FEV1 Dental exam is up to date EFRAIN shows moderate PAD STS score = 2.1% [facility] [address] [id number] cc: Brad Thompson MD documented in this encounter Plan of Treatment Upcoming Encounters Date Type Department Care Team (Late st Contact Info) Description 08/02/2023 8:50 AM EST Anticoagulation Pharmacy, [address] [place] [id number] [facility] [address] [place] [id number] 10/05/2023 2:00 PM EDT Office Visit Gastroenterology, [facility] [address] [place] [id number] Ama Robertson CRNP [address] [place] [id number] 10/31/2023 2:20 PM EDT Office Visit General Internal Medicine [facility] [address] [facility] [address] [id number] Brad Thompson MD [address] [facility] [place] [address] Health Maintenance Due Date Last Done Comments [...] exists LUNG CANCER SCREENING - USE SMARTSET [id number] Completed 03/29/2023, 03/25/2022, 03/24/2021, Additional history exists GARDASIL-HPV IMMUNIZATION SERIES Aged Out No longer eligible based on patient's age to complete this topic MENINGOCOCCAL (MENACTRA/MENVEO) Aged Out No longer eligible based on patient's age to complete this topic documented as of this encounter Medical Devices Implanted Type Area Manager Pediatric Device Identifier Shelf Expiration Date Model / Serial / Lot Sut Steel 6 [id number] - [id number] Implanted:Qty: 4 on 01/07/2017 by Silas Aldana [place] [facility] N/A: Sternum J[place] : [employer] 09/10/2021 [id number] / / [id number] Vavle Aortic 27mm [id number] - [id number] - [id number] Implanted:Qty: 1 on 01/07/2017 by Silas Aldana MD [place] [facility] Heart [employer]IGAIL 03/29/2020 [id number] / [id number] / documented as of this encounter Visit Diagnoses Diagnosis Coronary artery disease involving mentasta coronary artery of mentasta heart without angina pectoris- Primary Dyslipidemia, goal LDL below 70 Other and unspecified hyperlipidemia Tobacco use disorder PAD (peripheral artery disease) (HCC) Peripheral vascular disease, unspecified HTN, goal below 140/90 Unspecified essential hypertension S/P CABG (coronary artery bypass graft) Postsurgical aortocoronary bypass status S/P AVR (aortic valve replacement) Heart valve replaced by other means Stenosis of prosthetic aortic valve, subsequent encounter documented in this encounter Advance Directives Latest [...] and were consensually agreed upon. Care Teams Corridor Redevelopment Manager Relationship Specialty Start Date End Date Brad Thompson MD [address] [place] [address] PCP - General Internal Medicine 11/20/17 documented as of this encounter
--- OUTSIDE RECORDS SUMMARY | 2023-08-22 23:08 | External Medical Summary | Summary of Care ---
Author Name Unknown Organization [facility] Address [address] [facility] [place] [address] Phone [phone] Care Team Providers Care Matching Machine Operator Name Role Phone Brad Thompson MD Primary Care Provider + Reason for Visit * Reason Comments eRx-Medication Refill Encounter Details Date Type Department Care Team (Late st Contact Info) Description 06/20/2023 Refill General Internal Medicine [facility] [place] [address] [facility] [place] [address] Brad Thompson MD [facility] [address] HTN, goal below 140/90 Allergies Active Allergy Reactions Criticality Noted Date Comments Varenicline Tartrate Nausea/vomiting,Psy ch complications High 08/05/2010 Iodinated Contrast Media Nausea/vomiting 2015 Methadone Other (Please comment) 09/04/2010 Shakes Valdecoxib 03/18/2004 felt odd documented as of this encounter (statuses as of 06/21/2023) Medications Medication Sig Dispensed Refills Start Date End Date Status acetaminophen (TYLENOL) 500 MG TabletIndicatio ns:Generalized headache Take 2 Tablets by mouth every 8 hours as needed for Pain. 100 Tab 0 9 Active Fluticasone Propionate 50 MCG/ACT Nasal SuspensionIndic ations:Runny nose Administer 2 Sprays into each nostril daily. 16 g 1 0 Active Aspirin 81 MG Oral Tablet Delayed Release (Aspirin Low Dose)Indication s:HTN, goal below 140/90 Take 1 Tablet by mouth in the morning. 90 Tablet 3 3 Active Nitroglycerin 0.4 MG Sublingual Tablet Sublingual (Nitrostat)Mayra cations:Coronar y artery disease involving grindstone coronary artery of grindstone heart without angina pectoris Place 1 Tablet under the tongue every 5 minutes as needed for Pain, Chest. up to 3 doses in 15 minutes 25 Tablet 11 3 Active Isosorbide Mononitrate ER 60 MG Oral Tablet Extended Release 24 Hour (Imdur) Take 1 Tablet by mouth in the morning. 34 Tablet 11 3 Active Atorvastatin Calcium 80 MG Oral Tablet (Lipitor)Indica tions:Dyslipide jocelin, goal LDL below 70 Take 1 Tablet by mouth in the morning. 90 Tablet 3 3 Active Warfarin Sodium 5 MG Oral Tablet (Coumadin)Indic ations:Accelera ting angina (HCC),S/P CABG (coronary artery bypass graft) Take 1 to 2 tablets by mouth every evening as directed by anticoagulation clinic 45 Tablet 5 3 Active Additional Information Patient taking differently: Take 1 tablet by mouth , Tue, , Sat, and Sun., Reported on 05/02/2023 Amoxicillin 500 MG Oral Capsule (Amoxil)Indicat ions:S/P AVR (aortic valve replacement) TAKE FOUR CAPSULES BY MOUTH ONE HOUR PRIOR TO APPOINTMENT 4 Capsule 0 3 Active Warfarin Sodium 10 MG Oral Tablet (Jantoven) take 1 tablet by mouth on tuesday, tuesday, and tuesday 30 Tablet 3 3 Active Additional Information Patient taking differently: take 1 tablet by mouth on Tuesday and tuesday, Reported on 05/02/2023 Albuterol Sulfate HFA 108 (90 Base) MCG/ACT Inhalation Aerosol SolutionIndicat ions:Bronchospa sm INHALE TWO PUFFS BY MOUTH EVERY 6 HOURS NEEDED FOR WHEEZING 18 g 5 3 Active diphenhydrAMINE HCl 25 MG Oral Capsule (Benadryl Allergy) Take 1 Capsule by mouth every 6 hours as needed for Itching. 0 Active Loratadine 10 MG Oral Tablet (Claritin)Indic ations:Itchy skin Take 1 Tablet by mouth in the morning. 0 3 Active Ezetimibe 10 MG Oral Tablet (Zetia)Indicati ons:Dyslipidemi a, goal LDL below 70 TAKE ONE TABLET BY MOUTH ONE TIME DAILY 90 Tablet 3 3 Active Lisinopril 40 MG Oral TabletIndicatio ns:HTN, goal below 140/90 TAKE ONE TABLET BY MOUTH ONE TIME DAILY 90 Tablet 3 3 Active Metoprolol Tartrate 50 MG Oral Tablet (Lopressor)Mayra cations:HTN, goal below 140/90 TAKE 1 TABLET BY MOUTH ONCE DAILY 90 Tablet 1 4 Active amLODIPine Besylate 10 MG Oral Tablet (Norvasc)Indica tions:HTN, goal below 140/90 TAKE 1 TABLET BY MOUTH ONCE DAILY 90 Tablet 1 4 Active Omeprazole 40 MG Oral Capsule Delayed Release (PriLOSEC) TAKE 1 CAPSULE BY MOUTH ONCE DAILY 90 Capsule 1 4 Active amLODIPine Besylate 10 MG Oral Tablet (Norvasc)Indica tions:HTN, goal below 140/90 TAKE ONE TABLET BY MOUTH DAILY 90 Tablet 1 3 06/21/19 24 Discontinued Omeprazole 40 MG Oral Capsule Delayed Release (PriLOSEC) TAKE ONE CAPSULE BY MOUTH DAILY 90 Capsule 1 3 06/21/19 24 Discontinued Metoprolol Tartrate 50 MG Oral Tablet (Lopressor)Mayra cations:HTN, goal below 140/90 TAKE ONE TABLET BY MOUTH DAILY 90 Tablet 1 3 06/21/19 24 Discontinued Hospital, Clinic, or Other Facility Administered Medication Ordered Dose Route Frequency Start Date End Date Status Albuterol Sulfate (Proventil) (2.5 MG/3ML) 0.083% inhalation solution 2.5 mgIndications:IRIZARRY (dyspnea on exertion) 2.5 mg NEBULIZER PRN 06/29/2022 06/29/2023 Act shirley documented as of this encounter (statuses as of 06/21/2023) Active Problems Problem Noted Date Diagnosed Date Stenosis of prosthetic aortic valve 03/31/2023 Accelerating angina 11/12/2022 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 Severe single vessel [...] as of this encounter (statuses as of 06/21/2023) Resolved Problems Problem Noted Date Diagnosed Date [...] as of this encounter (statuses as of 06/21/2023) Immunizations Name Administration Dates Next Due COVID-19 mRNA, LNP-s, No Pre serve, 2-Dose Series (Moderna) 08/11/2020,07/14/2020 COVID-19, mRNA, LNP-s, PF, B ooster, 100mcg/0.5mg (Moderna) 05/04/2021 Hepatitis B, 20+ yrs 03/11/2021,07/09/2019,05/0811/06/2019 PPD 03/11/2010,03/05/2008,03/02/2006 Pneumococcal Conjugate Vacci ne, 20-valent ([id number]) 10/28/2022 Pneumococcal Polysaccharide PPV23 (Pneumovax) 09/04/2010 Seasonal [...] encounter Miscellaneous Notes * Telephone Encounter - Norberto Rooney RPh - 06/21/2023 9:22 AM ESTSigned Prescriptions: Disp Refills Metoprolol Tartrate 50 MG Oral Tablet (Lop*90 Tab*1 Sig: TAKE 1 TABLET BY MOUTH ONCE DAILYAuthorizing Provider: BRAD THOMPSON User: NORBERTO ROONEY amLODIPine Besylate 10 MG Oral Tablet (Nor*90 Tab*1 Sig: TAKE 1 TABLET BY MOUTH ONCE DAILYAuthorizing Provider: BRAD THOMPSON User: NORBERTO ROONEY Omeprazole 40 MG Oral Capsule Delayed Rele*90Cap*1 Sig: TAKE 1 CAPSULE BY MOUTH ONCE DAILYAuthorizing Provider: BRAD THOMPSON User: NORBERTO ROONEY documented in this encounter Plan of Treatment Upcoming Encounters Date Type Department Care Team (Late st Contact Info) Description 06/22/2023 10:40 AM EST Office Visit General Surgery Soham Haines [address] [place] [address] Hiro Bryson MD [facility] [place] [address] 06/28/2023 2:50 PM EST Anticoagulation Pharmacy, [facility] [address] [facility] [place] [address] [facility] [address] [facility] [place] [address] 06/28/2023 3:00 PM EST Office Visit Cardiology, [facility] [address] [facility] [place] [address] Cyndee Paul, MAURIZIO [facility] [place] [address] 08/01/2023 9:30 AM EST Cardiac Studies Card[facility] Studies [facility] [address] [place] [address] [place], [facility] [address] [place] [address] 08/01/2023 10:00 AM EST Office Visit Cardiology [facility] [address] [place] [address] Louis Mckeon MD [address] [place] [address] 08/08/2023 12:30 PM EST Office Visit Gastroenterology, [facility] [address] [facility] [place] [address] Ama Robertson CRNP [address] [place] [address] 10/31/2023 2:20 PM EDT Office Visit General Internal Medicine [place] Jamel Barlow [address] [place], [place] [address] Brad Thompson MD [address] [facility] [place] [address] Health Maintenance Due Date Last Done Comments DISCUSS TOBACCO CESSATION (REFER TO SMARTSET #6329) 1960 Cologuard 2005 Colonoscopy 2005 Colorectal Cancer [...] exists LUNG CANCER SCREENING - USE SMARTSET 26144 Completed 03/29/2023, 03/25/2022, 03/24/2021, Additional history exists GARDASIL-HPV IMMUNIZATION SERIES Aged Out No longer eligible based on patient's age to complete this topic MENINGOCOCCAL (MENACTRA/MENVEO) Aged Out No longer eligible based on patient's age to complete this topic documented as of this encounter Medical Devices Implanted Type Area Cardiovascular Surgical Tech Device Identifier Shelf Expiration Date Model / Serial / Lot Vavle Aortic 27mm 3300tfx - [id number] - [id number] Implanted:Qty: 1 on 01/07/2017 [place] Ald[place] [facility] [place] [employer] ABIGAIL 03/29/2020 [id number] / [id number] / documented as of this encounter Visit [...] and were consensually agreed upon. Care Teams Matching Machine Operator Relationship Specialty Start Date End Date Brad Thompson MD [address] [facility] [place] [address] PCP - General Internal Medicine 11/20/17 documented as of this encounter
--- OUTSIDE RECORDS SUMMARY | 2023-08-22 23:08 | External Medical Summary | Summary of Care ---
Author Name Unknown Organization [facility] Address [address] [place] [address] Phone [phone] Care Team Providers Care Industrial Roof Plumber Name Role Phone Brad Thompson MD Primary Care Provider + Encounter Details Date Type Department Care Team (Late st Contact Info) Description 07/29/2023 Documentation [facility] [facility] [address] [place] [address] Vanessa Benson, RN Allergies Active Allergy Reactions Criticality Noted Date Comments Varenicline Tartrate Nausea/vomiting,Psy ch complications High 08/05/2010 Iodinated Contrast Media Nausea/vomiting 2015 Methadone Other (Please comment) 09/04/2010 Shakes Valdecoxib 03/18/2004 felt odd documented as of this encounter (statuses as of 07/29/2023) Medications Medication Sig Dispensed Refills Start Date [...] Tablet Sublingual (Nitrostat)Indicati ons:Coronary artery disease involving [place] coronary artery of [place] heart without angina pectoris Place 1 Tablet under the tongue every 5 minutes as needed for Pain, Chest. up to 3 doses in 15 minutes 25 Tablet 11 06/28/2023 Active Ipratropium-Albuter ol 0.5-2.5 (3) MG/3ML Inhalation Solution (Duoneb)Indications :IRIZARRY (dyspnea on exertion),Tobacco use disorder,COPD, group B, by GOLD 2017 classification ([facility]) Inhale 3 mL via nebulizer 4 times a day as needed for Wheezing. 360 mL 1 07/26/2023 Active documented as of this encounter (statuses as of 07/29/2023) Active Problems Problem Noted Date Diagnosed Date Stenosis of prosthetic aortic valve 03/31/2023 Accelerating angina 11/12/2022 Coronary artery disease of n ative artery of red lake heart with stable angina pectoris 10/15/2021 Spinal [...] 01/12/20 17 Coronary artery disease invo lving [place] coronary artery of [place] heart without angina pectoris 03/01/2016 Overview: [facility] 02/25/16 - . Severe single vessel coronary artery disease with Successful PCI of mid LAD with 2.75 x 18 Xience DICK post-dilated to 3.5 mm PAD (peripheral artery disease) 08/20/2015 Overview: Bilateral HTN, goal below 140/90 03/11/2010 Obesity, Class II, BMI 35-39.9, isolated (see ac al BMI) 11/24/2009 Overview: Per Obesity Protocol, #19 Cervical spinal stenosis 12/11/2008 Impotence of organic origin 05/29/2008 Tobacco use disorder 09/07/2004 Esophageal reflux 05/13/2004 documented as of this encounter (statuses as of 07/29/2023) Resolved Problems Problem Noted Date Diagnosed Date [...] as of this encounter (statuses as of 07/29/2023) Immunizations Name Administration Dates Next Due COVID-19 mRNA, LNP-s, No Pre serve, 2-Dose Series (Moderna) 08/11/2020,07/14/2020 COVID-19, mRNA, LNP-s, PF, B ooster, 100mcg/0.5mg (Moderna) 05/04/2021 Hepatitis B, 20+ yrs 03/11/2021,07/09/2019,05/0811/06/2019 PPD 03/11/2010,03/05/2008,03/02/2006 Pneumococcal Conjugate Vacci ne, 20-valent ([id number]) 10/28/2022 Pneumococcal Polysaccharide PPV23 (Pneumovax) 09/04/2010 Seasonal [...] as of this encounter Progress Notes * Vanessa Benson, RN - 07/29/2023 8:59 AM EST Images from the original note were not included. Risk Factors: Severe bioprosthetic (#27 Magna Ease - '17) & CABGx2 ([id number], JQB-Julzn-SI) hx prior PCIx2 (LAD), PVD s/p R SFA stenting, HTN, smoker, ETOH, BMI-37, hx multiple back surgeries JEAN NavaN Interventional Valve Nurse Navigator documented in this encounter Plan of Treatment Upcoming Encounters Date Type Department Care Team (Late st Contact Info) Description 08/01/2023 9:30 AM EST Cardiac Studies [facility] [place] [address] [place] [address] [place] [address] [place] [address] 08/01/2023 10:00 AM EST Office Visit Cardiology [facility] [address] [place] [address] Louis Mckeon MD [address] [place] [address] 08/02/2023 8:50 AM EST Anticoagulation Pharmacy, [facility] [address] [place] [address] [facility] [address] [place] [address] 10/05/2023 2:00 PM EDT Office Visit Gastroenterology, [facility] [address] [place] [address] Ama Robertson CRNP [address] [place] [address] 10/31/2023 2:20 PM EDT Office Visit General Internal Medicine [place] Barlow [address] [place] [address] Brad Thompson MD 200 [facility] [place] [address] Health Maintenance Due Date Last Done Comments DISCUSS TOBACCO CESSATION (REFER TO SMARTSET #9583) 1960 Cologuard 2005 Colonoscopy 2005 Colorectal Cancer [...] exists LUNG CANCER SCREENING - USE SMARTSET 60998 Completed 03/29/2023, 03/25/2022, 03/24/2021, Additional history exists GARDASIL-HPV IMMUNIZATION SERIES Aged Out No longer eligible based on patient's age to complete this topic MENINGOCOCCAL (MENACTRA/MENVEO) Aged Out No longer eligible based on patient's age to complete this topic documented as of this encounter Medical Devices Implanted Type Area Sheep Boner Device Identifier Shelf Expiration Date Model / Serial / Lot Sut Steel 6 [id number] - [id number] Implanted:Qty: 4 on 01/07/2017 by Silas Ald[place] [facility]: Sternum [place] : [employer] 09/10/2021 [id number] / / [id number] Vavle Aortic 27mm 3300tfx - [id number] - [id number] Implanted:Qty: 1 on 01/07/2017 by Silas Aldana MD [place] [facility] Heart [employer] ABIGAIL 03/29/2020 [id number] / [id number] / documented as of this encounter Advance [...] and were consensually agreed upon. Care Teams Industrial Roof Plumber Relationship Specialty Start Date End Date Brad Thompson MD [address] [place] [address] PCP - General Internal Medicine 11/20/17 documented as of this encounter
--- OUTSIDE RECORDS SUMMARY | 2023-08-22 23:08 | External Medical Summary | Summary of Care ---
Author Name Unknown Organization [facility] Address [address] [facility] [place] [address] Phone [phone] Care Team Providers Care Patrol Commander Name Role Phone Brad Thompson MD Primary Care Provider + Reason for Visit * Reason Comments Follow Up Encounter Details Date Type Department Care Team (Late st Contact Info) Description 06/28/2023 3:00 PM EST Office Visit Cardiology, [facility] [address] [place] [address] Cyndee Paul PA-C [address] [place] [address] Stenosis of prosthetic aortic valve, subsequent encounter*; Coronary artery disease involving hughes coronary artery of hughes heart without angina pectoris; S/P AVR (aortic valve replacement); S/P CABG (coronary artery bypass graft); HTN, goal below 140/90; Dyslipidemia, goal LDL below 70 Allergies Active Allergy Reactions Criticality Noted Date Comments Varenicline Tartrate Nausea/vomiting,Psy ch complications High 08/05/2010 Iodinated Contrast Media Nausea/vomiting 2015 Methadone Other (Please comment) 09/04/2010 Shakes Valdecoxib 03/18/2004 felt odd documented as of this encounter (statuses as of 06/29/2023) Medications Medication Sig Dispensed Refills Start Date End Date Status acetaminophen (TYLENOL) 500 MG TabletIndication s:Generalized headache Take 2 Tablets by mouth every 8 hours as needed for Pain. 100 Tab 0 01/31/2019 Active Fluticasone Propionate 50 MCG/ACT Nasal SuspensionIndica tions:Runny nose Administer 2 Sprays into each nostril daily. 16 g 1 06/04/2020 Active Aspirin 81 MG Oral Tablet Delayed Release (Aspirin Low Dose)Indications :HTN, goal below 140/90 Take 1 Tablet by mouth in the morning. 90 Tablet 3 08/16/2022 Active Isosorbide Mononitrate ER 60 MG Oral Tablet Extended Release 24 Hour (Imdur) Take 1 Tablet by mouth in the morning. 34 Tablet 11 11/05/2022 Active Atorvastatin Calcium 80 MG Oral Tablet (Lipitor)Indicat ions:Dyslipidemi a, goal LDL below 70 Take 1 Tablet by mouth in the morning. 90 Tablet 3 11/22/2022 Active Warfarin Sodium 5 MG Oral Tablet (Coumadin)Indica tions:Accelerati ng angina (HCC),S/P CABG (coronary artery bypass graft) Take 1 to 2 tablets by mouth every evening as directed by anticoagulation clinic 45 Tablet 5 11/23/2022 Active Additional Information Patient taking differently: Take 1 tablet by mouth , Tue, , Sat, and Sun., Reported on 05/02/2023 Amoxicillin 500 MG Oral Capsule (Amoxil)Indicati ons:S/P AVR (aortic valve replacement) TAKE FOUR CAPSULES BY MOUTH ONE HOUR PRIOR TO APPOINTMENT 4 Capsule 0 12/02/2022 Active Warfarin Sodium 10 MG Oral Tablet (Jantoven) take 1 tablet by mouth on tuesday, tuesday, and tuesday 30 Tablet 3 12/27/2022 Active Additional Information Patient not taking.Reported on 06/28/2023 Albuterol Sulfate HFA 108 (90 Base) MCG/ACT Inhalation Aerosol SolutionIndicati ons:Bronchospasm INHALE TWO PUFFS BY MOUTH EVERY 6 HOURS NEEDED FOR WHEEZING 18 g 5 01/06/2023 Active diphenhydrAMINE HCl 25 MG Oral Capsule (Benadryl Allergy) Take 1 Capsule by mouth every 6 hours as needed for Itching. 0 Active Loratadine 10 MG Oral Tablet (Claritin)Indica tions:Itchy skin Take 1 Tablet by mouth in the morning. 0 05/02/2023 Active Ezetimibe 10 MG Oral Tablet (Zetia)Indicatio ns:Dyslipidemia, goal LDL below 70 TAKE ONE TABLET BY MOUTH ONE TIME DAILY 90 Tablet 3 05/14/2023 Active Lisinopril 40 MG Oral TabletIndication s:HTN, goal below 140/90 TAKE ONE TABLET BY MOUTH ONE TIME DAILY 90 Tablet 3 05/14/2023 Active Metoprolol Tartrate 50 MG Oral Tablet (Lopressor)Indic ations:HTN, goal below 140/90 TAKE 1 TABLET BY MOUTH ONCE DAILY 90 Tablet 1 06/21/2023 Active amLODIPine Besylate 10 MG Oral Tablet (Norvasc)Indicat ions:HTN, goal below 140/90 TAKE 1 TABLET BY MOUTH ONCE DAILY 90 Tablet 1 06/21/2023 Active Omeprazole 40 MG Oral Capsule Delayed Release (PriLOSEC) TAKE 1 CAPSULE BY MOUTH ONCE DAILY 90 Capsule 1 06/21/2023 Active Fluticasone-Salm eterol 250-50 MCG/ACT Inhalation Aerosol Powder Breath Activated (Wixela Inhub)Indication s:IRIZARRY (dyspnea on exertion) Inhale 1 Puff by mouth in the morning and 1 Puff before bedtime. 60 Each 12 06/21/2023 Active Nitroglycerin 0.4 MG Sublingual Tablet Sublingual (Nitrostat)Indic ations:Coronary artery disease involving hughes coronary artery of hughes heart without angina pectoris Place 1 Tablet under the tongue every 5 minutes as needed for Pain, Chest. up to 3 doses in 15 minutes 25 Tablet 11 06/28/2023 Active Nitroglycerin 0.4 MG Sublingual Tablet Sublingual (Nitrostat)Indic ations:Coronary artery disease involving hughes coronary artery of hughes heart without angina pectoris Place 1 Tablet under the tongue every 5 minutes as needed for Pain, Chest. up to 3 doses in 15 minutes 25 Tablet 11 11/01/2022 06/28/19 24 Discontinu ed(Refill) Hospital, Clinic, or Other Facility Administered Medication Ordered Dose Route Frequency Start Date End Date Status Albuterol Sulfate (Proventil) (2.5 MG/3ML) 0.083% inhalation solution 2.5 mgIndications:IRIZARRY (dyspnea on exertion) 2.5 mg NEBULIZER PRN 06/29/2022 06/29/2023 End ed documented as of this encounter (statuses as of 06/29/2023) Active Problems Problem Noted Date Diagnosed Date Stenosis of prosthetic aortic valve 03/31/2023 Accelerating angina 11/12/2022 Coronary artery disease of n ative artery of hughes heart with stable angina pectoris 10/15/2021 Spinal [...] 01/12/20 17 Coronary artery disease invo lving hughes coronary artery of hughes heart without angina pectoris 03/01/2016 Overview: [facility] 02/25/16 - . Severe single vessel [...] as of this encounter (statuses as of 06/29/2023) Resolved Problems Problem Noted Date Diagnosed Date [...] as of this encounter (statuses as of 06/29/2023) Immunizations Name Administration Dates Next Due COVID-19 mRNA, LNP-s, No Pre serve, 2-Dose Series (Moderna) 08/11/2020,07/14/2020 COVID-19, mRNA, LNP-s, PF, B ooster, 100mcg/0.5mg (Moderna) 05/04/2021 Hepatitis B, 20+ yrs 03/11/2021,07/09/2019,05/0811/06/2019 PPD 03/11/2010,03/05/2008,03/02/2006 Pneumococcal Conjugate Vacci ne, 20-valent ([id number]) 10/28/2022 Pneumococcal Polysaccharide PPV23 (Pneumovax) 09/04/2010 Seasonal [...] Sign Reading Time Taken Comments Blood Pressure 138/70 06/28/2023 3:13 PM EST Pulse 88 06/28/2023 3:13 PM EST Temperature - - Respiratory Rate 20 06/28/2023 3:13 PM EST Oxygen Saturation - - Inhaled Oxygen Concentration - - Weight 117 kg (258 lb) 06/28/2023 3:13 PM EST Height - - Body Mass Index 37.28 05/02/2023 10:58 AM EST documented in this encounter Functional [...] as of this encounter Progress Notes * Cyndee Paul PA-C - 06/28/2023 3:16 PM EST Images from the original note were not included. 06/28/2023 Cardiology F/U: HPI: Patient is a 62-year-old male here today for close cardiology follow-up. Last clinic evaluation approximately 3 months ago with the undersigned. Primary doll wig maker rooted hair is Dr. Brower. History is complex and includes: 1. CAD S/P CABG in 2017. Repeat cath in October 2022 with patent bypass grafts, otherwise mild non occlusive disease with moderate ostial disease of the PDA. Med management recommended 2. AVR in 2017 now with possible severe prosthetic aortic valve stenosis (not improved with anticoagulation) 3. Hypertension 4. Dyslipidemia Over the last 6-9 months patient experienced worsening dyspnea and chest tightness. He underwent repeat cardiac cath in October 2022 with stable findings, patent grafts without obstructive disease elsewhere. Med management recommended. AVR was found to have elevated gradients suggestingobstruction. He was started on anticoagulation to see if this would improve and if obstruction was caused by thrombus. Unfortunately no significant improvement. Since last visit, patient underwent SANDRA with Dr. Braswell at [facility]. SANDRA revealed possible severe stenosis of his AVR. He is [facility] in a few weeks. He reports ongoing dyspnea with minimal exertion. He also reports intermittent chest pain, if "he does too much". Takes 1 SL nitro at times with mild relief. Functional capacity has declined over thelast 6 months. Not able to do as much around his house. Needs to take breaks. Currently in the office feeling ok. Trying to quit smoking. Down to 3 cigarettes per day. No palpitations, dizziness, syncope or near syncope. No orthopnea, PND, or increased lower extremity edema. No fever, chills, cough, hematochezia, melena, or hemoptysis. Review of Systems: See HPI for pertinent positives. All others negative, other than those noted in HPI. Patient Active Problem List Diagnosis Code Esophageal reflux K21.9 Tobacco use disorder F17.200 Impotence of organic origin N52.9 Cervical spinal stenosis M48.02 Obesity, Class II, BMI 35-39.9, isolated (see actual BMI) E66.9 HTN, goal below 140/90 I10 PAD (peripheral artery disease) ([facility]) I73.9 Coronary artery disease involving hughes coronary artery of hughes heart without angina pectoris I25.10 S/P AVR (aortic valve replacement) Z95.2 S/P CABG (coronary artery bypass graft) Z95.1 Chronic bilateral low back pain with bilateral sciatica M54.42, M54.41, G89.29 Type 2 diabetes mellitus with hemoglobin A1c goal of less than 7.5% ([facility]) E11.9 Diabetes mellitus with peripheral angiopathy ([facility]) E11.51 DISH (diffuse idiopathic skeletal hyperostosis) M48.10 Dyslipidemia, goal LDL below 70 E78.5 Moderate single current episode of major depressive disorder ([facility]) F32.1 Spinal stenosis of lumbar region with neurogenic claudication M48.062 Coronary artery disease of hughes artery of hughes heart with stable angina pectoris ([facility]) I25.118 Accelerating angina ([facility]) I20.0 Stenosis of prosthetic aortic valve T82.857A Social History Tobacco Use Smoking status: Every Day Packs/day: 1.00 Years: 47.00 Additional pack years: 0.00 Total pack years: 47.00 Types: Cigarettes Smokeless tobacco: Never Tobacco comments: Cut back to 06/14 to 08/14 ppd 11/10/22 Vaping Use Vaping Use: Never used Substance Use Topics Alcohol use: Yes Alcohol/week: 70.0 standard drinks of alcohol Types: 70 12 oz of beer per week Comment: beer Drug use: No Past Surgical History: Procedure Laterality Date CORONARY [...] performed by Silvio Morgan MD at [facility] REMOVE TONSILS & ADENOIDS, UNDER 12 Tonsillectomy/Adenoids,<12 Y/O REPLACEMENT AORTIC VALVE, BYPASS WITH PROSTHETIC VALVE N/A 01/07/2017 REPLACEMENT AORTIC VALVE, BYPASS WITH PROSTHETIC VALVE performed by Silas Aldana MD at [place] [facility] RIGHT HEART CATHETERIZATION 06/13/2000 Cardiac Catheterization, Right Heart UPPER GI ENDOSCOPY/EXAM 01/11/2001 Family History Problem Relation Age of Onset Heart Disorder Father age 52 MD Cancer Mother age 62, unknown [place] Diabetes Mother Blood Disorder Sister age 15 leukemia Diabetes Sister Social History Tobacco Use Smoking status: Every Day Packs/day: 1.00 Years: 47.00 Additional pack years: 0.00 Total pack years: 47.00 Types: Cigarettes Smokeless tobacco: Never Tobacco comments: Cut back to 06/14 to 08/14 ppd 11/10/22 Vaping Use Vaping Use: Never used Substance Use Topics Alcohol use: Yes Alcohol/week: 70.0 standard drinks of alcohol Types: 70 12 oz of beer per week Comment: beer Drug use: No Review of patient's allergies indicates: Allergen Reactions Chantix [Varenicline Tartrate] Nausea/vomiting and Psych complications Iodinated Contrast Media Nausea/vomiting Methadone Other (Please comment) Shakes Valdecoxib felt odd Current Outpatient Medications Medication Sig Dispense Refill acetaminophen (TYLENOL) 500 MG Tablet Take 2 Tablets by mouth every 8 hours as needed for Pain. 100Tab 0 Fluticasone Propionate 50 MCG/ACT Nasal Suspension Administer [...] 1 tablet by mouth , Tue, , Sat,and Sun.) 45 Tablet 5 Amoxicillin 500 MG Oral Capsule (Amoxil) TAKE FOUR CAPSULES BY MOUTH ONE HOUR PRIOR TO APPOINTMENT 4 Capsule 0 Albuterol Sulfate HFA 108 (90 Base) MCG/ACT Inhalation Aerosol Solution INHALE TWO PUFFS BY MOUTH EVERY 6 HOURS NEEDED FOR WHEEZING 18 g 5 diphenhydrAMINE HCl 25 MG Oral Capsule (Benadryl Allergy) Take 1 Capsule by mouth every 6 hours as needed for Itching. Loratadine 10 MG Oral Tablet (Claritin) Take 1 Tablet by mouth in the morning. Ezetimibe 10 MG Oral Tablet (Zetia) TAKE [...] BY MOUTH ONCE DAILY 90 Capsule 1 Fluticasone-Salmeterol 250-50 MCG/ACT Inhalation Aerosol Powder Breath Activated (Wixela Inhub) Inhale 1 Puff by mouth in the morning and 1 Puff before bedtime. 60 Each 12 Nitroglycerin 0.4 MG Sublingual Tablet Sublingual (Nitrostat) Place 1 Tablet under the tongue every5 minutes as needed for Pain, Chest. up to 3 doses in 15 minutes 25 Tablet 11 Warfarin Sodium 10 MG Oral Tablet (Jantoven) take 1 tablet by mouth on tuesday, tuesday, and tuesday (Patient not taking: Reported on 06/28/2023) 30 Tablet 3 No current facility-administered medications for this visit. PHYSICAL EXAMINATION BP 138/70 | Pulse 88 | Resp 20 | Wt 117 kg (258 lb) | BMI 37.28 kg/m | BSA 2.4 m Body mass index is 37.28 kg/m. On my repeat 122/70 Wt Readings from Last 3 Encounters: 06/28/23 117 kg (258 lb) 05/04/23 115.6 kg (254 lb 12.8 oz) 05/02/23 115.6 kg (254 lb 14.4 oz) General: no acute distress and stated age Head: normocephalic, no masses, lesions, tenderness or abnormalities Eyes: conjunctiva are pink and non-injected, sclera clear Neck: supple, no adenopathy, no bruits, normal jugular venous pulse, no hepatojugular reflux Chest: normal shape and normal respiratory effort Lungs: clear to auscultation and percussion Cardiac Exam: - regular rate & rhythm, systolic murmur II/ - normal S1, normal S2 Pulses: 2(+) throughout Abdomen: abdomen soft, non-tender, no abnormal masses and no hepatosplenomegaly Musculoskeletal: no gait disturbance, no joint inflammation, no deforming arthritis Extremities: no edema and no cyanosis Neuro: grossly normal exam Cardiac studies/labs: SANDRA report reviewed from Mar 2023: Echo report reviewed from Feb 2023: Normal LVEF at 60-64% Possible severe prosthetic aortic stenosis with elevated gradients. Echocardiogram report reviewed dated October 2022 at [facility]: Cardiac cath report reviewed from October 2022: Summary: 1. Patent bypass grafts 2. Coronary angiography reveals mild nonocclusive disease with moderate ostial disease of the PDA suggested in foreshortened view. 3. Continue guideline directed medical therapy. Evaluate aortic valve prosthesis. Latest Reference Range & Units 03/29/23 08:18 Triglycerides <=174 mg/dL 61 Cholesterol <200 mg/dL 117 Non-HDL Cholesterol <=159 mg/dL 72 HDL Cholesterol >39 mg/dL 45 Latest Reference Range & Units 05/04/23 12:33 Sodium 135 - 146 mmol/L 134 (L) Potassium 3.5 - 5.1 mmol/L 4.6 Chloride 98 - 107 mmol/L 101 CO2 22 - 32 mmol/L 23 BUN 6 - 20 mg/dL 16 Creatinine 0.6 - 1.2 mg/dL 0.9 Estimated Glomerular Filtration Rate >=60 mL/min >90 Anion Gap 7 - 15 mmol/L 10 Glucose 70 - 120 mg/dL 124 (H) (L): Data is abnormally low (H): Data is abnormally high Impression: 62 year old male 1. History of AVR with now suspected severe bioprosthetic aortic stenosis per recent SANDRA. Initiallytreated with anticoagulation for possible thrombus, but no improvement. Remains on coumadin. 2. Status post AVR and CABG 2016 3. Non obstructive coronary artery disease by cardiac catheterization October 2022 4. PVD 5. Hypertension 6. Dyslipidemia 7. Chronic tobacco abuse, trying to quit Plan: We discussed SANDRA results in detail. Patient with ongoing dyspnea and now intermittent chest tightness with activities, likely symptomatic severe valvular disease. Recent cath in October 2022 was without obstructive disease. BP controlled Appears euvolemic. Keep Valve appt that is scheduled in a few weeks. The patient is to continue all current medications as listed above. No changes were made at today'svisit. Smoking cessation encouraged. His goal is to be smoke free by Jul. I spent a total of 40 minutes on the date of service in preparation, delivery, and documentation ofthe care provided to Jonas Dorsey excluding any time spent in the performance of separately billed services. The patient agrees to the above plan and will call with additional questions or concerns. ER with all emergencies advised. Follow-up: Return in about 6 months (around 12/27/2023). | Check-out note: [address] French Paul PA-C Department of Cardiology This chart was completed in part utilizing Sp[employer] Speech Voice Recognition Software. Grammatical errors, random word insertions, prounoun errors, and incomplete sentences are an occasional consequence of this system due to software limitations, ambient noise, and hardware issues. Any formal questions or concerns about the content, text, or information contained within the body of this dictation should be directly addressed to the provider for clarification. documented in this encounter Nursing Notes * Daksha Bryant LPN - 06/28/2023 3:12 PM EST Examination Room: 1 Name: Jonas Dorsey Date of : 1960 Reason for Visit: Follow up Problems/Concerns: SOB/CP using nitro Interim Hosp(s): denies Chest Pain/SOB: denies MyChart Discussed: ALREADY ACTIVE Patient was instructed to not get up on the exam table until directed and assisted by their provider; patient is to remain seated in the chair/ wheelchair/ exam table for fall prevention and safety reasons. Patient is aware staff will assist stepping down off exam table with personnel. documented in this encounter Plan of Treatment Upcoming Encounters Date Type Department Care Team (Late st Contact Info) Description 07/12/2023 3:10 PM EST Anticoagulation Pharmacy, [facility] [address] [facility] [place] [address] [facility] [address] [place] [address] 08/01/2023 9:30 AM EST Cardiac Studies Cardiac Studies [address] [address] [place], [place] [address] [place] [address] 08/01/2023 10:00 AM EST Office Visit Cardiology [facility], [place] [address] [place] [address] Louis Mckeon MD [address] [place] [address] 10/05/2023 2:00 PM EDT Office Visit Gastroenterology, [facility] [address] [place] [address] Ama Robertson CRNP [address] [place] [address] 10/31/2023 2:20 PM EDT Office Visit General Internal Medicine [facility] [address] [facility] [place] [address] Brad Thompson MD [address] [place] [address] Health Maintenance Due Date Last Done Comments DISCUSS TOBACCO CESSATION (REFER TO SMARTSET #5139) 1960 Cologuard 2005 Colonoscopy 2005 Colorectal Cancer [...] exists LUNG CANCER SCREENING - USE SMARTSET 07108 Completed 03/29/2023, 03/25/2022, 03/24/2021, Additional history exists GARDASIL-HPV IMMUNIZATION SERIES Aged Out No longer eligible based on patient's age to complete this topic MENINGOCOCCAL (MENACTRA/MENVEO) Aged Out No longer eligible based on patient's age to complete this topic documented as of this encounter Medical Devices Implanted Type Area Guidance Services Coordinator Device Identifier Shelf Expiration Date Model / Serial / Lot Vavle Aortic 27mm [id number] - [id number] - [id number] Implanted:Qty: 1 on 01/07/2017 by Silas Aldana MD at [place] [facility] Heart [employer] 03/29/2020 [id number] / [id number] / documented as of this encounter Visit Diagnoses Diagnosis Stenosis of prosthetic aortic valve, subsequent encounter- Primary Coronary artery disease involving hughes coronary artery of hughes heart without angina pectoris S/P AVR (aortic valve replacement) Heart valve replaced by other means S/P CABG (coronary artery bypass graft) Postsurgical aortocoronary bypass status HTN, goal below 140/90 Unspecified essential hypertension Dyslipidemia, goal LDL below 70 Other and unspecified hyperlipidemia documented in this encounter Advance Directives Latest [...] and were consensually agreed upon. Care Teams Patrol Commander Relationship Specialty Start Date End Date Brad Thompson MD [address] [place] [address] PCP - General Internal Medicine 11/20/17 documented as of this encounter
--- OUTSIDE RECORDS SUMMARY | 2023-08-22 23:08 | External Medical Summary ---
Author Name Unknown Address Unknown Organization K0G:[facility] [address] [place] [id number] Laboratory Report Ordering Provider Test Date Status MOSES MONET 07/12/2023 14:15:11 Final Therapeutic ranges for non-o perative patients:
Prophylaxsis/treatment of DVT: (Range:2.0-3.0)
Treatment of pulmonary embolism:(Range:2.0-3.0)
Prevention of systemic embolism from:
-tissue heart valves
-acute myocardial infarction
-valvular heart disease
-atrial fibrillation
(Range: 2.0-3.0)
Mechanical prosthetic valves: (Range: 2.5-3.5) Observation Date Value Abnormality Reference (Units ) Status INR in Capillary blood by Coagulation assay 07/12/2023 14:15:11 1.6 (INR) Final Performing Location [facility] [address] [place] [address]
--- OUTSIDE RECORDS SUMMARY | 2023-08-22 23:08 | External Medical Summary | Summary of Care ---
Author Name Unknown Organization [facility] Address [address] [facility] [place] [address] Phone [phone] Care Team Providers Care Sand Mill Operator Name Role Phone Brad Thompson MD Primary Care Provider + Reason for Visit * Reason Comments Dosage Adjustment In Person (Anticoag Cl inic) Encounter Details Date Type Department Care Team (Latest Contact Info) Description 08/02/2023 8:50 AM EST Anticoagulation Pharmacy, [facility] 132 [facility] [place] [address] [facility] 132 [facility] [place] [address] Accelerating angina (HCC)*; S/P CABG (coronary artery [...] Tablet Sublingual (Nitrostat)Indicati ons:Coronary artery disease involving [place] coronary artery of [place] heart without angina pectoris Place 1 Tablet under the tongue every 5 minutes as needed for Pain, Chest. up to 3 doses in 15 minutes 25 Tablet 11 06/28/2023 Active Additional Information Patient not taking.Reported on 08/01/2023 Ipratropium-Albuter ol 0.5-2.5 (3) MG/3ML Inhalation Solution (Duoneb)Indications :IRIZARRY (dyspnea on exertion),Tobacco use disorder,COPD, group B, by GOLD 2017 classification ([facility]) Inhale 3 mL via nebulizer 4 times a day as needed for Wheezing. 360 mL 1 07/26/2023 Active documented as of this encounter (statuses as of 08/02/2023) Active Problems Problem Noted Date Diagnosed Date Stenosis of prosthetic aortic valve 03/31/2023 Accelerating angina 11/12/2022 Coronary artery disease of n ative artery of [place] heart with stable angina pectoris 10/15/2021 Spinal [...] 01/12/20 17 Coronary artery disease invo lving [place] coronary artery of [place] heart without angina pectoris 03/01/2016 Overview: [facility] 02/25/16 - . Severe single vessel [...] PPD 03/11/2010,03/05/2008,03/02/2006 Pneumococcal Conjugate Vacci ne, 20-valent ([id number]) 10/28/2022 Pneumococcal Polysaccharide PPV23 (Pneumovax) 09/04/2010 Seasonal [...] Progress Notes * Charisse Bae RPh - 08/02/2023 8:43 AM EST Images from the original note [...] Bruising Objective Current Warfarin Dose As of 08/02/2023 Warfarin maintenance plan: 5 mg (5 mg x 1) every Tue, Sat; 7.5 mg (5 mg x 1.5) all other days INR Result As of 08/02/2023 INR goal: 2.0-3.0 INR used for dosin.7 (08/02/2023) Assessment & Plan Warfarin Plan As of 08/02/2023 Full warfarin instructions: 5 mg every Tue, Sat; 7.5 mg all other days Next INR check: 08/23/2023 Repeat PT/INR in 3 week(s) Weekly dose: increased Additional Dosing Information: Charisse Bae RPh Clinical Pharmacist 08/02/2023, 8:48 AM documented in this encounter Plan of Treatment Upcoming Encounters Date Type Department Care Team (Late st Contact Info) Description 08/23/2023 8:50 AM EDT Anticoagulation Pharmacy, [facility] [address] [address] [facility] [address] [place] [address] 10/05/2023 2:00 PM EDT Office Visit Gastroenterology, [facility] [address] [place] [address] Ama Robertson CRNP [address] [place] [address] 10/31/2023 2:20 PM EDT Office Visit General Internal Medicine [facility] 200 [facility] [place] [address] Brad Thompson MD 200 [facility] [place] [address] Health Maintenance Due Date Last Done Comments [...] exists LUNG CANCER SCREENING - USE SMARTSET 22848 Completed 03/29/2023, 03/25/2022, 03/24/2021, Additional history exists GARDASIL-HPV IMMUNIZATION SERIES Aged Out No longer eligible based on patient's age to complete this topic MENINGOCOCCAL (MENACTRA/MENVEO) Aged Out No longer eligible based on patient's age to complete this topic documented as of this encounter Medical Devices Implanted Type Area Insurance Risk Surveyor Device Identifier Shelf Expiration Date Model / Serial / Lot Sut Steel 6 M654g - [id number] Implanted:Qty: 4 on 01/07/2017 by [place] Ald[place] [facility] [place] Sternum JNJ : [employer] 09/10/2021 [id number] / / [id number] Vavle Aortic 27mm 3300tfx - [id number] - [id number] Implanted:Qty: 1 on 01/07/2017 by Silas Aldana MD [place] [facility] Heart [employer] ABIGAIL 03/29/2020 [id number] / [id number] / documented as of this encounter Procedures Procedure Name Priority Date/Time Associated Diagnosis Comments INR FINGERSTICK, POINT OF CARE STAT 08/02/2023 8:45 AM EST S/P CABG (coronary artery bypass graft) S/P AVR (aortic valve replacement) documented in this encounter Results * INR FINGERSTICK, POINT OF CARE (08/02/2023 8:45 AM EST) Fingerstick INR 1.7 INR 8:48 AM EST LABORATORY SUHAIL SANTAMARIA 57-10 Blood 08/02/2023 8:45 AM EST 08/02/2023 8:48 AM EST Narrative LAB[facility]ATORY [facility] S[facility]AM[facility]IA 57-10 - 08/02/2023 8:48 AM EST Therapeutic ranges for non-operative patients: Prophylaxsis/treatment of DVT: (Range:2.0-3.0) Treatment of pulmonary embolism:(Range:2.0-3.0) Prevention of systemic embolism from: -tissue heart valves -acute myocardial infarction -valvular heart disease -atrial fibrillation (Range: 2.0-3.0) Mechanical prosthetic valves: (Range: 2.5-3.5) [facility] LAB POINT O F CARE TEST DOCKED DEVICE UNSOLICITED RESULTS LABORATORY SUHAIL SANTAMARIA 57-10 132 [facility] [place] [address] documented in this encounter Visit Diagnoses Diagnosis [...] and were consensually agreed upon. Care Teams Sand Mill Operator Relationship Specialty Start Date End Date Brad Thompson MD [address] [place], [place] [address]AN[place] [address] PCP - General Internal Medicine 6/10/18 documented as of this encounter"
--- OUTSIDE RECORDS SUMMARY | 2023-08-22 23:08 | External Medical Summary | Summary of Care ---
Author Name Unknown Organization [facility] Address [address] [place] [address] Phone [phone] Care Team Providers Care Branch Operation Evaluation Manager Name Role Phone Brad Thompson MD Primary Care Provider + Reason for Visit * Reason Onset Date Comments Order Request 05/11/2023 Encounter Details Date Type Department Care Team (Late st Contact Info) Description 05/11/2023 Telephone Cardiology [facility] [address] [place] [address] Louis Mckeon MD [address] [place] [address] Order Request Allergies Active Allergy Reactions Criticality Noted Date [...] 19 Active Fluticasone Propionate 50 MCG/ACT Nasal SuspensionIndic [...] morning. 90 Tablet 3 11/23/19 23 Active Warfarin Sodium 5 MG Oral Tablet (Coumadin)Indic ations:Accelera ting angina (HCC),S/P CABG (coronary artery bypass graft) Take 1 to 2 tablets by mouth every evening as directed by anticoagulation clinic 45 Tablet 5 11/24/19 23 Active Additional Information Patient taking differently: Take [...] in the morning. 0 05/02/20 23 Active Lisinopril 40 MG Oral TabletIndicatio ns:HTN, goal below 140/90 TAKE ONE TABLET BY MOUTH DAILY 90 Tablet 3 05/11/20 22 023 Discontinued Ezetimibe 10 MG Oral Tablet (Zetia)Indicati ons:Dyslipidemi a, goal LDL below 70 TAKE ONE TABLET BY MOUTH DAILY 90 Tablet 3 05/11/20 22 023 Discontinued Nitroglycerin 0.4 MG Sublingual Tablet Sublingual (Nitrostat)Mayra cations:Coronar y artery disease involving [place] coronary artery of [place] heart without angina pectoris Place 1 Tablet under the tongue every 5 minutes as needed for Pain, Chest. up to 3 doses in 15 minutes 25 Tablet 11/02/19 024 Discontinued(Re fill) amLODIPine Besylate 10 MG Oral Tablet (Norvasc)Indica tions:HTN, goal below 140/90 TAKE ONE TABLET BY MOUTH DAILY 90 Tablet 01/07/20 23 024 Discontinued Omeprazole 40 MG Oral Capsule Delayed Release (PriLOSEC) TAKE ONE CAPSULE BY MOUTH DAILY 90 Capsule 01/07/20 024 Discontinued Metoprolol Tartrate 50 MG Oral Tablet (Lopressor)Mayra cations:HTN, goal below 140/90 TAKE ONE TABLET BY MOUTH DAILY 90 Tablet 01/07/20 024 Discontinued Hospital, Clinic, or Other Facility Administered [...] artery disease of n ative artery of [place] heart with stable angina pectoris 10/15/2021 Spinal [...] S/P CABG (coronary artery bypass graft) 01/12/20 Coronary artery disease invo lving [place] coronary artery of [place] heart without angina pectoris 03/01/2016 Overview: [facility] 02/25/16 - . Severe single [...] PPD 03/11/2010,03/05/2008,03/02/2006 Pneumococcal Conjugate Vacci ne, 20-valent ([id number]) 10/28/2022 Pneumococcal Polysaccharide PPV23 (Pneumovax) 09/04/2010 Seasonal [...] encounter Miscellaneous Notes * Telephone Encounter - Danica Gaona OSA - 05/11/2023 4:37 PM EST Patient needs an ekg prior to the appt with you. Please sign the pended order. Thank you DANIEL Bond 05/11/2023 4:37 PM documented in this encounter Plan of Treatment Upcoming Encounters Date Type Department Care Team (Late st Contact Info) Description 08/02/2023 8:50 AM EST Anticoagulation Pharmacy, [facility] 132 [place] [address] [facility] 132 [place] Samuel [address] 10/05/2023 2:00 PM EDT [facility] [address] [place] [address] Ama Robertson CRNP [address] [place] [address] 10/31/2023 2:20 PM EDT [facility] [place] [facility] [place] [address] Brad Thompson MD 200 [facility] [place] [address] Scheduled Orders Name Type Priority Associated Diagnoses Orde r Schedule EKG EKG Routine Stenosis of aortic valve Expected: 08/01/2023 (Approximate), Expires: 01/30/2024 Health Maintenance Due Date Last Done Comments DISCUSS TOBACCO CESSATION (REFER TO SMARTSET #6962) 1960 Cologuard 2005 Colonoscopy 2005 Colorectal Cancer [...] exists LUNG CANCER SCREENING - USE SMARTSET 48920 Completed 03/29/2023, 03/25/2022, 03/24/2021, Additional history exists GARDASIL-HPV IMMUNIZATION SERIES Aged Out No longer eligible based on patient's age to complete this topic MENINGOCOCCAL (MENACTRA/MENVEO) Aged Out No longer eligible based on patient's age to complete this topic documented as of this encounter Medical Devices Implanted Type Area Wet Process Miller Head Assistant Device Identifier Shelf Expiration Date Model / Serial / Lot Sut Steel 6 M654g - [id number] Implanted:Qty: 4 on 01/07/2017 [place] [facility] [place]A: Sternum JNJ : [employer] 09/10/2021 M654G / / [id number] Vavle Aortic 27mm 3300tfx - [id number] - [id number] Implanted:Qty: 1 on 01/07/2017 by Silas Aldana MD [place] [facility] [place] Heart [employer]IGAIL 03/29/2020 [id number] / [id number] / documented as of this encounter Visit Diagnoses Diagnosis Stenosis of aortic valve- Primary Aortic valve disorders documented in this [...] and were consensually agreed upon. Care Teams Branch Operation Evaluation Manager Relationship Specialty Start Date End Date Brad Thompson MD [address] [place] [address] PCP - General Internal Medicine 11/20/17 documented as of this encounter
--- OUTSIDE RECORDS SUMMARY | 2023-08-22 23:09 | External Medical Summary ---
Author Name Unknown Address Unknown Organization [id number][place] [place] [address] [facility] [address] Laboratory Report Ordering Provider Test Date Status GUERO BARAJAS 05/04/2023 12:33:59 Final Observation Date Value Abnormality Reference (Units ) Status HbA1C 05/04/2023 12:33:59 6.3 Above high normal 4. 0-5.6 (%) Final The use of HbA1c to monitor glycemic status is based on normal hemoglobin and HbA composition. This test should not be used in patients with abnormal hemoglobin that affects the half life of the red blood cell or the in vivo glycation rates. Glucose, estimated average 05/04/2023 12:33:59 134 Above high normal <126 (mg/dL) Ty felton Performing Location [facility] [place] [address] [facility] [address]
--- OUTSIDE RECORDS SUMMARY | 2023-08-22 23:09 | External Medical Summary | Summary of Care ---
Author Name Unknown Organization [facility] Address [address] [facility] [place] [address] Phone [phone] Care Team Providers Care Recruiting Internship Name Role Phone Brad Thompson MD Primary Care Provider + Reason for Visit * Reason Comments Dosage Adjustment Via Phone (anticoag Cl inic) Encounter Details Date Type Department Care Team (Latest Contact Info) Description 05/17/2023 7:00 AM EST Anticoagulation Pharmacy, [facility] [address] [facility] [place] [address] [facility] [place] [address] Accelerating angina (HCC)*; S/P CABG (coronary artery bypass graft); S/P AVR (aortic valve replacement) Allergies Active Allergy Reactions Criticality Noted Date Comments Varenicline Tartrate Nausea/vomiting,Psy ch complications High 08/05/2010 Iodinated Contrast Media Nausea/vomiting 2015 Methadone Other (Please comment) 09/04/2010 Shakes Valdecoxib 03/18/2004 felt odd documented as of this encounter (statuses as of 05/17/2023) Medications Medication Sig Dispensed Refills Start Date [...] Tablet Sublingual (Nitrostat)Indica tions:Coronary artery disease involving [place] coronary artery of [place] heart without angina pectoris Place 1 Tablet [...] FOR WHEEZING 18 g 5 01/06/2023 Active amLODIPine Besylate 10 MG Oral Tablet (Norvasc)Indicati ons:HTN, goal below 140/90 TAKE ONE TABLET BY MOUTH DAILY 90 Tablet 1 01/06/2023 Active Omeprazole 40 MG Oral Capsule Delayed Release (PriLOSEC) TAKE ONE CAPSULE BY MOUTH DAILY 90 Capsule 1 01/06/2023 Active Metoprolol Tartrate 50 MG Oral Tablet (Lopressor)Indica tions:HTN, goal below 140/90 TAKE ONE TABLET BY MOUTH DAILY 90 Tablet 1 01/06/2023 Active diphenhydrAMINE HCl 25 MG Oral [...] TIME DAILY 90 Tablet 3 05/14/2023 Active Hospital, Clinic, or Other Facility Administered Medication Ordered Dose Route Frequency Start Date End Date Status Albuterol Sulfate (Proventil) (2.5 MG/3ML) 0.083% inhalation solution 2.5 mgIndications:IRIZARRY (dyspnea on exertion) 2.5 mg NEBULIZER PRN 06/29/2022 06/29/2023 Act shirley documented as of this encounter (statuses as of 05/17/2023) Active Problems Problem Noted Date Diagnosed Date Stenosis of prosthetic aortic valve 03/31/2023 Accelerating angina 11/12/2022 Coronary artery disease of n ative artery of [place] heart with stable angina pectoris 10/15/2021 Spinal [...] graft) 01/12/20 Coronary artery disease invo lving [place] coronary artery of [place] heart without angina pectoris 03/01/2016 Overview: [facility] 02/25/16 - . Severe single vessel coronary [...] as of this encounter (statuses as of 05/17/2023) Resolved Problems Problem Noted Date Diagnosed Date [...] as of this encounter (statuses as of 05/17/2023) Immunizations Name Administration Dates Next Due COVID-19 mRNA, LNP-s, No Pre serve, 2-Dose Series (Moderna) 08/11/2020,07/14/2020 COVID-19, mRNA, LNP-s, PF, B ooster, 100mcg/0.5mg (Moderna) 05/04/2021 Hepatitis B, 20+ yrs 03/11/2021,07/09/2019,05/0811/06/2019 PPD 03/11/2010,03/05/2008,03/02/2006 Pneumococcal Conjugate Vacci ne, 20-valent ([id number]) 10/28/2022 Pneumococcal Polysaccharide PPV23 (Pneumovax) 09/04/2010 SEASONAL INFLUENZA, PF, 6 M & Above, IM , (FLULAVAL or FLUZONE) 03/19/2023,04/26/2022,03/11/2021,02/11,05/08/2019,03/11/2017 Seasonal Influenza, Quad, Na june (Flumist) [...] Progress Notes * Charisse Bae RPh - 05/17/2023 9:45 AM EST Images from the original note were not included. Medication Therapy Disease Management - Anticoagulation Patient: Jonas Dorsey | : 1960 Subjective Contacts Type Contact Phone/Fax 05/17/2023 09:45 AM EST Phone (Outgoing) Jonas Dorsey (Self) [phone] (M) Patient-Reported Symptoms: Objective Current Warfarin Dose As of 05/17/2023 Warfarin maintenance plan: 10 mg (5 mg x 2) every Mon, Fri; 5 mg (5 mg x 1) all other days INR Result As of 05/17/2023 INR goal: 2.0-3.0 INR used for dosin.8 (05/04/2023) Assessment & Plan Warfarin Plan As of 05/17/2023 Full warfarin instructions: 10 mg every Mon, Fri; 5 mg all other days Next INR check: Repeat PT/INR in 2 week(s) Weekly dose: not changed- result too far away for any dose adjustment safely Additional Dosing Information: Charisse Bae RPh Clinical Pharmacist 05/17/2023, 9:46 AM documented in this encounter Plan of Treatment Upcoming Encounters Date Type Department Care Team (Late st Contact Info) Description 05/31/2023 8:50 AM EST Anticoagulation Pharmacy, [address] [place] [address] [place] [address] 06/09/2023 9:45 AM EST Office Visit General Surgery, [facility] 132 [facility] [place] [address] Cyndee Cutler MD [address] [place] [address] 06/28/2023 3:00 PM EST Office Visit Cardiology, [facility] 132 [facility] [place] [address] Cyndee Paul PA-C 132 [place] [address] 08/01/2023 9:30 AM EST Cardiac Studies Cardiac Studies [facility], [place] [address] [place] [address] [place], Ekg [address] [place] [address] 08/01/2023 10:00 AM EST Office Visit Cardiology [facility], [place] [address] [place] [address] Louis Mckeon MD [address] [place] [address] 08/08/2023 12:30 PM EST Office Visit Gastroenterology, [facility] 132 [facility] [place] [address] Ama Robertson CRNP 132 [facility] [place] [address] 10/31/2023 2:20 PM EDT Office Visit General Internal Medicine [facility] 200 [address] [place] [address] Brad Thompson MD 200 [facility] [place] [address] Health Maintenance Due Date Last Done Comments DISCUSS TOBACCO CESSATION (REFER TO SMARTSET #3941) 1960 Cologuard 2005 Colonoscopy 2005 Colorectal Cancer [...] exists LUNG CANCER SCREENING - USE SMARTSET [address] Completed 03/29/2023, 03/25/2022, 03/24/2021, Additional history exists GARDASIL-HPV IMMUNIZATION SERIES Aged Out No longer eligible based on patient's age to complete this topic MENINGOCOCCAL (MENACTRA/MENVEO) Aged Out No longer eligible based on patient's age to complete this topic documented as of this encounter Medical Devices Implanted Type Area Director Of Hotel Operations Device Identifier Shelf Expiration Date Model / Serial / Lot Vavle Aortic 27mm 3300tfx - [id number] - [id number] Implanted:Qty: 1 on 01/07/2017 by Silas Aldana MD at [place] [facility] [place] Heart [employer]IGAIL 03/29/2020 [id number] / [id number] / documented as of this encounter Visit [...] and were consensually agreed upon. Care Teams Recruiting Internship Relationship Specialty Start Date End Date Brad Thompson MD [address] [place] [address] PCP - General Internal Medicine 11/20/17 documented as of this encounter"
--- OUTSIDE RECORDS SUMMARY | 2023-08-22 23:09 | External Medical Summary ---
Author Name Unknown Address Unknown Organization K09:[facility] [place] [address] Laboratory Report Ordering Provider Test Date Status BOYD OROZCO 05/04/2023 12:33:59 Final Observation Date Value Abnormality Reference (Units ) Status SYNC LEUKOCYTES IN BLOOD BY AUTOMATED COUNT 05/04/2023 12:33:59 9.64 4.00-10.80 (K/uL) Final Segs 05/04/2023 12:33:59 49.0 40.0-75.0 (%) Final Lymphs % 05/04/2023 12:33:59 32.0 18.0-42.0 (%) Final Monos 05/04/2023 12:33:59 14.0 Above high normal 1.0-11.0 (%) Final Eosinophils 05/04/2023 12:33:59 4.5 0.0-6.0 (%) Final Basos 05/04/2023 12:33:59 0.5 0.0-2.0 (%) Final Absolute Segs 05/04/2023 12:33:59 4.73 1.80-7.70 (K/uL) Final Lymphs, absolute 05/04/2023 12:33:59 3.08 1.00-4.80 (K/ul) Final Monos, Abs 05/04/2023 12:33:59 1.35 Above high normal 0.00-1.10 (K/uL) Final Eos, Abs 05/04/2023 12:33:59 0.43 0.00-0.70 (K/uL) Final Basos, Abs 05/04/2023 12:33:59 0.05 0.00-0.20 (K/uL) Final Performing Location [facility] [place] [address]
--- OUTSIDE RECORDS SUMMARY | 2023-08-22 23:09 | External Medical Summary | Summary of Care ---
Author Name Unknown Organization [facility] Address [address] [facility] [place] [address] Phone [phone] Care Team Providers Care Road Conductor Name Role Phone Brad Jack MD Primary Care Provider + Reason for Visit * Reason Comments eRx-Medication Refill Encounter Details Date Type Department Care Team (Late st Contact Info) Description 05/13/2023 Refill General Internal Medicine [facility] [place] [address] [facility] [place] [address] [facility] [address] Dyslipidemia, goal LDL below 70; HTN, goal below 140/90 Allergies Active Allergy Reactions Criticality Noted Date Comments Varenicline Tartrate Nausea/vomiting,Psy ch complications High 08/05/2010 Iodinated Contrast Media Nausea/vomiting 2015 Methadone Other (Please comment) 09/04/2010 Shakes Valdecoxib 03/18/2004 felt odd documented as of this encounter (statuses as of 05/14/2023) Medications Medication Sig Dispensed Refills Start Date [...] Sublingual (Nitrostat)Mayra cations:Coronar y artery disease involving [place] coronary artery of [place] heart without angina pectoris Place 1 Tablet [...] FOR WHEEZING 18 g 5 3 Active amLODIPine Besylate 10 MG Oral Tablet (Norvasc)Indica tions:HTN, goal below 140/90 TAKE ONE TABLET BY MOUTH DAILY 90 Tablet 1 3 Active Omeprazole 40 MG Oral Capsule Delayed Release (PriLOSEC) TAKE ONE CAPSULE BY MOUTH DAILY 90 Capsule 1 3 Active Metoprolol Tartrate 50 MG Oral Tablet (Lopressor)Mayra cations:HTN, goal below 140/90 TAKE ONE TABLET BY MOUTH DAILY 90 Tablet 1 3 Active diphenhydrAMINE HCl 25 MG Oral [...] TABLET BY MOUTH DAILY 90 Tablet 3 2 05/14/20 23 Discontinued Ezetimibe 10 MG Oral Tablet (Zetia)Indicati ons:Dyslipidemi a, goal LDL below 70 TAKE ONE TABLET BY MOUTH DAILY 90 Tablet 3 2 05/14/20 23 Discontinued Hospital, Clinic, or Other Facility Administered Medication Ordered Dose Route Frequency Start Date End Date Status Albuterol Sulfate (Proventil) (2.5 MG/3ML) 0.083% inhalation solution 2.5 mgIndications:IRIZARRY (dyspnea on exertion) 2.5 mg NEBULIZER PRN 06/29/2022 06/29/2023 Act shirley documented as of this encounter (statuses as of 05/14/2023) Active Problems Problem Noted Date Diagnosed Date Stenosis of prosthetic aortic valve 03/31/2023 Accelerating angina 11/12/2022 Coronary artery disease of n ative artery of [place] heart with stable angina pectoris 10/15/2021 Spinal [...] 01/12/20 17 Coronary artery disease invo lving [place] coronary artery of [place] heart without angina pectoris 03/01/2016 Overview: [facility] 02/25/16 - . Severe single vessel coronary [...] as of this encounter (statuses as of 05/14/2023) Resolved Problems Problem Noted Date Diagnosed Date [...] as of this encounter (statuses as of 05/14/2023) Immunizations Name Administration Dates Next Due COVID-19 mRNA, LNP-s, No Pre serve, 2-Dose Series (Moderna) 08/11/2020,07/14/2020 COVID-19, mRNA, LNP-s, PF, B ooster, 100mcg/0.5mg (Moderna) 05/04/2021 Hepatitis B, 20+ yrs 03/11/2021,07/09/2019,05/0811/06/2019 PPD 03/11/2010,03/05/2008,03/02/2006 Pneumococcal Conjugate Vacci ne, 20-valent ([id number]) 10/28/2022 Pneumococcal Polysaccharide PPV23 (Pneumovax) 09/04/2010 SEASONAL [...] encounter Miscellaneous Notes * Telephone Encounter - Joanna Jackson RP - 05/14/2023 9:40 AM ESTSigned Prescriptions: Disp Refills Ezetimibe 10 MG Oral Tablet (Zetia) 90 Tab*3 Sig: TAKE ONE TABLET BY MOUTH ONE TIME DAILYAuthorizing Provider: BRAD JACK User: JOANNA JACKSON Lisinopril 40 MG Oral Tablet 90 Tab*3 Sig: TAKE ONE TABLET BY MOUTH ONE TIME DAILYAuthorizing Provider: BRAD JACK User: JOANNA JACKSON documented in this encounter Plan of Treatment Upcoming Encounters Date Type Department Care Team (Late st Contact Info) Description 06/09/2023 9:45 AM EST Office Visit General Surgery, [facility] [address] [place] [address] Cyndee Cutler MD [address] [place] [address] 06/28/2023 3:00 PM EST Office Visit Cardiology, [facility] [address] [place] [address] Cyndee Paul PA-C [address] [place] [address] 08/01/2023 9:30 AM EST Cardiac Studies [facility] [address] [place] [address] [place], Ekg [address] [place] [address] 08/01/2023 10:00 AM EST Office Visit Cardiology [facility] [address] [place] [address] Louis Mckeon MD [address] [place] [address] 08/08/2023 12:30 PM EST Office Visit Gastroenterology, [facility] [address] [place] [address] Ama Robertson CRNP [address] [place] [address] 10/31/2023 2:20 PM EDT [facility] [place] [address] [place] [address] Brad Jack MD [address] [place] [address] Health Maintenance Due Date Last Done Comments DISCUSS TOBACCO CESSATION (REFER TO SMARTSET #9320) 1960 Cologuard 2005 Colonoscopy 2005 Colorectal Cancer [...] exists LUNG CANCER SCREENING - USE SMARTSET 91932 Completed 03/29/2023, 03/25/2022, 03/24/2021, Additional history exists GARDASIL-HPV IMMUNIZATION SERIES Aged Out No longer eligible based on patient's age to complete this topic MENINGOCOCCAL (MENACTRA/MENVEO) Aged Out No longer eligible based on patient's age to complete this topic documented as of this encounter Medical Devices Implanted Type Area Enrollment Management Manager Device Identifier Shelf Expiration Date Model / Serial / Lot Vavle Aortic 27mm [id number] - [id number] - [id number] Implanted:Qty: 1 on 01/07/2017 by Silas Aldana MD at [facility] [place] Heart [employer]AIL 03/29/2020 [id number] / [id number] / documented as of this encounter Visit Diagnoses Diagnosis Dyslipidemia, goal LDL below 70 Other and unspecified hyperlipidemia HTN, goal below 140/90 Unspecified essential hypertension [...] and were consensually agreed upon. Care Teams Road Conductor Relationship Specialty Start Date End Date Brad Jack MD [address] [place] [address] PCP - General Internal Medicine 11/20/17 documented as of this encounter
--- OUTSIDE RECORDS SUMMARY | 2023-08-22 23:09 | External Medical Summary ---
Author Name Unknown Address Unknown Organization K09:[facility] [place] [address] Laboratory Report Ordering Provider Test Date Status BOYD OROZCO 05/04/2023 12:33:59 Final Observation Date Value Abnormality Reference (Units ) Status WBC, Total 05/04/2023 12:33:59 9.64 4.00-10.8 0 (K/uL) Final RBC 05/04/2023 12:33:59 4.81 4.50-5.25 (M/uL) Final Hemoglobin 05/04/2023 12:33:59 14.6 14.0-16.8 (g/dL) Final HCT 05/04/2023 12:33:59 43.1 40.0-48.4 (%) Final MCV 05/04/2023 12:33:59 89.6 82.0-99.5 (fL) Final MCH 05/04/2023 12:33:59 30.4 27.0-34.0 (pg) Final MCHC 05/04/2023 12:33:59 33.9 32.0-36.0 (g/dL) Final RDW 05/04/2023 12:33:59 13.7 11.5-15.5 (%) Final Platelets 05/04/2023 12:33:59 168 140-400 (K /uL) Final MPV 05/04/2023 12:33:59 10.5 6.6-11.1 ( fL) Final Performing Location [facility] [place] [address]
--- OUTSIDE RECORDS SUMMARY | 2023-08-22 23:09 | External Medical Summary | Summary of Care ---
Author Name Unknown Organization [facility] Address [address] [place] [address] Phone [phone] Care Team Providers Care Director Global Name Role Phone Brad Thompson MD Primary Care Provider + Reason for Visit * Reason Onset Date Comments Multidisciplinary Documentation 05/11/2023 Valve Clinic Encounter Details Date Type Department Care Team (Late st Contact Info) Description 05/11/2023 Telephone Cardiology [place] [address] [place] [address] Elda Bhatia, RN [address] [place] [address] Multidisciplinary Documentation (Valve Cli... Allergies Active Allergy Reactions Criticality Noted Date [...] Tablet Sublingual (Nitrostat)Indica tions:Coronary artery disease involving [place] coronary artery of [place] heart without angina pectoris Place 1 Tablet [...] mouth in the morning. 0 05/02/2023 Active Hospital, Clinic, or Other Facility Administered [...] artery disease of n ative artery of [place] heart with stable angina pectoris 10/15/2021 Spinal [...] 01/12/20 17 Coronary artery disease invo lving [place] coronary artery of [place] heart without angina pectoris 03/01/2016 Overview: [facility] 02/25/16 - . Severe [...] PPD 03/11/2010,03/05/2008,03/02/2006 Pneumococcal Conjugate Vacci ne, 20-valent ([id number]) 10/28/2022 Pneumococcal Polysaccharide PPV23 (Pneumovax) 09/04/2010 SEASONAL [...] encounter Miscellaneous Notes * Telephone Encounter - Elda Bhatia RN - 05/11/2023 11:59 AM EST Valve Clinic Work Sheet Jonas Dorsey 62 year old male. [id number] Referral Reason: bioprosthetic aortic stenosis Referring Provider: yCndee Paul Primary Call Center Coordinator: Dr. Braswell Railroad Passenger Agent: Dr. Marquis Surgeon: TBD Patient History: CAD s/p CABG + AVR 2016 HTN HLD Symptoms: IRIZARRY Curent anticoagulant/antiplatelet: ASA + warfarin Hospital Admissions in the past year: N/a Review of patient's allergies indicates: Allergen Reactions Chantix [Varenicline Tartrate] Nausea/vomiting and Psych complications Iodinated Contrast Media Nausea/vomiting Methadone Other (Please comment) Shakes Valdecoxib felt odd Estimated body mass index is 36.82 kg/m as calculated from the following: Height as of 05/02/23: 1.772 m (5' 9.75"). Weight as of 05/04/23: 115.6 kg (254 lb 12.8 oz). Results for orders placed or performed in visit on 05/04/23 BASIC METABOLIC PANEL Result Value Ref Range BUN 16 6 - 20 mg/dL Creatinine 0.9 0.6 - 1.2 mg/dL Estimated Glomerular Filtration Rate >90 >=60 mL/min Sodium 134 (L) 135 - 146 mmol/L Potassium 4.6 3.5 - 5.1 mmol/L Chloride 101 98 - 107 mmol/L CO2 23 22 - 32 mmol/L Anion Gap 10 7 - 15 mmol/L Glucose 124 (H) 70 - 120 mg/dL Calcium 9.7 8.4 - 10.2 mg/dL Lab Results Component Value Date/Time [facility] - [facility] 14.6 05/04/2023 12:33 PM [facility]GB - [facility] 15.3 01/13/2019 11:10 AM 07/14/2022 PFTs Latest Reference Range & Units 07/14/22 12:54 FEV1/FVC Actual Pre % 74 FVC Actual Pre L 4.30 FVC Actual Pre %Predict % 93 FEV1 Actual Pre L 3.18 FEV1 Actual Pre %Predict % 89 SPIROMETRY B/A BRONCHODILATOR Rpt FEV1/FVC Actual Post % 74 FVC Actual Post L 4.60 FVC Actual Post %Change % 6 FEV1 Actual Post L 3.42 FEV1 Actual Post %Change % 7 LUNG VOLUMES (PLETHYSMOGRAPHY) Rpt TLC(Pleth) Actual Pre L 7.44 TLC (Pleth) Actual Pre %Predict % 106 SVC Actual Pre L 4.22 SVC Actual Pre %Predict % 91 RV (Pleth) Actual Pre L 3.22 RV (Pleth) Actual Pre %Predict % 141 RV/TLC (Pleth) Actual Pre % 43 DIFFUSION CAPACITY (DLCO) Rpt DLCO Uncorrect Actual Pre ml/min/mmHg 26.88 DLCO Uncorrect Actual Pre %Predict % 97 FEF 25-75% Actual Post L/sec 3.13 FEF 25-75% Actual Post %Change % 36 FEF 25-75% Actual Pre L/sec 2.29 FEF 25-75% Actual Pre %Predict % 78 TGV Actual Pre L 4.12 TGV Actual Pre %Predict % 112 04/07/2023 SANDRA: ([facility] - Images in [employer]) Impression: EF 55-60% There is a bioprosthetic aortic valve The bioprosthetic leaflets are thickened with severely reduced excursion. Severe prosthetic aortic valve stenosis is presented by 2D criter with aortic valve area of 0.94 cm2 by the planimetry method. There is no significant prosthetic regurgitation 02/28/2023 TTE: LVEF: 60% Valve Area: 0.4 cm2 V Max: 4.6 m/sec Gradient: Mean= 52 mmHg / Peak= 85 mmHg Impression: The qualitative LV ejection fraction is 60-64% (normal). The LV wall thickness is moderately increased (concentric). There is an aortic valve bioprosthetic present. Bioprosthetic leaflets appear thickened with reduced excursion. The aortic valve prosthesis systolic gradients are abnormal for this type prosthesis suggesting obstruction. Dimensionless index 0.14 Compared to most recent echo dated November 10, 2022 in the [facility] medical record, aortic valve gradients are unchanged. 11/10/2022 Cardiac Catheterization: Impression: Patent bypass grafts Mild nonocclusive disease with moderate ostial disease of the PDA suggested in foreshortened view STS Score: Procedure Type: Isolated AVR Perioperative Outcome Estimate % Operative Mortality 1.6% Morbidity & Mortality 13.7% Stroke 1.56% Renal Failure 1.76% Reoperation 4.41% Prolonged Ventilation 11.3% Deep Sternal Wound Infection 0.469% Long Hospital Stay (>14 days) 2.88% Short Hospital Stay (<6 days)* 44.7% Baseline NYHA Class: II Testing to be completed: KCCQ-12/Fraility TAVR Ct scan CT Surgery Evaluation documented in this encounter Plan of Treatment Upcoming Encounters Date Type Department Care Team (Late st Contact Info) Description 05/31/2023 8:50 AM EST Anticoagulation Pharmacy, [facility] [address] [place] [address] [facility] [address] [facility] [place] [address] 06/09/2023 9:45 AM EST Office Visit General Surgery, [facility] [address] [address] Cyndee Cutler MD [address] [place] [address] 06/28/2023 3:00 PM EST Office Visit Cardiology, [facility] [address] [place] [address] Cyndee Paul, PASuleiman [address] [place] [address] 08/01/2023 9:30 AM EST Cardiac Studies [facility] [address] [place] [address] [place], Ekg [address] [place], [place] [id number] 08/01/2023 10:00 AM EST Office Visit Cardiology [facility] [address], [place] [id number] Louis Mckeon MD [address], [place] [address] 08/08/2023 12:30 PM EST Office Visit Gastroenterology, [facility] [address] [place] [address] Ama Robertson CRNP [address] [place] [address] 10/31/2023 2:20 PM EDT Office Visit General Internal Medicine [facility] [place] [place] [address] Brad Thompson MD [address] [facility] [place] [address] Health Maintenance Due Date Last Done Comments DISCUSS TOBACCO CESSATION (REFER TO SMARTSET #7943) 1960 Cologuard 2005 Colonoscopy 2005 Colorectal Cancer [...] exists LUNG CANCER SCREENING - USE SMARTSET 20500 Completed 03/29/2023, 03/25/2022, 03/24/2021, Additional history exists GARDASIL-HPV IMMUNIZATION SERIES Aged Out No longer eligible based on patient's age to complete this topic MENINGOCOCCAL (MENACTRA/MENVEO) Aged Out No longer eligible based on patient's age to complete this topic documented as of this encounter Medical Devices Implanted Type Area Buckle Attacher Device Identifier Shelf Expiration Date Model / Serial / Lot Vavle Aortic 27mm 3300tfx - [id number] - [id number] Implanted:Qty: 1 on 01/07/2017 by Silas Aldana [place] [facility] [place] [employer]AIL 03/29/2020 [id number] / [id number] / documented as of this encounter Advance [...] and were consensually agreed upon. Care Teams Director Global Relationship Specialty Start Date End Date Brad Thompson MD [address] [facility] [place] [address] PCP - General Internal Medicine 11/20/17 documented as of this encounter
--- OUTSIDE RECORDS SUMMARY | 2023-08-22 23:09 | External Medical Summary | Summary of Care ---
Author Name Unknown Organization [facility] Address [address] [facility] [place] [address] Phone [phone] Care Team Providers Care Hand Roller Name Role Phone Brad Thompson MD Primary Care Provider + Reason for Visit * Reason Comments Outpatient Testing Encounter Details Date Type Department Care Team (Late st Contact Info) Description 05/04/2023 12:40 PM EST Laboratory Laboratory [facility] [place] [facility] [address] [place] [address] [facility] Sc[address] [place] [address] S/P CABG (coronary artery bypass graft); S/P AVR (aortic valve replacement); Type 2 diabetes mellitus with hemoglobin A1c goal of less than 7.5% ([facility]); HTN, goal below 140/90; Dyslipidemia, goal LDL below 70; Coronary artery disease of [place] artery of [place] heart with stable angina pectoris ([facility]); Bright red rectal bleeding; Heme positive stool; Internal hemorrhoid, bleeding; Coronary artery disease involving [place] coronary artery of [place] heart without angina pectoris; Stenosis of prosthetic aortic valve, initial encounter; 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 100 Tab 0 01/31/2019 Active Fluticasone Propionate 50 MCG/ACT Nasal SuspensionIndicat ions:Runny nose Administer 2 Sprays into each nostril daily. 16 g 1 06/04/2020 Active Lisinopril 40 MG Oral TabletIndications :HTN, goal below 140/90 TAKE ONE TABLET BY MOUTH DAILY 90 Tablet 3 05/11/2022 Active Ezetimibe 10 MG Oral Tablet (Zetia)Indication s:Dyslipidemia, goal LDL below 70 TAKE ONE TABLET BY MOUTH DAILY 90 Tablet 3 05/11/2022 Active Aspirin 81 MG Oral Tablet Delayed Release (Aspirin Low Dose)Indications: HTN, goal below 140/90 Take 1 Tablet by mouth in the morning. 90 Tablet 3 08/16/2022 Active Nitroglycerin 0.4 MG Sublingual Tablet Sublingual (Nitrostat)Indica tions:Coronary artery disease involving [place] coronary artery of wain[place] heart without angina pectoris Place 1 Tablet [...] as of this encounter (statuses as of 05/04/2023) Active Problems Problem Noted Date Diagnosed Date Stenosis of prosthetic aortic valve 03/31/2023 Accelerating angina 11/12/2022 Coronary artery disease of n ative artery of [place] heart with stable angina pectoris 10/15/2021 Spinal [...] 01/12/20 17 Coronary artery disease invo lving w[place] coronary artery of [place] heart without angina pectoris 03/01/2016 Overview: [facility] 02/25/16 - . Severe single [...] as of this encounter (statuses as of 05/04/2023) Resolved Problems Problem Noted Date Diagnosed Date [...] as of this encounter (statuses as of 05/04/2023) Immunizations Name Administration Dates Next Due COVID-19 mRNA, LNP-s, No Pre serve, 2-Dose Series (Moderna) 08/11/2020,07/14/2020 COVID-19, mRNA, LNP-s, PF, B ooster, 100mcg/0.5mg (Moderna) 05/04/2021 Hepatitis B, 20+ yrs 03/11/2021,07/09/2019,05/0811/06/2019 PPD 03/11/2010,03/05/2008,03/02/2006 Pneumococcal Conjugate Vacci ne, 20-valent ([id number]) 10/28/2022 Pneumococcal Polysaccharide PPV23 (Pneumovax) 09/04/2010 SEASONAL [...] Answer Date Recorded PHQ Adult Total Score 13 10/28/2022 Hunger Vital Sign Answer Date Recorded Within [...] Care Team (Late st Contact Info) Description 05/09/2023 9:50 AM EST Laboratory Laboratory Scenery [facility] [address] [place] [id number] [place], Lab Scenery [address] [place] [address] 05/12/2023 9:30 AM EST Office Visit Cardiology [facility] [address] [facility] [place] [address] Luis Marquis MD [address] [facility] [place] [address] 05/17/2023 8:30 AM EST Anticoagulation Pharmacy, [facility] [address] [address] [facility] [address] [place] [address] 06/09/2023 9:45 AM EST Office Visit General Surgery, [facility] [address] [place] [address] Cyndee Cutler MD [address] [place] [address] 06/28/2023 3:00 PM EST Office Visit Cardiology, [facility] [address] [place] [address] Cyndee Paul, PA-C [address] [place] [address] 08/08/2023 12:30 PM EST Office Visit Gastroenterology, [facility] [address] [place] [address] Ama Robertson CRNP [address] [facility] [place] [address] 10/31/2023 2:20 PM EDT Office Visit General Internal Medicine [facility] [address] [place] [address] Brad Thompson MD [address] [facility] [place] [address] Pending Results Name Type Priority Associated Diagnoses Date /Time HEMOGLOBIN A1C Lab Routine Type 2 diabetes mellitus with hemoglobin A1c goal of less than 7.5% ([facility]) 05/04/2023 12:33 PM EST BASIC METABOLIC PANEL Lab Routine HTN, goal below 140/90 Type 2 diabetes mellitus with hemoglobin A1c goal of less than 7.5% ([facility]) Dyslipidemia, goal LDL below 70 Coronary artery disease of [place] artery of [place] heart with stable angina pectoris ([facility]) 05/04/2023 12:33 PM EST PT INR Lab STAT Bright red rectal bleeding Heme positive stool Internal hemorrhoid, bleeding Coronary artery disease involving [place] coronary artery of [place] heart without angina pectoris Stenosis of prosthetic aortic valve, initial encounter S/P AVR (aortic valve replacement) half-way current use of anticoagulant therapy 05/04/2023 12:33 PM EST Health Maintenance Due Date Last Done Comments [...] 0 10/15/2021, 10/10/2020, Additional history exists HbA1c 10/31/2023 05/02/2023, 10/11, 04/26/2022, Additional history exists Diabetic Eye Exam 11/24/2023 11/23/2022, , 05/08/2019 Albumin/Creatinine Ratio 05/02/2024 023, 04/26/2022, 05/08/2019, Additional history exists GFR 05/02/2024 05/02/2023, 03/13, 01/04/2023, Additional history exists DTaP,Tdap,and Td Vaccines (3 - Td or Tdap) 07/09/2029 07/09/2019, 06/17/2009 Zoster Vaccines Completed 07/09/2019, 05/08/2019 Hepatitis B Completed 03/11/2021, 06/14, 05/08/2019 Pneumococcal Vaccine: Pediatrics (0 to 5 Years) and At-Risk Patients (6 to 64 Years) Completed 10/28/2022, 05/17/2014, 09/04/2010 Influenza Vaccine (FLU shot) Completed 12/2022, 04/26/2022, 03/11/2021, Additional history exists LUNG CANCER SCREENING - USE SMARTSET 41211 Completed 03/29/2023, 03/25/2022, 03/24/2021, Additional history exists GARDASIL-HPV IMMUNIZATION SERIES Aged Out No longer eligible based on patient's age to complete this topic MENINGOCOCCAL (MENACTRA/MENVEO) Aged Out No longer eligible based on patient's age to complete this topic documented as of this encounter Medical Devices Implanted Type Area Business Management Associate Device Identifier Shelf Expiration Date Model / Serial / Lot Vavle Aortic 27mm 3300tfx - [id number] - [id number] Implanted:Qty: 1 on 01/07/2017 by Silas Aldana MD [place] [facility] [place] [employer]EL [employer]IGAIL 03/29/2020 [id number] / [id number] / documented as of this encounter Procedures Procedure Name Priority Date/Time Associated Diagnosis Comments DIFFERENTIAL, AUTOMATED STAT 05/04/2023 12:33 PM EST Bright red rectal bleeding Heme positive stool Internal hemorrhoid, bleeding Coronary artery disease involving [place] coronary artery of [place]ain[place] heart without angina pectoris Stenosis of prosthetic aortic valve, initial encounter S/P AVR (aortic valve replacement) 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 CBC STAT 05/04/2023 12:33 PM EST Bright red rectal bleeding Heme positive stool Internal hemorrhoid, bleeding Coronary artery disease involving [place] coronary artery of [place]ain[place] heart without angina pectoris Stenosis of prosthetic aortic valve, initial encounter S/P AVR (aortic valve replacement) half-way current use of anticoagulant therapy CBC STAT 05/04/2023 12:33 PM EST Bright red rectal bleeding Heme positive stool Internal hemorrhoid, bleeding Coronary artery disease involving [place] coronary artery of wain[place] heart without angina pectoris Stenosis of prosthetic aortic valve, initial encounter S/P AVR (aortic valve replacement) half-way current use of anticoagulant therapy documented in this encounter Results * (ABNORMAL) DIFFERENTIAL, AUTOMATED (05/04/2023 12:33 PM EST) WBC 9.64 4.00 - 10.80 K/uL 05/04/2023 12:47 PM EST [facility] 56-02 Neutrophils % 49.0 40.0 - 75.0 % 05/04/2023 12:47 PM EST [facility] 56-02 Lymphocytes % 32.0 18.0 - 42.0 % 05/04/2023 12:47 PM EST [facility] 56-02 Monocytes % 14.0(H) 1.0 - 11.0 % 05/04/2023 12:47 PM EST [facility] 56-02 Eosinophils % 4.5 0.0 - 6.0 % 05/04/2023 12:47 PM EST [facility] 56-02 Basophils % 0.5 0.0 - 2.0 % 05/04/2023 12:47 PM [facility] 56 Absolute Neutrophils 4.73 1.80 - 7.70 K/uL 05/04/2023 12:47 PM [facility] Absolute Lymphocytes 3.08 1.00 - 4.80 K/ul 05/04/2023 12:47 PM [facility] Absolute Monocytes 1.35(H) 0.00 - 1.10 K/uL 05/04/2023 12:47 PM [facility] Absolute Eosinophils 0.43 0.00 - 0.70 K/uL 05/04/2023 12:47 PM [facility] Absolute Basophils 0.05 0.00 - 0.20 K/uL 05/04/2023 12:47 PM [facility] Blood Venous blood specimen / Unknown Venipuncture / Unknown 05/04/2023 12:33 PM EST 05/04/2023 12:34 PM EST Anali Liriano MD LAB BLOOD ORDERABLES [facility] [address] [place] [address] * CBC (05/04/2023 12:33 PM EST) WBC 9.64 4.00 - 10.80 K/uL 05/04/2023 12:47 PM [facility] RBC 4.81 4.50 - 5.25 M/uL 05/04/2023 12:47 PM [facility] HGB 14.6 14.0 - 16.8 g/dL 05/04/2023 12:47 PM [facility] HCT 43.1 40.0 - 48.4 % 05/04/2023 12:47 PM [facility] MCV 89.6 82.0 - 99.5 fL 05/04/2023 12:47 PM [facility] MCH 30.4 27.0 - 34.0 pg 05/04/2023 12:47 PM [facility] MCHC 33.9 32.0 - 36.0 g/dL 05/04/2023 12:47 PM EST [facility] 56 RDW 13.7 11.5 - 15.5 % 05/04/2023 12:47 PM [facility] 56- PLT 168 140 - 400 K/uL 05/04/2023 12:47 PM EST [facility] 56- MPV 10.5 6.6 - 11.1 fL 05/04/2023 12:47 PM [facility] 56 Blood Venous blood specimen / Unknown Venipuncture / Unknown 05/04/2023 12:33 PM EST 05/04/2023 12:34 PM EST Anali Liriano MD LAB BLOOD ORDERABLES [facility] [address] [place] [address] documented in this encounter Visit Diagnoses Diagnosis S/P CABG (coronary artery bypass graft) Postsurgical aortocoronary bypass status S/P AVR (aortic valve replacement) Heart valve replaced by other means Type 2 diabetes mellitus with hemoglobin A1c goal of less than 7.5% (HCC) HTN, goal below 140/90 Unspecified essential hypertension Dyslipidemia, goal LDL below 70 Other and unspecified hyperlipidemia Coronary artery disease of wainwright artery of wainwright heart with stable angina pectoris (HCC) Bright red rectal bleeding Hemorrhage of rectum and anus Heme positive stool Nonspecific abnormal finding in stool contents Internal hemorrhoid, bleeding Internal hemorrhoids with other complication Coronary artery disease involving wainwright coronary artery of wainwright heart without angina pectoris Stenosis of prosthetic aortic valve, initial encounter half-way current use of anticoagulant therapy documented in this encounter Advance Directives Latest [...] and were consensually agreed upon. Care Teams Hand Roller Relationship Specialty Start Date End Date Brad Thompson MD [address] [place] [address] PCP - General Internal Medicine 11/20/17 documented as of this encounter
--- OUTSIDE RECORDS SUMMARY | 2023-08-22 23:09 | External Medical Summary | Summary of Care ---
Author Name Unknown Organization [facility] Address [address] [place] [address] Phone [phone] Care Team Providers Care Sexologist Name Role Phone Brad Thompson MD Primary Care Provider + Encounter Details Date Type Department Care Team (Late st Contact Info) Description 05/10/2023 Orders Only Outcomes Research Department [address] [place] [address] Kanika Luis CHRA [facility] Research Other*[id number] Allergies Active Allergy Reactions Criticality Noted Date Comments Varenicline Tartrate Nausea/vomiting,Psy ch complications High 08/05/2010 Iodinated Contrast Media Nausea/vomiting 2015 Methadone Other (Please comment) 09/04/2010 Shakes Valdecoxib 03/18/2004 felt odd documented as of this encounter (statuses as of 05/10/2023) Medications Medication Sig Dispensed Refills Start Date [...] Tablet Sublingual (Nitrostat)Indica tions:Coronary artery disease involving [place] coronary artery of [place] heart without angina pectoris Place 1 [...] as of this encounter (statuses as of 05/10/2023) Active Problems Problem Noted Date Diagnosed Date Stenosis of prosthetic aortic valve 03/31/2023 Accelerating angina 11/12/2022 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 Severe single vessel coronary [...] as of this encounter (statuses as of 05/10/2023) Resolved Problems Problem Noted Date Diagnosed Date [...] as of this encounter (statuses as of 05/10/2023) Immunizations Name Administration Dates Next Due COVID-19 mRNA, LNP-s, No Pre serve, 2-Dose Series (Moderna) 08/11/2020,07/14/2020 COVID-19, mRNA, LNP-s, PF, B ooster, 100mcg/0.5mg (Moderna) 05/04/2021 Hepatitis B, 20+ yrs 03/11/2021,07/09/2019,05/0811/06/2019 PPD 03/11/2010,03/05/2008,03/02/2006 Pneumococcal Conjugate Vacci ne, 20-valent ([id number]) 10/28/2022 Pneumococcal Polysaccharide PPV23 (Pneumovax) 09/04/2010 SEASONAL [...] 47 Smokeless Tobacco: Never Comments:Cut back to /2 to 3/4 ppd 11/10/22 Alcohol Use Standard [...] Care Team (Late st Contact Info) Description 05/12/2023 9:30 AM EST Office Visit Cardiology [facility] [address] [facility] [place] [address] Luis Marquis MD [address] [facility] [place] [address] 06/09/2023 9:45 AM EST Office Visit General Surgery, [facility] [address] [place] [address] Cyndee Cutler MD [address] [place], [place] [id number] 06/28/2023 3:00 PM EST Office Visit Cardiology, [facility] [address] [place] [address] Cyndee Paul PA-C [address] [place] [address] 08/08/2023 12:30 PM EST Office Visit Gastroenterology, [facility] [address] [facility] [place] [address] Ama Robertson CRNP [address] [facility] [address] 10/31/2023 2:20 PM EDT Office Visit General Internal Medicine [facility] [address] [facility] [place] [address] Brad Thompson MD [address] [facility] [place] [address] Scheduled Orders Name Type Priority Associated Diagnoses Orde r Schedule MYCODE SUBSEQUENT ADULT Lab Routine MyCode Research Other*[id number] Every 6 Months for 2 Occurrences starting 05/10/2023 until 05/29/2024 Health Maintenance Due Date Last Done Comments DISCUSS TOBACCO CESSATION (REFER TO SMARTSET #7078) 1960 Cologuard 2005 Colonoscopy 2005 Colorectal Cancer [...] exists LUNG CANCER SCREENING - USE SMARTSET 14500 Completed 03/29/2023, 03/25/2022, 03/24/2021, Additional history exists GARDASIL-HPV IMMUNIZATION SERIES Aged Out No longer eligible based on patient's age to complete this topic MENINGOCOCCAL (MENACTRA/MENVEO) Aged Out No longer eligible based on patient's age to complete this topic documented as of this encounter Medical Devices Implanted Type Area Mechanical Engineering Officer Device Identifier Shelf Expiration Date Model / Serial / Lot Vavle Aortic 27mm 3300tfx - [id number] - [id number] Implanted:Qty: 1 on 01/07/2017 by Silas Aldana MD [place] [facility] [place] [employer] ABIGAIL 03/29/2020 [id number] / [id number] / documented as of this encounter Visit Diagnoses Diagnosis MyCode Research Other*[id number] documented in this encounter Advance Directives Latest [...] and were consensually agreed upon. Care Teams Sexologist Relationship Specialty Start Date End Date Brad Thompson MD [address] [facility] [address] PCP - General Internal Medicine 11/20/17 documented as of this encounter
--- OUTSIDE RECORDS SUMMARY | 2023-08-22 23:09 | External Medical Summary ---
Author Name Unknown Address Unknown Organization K09:[facility] [place] [address] Laboratory Report Ordering Provider Test Date Status BOYD OROZCO 05/04/2023 12:33:59 Final Warfarin Therapy
INR: 2 .0-3.0 conventional anticoagulation
INR: 2.5- 3.5 high intensity anticoagulation Observation Date Value Abnormality Reference (Units ) Status PT 05/04/2023 12:33:59 20.9 Above high normal 11 .6-15.2 (seconds) Final INR 05/04/2023 12:33:59 1.8 Above high normal 0. 8-1.2 Final Performing Location [facility] [place] [address]
--- OUTSIDE RECORDS SUMMARY | 2023-08-22 23:09 | External Medical Summary | Summary of Care ---
Author Name Unknown Organization [facility] Address [address] [facility] [place] [address] Phone [phone] Care Team Providers Care Planner Name Role Phone Brad Thompson MD Primary Care Provider + Reason for Referral * Evaluate & Treat - Unlimited Visits (Within 10 days (routine)) - Authorized Specialty Diagnoses / Procedures Referred By Meli brown Referred To Contact Gastroenterology Diagnoses Bright red rectal bleeding Heme positive stool Internal hemorrhoid, bleeding Coronary artery disease involving [place] coronary artery of [place] heart without angina pectoris Anali Liriano MD [address] [place] [address] Referral ID Status Reason Start Date Expiration Date Visits Requested Visits Authorized [id number] Authorized Specialty Services Required 3 [phone] Question Answer Referral Priority Within 10 days (routine) Where should this appointment be scheduled? [facility] For what condition is the patient being referred? All Gastro Conditions * Evaluate & Treat - Unlimited Visits (Within 3 days (urgent)) - Authorized Specialty Diagnoses / Procedures Referred By Contbhargav t Referred To Contact General Surgery Diagnoses Heme positive stool Internal hemorrhoid, bleeding Coronary artery disease involving [place] coronary artery of [place] heart without angina pectoris Anali Liriano MD [address] [place] [address] Referral ID Status Reason Start Date Expiration Date Visits Requested Visits Authorized [id number] Authorized Specialty Services Required 3 [phone] Question Answer Referral Priority Within 3 days (urgent) Where should this appointment be scheduled? [facility] What condition is the patient being seen for? Other Anal Rectal Conditions Reason for Visit * Reason Comments Acute The pt stated he has had multiple bloody stools since Tuesday05/01/2023. Encounter Details Date Type Department Care Team (Latest Contact Info) Description 05/04/2023 11:40 AM EST Office Visit General Internal Medicine [address] [place] [address] [facility] [place] [address] Anali Liriano MD [address] [facility] [place] [address] Bright red rectal bleeding*; Heme positive stool; Internal hemorrhoid, bleeding; Coronary artery disease involving [place] coronary artery of [place] heart without angina pectoris; Stenosis of prosthetic aortic valve, initial encounter; S/P AVR (aortic valve replacement); 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 Severe single vessel [...] PPD 03/11/2010,03/05/2008,03/02/2006 Pneumococcal Conjugate Vacci ne, 20-valent (Vureiqr00) 10/28/2022 Pneumococcal Polysaccharide PPV23 (Pneumovax) 09/04/2010 SEASONAL [...] money to buy more. Never true 04/26/20 Within the past 12 months, t he [...] Sign Reading Time Taken Comments Blood Pressure 108/68 05/04/2023 11:48 AM EST Pulse 70 05/04/2023 11:48 AM EST Temperature 36.1 C (97 F) 05/04/2023 11: 48 AM EST Respiratory Rate - - Oxygen Saturation 96% 05/04/2023 11: 48 AM EST Inhaled Oxygen Concentration - - Weight 115.6 kg (254 lb 12.8 oz) 2022 11:48 AM EST Height - - Body Mass Index 36.82 05/02/2023 10:58 AM EST documented in this [...] as of this encounter Progress Notes * Anali Liriano MD - 05/04/2023 12:07 PM EST SUBJECTIVE: Jonas Dorsey is a 62 year old male. Chief Complaint Patient presents with Acute The pt stated he has had multiple bloody stools since Tuesday05/01/2023. HPI: Patient with a problem list as below presents today for acute appointment with symptoms of some having a bloody bowel movement this morning. Thinks he had 1 episode on Tuesday, states after flushing had noticed maybe a little bit of blood. This morning woke up with having a bowel movement whichwas regular and half way through had a lot of blood in the commode. Denies any clots. Denies any rectal pain, no abdominal pain nausea vomiting or diarrhea. By 15 minutes L a states he had another bowel movement with bright red blood in the stool. Denies black stools. Stools have been brownish in color. No dizziness or weakness. On anticoagulation for the last 3 months, reviewed last cardiology notes. He is has refused colonoscopy in the past. Component Latest Ref Rng 02/11/2023 03/08/2023 04/06/2023 Fingerstick INR INR 1.3 1.6 2.3 Hemoglobin Results: Lab Results Component Value Date/Time HGB - [facility] 14.7 03/29/2023 08:18 AM [facility]GB - [facility] 14.0 01/04/2023 10:03 AM [facility] - [facility] 14.9 11/09/2022 10:21 AM [facility]GB - [facility] 15.3 01/13/2019 11:10 AM HGB - [facility] 13.9 (L) 02/25/2017 03:00 PM HGB - [facility] 11.4 (L) 01/11/2017 04:18 AM Patient Active Problem List Diagnosis Code Esophageal reflux K21.9 Tobacco use disorder F17.200 Impotence of organic origin N52.9 Cervical spinal stenosis M48.02 Obesity, Class II, BMI 35-39.9, isolated (see actual BMI) E66.9 HTN, goal below 140/90 I10 PAD (peripheral artery disease) ([facility]) I73.9 Coronary artery disease involving [place] coronary artery of [place] heart without angina pectoris I25.10 S/P AVR (aortic valve replacement) Z95.2 S/P CABG (coronary artery bypass graft) Z95.1 Chronic bilateral low back pain with bilateral sciatica M54.42, M54.41, G89.29 Type 2 diabetes mellitus with hemoglobin A1c goal of less than 7.5% ([facility]) E11.9 Diabetes mellitus with peripheral angiopathy ([facility]) E11.51 DISH (diffuse idiopathic skeletal hyperostosis) M48.10 Dyslipidemia, goal LDL below 70 E78.5 Moderate single current episode of major depressive disorder ([facility]) F32.1 Spinal stenosis of lumbar region with neurogenic claudication M48.062 Coronary artery disease of [place] artery of [place] heart with stable angina pectoris ([facility]) I25.118 Accelerating angina ([facility]) I20.0 Stenosis of prosthetic aortic valve T82.857A Current Outpatient Medications Medication Sig Dispense Refill acetaminophen (TYLENOL) 500 MG Tablet Take 2 Tablets by mouth every 8 hours as needed for Pain. 100Tab 0 Fluticasone Propionate 50 MCG/ACT Nasal Suspension Administer 2 Sprays into each nostril daily. 16 g 1 Lisinopril 40 MG Oral Tablet TAKE ONE TABLET BY MOUTH DAILY 90 Tablet 3 Ezetimibe 10 MG Oral Tablet (Zetia) TAKE ONE TABLET BY MOUTH DAILY 90 Tablet 3 Aspirin 81 MG Oral Tablet Delayed Release (Aspirin Low Dose) Take 1 Tablet by mouth in the morning.90 Tablet 3 Nitroglycerin 0.4 MG Sublingual Tablet Sublingual (Nitrostat) Place 1 Tablet under the tongue every5 minutes as needed for Pain, Chest. up to 3 doses in 15 minutes 25 Tablet 11 Isosorbide Mononitrate ER 60 MG Oral Tablet [...] mouth on tuesday, tuesday, and tuesday (Patient taking differently: take 1 tablet by mouth on Tuesday and tuesday) 30 Tablet 3 Albuterol Sulfate HFA 108 (90 Base) MCG/ACT Inhalation Aerosol Solution INHALE TWO PUFFS BY MOUTH EVERY 6 HOURS NEEDED FOR WHEEZING 18 g 5 amLODIPine Besylate 10 MG Oral Tablet (Norvasc) TAKE ONE TABLET BY MOUTH DAILY 90 Tablet 1 Omeprazole 40 MG Oral Capsule Delayed Release (PriLOSEC) TAKE ONE CAPSULE BY MOUTH DAILY 90 Capsule1 Metoprolol Tartrate 50 MG Oral Tablet (Lopressor) TAKE ONE TABLET BY MOUTH DAILY 90 Tablet 1 diphenhydrAMINE HCl 25 MG Oral Capsule (Benadryl Allergy) Take 1 Capsule by mouth every 6 hours as needed for Itching. Loratadine 10 MG Oral Tablet (Claritin) Take 1 Tablet by mouth in the morning. Current Facility-Administered Medications Medication Dose Route Frequency Provider Last Rate Last Admin Albuterol Sulfate (Proventil) (2.5 MG/3ML) 0.083% inhalation solution 2.5 mg 2.5 mg Nebulizer PRN Brad Thompson MD 2.5 mg at 07/14/22 1323 Review of patient's allergies indicates: Allergen Reactions Chantix [Varenicline Tartrate] Nausea/vomiting and Psych complications Iodinated Contrast Media Nausea/vomiting Methadone Other (Please comment) Shakes Valdecoxib felt odd OBJECTIVE: BP 108/68 | Pulse 70 | Temp 36.1 C (97 F) | Wt 115.6 kg (254 lb 12.8 oz) | SpO2 96% | BMI 36.82kg/m | BSA 2.39 m PHYSICAL EXAM: General: alert, healthy, no distress, well developed, no pallor Op-mm moist Heart: regular rhythm and rate Lungs: lungs clear to auscultation Extremities: no edema Abdomen: Soft, non-tender, normal bowel sounds, no masses or organomegaly 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 Name of call specialist: Thelma Cutler LPN Rectal: + hemorrhoid at 8 o clock position, no bleeding, no masses, Stools brown, heme + ASSESSMENT/PLAN: Bright red rectal bleeding (Primary) - PT INR; Future; Expected date: 05/04/2023 - CBC WITH WBC DIFFERENTIAL; Future; Expected date: 05/04/2023 - ADULT GASTROENTEROLOGY REFERRAL OP Heme positive stool - PT INR; Future; Expected date: 05/04/2023 - CBC WITH WBC DIFFERENTIAL; Future; Expected date: 05/04/2023 - COLORECTAL SURGERY REFERRAL OP - ADULT GASTROENTEROLOGY REFERRAL OP Internal hemorrhoid, bleeding - PT INR; Future; Expected date: 05/04/2023 - CBC WITH WBC DIFFERENTIAL; Future; Expected date: 05/04/2023 - COLORECTAL SURGERY REFERRAL OP - ADULT GASTROENTEROLOGY REFERRAL OP Coronary artery disease involving [place] coronary artery of [place] heart without angina pectoris - PT INR; Future; Expected date: 05/04/2023 - CBC WITH WBC DIFFERENTIAL; Future; Expected date: 05/04/2023 - COLORECTAL SURGERY REFERRAL OP - ADULT GASTROENTEROLOGY REFERRAL OP Stenosis of prosthetic aortic valve, initial encounter - PT INR; Future; Expected date: 05/04/2023 - CBC WITH WBC DIFFERENTIAL; Future; Expected date: 05/04/2023 S/P AVR (aortic valve replacement) - PT INR; Future; Expected date: 05/04/2023 - CBC WITH WBC DIFFERENTIAL; Future; Expected date: 05/04/2023 [facility] current use of anticoagulant therapy - PT INR; Future; Expected date: 05/04/2023 - CBC WITH WBC DIFFERENTIAL; Future; Expected date: 05/04/2023 Recommend avoid constipation or straining at stool, if so then to start stool softener twice daily and consider adding Metamucil. Use tucks wipes. If symptoms recur or if associated with dizziness or weakness or pain to go to theER for evaluation. Given significant cardiac history would refer to GI to determine timing of colonoscopy CBC normal, INR stable Follow Up: Return if symptoms worsen or fail to improve, for Labs Today. | For: Labs Today (This note was completed using the dictation program Fluency Direct. As such, there may be misspellings, word substitutions, or other variations that should not change the essence of the clinical content of this encounter note. If there is need for further clarification, please direct questions to the provider listed above.) Patient and / caregiver verbalize understanding of above instructions and agrees with plan of care. Anali Liriano MD 05/04/2023 documented in this encounter Nursing Notes * Inderjit Hua LPN - 05/04/2023 11:48 AM EST Chief Complaint Patient presents with Acute The pt stated he has had multiple bloody stools since Tuesday05/01/2023. documented in this encounter Plan of Treatment Upcoming Encounters Date Type Department Care Team (Late st Contact Info) Description 05/09/2023 9:50 AM EST Laboratory [facility] [place] [address] [place] [id number] [place] [facility] [address] [place] [address] 05/12/2023 9:30 AM EST Office Visit Cardiology [facility] [address] [facility] [place] [id number] Luis Marquis MD [address] [facility] [facility] [place] [address] 05/17/2023 8:30 AM EST Anticoagulation Pharmacy, [facility] [address] [place] [address] [place] [facility] [address] [place] [address] 06/09/2023 9:45 AM EST Office Visit General Surgery, [facility] [address] [place] [address] Cyndee Cutler MD [address] [place] [address] 06/28/2023 3:00 PM EST Office Visit Cardiology, [facility] [address] [place] [facility] [place] [address] Cyndee Paul PA-C [address] [place] [address] 08/08/2023 12:30 PM EST Office Visit Gastroenterology, [facility] [address] [place] [address] Ama Robertson CRNP [address] [place] [address] 10/31/2023 2:20 PM EDT Office Visit General Internal Medicine [facility] [address] [place] [address] Brad Thompson MD [address] [place] [address] Scheduled Referrals Name Type Priority Associated Diagnoses Order Schedule COLORECTAL SURGERY REFERRAL OP Referral Within 3 days (urgent) Heme positive stool Internal hemorrhoid, bleeding Coronary artery disease involving [place] coronary artery of [place] heart without angina pectoris Ordered: 05/04/2023 ADULT GASTROENTEROLOGY REFERRAL OP Referral Within 10 days (routine) Bright red rectal bleeding Heme positive stool Internal hemorrhoid, bleeding Coronary artery disease involving [place] coronary artery of [place] heart without angina pectoris Ordered: 05/04/2023 Health Maintenance Due Date Last Done Comments DISCUSS TOBACCO CESSATION (REFER TO SMARTSET #0028) 1960 Cologuard 2005 Colonoscopy 2005 Colorectal Cancer [...] exists LUNG CANCER SCREENING - USE SMARTSET [id number] Completed 03/29/2023, 03/25/2022, 03/24/2021, Additional history exists GARDASIL-HPV IMMUNIZATION SERIES Aged Out No longer eligible based on patient's age to complete this topic MENINGOCOCCAL (MENACTRA/MENVEO) Aged Out No longer eligible based on patient's age to complete this topic documented as of this encounter Medical Devices Implanted Type Area Steel Post Installer Device Identifier Shelf Expiration Date Model / Serial / Lot Vavle Aortic 27mm [id number] - [id number] - [id number] Implanted:Qty: 1 on 01/07/2017 by Silas Aldana MD at [facility] [employer] 03/29/2020 [id number] / [id number] / documented as of this encounter Results * (ABNORMAL) PT INR (05/04/2023 12:33 PM EST) Prothrombin Time 20.9(H) 11.6 - 15.2 seconds 05/04/2023 1:03 PM EST [facility] 56-02 INR 1.8(H) 0.8 - 1.2 05/04/2023 1:03 PM EST [facility] 56-02 Blood Venous blood specimen / Unknown Venipuncture / Unknown 05/04/2023 12:33 PM EST 05/04/2023 12:34 PM EST Narrative [facility] 56-02 - 05/04/2023 1:03 PM EST Warfarin Therapy INR: 2.0-3.0 conventional anticoagulation INR: 2.5-3.5 high intensity anticoagulation Anali Liriano MD LAB BLOOD ORDERABLES [facility] [address] [place], [place] [id number] documented in this encounter Visit Diagnoses Diagnosis Bright red rectal bleeding- Primary Hemorrhage of rectum and anus Heme positive stool Nonspecific abnormal finding in stool contents Internal hemorrhoid, bleeding Internal hemorrhoids with other complication Coronary artery disease involving [place] coronary artery of [place] heart without angina pectoris Stenosis of prosthetic aortic valve, initial encounter S/P AVR (aortic valve replacement) Heart valve replaced by other means [facility] current use of anticoagulant therapy documented in [...] and were consensually agreed upon. Care Teams Planner Relationship Specialty Start Date End Date Brad Thompson MD [address] [facility] [place] [address] PCP - General Internal Medicine 11/20/17 documented as of this encounter"
--- OUTSIDE RECORDS SUMMARY | 2023-08-22 23:10 | External Medical Summary | Summary of Care ---
Author Name Unknown Organization [facility] Address [address] [facility] [place] [address] Phone [phone] Care Team Providers Care Appeals Coordinator Name Role Phone Brad Thompson MD Primary Care Provider + Reason for Visit * Reason Comments Follow Up 6 month follow up. Juanito washington presents with concerns for being itchy since starting warfarin, he is taking benadryl daily with some improvement. Encounter Details Date Type Department Care Team (Late st Contact Info) Description 05/02/2023 11:40 AM EST Office Visit General Internal Medicine [facility] [address] [facility] [place] [address] Brad Thompson MD [address] [place] [address] [place] [id number] Stenosis of prosthetic aortic valve, initial encounter*; Coronary artery disease involving miccosukee coronary artery of miccosukee heart without angina pectoris; Dyslipidemia, goal LDL below 70; HTN, goal below 140/90; Moderate single current episode of major depressive disorder (HCC); S/P AVR (aortic valve replacement); Tobacco use disorder; Itchy skin; Type 2 diabetes mellitus with hemoglobin A1c goal of less than 7.5% ([facility]); Chronic bilateral low back pain with bilateral sciatica Allergies Active Allergy Reactions Criticality Noted Date Comments Varenicline Tartrate Nausea/vomiting,Psy ch complications High 08/05/2010 Iodinated Contrast Media Nausea/vomiting 2015 Methadone Other (Please comment) 09/04/2010 Shakes Valdecoxib 03/18/2004 felt odd documented as of this encounter (statuses as of 05/02/2023) Medications Medication Sig Dispensed Refills Start Date [...] Tablet Sublingual (Nitrostat)Indica tions:Coronary artery disease involving miccosukee coronary artery of miccosukee heart without angina pectoris Place 1 Tablet [...] taking differently: Take 1 tablet by mouth Tues, Wed, Th, Sat, and Sun., Reported on 05/02/2023 Amoxicillin 500 MG Oral Capsule (Amoxil)Indicatio ns:S/P AVR (aortic valve replacement) TAKE FOUR CAPSULES BY MOUTH ONE HOUR PRIOR TO APPOINTMENT 4 Capsule 0 12/02/2022 Active Additional Information Patient not taking.Reported on 05/02/2023 Warfarin Sodium 10 MG Oral Tablet (Jantoven) [...] as of this encounter (statuses as of 05/02/2023) Active Problems Problem Noted Date Diagnosed Date Stenosis of prosthetic aortic valve 03/31/2023 Accelerating angina 11/12/2022 Coronary artery disease of n ative artery of miccosukee heart with stable angina pectoris 10/15/2021 Spinal [...] 01/12/20 17 Coronary artery disease invo lving miccosukee coronary artery of miccosukee heart without angina pectoris 03/01/2016 Overview: [facility] 02/25/16 - . Severe single vessel [...] as of this encounter (statuses as of 05/02/2023) Resolved Problems Problem Noted Date Diagnosed Date [...] as of this encounter (statuses as of 05/02/2023) Immunizations Name Administration Dates Next Due COVID-19 mRNA, LNP-s, No Pre serve, 2-Dose Series (Moderna) 08/11/2020,07/14/2020 COVID-19, mRNA, LNP-s, PF, B ooster, 100mcg/0.5mg (Moderna) 05/04/2021 Hepatitis B, 20+ yrs 03/11/2021,07/09/2019,05/0811/06/2019 PPD 03/11/2010,03/05/2008,03/02/2006 Pneumococcal Conjugate Vacci ne, 20-valent ([id number]) 10/28/2022 Pneumococcal Polysaccharide PPV23 (Pneumovax) 09/04/2010 SEASONAL [...] Day Cigarettes 1 47 Smokeless Tobacco: Never Tobacco Cessation:Ready to Q uit: Yes; Counseling Given: No Comments:Cut back to 1/2 to 3/4 ppd [...] Sign Reading Time Taken Comments Blood Pressure 110/64 05/02/2023 10:58 AM EST Pulse 72 05/02/2023 10:58 AM EST Temperature 35.6 C (96 F) 05/02/2023 10: 58 AM EST Respiratory Rate - - Oxygen Saturation 97% 05/02/2023 10: 58 AM EST Inhaled Oxygen Concentration - - Weight 115.6 kg (254 lb 14.4 oz) 2022 10:58 AM EST Height 177.2 cm (5' 9.75") 05/02/2023 1 0:58 AM EST Body Mass Index 36.84 05/02/2023 10:58 AM EST documented in this [...] as of this encounter Progress Notes * Brad Thompson MD - 05/02/2023 11:15 AM EST Chief Complaint Patient presents with Follow Up 6 month follow up. Patient presents with concerns for being itchy since starting warfarin, he is taking benadryl daily with some improvement. SUBJECTIVE: Jonas Dorsey is a 62 year old male with PMH as below who presents for follow up chronic back pain, aortic stenosis s/p surgery 2017, tobacco use, htn, DM. Feels good overall, notes retired and is on disability, has really helped mood. No SI, HI and depression is good. He is seeing cardiology for chronic 'chest pinching' with exertion that is stable. Has had cath, and SANDRA, felt to be from prosthetic valve aortic stenosis, sees valve clinic next week for this. Is on warfarin as well, noticed nodifference in functional status or symptoms, feels makes him itchy, resolves with benadryl. No hives or rash. He notes chronic back pain stable, has seen ortho and pain mgmt, injection deferred. Backto smoking "because I was bored" not sure if ready to quit. Patient Active Problem List Diagnosis Code Esophageal reflux K21.9 Tobacco use disorder F17.200 Impotence of organic origin N52.9 Cervical spinal stenosis M48.02 Obesity, Class II, BMI 35-39.9, isolated (see actual BMI) E66.9 HTN, goal below 140/90 I10 PAD (peripheral artery disease) ([facility]) I73.9 Coronary artery disease involving miccosukee coronary artery of miccosukee heart without angina pectoris I25.10 S/P AVR (aortic valve replacement) Z95.2 S/P CABG (coronary artery bypass graft) Z95.1 Chronic bilateral low back pain with bilateral sciatica M54.42, M54.41, G89.29 Type 2 diabetes mellitus with hemoglobin A1c goal of less than 7.5% ([facility]) E11.9 Diabetes mellitus with peripheral angiopathy ([facility]) E11.51 DISH (diffuse idiopathic skeletal hyperostosis) M48.10 Dyslipidemia, goal LDL below 70 E78.5 Moderate single current episode of major depressive disorder ([facility]) F32.1 Spinal stenosis of lumbar region with neurogenic claudication M48.062 Coronary artery disease of miccosukee artery of miccosukee heart with stable angina pectoris ([facility]) I25.118 Accelerating angina ([facility]) I20.0 Stenosis of prosthetic aortic valve T82.857A [...] mouth in the morning. 90 Tablet 3 Albuterol Sulfate HFA 108 (90 [...] 1 Tablet by mouth in the morning. Warfarin Sodium 5 MG Oral Tablet (Coumadin) Take 1 to 2 tablets by mouth every evening as directed by anticoagulation clinic (Patient taking differently: Take 1 tablet by mouth , Tue, , Sat,and Sun.) 45 Tablet 5 Amoxicillin 500 MG Oral Capsule (Amoxil) TAKE FOUR CAPSULES BY MOUTH ONE HOUR PRIOR TO APPOINTMENT (Patient not taking: Reported on 05/02/2023) 4 Capsule 0 Warfarin Sodium 10 MG Oral Tablet (Jantoven) take 1 tablet by mouth on tuesday, tuesday, and tuesday (Patient taking differently: take 1 tablet by mouth on Tuesday and tuesday) 30 Tablet 3 Current Facility-Administered Medications Medication Dose Route Frequency Provider Last Rate Last Admin Albuterol Sulfate (Proventil) (2.5 MG/3ML) 0.083% inhalation solution 2.5 mg 2.5 mg Nebulizer PRN Brad Thompson MD 2.5 mg at 07/14/22 1323 Review of patient's allergies indicates: Allergen Reactions Chantix [Varenicline Tartrate] Nausea/vomiting and Psych complications Iodinated Contrast Media Nausea/vomiting Methadone Other (Please comment) [place] Valdecoxib felt odd Health Maintenance Due Topic Date Due DISCUSS TOBACCO CESSATION (REFER TO SMARTSET #7244) Never done Colorectal Cancer Screening Never done Depression, Most Recent Score >= 10 (will fire each visit until score < 10) 10/29/2022 COVID-19 Vaccine ( season) 2023 Albumin/Creatinine Ratio 04/26/2023 HbA1c 04/30/2023 ROS: CONSTITUTIONAL: No change in weight, No weakness, and No fevers, sweats, or chills EYE: No recent significant change in vision, No eye pain, redness, discharge, and No diplopia EARS: No ear pain, No drainage, and No recent change in hearing NOSE: No history of frequent colds or sinusitis and No significant epistaxis PULMONARY: No rales and No recent change in breathing CARDIOVASCULAR: No orthopnea, No paroxysmal nocturnal dyspnea, No edema, No palpitations, and No syncope GASTROINTESTINAL: No abdominal pain, No change in bowel habits, No significant heartburn, No significant change in appetite, No nausea, vomiting, diarrhea, or constipation, No hematemesis, No blood in stools or black tarry stools, No abdominal bloating or early satiety, and No dysphagia ALL OTHER SYSTEMS NEGATIVE I reviewed social, PMH, PSH, and family history and updated where needed. 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 Employer: [employer] Comment: [employer] Occupation: [employer] Tobacco Use Smoking status: Every Day Packs/day: 1.00 Years: 47.00 Additional pack years: 0.00 Total pack years: 47.00 Types: Cigarettes Smokeless tobacco: Never Tobacco comments: Cut back to 1/2 to 3/4 ppd 11/10/22 Vaping Use Vaping Use: Never used Substance and Sexual Activity Alcohol use: Yes Alcohol/week: 70.0 standard drinks of alcohol Types: 70 12 oz of beer per week Comment: beer Drug use: No Sexual activity: Yes Partners: Female Other Topics Concern Not on file Social History Narrative Not on file Social Determinants of Health Financial Resource Strain: Not on file Food Insecurity: No Food Insecurity (04/26/2022) Hunger Vital Sign Worried About Running Out of Food in the Last Year: Never true Ran Out of Food in the Last Year: Never true Transportation Needs: Not on file Physical Activity: Not on file Stress: Not on file Social Connections: Not on file Intimate Partner Violence: Not on file Housing Stability: Not on file Past Medical History: Diagnosis Date Aortic regurgitation 08/20/2015 Aortic valve stenosis 08/20/2015 Beta-blockers contraindicated 03/01/2016 Due to AI per cardiology COPD (chronic obstructive pulmonary disease) ([facility]) DISH (diffuse idiopathic skeletal hyperostosis) 05/15/2019 Displacement of lumbar intervertebral disc without myelopathy 1997 Esophageal reflux HTN (hypertension) Hyperlipidemia PAD (peripheral artery disease) ([facility]) 08/20/2015 Bilateral Past Surgical History: Procedure Laterality Date CORONARY ARTERIES BYPASS, TWO 01/07/2017 CORONARY ARTERY BYPASS GRAFT WITH 2 VEIN GRAFTS performed by Silas Aldana MD at OR [facility] DECOMPRESS LUMBAR SPINAL CORD SEG 06/13/2013 Dr. Yip, L4/5 DENTAL SURGERY PROCEDURE NEC wisdom teeth ENDO,VIDEO ASSIST HARVEST KAYDEN 01/07/2017 ENDOSCOPY VIDEO ASSISTED HARVEST VEIN performed by Silas Aldana MD at [facility] INFORMATION orif right metacarpal INFORMATION Right 06/2015 [...] performed by Silvio Morgan MD at OR [facility] REMOVE TONSILS & ADENOIDS, UNDER 12 Tonsillectomy/Adenoids,<12 Y/O REPLACEMENT AORTIC VALVE, BYPASS WITH PROSTHETIC VALVE N/A 01/07/2017 REPLACEMENT AORTIC VALVE, BYPASS WITH PROSTHETIC VALVE performed by Silas Aldana MD at OR [facility] RIGHT HEART CATHETERIZATION 06/13/2000 Cardiac Catheterization, Right Heart UPPER GI ENDOSCOPY/EXAM 01/11/2001 Family History Problem Relation Age of Onset Heart Disorder Father age 52 [place] Cancer Mother age 62, unknown [place] Diabetes Mother Blood Disorder Sister age 15 leukemia Diabetes Sister OBJECTIVE: PHYSICAL EXAM: BP 110/64 | Pulse 72 | Temp 35.6 C (96 F) | Ht 1.772 m (5' 9.75") | Wt 115.6 kg (254 lb 14.4 oz) | SpO2 97% | BMI 36.84 kg/m | BSA 2.39 m General: alert, healthy, and no distress Head: Normocephalic, No masses, lesions, tenderness or abnormalities Eye Exam: conjunctiva are pink and non-injected, sclera clear Ears: External ears normal, Canals clear, TM's Normal Heart: regular rate & rhythm, no gallops, S-1 normal, S-2 normal, and Ii/ HSM Lungs: normal respiratory rate and rhythm, lungs clear to auscultation Extremities: no edema, no clubbing, no cyanosis Psych: normal affect, no flight of ideas or tangential thought, good eye contact, no pressured speech I reviewed last lipid, gfr, A1c, cbc, lft, psa 03/22/23 cardiology: 1. History of AVR with high gradients across the bioprosthetic aortic valve in October 2022. Possible thrombus - treated with anticoagulation and no improvement per recent echo. 2. Status post AVR and CABG 2016 3. Non obstructive coronary artery disease by cardiac catheterization 2022 4. Peripheral vascular disease 5. Chronic low back pain 6. Recent tooth infection with elevated WBC. Negative blood cultures. Plan: Echo results reviewed with Dr. Braswell. Recommend SANDRA for further evaluation of AVR and valvular stenosis. Patient is agreeable. He will also need [facility] valve clinic evaluation post SANDRA. Referral made. 11/10/22 cath: 1. Patent bypass grafts 2. Coronary angiography reveals mild nonocclusive disease with moderate ostial disease of the PDA suggested in foreshortened view. 3. Continue guideline directed medical therapy. Evaluate aortic valve prosthesis. ASSESSMENT: T82.857A Stenosis of prosthetic aortic valve, initial encounter (primary encounter diagnosis) I25.10 Coronary artery disease involving miccosukee coronary artery of miccosukee heart without angina pectoris E78.5 Dyslipidemia, goal LDL below 70 I10 HTN, goal below 140/90 F32.1 Moderate single current episode of major depressive disorder (HCC) Z95.2 S/P AVR (aortic valve replacement) F17.200 Tobacco use disorder L29.9 Itchy skin E11.9 Type 2 diabetes mellitus with hemoglobin A1c goal of less than 7.5% ([facility]) M54.42,M54.41,G89.29 Chronic bilateral low back pain with bilateral sciatica PLAN: Stenosis of prosthetic aortic valve, initial encounter (Primary) Await valve clinic Will reach out to cardiology to see if coumadin still needed in setting of no change and itch on skin Coronary artery disease involving miccosukee coronary artery of miccosukee heart without angina pectoris - COMPREHENSIVE METABOLIC PANEL; Future; Expected date: 05/02/2023 Cont f/u cardiology Cont amlodipine, metoprolol, imdur, atorvastatin Has ntg Cont lisinopril Dyslipidemia, goal LDL below 70 Cont zetia, atorvastatin HTN, goal below 140/90 - ALBUMIN / CREATININE RATIO, URINE; Future; Expected date: 05/02/2023 Cont amlodipine, metoprolol, imdur Moderate single current episode of major depressive disorder (HCC) Controlled per Manuel Follow No SI, HI, doesn't want med S/P AVR (aortic valve replacement) Await valve clinic Tobacco use disorder Strongly urged cessation ,he will consider options Itchy skin Claritin discussed instead of benadryl Type 2 diabetes mellitus with hemoglobin A1c goal of less than 7.5% ([facility]) - HEMOGLOBIN A1C; Future; Expected date: 05/02/2023 Await labs Chronic bilateral low back pain with bilateral sciatica Stable Defers pain mgmt Follow Up: Return in about 6 months (around 10/31/2023), or if symptoms worsen or fail to improve, for Labs Today. | For: Labs Today declines colon cancer screen Brad Thompson MD documented in this encounter Nursing Notes * Johana Kitchen CMA - 05/02/2023 10:55 AM EST Chief Complaint Patient presents with Follow Up 6 month follow up. Patient presents with concerns for being itchy since starting warfarin, he is taking benadryl daily with some improvement. documented in this encounter Plan of Treatment Upcoming Encounters Date Type Department Care Team (Late st Contact Info) Description 05/02/2023 12:00 PM EST Laboratory Laboratory [facility] [place] [address] [place] [address] [phone] Alonso Ortiz [address] [place] [id number] Coronary artery disease involving miccosukee coronary artery of miccosukee heart without angina pectoris; Type 2 diabetes mellitus with hemoglobin A1c goal of less than 7.5% (HCC); HTN, goal below 140/90 05/09/2023 9:50 AM EST Laboratory Laboratory [facility] [place] [address] [place] [address] [phone] Alonso Ortiz [address] [place] [address] [id number] 05/12/2023 9:30 AM EST Office Visit Cardiology [facility] [address] [facility] [place] [id number] Luis Marquis MD [address] [facility] [place] [address] 05/17/2023 8:30 AM EST Anticoagulation Pharmacy, [facility] [address] [place] [address] [facility] [place] [address] 06/28/2023 3:00 PM EST Office Visit Cardiology, [facility] [address] [place] [address] Cyndee Paul, [place] [address] [place] [address] 10/31/2023 2:20 PM EDT Office Visit General Internal Medicine [facility] [place] [address] [place] [id number] Brad Thompson MD [address] [place] [place] [phone] Pending Results Name Type Priority Associated Diagnoses Date /Time ALBUMIN / CREATININE RATIO, URINE Lab Routine HTN, goal below 140/90 05/02/2023 11:25 AM EST COMPREHENSIVE METABOLIC PANEL Lab Routine Coronary artery disease involving miccosukee coronary artery of miccosukee heart without angina pectoris 05/02/2023 11:22 AM EST HEMOGLOBIN A1C Lab Routine Type 2 diabetes mellitus with hemoglobin A1c goal of less than 7.5% (HCC) 05/02/2023 11:22 AM EST Scheduled Orders Name Type Priority Associated Diagnoses Orde r Schedule ALBUMIN / CREATININE RATIO, URINE Lab Routine HTN, goal below 140/90 Expected: 05/02/2023 (Approximate), Expires: 05/01/2024 COMPREHENSIVE METABOLIC PANEL Lab Routine Coronary artery disease involving miccosukee coronary artery of miccosukee heart without angina pectoris Expected: 05/02/2023 (Approximate), Expires: 05/01/2024 HEMOGLOBIN A1C Lab Routine Type 2 diabetes mellitus with hemoglobin A1c goal of less than 7.5% (HCC) Expected: 05/02/2023 (Approximate), Expires: 05/01/2024 Health Maintenance Due Date Last Done Comments DISCUSS TOBACCO CESSATION (REFER TO SMARTSET #0845) 1960 Cologuard 2005 Colonoscopy 2005 Colorectal Cancer Screening 2005 Fecal Occult Blood Test 2005 Sigmoidoscopy 2005 Depression, Most Recent Score >= 10 (will fire each visit until score < 10) 10/29/2022 10/28/2022 COVID-19 Vaccine ( season) 2023 05/04/2021, 08/11/2020, 07/14/2020 Albumin/Creatinine Ratio 04/26/202304/26/2 022, 05/08/2019, 06/12/2014, Additional history exists HbA1c 04/30/2023 10/28/2022, 04/13, 10/21/2021, Additional history exists Diabetic Foot Exam 10/29/2023 10/28/2022, 0 10/15/2021, 10/10/2020, Additional history exists Diabetic Eye Exam 11/24/2023 11/23/2022, , 05/08/2019 GFR 03/29/2024 03/29/2023, 12/12, 10/28/2022, Additional history exists DTaP,Tdap,and Td Vaccines (3 - Td or Tdap) 07/09/2029 07/09/2019, 06/17/2009 Zoster Vaccines Completed 07/09/2019, 05/08/2019 Hepatitis B Completed 03/11/2021, 06/14, 05/08/2019 Pneumococcal Vaccine: Pediatrics (0 to 5 Years) and At-Risk Patients (6 to 64 Years) Completed 10/28/2022, 05/17/2014, 09/04/2010 Influenza Vaccine (FLU shot) Completed 12/2022, 04/26/2022, 03/11/2021, Additional history exists LUNG CANCER SCREENING - USE SMARTSET 37163 Completed 03/29/2023, 03/25/2022, 03/24/2021, Additional history exists GARDASIL-HPV IMMUNIZATION SERIES Aged Out No longer eligible based on patient's age to complete this topic MENINGOCOCCAL (MENACTRA/MENVEO) Aged Out No longer eligible based on patient's age to complete this topic documented as of this encounter Medical Devices Implanted Type Area Pipe Organ Builder Device Identifier Shelf Expiration Date Model / Serial / Lot Vavle Aortic 27mm [id number] - [id number] - [id number] Implanted:Qty: 1 on 01/07/2017 by Silas Aldana MD at OR [facility] Heart [employer] 03/29/2020 [id number] / [id number] / documented as of this encounter Visit Diagnoses Diagnosis Stenosis of prosthetic aortic valve, initial encounter- Primary Coronary artery disease involving miccosukee coronary artery of miccosukee heart without angina pectoris Dyslipidemia, goal LDL below 70 Other and unspecified hyperlipidemia HTN, goal below 140/90 Unspecified essential hypertension Moderate single current episode of major depressive disorder (HCC) S/P AVR (aortic valve replacement) Heart valve replaced by other means Tobacco use disorder Itchy skin Unspecified pruritic disorder Type 2 diabetes mellitus with hemoglobin A1c goal of less than 7.5% (HCC) Chronic bilateral low back pain with bilateral sciatica Coronary artery disease involving miccosukee coronary artery of miccosukee heart without angina pectoris Type 2 diabetes mellitus with hemoglobin A1c [...] and were consensually agreed upon. Care Teams Appeals Coordinator Relationship Specialty Start Date End Date Brad Thompson MD [address] [facility] [place] [address] PCP - General Internal Medicine 11/20/17 documented as of this encounter
--- OUTSIDE RECORDS SUMMARY | 2023-08-22 23:10 | External Medical Summary | Summary of Care ---
Author Name Unknown Organization [facility] Address [address] [facility] [place] [address] Phone [phone] Care Team Providers Care Road Tester Name Role Phone Brad Thompson MD Primary Care Provider + Reason for Visit * Reason Comments Outpatient Testing Encounter Details Date Type Department Care Team Description 03/29/2023 Laboratory Laboratory, [facility] [address] [facility] [phone] [facility] [address] S/P AVR (aortic valve replacement); Nonrheumatic aortic valve stenosis Allergies Active Allergy Reactions Severity Noted Date Comments Varenicline Tartrate Nausea/vomiting,Psy ch complications High 08/05/2010 Iodinated Contrast Media Nausea/vomiting 2015 Methadone Other (Please comment) 09/04/2010 Shakes Valdecoxib 03/18/2004 felt odd documented as of this encounter (statuses as of 03/29/2023) Medications Medication Sig Dispensed Refills Start Date [...] Tablet Sublingual (Nitrostat)Indica tions:Coronary artery disease involving [place] coronary artery of [place] heart without angina pectoris Place 1 Tablet [...] anticoagulation clinic 45 Tablet 5 11/23/2022 Active Amoxicillin 500 MG Oral Capsule (Amoxil)Indicatio ns:S/P [...] MOUTH DAILY 90 Tablet 1 01/06/2023 Active Hospital, Clinic, or Other Facility Administered Medication Ordered Dose Route Frequency Start Date End Date Status Albuterol Sulfate (Proventil) (2.5 MG/3ML) 0.083% inhalation solution 2.5 mgIndications:IRIZARRY (dyspnea on exertion) 2.5 mg NEBULIZER PRN 06/29/2022 06/29/2023 Act shirley documented as of this encounter (statuses as of 03/29/2023) Active Problems Problem Noted Date Accelerating angina 11/12/2022 Coronary artery disease of n ative artery of [place] heart with stable angina pectoris 10/15/2021 Spinal stenosis of lumbar region with ne urogenic claudication 03/11/2021 Moderate single current episode of major depressive disorder 10/10/2020 Dyslipidemia, goal LDL below 70 10/24/19 20 DISH (diffuse idiopathic skeletal hypero stosis) 05/15/2019 Type 2 diabetes mellitus with hemoglobin A1c goal of less than 7.5% 05/08/2019 Diabetes mellitus with peripheral angiop athy 05/08/2019 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 Severe single vessel coronary artery disease with Successful PCI of mid LAD with 2.75 x 18 Xience DICK post-dilated to 3.5 mm PAD (peripheral artery disease) 08/20/19 16 Overview: Bilateral HTN, goal below 140/90 03/11/2010 Obesity, Class II, BMI 35-39.9, isolated (see actual BMI) 11/24/2009 Overview: Per Obesity Protocol, #19 Cervical spinal stenosis 12/11/2008 Impotence of organic origin 05/29/2008 Tobacco use disorder 09/07/2004 Esophageal reflux 05/13/2004 documented as of this encounter (statuses as of 03/29/2023) Resolved Problems Problem Noted Date Resolved Date Food insecurity 01/19/2021 05/27/2022 Overview: Per [facility] Protocol Alcohol abuse 01/11/2017 01/11/2017 Beta-blockers contraindicated 03/01/2016 Overview: Due to [facility] cardiology Spinal stenosis of lumbar re gion without neurogenic claudication 11/21/2008 03/11/2021 ADVANCE DIRECTIVE INFORMATION 03/02/2006 Overview: No, Advance Directive brochure given to patient at prior appointment. Displacement of lumbar inter vertebral disc without myelopathy 09/01/2010 documented as of this encounter (statuses as of 03/29/2023) Immunizations Name Administration Dates Next Due COVID-19 mRNA, LNP-s, No Pre serve, 2-Dose Series (Moderna) 08/11/2020,07/14/2020 COVID-19, mRNA, LNP-s, PF, B ooster, 100mcg/0.5mg (Moderna) 05/04/2021 Hepatitis B, 20+ yrs 03/11/2021,07/09/2019,05/0811/06/2019 PPD 03/11/2010,03/05/2008,03/02/2006 Pneumococcal Conjugate Vacci ne, 20-valent ([id number]) 10/28/2022 Pneumococcal Polysaccharide PPV23 (Pneumovax) 09/04/2010 SEASONAL [...] = 0.6 oz pu re alcohol) beer Food Insecurity Answer Date Recorded Within the past 12 months, y ou worried that your food would run out before you got money to buy more. Never true 04/26/2022 Within the past 12 months, t he food you bought just didn't last and you didn't have money to get more. Never true 04/26/2022 Sex Assigned at Date Recorded Male 01/31/2019 1:30 PM E DT Job Start Date Occupation Industry Not on [...] or making decisions? (5 years old or older No 01/07/2017 documented as of this encounter Plan of Treatment Upcoming Encounters Date Type Specialty Care Team Description 04/05/2023 [facility] [place] [facility] [place] [address] [facility] [place] [address] 05/09/2023 Office Visit Internal Medicine Brad Thompson MD [address] [facility] [place] [address] 05/09/2023 Laboratory Laboratory [facility] [address] [place] [address] 06/28/2023 Office Visit Cardiology Cyndee Paul PA-C [address] [place] [address] Pending Results Name Type Priority Associated Diagnoses Date /Time CBC Lab Routine S/P AVR (aortic valve replacement) Nonrheumatic aortic valve stenosis 03/29/2023 8:18 AM EDT COMPREHENSIVE METABOLIC PANEL Lab Routine S/P AVR (aortic valve replacement) Nonrheumatic aortic valve stenosis 03/29/2023 8:18 AM EDT LIPID PANEL WITH DIRECT LDL IF TG IS HIGH Lab Routine S/P AVR (aortic valve replacement) Nonrheumatic aortic valve stenosis 03/29/2023 8:18 AM EDT Health Maintenance Due Date Last Done Comments DISCUSS TOBACCO CESSATION (REFER TO SMARTSET #7770) 1960 Cologuard 2005 Colonoscopy 2005 Colorectal Cancer [...] 10/28/2022, 0 10/15/2021, 10/10/2020, Additional history exists DIABETES-EYE EXAM 11/24/2023 11/23/2022, , 05/08/2019 GFR 01/05/2024 01/04/2023, 10/11, 09/06/2022, Additional history exists DTaP,Tdap,and Td Vaccines (3 - Td or Tdap) 07/09/2029 07/09/2019, 06/17/2009 Zoster Vaccines Completed 07/09/2019, 05/08/2019 Hepatitis B Completed 03/11/2021, 06/14, 05/08/2019 LUNG CANCER SCREENING - USE SMARTSET [id number] Completed 03/25/2022, 03/24/2021, 05/26/2017, Additional history exists Pneumococcal Vaccine: Pediatrics (0 to 5 Years) and At-Risk Patients (6 to 64 Years) Completed 10/28/2022, 09/04/2010 Influenza Vaccine (FLU shot) Completed 12/2022, 04/26/2022, 03/11/2021, Additional history exists GARDASIL-HPV IMMUNIZATION SERIES Aged Out No longer eligible based on patient's age to complete this topic MENINGOCOCCAL (MENACTRA/MENVEO) Aged Out No longer eligible based on patient's age to complete this topic documented as of this encounter Medical Devices Implanted Type Area Tool And Die Inspector Device Identifier Shelf Expiration Date Model / Serial / Lot Vavle Aortic 27mm 3300tfx - [id number] - [id number] Implanted:Qty: 1 on 01/07/2017 by Silas Aldana MD at OR [facility] Heart [employer] 03/29/2020 [id number] / [id number] / documented as of this encounter Visit Diagnoses Diagnosis S/P AVR (aortic valve replacement) Heart valve replaced by other means Nonrheumatic aortic valve stenosis Aortic valve disorders documented in this encounter [...] were consensually agreed upon. Care Teams Road Tester Relationship Specialty Start Date End Date Brad Thompson MD [address] [place] [address], [place] [address] PCP - General Internal Medicine 11/20/17 documented as of this encounter
--- OUTSIDE RECORDS SUMMARY | 2023-08-22 23:10 | External Medical Summary | Summary of Care ---
Author Name Unknown Organization [facility] Address [address] [place] [address] Phone [phone] Care Team Providers Care Institutional Research Director Name Role Phone Brad Thompson MD Primary Care Provider + Encounter Details Date Type Department Care Team Description 03/23/2023 New Patient Triage (TACK DRILLER USE ONLY) [facility], Cardiac Recovery Suite, [facility] [address] [place] [address] Vanessa Benson, RN Allergies Active Allergy Reactions Severity Noted Date Comments Varenicline Tartrate Nausea/vomiting,Psy ch complications High 08/05/2010 Iodinated Contrast Media Nausea/vomiting 2015 Methadone Other (Please comment) 09/04/2010 Shakes Valdecoxib 03/18/2004 felt odd documented as of this encounter (statuses as of 03/23/2023) Medications Medication Sig Dispensed Refills Start Date [...] Tablet Sublingual (Nitrostat)Indica tions:Coronary artery disease involving [place] coronary artery of [place] heart without angina pectoris Place 1 Tablet [...] as of this encounter (statuses as of 03/23/2023) Active Problems Problem Noted Date Accelerating angina 11/12/2022 Coronary artery disease of n ative artery of [place] heart with stable angina pectoris 10/15/2021 Spinal [...] graft) 01/11/2017 Coronary artery disease invo lving [place] coronary artery of [place] heart without angina pectoris 03/01/2016 Overview: [facility] 02/25/16 - . Severe single vessel [...] as of this encounter (statuses as of 03/23/2023) Resolved Problems Problem Noted Date Resolved Date [...] as of this encounter (statuses as of 03/23/2023) Immunizations Name Administration Dates Next Due COVID-19 mRNA, LNP-s, No Pre serve, 2-Dose Series (Moderna) 08/11/2020,07/14/2020 COVID-19, mRNA, LNP-s, PF, B ooster, 100mcg/0.5mg (Moderna) 05/04/2021 Hepatitis B, 20+ yrs 03/11/2021,07/09/2019,05/0811/06/2019 PPD 03/11/2010,03/05/2008,03/02/2006 Pneumococcal Conjugate Vacci ne, 20-valent ([id number]) 10/28/2022 Pneumococcal Polysaccharide PPV23 (Pneumovax) 09/04/2010 SEASONAL [...] of this encounter Progress Notes * Vanessa Benson RN - 03/23/2023 2:57 PM EDT New Patient Triage What is the diagnosis/reason for referral?: Bioprosthetic Aortic Stenosis Enter order ID here: [id number] Specialty specific documentation: Cardiology Structural Heart Please see follow up multidisciplinary note LON Nava Interventional Valve Nurse Navigator documented in this encounter Plan of Treatment Upcoming Encounters Date Type Specialty Care Team Description 03/29/2023 Imaging Radiology 04/05/2023 Anticoagulation Pharmacy [facility] [place] [address] [place] [address] 05/09/2023 Office Visit Internal Medicine Brad Thompson MD [address] [place], [place] [address] 05/09/2023 Laboratory Laboratory [place], Lab [address] [place], [place] [address] 06/28/2023 Office Visit Cardiology Cyndee Paul PA-C [address] [place] [address] Health Maintenance Due Date Last Done Comments DISCUSS TOBACCO CESSATION (REFER TO SMARTSET #4553) 1960 Cologuard 2005 Colonoscopy 2005 Colorectal Cancer [...] 05/08/2019 LUNG CANCER SCREENING - USE SMARTSET [id number] Completed 03/25/2022, 03/24/2021, 05/26/2017, Additional history exists [...] this encounter Medical Devices Implanted Type Area Skein Dyer Device Identifier Shelf Expiration Date Model / Serial / Lot Vavle Aortic 27mm 3300tfx - [id number] - [id number] Implanted:Qty: 1 on 01/07/2017 by Silas Aldana MD at OR [facility] Heart [employer]AIL 03/29/2020 [id number] / [id number] / documented as of this encounter Advance [...] and were consensually agreed upon. Care Teams Institutional Research Director Relationship Specialty Start Date End Date Brad Thompson MD [address] [place] [address] PCP - General Internal Medicine 11/20/17 documented as of this encounter
--- OUTSIDE RECORDS SUMMARY | 2023-08-22 23:10 | External Medical Summary | Summary of Care ---
Author Name Unknown Organization [facility] Address [address] [facility] [place] [address] Phone [phone] Care Team Providers Care Assessment Counselor Name Role Phone Brad Thompson MD Primary Care Provider + Reason for Visit * Reason Comments Outpatient Testing Encounter Details Date Type Department Care Team (Late st Contact Info) Description 05/02/2023 12:00 PM EST Laboratory Laboratory [address] [place] [address] [place] [id number] [place], Lab [address] [place] [address] Coronary artery disease involving [place] coronary artery of [place] heart without angina pectoris; Type 2 diabetes mellitus with hemoglobin A1c goal of less than 7.5% ([facility]); HTN, goal below 140/90 Allergies Active Allergy [...] Tablet Sublingual (Nitrostat)Indica tions:Coronary artery disease involving [place] coronary artery of [place] heart without angina pectoris Place 1 Tablet [...] artery disease of n ative artery of [place] heart with stable angina pectoris 10/15/2021 Spinal [...] 01/12/20 17 Coronary artery disease invo lving [place] coronary artery of [place] heart without angina pectoris 03/01/2016 Overview: [facility] 02/25/16 - . Severe single [...] 05/04/2021 Hepatitis B, 20+ yrs 03/11/2021,07/09/2019,05/0811/06/2019 PPD 03/11/2010, 8,03/02/2006,04/14 Pneumococcal Conjugate Vacci ne, 20-valent ([id number]) 10/28/2022 Pneumococcal Polysaccharide PPV23 (Pneumovax) 09/04/2010 SEASONAL [...] AM EST Office Visit General Internal Medicine [facility] [address] [place] [address] Brad Thompson MD [address] [place] [address] [facility] [place] [address] Stenosis of prosthetic aortic valve, initial encounter*; Coronary artery disease involving [place] coronary artery of [place] heart without angina pectoris; Dyslipidemia, goal LDL below 70; HTN, goal below 140/90; Moderate single current episode of major depressive disorder (HCC); S/P AVR (aortic valve replacement); Tobacco use disorder; Itchy skin; Type 2 diabetes mellitus with hemoglobin A1c goal of less than 7.5% (HCC); Chronic bilateral low back pain with bilateral sciatica 05/09/2023 9:50 AM EST Laboratory Laboratory [facility] [place] [address] [facility] [place] [id number] [address] [facility] [place] [address] 05/12/2023 9:30 AM EST Office Visit Cardiology [facility] [address] [facility] [place] [address] Luis Marquis MD [address] [facility] [place] [address] 05/17/2023 8:30 AM EST Anticoagulation Pharmacy, [facility] [address] [place] [address] [place] [facility] [address] [place] [address] 06/28/2023 3:00 PM EST Office Visit Cardiology, [facility] [address] [place] [address] Cyndee Pual PA-C [address] [place] [address] 10/31/2023 2:20 PM EDT Office Visit General Internal Medicine [facility] [address] [facility] [place] [address] Brad Thompson MD [address] [facility] [place] [address] Pending Results Name Type Priority Associated Diagnoses Date /Time COMPREHENSIVE METABOLIC PANEL Lab Routine Coronary artery disease involving [place] coronary artery of [place] heart without angina pectoris 05/02/2023 11:22 AM EST HEMOGLOBIN A1C Lab Routine Type 2 diabetes mellitus with hemoglobin A1c goal of less than 7.5% ([facility]) 05/02/2023 11:22 AM EST ALBUMIN / CREATININE RATIO, URINE Lab Routine HTN, goal below 140/90 05/02/2023 11:25 AM EST Health Maintenance Due Date Last Done Comments DISCUSS TOBACCO CESSATION (REFER TO SMARTSET #3291) 1960 Cologuard 2005 Colonoscopy 2005 Colorectal Cancer Screening 2005 Fecal Occult Blood Test 2005 Sigmoidoscopy 2005 Depression, Most Recent Score >= 10 (will fire each visit until score < 10) 10/29/2022 10/28/2022 COVID-19 Vaccine ( season) 2023 05/04/2021, 08/11/2020, 07/14/2020 Albumin/Creatinine Ratio 04/26/2023 022, 05/08/2019, 06/12/2014, Additional history exists HbA1c [...] exists LUNG CANCER SCREENING - USE SMARTSET [id number] Completed 03/29/2023, 03/25/2022, 03/24/2021, Additional history exists GARDASIL-HPV IMMUNIZATION SERIES Aged Out No longer eligible based on patient's age to complete this topic MENINGOCOCCAL (MENACTRA/MENVEO) Aged Out No longer eligible based on patient's age to complete this topic documented as of this encounter Medical Devices Implanted Type Area Director Of Category Management Device Identifier Shelf Expiration Date Model / Serial / Lot Vavle Aortic 27mm 3300tfx - [id number] - [id number] Implanted:Qty: 1 on 01/07/2017 by Silas Aldana MD at [place] [facility] Heart [employer] 03/29/2020 [id number] / [id number] / documented as of this encounter Visit Diagnoses Diagnosis Stenosis of prosthetic aortic valve, initial encounter- Primary Coronary artery disease involving [place] coronary artery of [place] heart without angina pectoris Dyslipidemia, goal LDL [...] with bilateral sciatica Coronary artery disease involving [place] coronary artery of [place] heart without angina pectoris Type 2 diabetes [...] and were consensually agreed upon. Care Teams Assessment Counselor Relationship Specialty Start Date End Date Brad Thompson MD [address] [facility] [place] [address] PCP - General Internal Medicine 11/20/17 documented as of this encounter
--- OUTSIDE RECORDS SUMMARY | 2023-08-22 23:10 | External Medical Summary | Summary of Care ---
Author Name Unknown Organization [facility] Address [address] [facility] [place] [address] Phone [phone] Care Team Providers Care Snuff Grinder Name Role Phone Brad Thompson MD Primary Care Provider + Encounter Details Date Type Department Care Team Description 02/28/2023 Telephone Cardiology, [facility] [address] [place] [id number] Cyndee Paul PA-C [address] [place] [address] Allergies Active Allergy Reactions Severity Noted Date Comments Varenicline Tartrate Nausea/vomiting,Psy ch complications High 08/05/2010 Iodinated Contrast Media Nausea/vomiting 2015 Methadone Other (Please comment) 09/04/2010 Shakes Valdecoxib 03/18/2004 felt odd documented as of this encounter (statuses as of 03/25/2023) Medications Medication Sig Dispensed Refills Start Date [...] Tablet Sublingual (Nitrostat)Indica tions:Coronary artery disease involving [place] coronary artery of [place] heart without angina pectoris Place 1 Tablet [...] as of this encounter (statuses as of 03/25/2023) Active Problems Problem Noted Date Accelerating angina 11/12/2022 Coronary artery disease of n ative artery of [place] heart with stable angina pectoris 10/15/2021 Spinal [...] graft) 01/11/2017 Coronary artery disease invo lving [place] coronary artery of [place] heart without angina pectoris 03/01/2016 Overview: [facility] 02/25/16 - . Severe single vessel [...] as of this encounter (statuses as of 03/25/2023) Resolved Problems Problem Noted Date Resolved Date [...] as of this encounter (statuses as of 03/25/2023) Immunizations Name Administration Dates Next Due COVID-19 mRNA, LNP-s, No Pre serve, 2-Dose Series (Moderna) 08/11/2020,07/14/2020 COVID-19, mRNA, LNP-s, PF, B ooster, 100mcg/0.5mg (Moderna) 05/04/2021 Hepatitis B, 20+ yrs 03/11/2021,07/09/2019,05/0811/06/2019 PPD 03/11/2010,03/05/2008,03/02/2006 Pneumococcal Conjugate Vacci ne, 20-valent ([id number]) 10/28/2022 Pneumococcal Polysaccharide PPV23 (Pneumovax) 09/04/2010 SEASONAL INFLUENZA, PF, 6 M & Above, IM , (FLULAVAL or FLUZONE) 04/26/2022,03/11/2021,03/01/2020,04/14,03/11/2017 Seasonal Influenza, Quad, Na june (Flumist) 03/29/2018 [...] encounter Miscellaneous Notes * Telephone Encounter - Rickyyanira Francis CMA - 02/28/2023 12:01 PM EDT ----- Message from Cyndee Paul PA-C sent at 02/28/2023 11:11 AM EDT ----- Echo results reviewed Normal LVEF at 60-64% Abnormal gradients of AVR. Stable from prior echo, but concerning for obstructive process. May benefit from SANDRA to get better pictures. Will discuss at upcoming visit. Keep appt as scheduled. documented in this encounter Plan of Treatment Upcoming Encounters Date Type Specialty Care Team Description 03/29/2023 Imaging Radiology 04/05/2023 Anticoagulation Pharmacy [facility] [place] [address] [place] [address] 05/09/2023 Office Visit Internal Medicine Brad Thompson MD [address] [place] [address] 05/09/2023 Laboratory Laboratory [place], Lab Scen[address] [place] [address] 06/28/2023 Office Visit Cardiology Cyndee Paul PA-C [address] [place] [address] Health Maintenance Due Date Last Done Comments DISCUSS TOBACCO CESSATION (REFER TO SMARTSET #3047) 1960 Cologuard 2005 Colonoscopy 2005 Colorectal Cancer [...] 05/08/2019 LUNG CANCER SCREENING - USE SMARTSET [id number] Completed 03/25/2022, 03/24/2021, 05/26/2017, Additional history exists [...] this encounter Medical Devices Implanted Type Area Sequencing Machine Operator Device Identifier Shelf Expiration Date Model / Serial / Lot Vavle Aortic 27mm 3300tfx - [id number] - [id number] Implanted:Qty: 1 on 01/07/2017 by Silas Aldana MD at OR [facility] Heart [employer] 03/29/2020 [id number] / [id number] / documented as of this encounter Advance [...] and were consensually agreed upon. Care Teams Snuff Grinder Relationship Specialty Start Date End Date Brad Thompson MD [address] [place] [address], [place] [id number] PCP - General Internal Medicine 11/20/17 documented as of this encounter
--- OUTSIDE RECORDS SUMMARY | 2023-08-22 23:10 | External Medical Summary | Summary of Care ---
Author Name Unknown Organization [facility] Address [address] [place] [address] Phone [phone] Care Team Providers Care Oil Well Services Superintendent Name Role Phone Brad Thompson MD Primary Care Provider + Encounter Details Date Type Department Care Team Description 03/23/2023 New Patient Triage (PRODUCT INSPECTION COORDINATOR USE ONLY) [facility], Cardiac Recovery Suite, [facility] [address] [place] [address] Vanessa Benson, RN Allergies Active Allergy Reactions Severity Noted Date Comments Varenicline Tartrate Nausea/vomiting,Psy ch complications High 08/05/2010 Iodinated Contrast Media Nausea/vomiting 2015 Methadone Other (Please comment) 09/04/2010 Shakes Valdecoxib 03/18/2004 felt odd documented as of this encounter (statuses as of 03/24/2023) Medications Medication Sig Dispensed Refills Start Date [...] Tablet Sublingual (Nitrostat)Indica tions:Coronary artery disease involving inaja coronary artery of inaja heart without angina pectoris Place 1 Tablet [...] as of this encounter (statuses as of 03/24/2023) Active Problems Problem Noted Date Accelerating angina 11/12/2022 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 Severe single [...] as of this encounter (statuses as of 03/24/2023) Resolved Problems Problem Noted Date Resolved Date [...] as of this encounter (statuses as of 03/24/2023) Immunizations Name Administration Dates Next Due COVID-19 mRNA, LNP-s, No Pre serve, 2-Dose Series (Moderna) 08/11/2020,07/14/2020 COVID-19, mRNA, LNP-s, PF, B ooster, 100mcg/0.5mg (Moderna) 05/04/2021 Hepatitis B, 20+ yrs 03/11/2021,07/09/2019,05/0811/06/2019 PPD 03/11/2010, 8,03/02/2006,04/14 Pneumococcal Conjugate Vacci ne, 20-valent ([id number]) 10/28/2022 Pneumococcal Polysaccharide PPV23 (Pneumovax) 09/04/2010 SEASONAL [...] as of this encounter Progress Notes * DANIEL Bond - 03/24/2023 5:35 PM EDT Left message * Lo Li DNP - 03/23/2023 6:57 PM EDT Does patient need to be seen?: Yes Modality: Office visit Urgency: Within 30 days (routine) Discussed care plan with patient or proxy?: Yes per valve team Communicated with patient on Date (mm/dd/yyyy): 03/23/2023 at Time ([facility]): [id number] Lo Li DNP Department [place] [address] - [facility] * Vanessa Benson RN - 03/23/2023 2:57 PM EDT New Patient Triage What is the diagnosis/reason for referral?: Bioprosthetic Aortic Stenosis Enter order ID here: [id number] Specialty specific documentation: Cardiology Structural Heart Please see follow up multidisciplinary note LON Nava Interventional Valve Nurse Navigator documented in this encounter Plan of Treatment Upcoming Encounters Date Type Specialty Care Team Description 03/29/2023 Imaging Radiology 04/05/2023 Anticoagulation Pharmacy [facility] [address] [place] [address] 05/09/2023 Office Visit Internal Medicine Brad Thompson MD [address] [place] [address] 05/09/2023 Laboratory Laboratory [facility] [address] [place] [address] 06/28/2023 Office Visit Cardiology Cyndee Paul PA-C [address] [place] [address] Health Maintenance Due Date Last Done Comments DISCUSS TOBACCO CESSATION (REFER TO SMARTSET #9247) 1960 Cologuard 2005 Colonoscopy 2005 Colorectal Cancer [...] 05/08/2019 LUNG CANCER SCREENING - USE SMARTSET [id number] Completed 03/25/2022, 03/24/2021, 05/26/2017, Additional history exists [...] this encounter Medical Devices Implanted Type Area Otologist Device Identifier Shelf Expiration Date Model / Serial / Lot Vavle Aortic 27mm 3300tfx - [id number] - [id number] Implanted:Qty: 1 on 01/07/2017 by Silas Aldana MD at OR [facility] Heart [employer]AIL 03/29/2020 [id number] / [id number] / documented as of this encounter Advance [...] and were consensually agreed upon. Care Teams Oil Well Services Superintendent Relationship Specialty Start Date End Date Brad Thompson MD [address] [place] [address] PCP - General Internal Medicine 11/20/17 documented as of this encounter
--- OUTSIDE RECORDS SUMMARY | 2023-08-22 23:10 | External Medical Summary | Summary of Care ---
Author Name Unknown Organization [facility] Address [address] [facility] [place] [address] Phone [phone] Care Team Providers Care Harness Rigger Name Role Phone Brad Thompson MD Primary Care Provider + Encounter Details Date Type Department Care Team (Late st Contact Info) Description 04/07/2023 Telephone Cardiology, [facility] [address] [place] [address] Win Braswell DO [address] [place] [address] Allergies Active Allergy Reactions Criticality Noted Date Comments Varenicline Tartrate Nausea/vomiting,Psy ch complications High 08/05/2010 Iodinated Contrast Media Nausea/vomiting 2015 Methadone Other (Please comment) 09/04/2010 Shakes Valdecoxib 03/18/2004 felt odd documented as of this encounter (statuses as of 04/07/2023) Medications Medication Sig Dispensed Refills Start Date [...] Tablet Sublingual (Nitrostat)Indica tions:Coronary artery disease involving tatitlek coronary artery of tatitlek heart without angina pectoris Place 1 Tablet [...] as of this encounter (statuses as of 04/07/2023) Active Problems Problem Noted Date Diagnosed Date Stenosis of prosthetic aortic valve 03/31/2023 Accelerating angina 11/12/2022 Coronary artery disease of n ative artery of tatitlek heart with stable angina pectoris 10/15/2021 Spinal [...] 01/12/20 17 Coronary artery disease invo lving tatitlek coronary artery of tatitlek heart without angina pectoris 03/01/2016 Overview: [facility] 02/25/16 - . Severe single vessel coronary [...] as of this encounter (statuses as of 04/07/2023) Resolved Problems Problem Noted Date Diagnosed Date [...] as of this encounter (statuses as of 04/07/2023) Immunizations Name Administration Dates Next Due COVID-19 mRNA, LNP-s, No Pre serve, 2-Dose Series (Moderna) 08/11/2020,07/14/2020 COVID-19, mRNA, LNP-s, PF, B ooster, 100mcg/0.5mg (Moderna) 05/04/2021 Hepatitis B, 20+ yrs 03/11/2021,07/09/2019,05/0811/06/2019 PPD 03/11/2010,03/05/2008,03/02/2006 Pneumococcal Conjugate Vacci ne, 20-valent ([id number]) 10/28/2022 Pneumococcal Polysaccharide PPV23 (Pneumovax) 09/04/2010 SEASONAL [...] encounter Miscellaneous Notes * Telephone Encounter - DANIEL Flores - 04/07/2023 9:33 AM EDT Patient was offered sooner in [place] he declined only wants olaf eisenberg he is scheduled for next available opening Thank you DANIEL Flores * Telephone Encounter - Win Braswell DO - 04/07/2023 8:02 AM EDT Mr Dorsey Underwent transesophageal echocardiogram today for the evaluation of prosthetic aortic valve stenosis. The prosthetic leaflets were thickened with decreased excursion and by 2D criteria, severe aortic stenosis without regurgitation present. Patient has been on anticoagulation for 3 months without change in the peak continuous-wave Dopplervelocity across aortic valve by transthoracic echocardiogram which is in the range of 4.6 m/s increased compared to the echocardiogram performed 09/03/2020 with Ao V2 max: 230.6 cm/sec at that time. Discussion: Although leg prosthetic stenosis is a possibility, the velocities have not improved with Coumadin although patient has had several subtherapeutic INR measurements. The appearance of the valve however does appear to be suggestive of degenerative valve disease. Patient has been referred to the valve clinic for consideration of valve in valve TAVR or redo surgery, his appointment however is not until [facility]. Scheduling, please help see if we can move up the valve clinic appointment, perhaps at [facility]. Continue coumadin for now. Win Braswell DO documented in this encounter Plan of Treatment Upcoming Encounters Date Type Department Care Team (Late st Contact Info) Description 05/09/2023 9:00 AM EST Office Visit General Internal Medicine [facility] [address] [place] [address] Brad Thompson MD [address] [place] [address] 05/09/2023 9:50 AM EST Laboratory Laboratory [facility] [address] [place] [address] [phone] [place], Lab [place] [address] [place] [address] 05/17/2023 8:30 AM EST Anticoagulation Pharmacy, [facility] [address] [facility] [place] [address] [facility] [address] [facility] [place] [address] 06/28/2023 3:00 PM EST Office Visit Cardiology, [facility] [address] [facility] [place] [address] Cyndee Paul PA-C [address] [place] [address] 08/10/2023 11:00 AM EST Office Visit Cardiology, [facility] [place] [address] Louis Mckeon MD [address], [place] [id number] Health Maintenance Due Date Last Done Comments DISCUSS TOBACCO CESSATION (REFER TO SMARTSET #3295) 1960 Cologuard 2005 Colonoscopy 2005 Colorectal Cancer [...] DIABETES-EYE EXAM 11/24/2023 11/23/2022, , 05/08/2019 GFR 03/29/2024 03/29/2023, [...] exists LUNG CANCER SCREENING - USE SMARTSET [id number] Completed 03/29/2023, 03/25/2022, 03/24/2021, Additional history exists GARDASIL-HPV IMMUNIZATION SERIES Aged Out No longer eligible based on patient's age to complete this topic MENINGOCOCCAL (MENACTRA/MENVEO) Aged Out No longer eligible based on patient's age to complete this topic documented as of this encounter Medical Devices Implanted Type Area Plastic Fixture Builder Device Identifier Shelf Expiration Date Model / Serial / Lot Vavle Aortic 27mm 3300tfx - [id number] - [id number] Implanted:Qty: 1 on 01/07/2017 by Silas Aldana MD at OR [facility] Heart [employer] ABIGAIL 03/29/2020 [id number] / [id number] / documented as of this encounter Advance [...] and were consensually agreed upon. Care Teams Harness Rigger Relationship Specialty Start Date End Date Brad Thompson MD [address] [facility] [place] [address] PCP - General Internal Medicine 11/20/17 documented as of this encounter
--- OUTSIDE RECORDS SUMMARY | 2023-08-22 23:10 | External Medical Summary ---
Author Name Unknown Address Unknown Organization [id number]:LABORATORY [facility] [address] [place] [address] Laboratory Report Ordering Provider Test Date Status VICKY PUGH 03/29/2023 08:18:44 Final Observation Date Value Abnormality Reference (Units ) Status WBC, Total 03/29/2023 08:18:44 8.70 4.00-10.8 0 (K/uL) Final RBC 03/29/2023 08:18:44 4.79 4.50-5.25 (M/uL) Final Hemoglobin 03/29/2023 08:18:44 14.7 14.0-16.8 (g/dL) Final HCT 03/29/2023 08:18:44 43.0 40.0-48.4 (%) Final MCV 03/29/2023 08:18:44 89.8 82.0-99.5 (fL) Final MCH 03/29/2023 08:18:44 30.7 27.0-34.0 (pg) Final MCHC 03/29/2023 08:18:44 34.2 32.0-36.0 (g/dL) Final RDW 03/29/2023 08:18:44 12.9 11.5-15.5 (%) Final Platelets 03/29/2023 08:18:44 178 140-400 (K /uL) Final MPV 03/29/2023 08:18:44 10.4 6.6-11.1 ( fL) Final Performing Location LABORATORY [facility] [address] - [address] [place] [address]
--- OUTSIDE RECORDS SUMMARY | 2023-08-22 23:10 | External Medical Summary ---
Author Name Unknown Address Unknown Organization K01:[facility] [place] [facility] [address] [facility] [place] [address] Laboratory Report Ordering Provider Test Date Status VICKY PUGH 03/29/2023 08:18:44 Final Observation Date Value Abnormality Reference (Units ) Status Triglyceride 03/29/2023 08:18:44 61 <=174 ( mg/dL) Final Triglyceride Reference Range s (mg/dL):
<150 Acceptable
150-174 Borderline high
175-499 High
>=500 Very high Cholesterol 03/29/2023 08:18:44 117 <200 (mg /dL) Final Total Cholesterol Reference Ranges (mg/dL):
<200 Desirable
200-239 Borderline high
>=240 High HDL 03/29/2023 08:18:44 45 >39 (mg/dL ) Final HDL Cholesterol Reference Ra nges (mg/dL):
>=60 High (Desirable)
<50 Low (Undesirable) For Females
<40 Low (Undesirable) For Males NON-HDL CHOLESTEROL 03/29/2023 08:18:44 72 <=159 (mg/dL) Final Non-HDL Cholesterol Referenc e Range (mg/dL):
<100 Target level for high risk ASCVD patient
<130 Optimal for general population
130-159 Near optimal for general population
160-189 Borderline High
190-219 High
>=220 Very High LDL, (calculated) 03/29/2023 08:18:44 60 <= 129 (mg/dL) Final LDL Cholesterol Reference Ra nges (mg/dL):
<70 Target level for high risk ASCVD patient
<100 Optimal for general population
100-129 Near optimal for general population
130-159 Borderline high
160-189 High
>=190 Very high Performing Location [facility] [place] [address] [facility] [address]
--- OUTSIDE RECORDS SUMMARY | 2023-08-22 23:10 | External Medical Summary ---
Author Name Unknown Address Unknown Organization K09:[facility] [address] [place] [address] Laboratory Report Ordering Provider Test Date Status GUERO BARAJAS 05/02/2023 11:22:55 Final Observation Date Value Abnormality Reference (Units ) Status BUN 05/02/2023 11:22:55 13 6-20 (mg/dL) Final Creatinine 05/02/2023 11:22:55 0.9 0.6-1.2 (mg/dL) Final Glomerular filtration rate/1.73 sq M.predicted [Volume Rate/Area] in Serum, Plasma or Blood by Creatinine-based formula (CKD-EPI) 05/02/2023 11:22:55 >90 >=60 (mL/min) Final eGFR is calculated based on the CKD-EPI 2020 equation SODIUM 05/02/2023 11:22:55 136 135-146 (m mol/L) Final Potassium 05/02/2023 11:22:55 4.4 3.5-5.1 (m mol/L) Final Cl 05/02/2023 11:22:55 103 98-107 (mm ol/L) Final CO2 05/02/2023 11:22:55 23 22-32 (mmo l/L) Final Anion gap 05/02/2023 11:22:55 10 7-15 (mmol /L) Final Glucose 05/02/2023 11:22:55 178 Above high normal 70 -120 (mg/dL) Final Albumin 05/02/2023 11:22:55 4.2 3.8-5.0 (g /dL) Final AST (Aspartate aminotransferase) 05/02/2023 11:22:55 49 10-50 (U/L) Fin al Alk Phos 05/02/2023 11:22:55 91 35-130 (U/ L) Final Bilirubin, Total 05/02/2023 11:22:55 0.5 <=1 .2 (mg/dL) Final Calcium 05/02/2023 11:22:55 9.4 8.4-10.2 ( mg/dL) Final Protein 05/02/2023 11:22:55 7.0 6.0-8.3 (g /dL) Final ALT (Alanine aminotransferase) 05/02/2023 11:22:55 38 10-50 (U/L) Ty felton Performing Location [facility] [address] [place] [address]
--- OUTSIDE RECORDS SUMMARY | 2023-08-22 23:10 | External Medical Summary | Summary of Care ---
Author Name Unknown Organization [facility] Address [address] [facility] [place] [address] Phone [phone] Care Team Providers Care Business Solutions Architect Name Role Phone Brad Thompson MD Primary Care Provider + Reason for Visit * Reason Comments Outpatient Testing Encounter Details Date Type Department Care Team (Late st Contact Info) Description 05/02/2023 12:00 PM EST Laboratory [facility] [address] [place] [address] [place] [phone] [place], Lab [address] [place] [address] Coronary artery disease involving menominee coronary artery of menominee heart without angina pectoris; Type 2 diabetes mellitus with hemoglobin A1c goal of less than 7.5% ([facility]); HTN, goal below 140/90 Allergies Active Allergy [...] Tablet Sublingual (Nitrostat)Indica tions:Coronary artery disease involving menominee coronary artery of menominee heart without angina pectoris Place 1 Tablet [...] artery disease of n ative artery of menominee heart with stable angina pectoris 10/15/2021 Spinal [...] 01/12/20 17 Coronary artery disease invo lving menominee coronary artery of menominee heart without angina pectoris 03/01/2016 Overview: [facility] 02/25/16 - . Severe single vessel coronary [...] 03/11/2010, 8,03/02/2006,04/14 Pneumococcal Conjugate Vacci ne, 20-valent ([id number]) 10/28/2022 Pneumococcal Polysaccharide PPV23 (Pneumovax) 09/04/2010 SEASONAL [...] AM EST Office Visit General Internal Medicine [facility] [address] [place] [address] Brad Thompson MD [address] [place] [address] [facility] [place] [address] Coronary artery disease involving menominee coronary artery of menominee heart without angina pectoris*; Stenosis of prosthetic aortic valve, initial encounter; Dyslipidemia, goal LDL below 70; HTN, goal below 140/90; Moderate single current episode of major depressive disorder (HCC); S/P AVR (aortic valve replacement); Tobacco use disorder; Itchy skin; Type 2 diabetes mellitus with hemoglobin A1c goal of less than 7.5% (HCC); Chronic bilateral low back pain with bilateral sciatica 05/09/2023 9:50 AM EST Laboratory Laboratory [facility] [place] [address] [facility] [place] [address] [phone] [address] [facility] [place] [address] 05/12/2023 9:30 AM EST Office Visit Cardiology [facility] [place] [address] [facility] [place] [address] Luis Marquis MD [address] [facility] [place] [address] 05/17/2023 8:30 AM EST Anticoagulation Pharmacy, [facility] [address] [place] [address] [facility] [address] [place] [address] 06/28/2023 3:00 PM EST Office Visit Cardiology, [facility] [address] [place] [address] Cyndee Paul PA-C [address] [place] [address] 10/31/2023 2:20 PM EDT Office Visit General Internal Medicine [facility] [address] [facility] [place] [address] Brad Thompson MD [address] [facility] [place] [address] Pending Results Name Type Priority Associated Diagnoses Date /Time COMPREHENSIVE METABOLIC PANEL Lab Routine Coronary artery disease involving menominee coronary artery of menominee heart without angina pectoris 05/02/2023 11:22 AM EST HEMOGLOBIN A1C Lab Routine Type 2 diabetes mellitus with hemoglobin A1c goal of less than 7.5% ([facility]) 05/02/2023 11:22 AM EST ALBUMIN / CREATININE [...] exists LUNG CANCER SCREENING - USE SMARTSET [id number] Completed 03/29/2023, 03/25/2022, 03/24/2021, Additional history exists GARDASIL-HPV IMMUNIZATION SERIES Aged Out No longer eligible based on patient's age to complete this topic MENINGOCOCCAL (MENACTRA/MENVEO) Aged Out No longer eligible based on patient's age to complete this topic documented as of this encounter Medical Devices Implanted Type Area Laborer Tan House Device Identifier Shelf Expiration Date Model / Serial / Lot Vavle Aortic 27mm 3300tfx - [id number] - [id number] Implanted:Qty: 1 on 01/07/2017 by Silas Aldana MD at OR [facility] Heart [employer] 03/29/2020 [id number] / [id number] / documented as of this encounter Visit Diagnoses Diagnosis Coronary artery disease involving menominee coronary artery of menominee heart without angina pectoris- Primary Stenosis of prosthetic aortic valve, initial encounter Dyslipidemia, goal LDL below 70 Other and [...] with bilateral sciatica Coronary artery disease involving menominee coronary artery of menominee heart without angina pectoris Type 2 diabetes [...] and were consensually agreed upon. Care Teams Business Solutions Architect Relationship Specialty Start Date End Date Brad Thompson MD [address] [facility] [place] [address] PCP - General Internal Medicine 11/20/17 documented as of this encounter
--- OUTSIDE RECORDS SUMMARY | 2023-08-22 23:10 | External Medical Summary ---
Author Name Unknown Address Unknown Organization K0G:LABORATORY [facility] [address] [place] [address] Laboratory Report Ordering Provider Test Date Status MOSES MONET 04/06/2023 08:13:11 Final Therapeutic ranges for non-o perative patients:
Prophylaxsis/treatment of DVT: (Range:2.0-3.0)
Treatment of pulmonary embolism:(Range:2.0-3.0)
Prevention of systemic embolism from:
-tissue heart valves
-acute myocardial infarction
-valvular heart disease
-atrial fibrillation
(Range: 2.0-3.0)
Mechanical prosthetic valves: (Range: 2.5-3.5) Observation Date Value Abnormality Reference (Units ) Status INR in Capillary blood by Coagulation assay 04/06/2023 08:13:11 2.3 (INR) Final Performing Location LABORATORY [facility] [address] [place] [address]
--- OUTSIDE RECORDS SUMMARY | 2023-08-22 23:10 | External Medical Summary | Summary of Care ---
Author Name Unknown Organization [facility] Address [address] [facility] [place] [address] Phone [phone] Care Team Providers Care Well Blower Name Role Phone Brad Thompson MD Primary Care Provider + Reason for Visit * Reason Comments Dosage Adjustment In Person (Anticoag Cl inic) Encounter Details Date Type Department Care Team (Latest Contact Info) Description 04/06/2023 8:20 AM EDT Anticoagulation Pharmacy, [facility] [address] [facility] [place] [address] [facility] 132 [facility] [place] [address] Accelerating angina (HCC)*; S/P CABG (coronary artery bypass graft); S/P AVR (aortic valve replacement) Allergies Active Allergy Reactions Criticality Noted Date Comments Varenicline Tartrate Nausea/vomiting,Psy ch complications High 08/05/2010 Iodinated Contrast Media Nausea/vomiting 2015 Methadone Other (Please comment) 09/04/2010 Shakes Valdecoxib 03/18/2004 felt odd documented as of this encounter (statuses as of 04/06/2023) Medications Medication Sig Dispensed Refills Start Date [...] Tablet Sublingual (Nitrostat)Indica tions:Coronary artery disease involving nondalton coronary artery of nondalton heart without angina pectoris Place 1 Tablet [...] as of this encounter (statuses as of 04/06/2023) Active Problems Problem Noted Date Diagnosed Date Stenosis of prosthetic aortic valve 03/31/2023 Accelerating angina 11/12/2022 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 Severe single [...] as of this encounter (statuses as of 04/06/2023) Resolved Problems Problem Noted Date Diagnosed Date [...] as of this encounter (statuses as of 04/06/2023) Immunizations Name Administration Dates Next Due COVID-19 mRNA, LNP-s, No Pre serve, 2-Dose Series (Moderna) 08/11/2020,07/14/2020 COVID-19, mRNA, LNP-s, PF, B ooster, 100mcg/0.5mg (Moderna) 05/04/2021 Hepatitis B, 20+ yrs 03/11/2021,07/09/2019,05/0811/06/2019 PPD 03/11/2010,03/05/2008,03/02/2006 Pneumococcal Conjugate Vacci ne, 20-valent ([id number]) 10/28/2022 Pneumococcal Polysaccharide PPV23 (Pneumovax) 09/04/2010 SEASONAL [...] Progress Notes * Charisse Bae RPh - 04/06/2023 8:13 AM EDT Medication Therapy Disease Management - Anticoagulation Patient: Jonas Dorsey | : 1960 Subjective Patient-Reported Symptoms: Patient Findings Positives: Other complaints (notes continues to be itchy and requires to take benedryl with warfarin) Negatives: Signs/symptoms of thrombosis, Signs/symptoms of bleeding, Change in health, Change in alcohol use, Change in activity, Upcoming invasive procedure, Missed doses, Extra doses, Change in medications, Change in diet/appetite, Bruising Objective Current Warfarin Dose As of 04/06/2023 Warfarin maintenance plan: 10 mg (5 mg x 2) every Mon, Fri; 5 mg (5 mg x 1) all other days INR Result As of 04/06/2023 INR goal: 2.0-3.0 INR used for dosin.3 (04/06/2023) Assessment & Plan Warfarin Plan As of 04/06/2023 Full warfarin instructions: 10 mg every Mon, Fri; 5 mg all other days No change documented: Charisse Bae RPh Next INR check: 05/17/2023 Repeat PT/INR in 6 week(s) Weekly dose: not changed Additional Dosing Information: Charisse Bae RPh Clinical Pharmacist 04/06/2023, 8:18 AM documented in this encounter Plan of Treatment Upcoming Encounters Date Type Department Care Team (Late st Contact Info) Description 05/09/2023 9:00 AM EST Office Visit General Internal Medicine [facility] [address], [place] [address] Brad Thompson MD [address] [place] [address] 05/09/2023 9:50 AM EST Laboratory Laboratory [place] [facility] [address] [place] [id number] Park, Lab Scene [address] [place] [address] 05/17/2023 8:30 AM EST Anticoagulation Pharmacy, [facility] [place] [address] [facility] [address] [place] [address] 06/28/2023 3:00 PM EST Office Visit Cardiology, [facility] [place] [address] Cyndee Paul, MAURIZIO [address] [place] [address] Health Maintenance Due Date Last Done Comments DISCUSS TOBACCO CESSATION (REFER TO SMARTSET #9533) 1960 Cologuard 2005 Colonoscopy 2005 Colorectal Cancer [...] exists LUNG CANCER SCREENING - USE SMARTSET 29260 Completed 03/29/2023, 03/25/2022, 03/24/2021, Additional history exists GARDASIL-HPV IMMUNIZATION SERIES Aged Out No longer eligible based on patient's age to complete this topic MENINGOCOCCAL (MENACTRA/MENVEO) Aged Out No longer eligible based on patient's age to complete this topic documented as of this encounter Medical Devices Implanted Type Area Family Development Extension Specialist Device Identifier Shelf Expiration Date Model / Serial / Lot Vavle Aortic 27mm 3300tfx - [id number] - [id number] Implanted:Qty: 1 on 01/07/2017 by Silas Aldana MD [place] [facility] [place] Heart [employer] ABIGAIL 03/29/2020 [id number] / [id number] / documented as of this encounter Procedures Procedure Name Priority Date/Time Associated Diagnosis Comments INR FINGERSTICK, POINT OF CARE STAT 04/06/2023 8:13 AM EDT S/P CABG (coronary artery bypass graft) S/P AVR (aortic valve replacement) documented in this encounter Results * INR FINGERSTICK, POINT OF CARE (04/06/2023 8:13 AM EDT) Fingerstick INR 2.3 INR 8:17 AM EDT LABORATORY [place] [facility] 57-10 Blood 04/06/2023 8:13 AM EDT 04/06/2023 8:17 AM EDT Narrative [facility] [place] [facility] 57-10 - 04/06/2023 8:17 AM EDT Therapeutic ranges for non-operative patients: Prophylaxsis/treatment of DVT: (Range:2.0-3.0) Treatment of pulmonary embolism:(Range:2.0-3.0) Prevention of systemic embolism from: -tissue heart valves -acute myocardial infarction -valvular heart disease -atrial fibrillation (Range: 2.0-3.0) Mechanical prosthetic valves: (Range: 2.5-3.5) Bryant Gul[facility] LAB POINT O F CARE TEST DOCKED DEVICE UNSOLICITED RESULTS LABORATORY [place] 57-10 [address] [place] [address] documented in this encounter Visit Diagnoses Diagnosis [...] and were consensually agreed upon. Care Teams Well Blower Relationship Specialty Start Date End Date Brad Thompson MD [address] [place], [place] [address] [address] PCP - General Internal Medicine 11/20/17 documented as of this encounter"
--- OUTSIDE RECORDS SUMMARY | 2023-08-22 23:10 | External Medical Summary ---
Author Name Unknown Address Unknown Organization K01:[place] [facility] [place] [address] [facility] [address] Laboratory Report Ordering Provider Test Date Status GUERO BARAJAS 05/02/2023 11:22:55 Final Observation Date Value Abnormality Reference (Units ) Status HbA1C 05/02/2023 11:22:55 6.6 Above high normal 4. 0-5.6 (%) Final The use of HbA1c to monitor glycemic status is based on normal hemoglobin and HbA composition. This test should not be used in patients with abnormal hemoglobin that affects the half life of the red blood cell or the in vivo glycation rates. Glucose, estimated average 05/02/2023 11:22:55 143 Above high normal <126 (mg/dL) Ty felton Performing Location [place] [facility] [place] [address] [facility] [address]
--- OUTSIDE RECORDS SUMMARY | 2023-08-22 23:10 | External Medical Summary ---
Author Name Unknown Address Unknown Organization K01:LABORATORY [facility] [place] - [address] [place] [address] Laboratory Report Ordering Provider Test Date Status GUERO BARAJAS 05/02/2023 11:25:18 Final Normal: <30 mg/g creatinine< br/>High: 30-300 mg/g creatinine
Very High: >300 mg/g creatinine
Nephrotic: >2200 mg/g creatinine Observation Date Value Abnormality Reference (Units ) Status Albumin, Urine 05/02/2023 11:25:18 <1.20 (mg/dL) Final Creatinine, Urine 05/02/2023 11:25:18 110 (mg/dL) Final Albumin/Creatinine [Mass Ratio] in Urine 05/02/2023 11:25:18 <11 <30 (mg/g Creat) Final Performing Location LABORATORY [facility] [place] - [address] [place] [address]
--- OUTSIDE RECORDS SUMMARY | 2023-08-22 23:10 | External Medical Summary | Summary of Care ---
Author Name Unknown Organization [facility] Address [address] [place] [address] Phone [phone] Care Team Providers Care Exhibit Display Representative Name Role Phone Brad Thompson MD Primary Care Provider + Encounter Details Date Type Department Care Team Description 03/23/2023 New Patient Triage (MACHINE FEED OPERATOR USE ONLY) [facility], Cardiac Recovery Suite, [facility] [address] [place] [address] Vanessa Benson, RN Allergies Active [...] Tablet Sublingual (Nitrostat)Indica tions:Coronary artery disease involving kaw coronary artery of kaw heart without angina pectoris Place 1 Tablet [...] artery disease of n ative artery of kaw heart with stable angina pectoris 10/15/2021 Spinal [...] graft) 01/11/2017 Coronary artery disease invo lving kaw coronary artery of kaw heart without angina pectoris 03/01/2016 Overview: [facility] 02/25/16 - . Severe single vessel [...] 03/11/2010, 8,03/02/2006,04/14 Pneumococcal Conjugate Vacci ne, 20-valent ([id number]) 10/28/2022 Pneumococcal Polysaccharide PPV23 (Pneumovax) 09/04/2010 SEASONAL [...] as of this encounter Progress Notes * Lo Li DNP - 03/23/2023 6:57 PM EDT Does patient need to be seen?: Yes Modality: Office visit Urgency: Within 30 days (routine) Discussed care plan with patient or proxy?: Yes per valve team Communicated with patient on Date (mm/dd/domingay): 03/23/2023 at Time ([facility]): 2623 oL Li DNP Department [place] [address] [facility] * Vanessa Benson RN - 03/23/2023 2:57 PM EDT New Patient Triage What is the diagnosis/reason for referral?: Bioprosthetic Aortic Stenosis Enter order ID here: [id number] Specialty specific documentation: Cardiology Structural Heart Please see follow up multidisciplinary note JEAN NavaN Interventional Valve Nurse Navigator documented in this encounter Plan of Treatment Upcoming Encounters Date Type Specialty Care Team Description 03/29/2023 Imaging Radiology 04/05/2023 Anticoagulation Pharmacy [facility] [address] [place] [address] 05/09/2023 Office Visit Internal Medicine Brad Thompson MD [address] [place] [address] 05/09/2023 Laboratory Laboratory [facility] [address] [place] [address] 06/28/2023 Office Visit Cardiology Cyndee Paul PA-C [address] [place] [address] Health Maintenance Due Date Last Done Comments DISCUSS TOBACCO CESSATION (REFER TO SMARTSET #1345) 1960 Cologuard 2005 Colonoscopy 2005 Colorectal Cancer Screening 2005 Fecal Occult Blood Test 2005 Sigmoidoscopy 2005 Depression, Most Recent Score >= 10 (will fire each visit until score < 10) 10/29/2022 10/28/2022 COVID-19 Vaccine ( season) 2023 05/04/2021, 08/11/2020, 07/14/2020 Albumin/Creatinine Ratio 04/26/2023 11/14/2 022, 05/08/2019, 06/12/2014, Additional history exists HbA1c [...] 05/08/2019 LUNG CANCER SCREENING - USE SMARTSET 02959 Completed 03/25/2022, 03/24/2021, 05/26/2017, Additional history exists [...] this encounter Medical Devices Implanted Type Area Assurance Senior Manager Device Identifier Shelf Expiration Date Model / Serial / Lot Vavle Aortic 27mm 3300tfx - [id number] - [id number] Implanted:Qty: 1 on 01/07/2017 by Silas Aldana [place] [facility] [place] [employer] ABIGAIL 03/29/2020 [id number] / [id number] / documented as of this encounter Advance [...] and were consensually agreed upon. Care Teams Exhibit Display Representative Relationship Specialty Start Date End Date Brad Thompson MD [address] [facility] [place], [place] [address] PCP - General Internal Medicine 11/20/17 documented as of this encounter
--- OUTSIDE RECORDS SUMMARY | 2023-08-22 23:10 | External Medical Summary | Summary of Care ---
Author Name Unknown Organization [facility] Address [address] [facility] [place] [address] Phone [phone] Care Team Providers Care Jewel Bearing Grinder Name Role Phone Brad Thompson MD Primary Care Provider + Encounter Details Date Type Department Care Team (Late st Contact Info) Description 04/07/2023 Result Scan Unspecified Department <No scans attached> Allergies Active Allergy Reactions Criticality Noted Date Comments Varenicline Tartrate Nausea/vomiting,Psy ch complications High 08/05/2010 Iodinated Contrast Media Nausea/vomiting 2015 Methadone Other (Please comment) 09/04/2010 Shakes Valdecoxib 03/18/2004 felt odd documented as of this encounter (statuses as of 04/08/2023) Medications Medication Sig Dispensed Refills Start Date [...] Tablet Sublingual (Nitrostat)Indica tions:Coronary artery disease involving paimiut coronary artery of paimiut heart without angina pectoris Place 1 Tablet [...] as of this encounter (statuses as of 04/08/2023) Active Problems Problem Noted Date Diagnosed Date Stenosis of prosthetic aortic valve 03/31/2023 Accelerating angina 11/12/2022 Coronary artery disease of n ative artery of paimiut heart with stable angina pectoris 10/15/2021 Spinal [...] 01/12/20 17 Coronary artery disease invo lving paimiut coronary artery of paimiut heart without angina pectoris 03/01/2016 Overview: [facility] 02/25/16 - . Severe single vessel coronary artery disease with Successful PCI of mid LAD with 2.75 x 18 Xience IDCK post-dilated to 3.5 mm PAD (peripheral artery disease) 08/20/2015 Overview: Bilateral HTN, goal below 140/90 03/11/2010 Obesity, Class II, BMI 35-39.9, isolated (see ac tual BMI) 11/24/2009 Overview: Per Obesity Protocol, #19 Cervical spinal stenosis 12/11/2008 Impotence of organic origin 05/29/2008 Tobacco use disorder 09/07/2004 Esophageal reflux 05/13/2004 documented as of this encounter (statuses as of 04/08/2023) Resolved Problems Problem Noted Date Diagnosed Date [...] as of this encounter (statuses as of 04/08/2023) Immunizations Name Administration Dates Next Due COVID-19 mRNA, LNP-s, No Pre serve, 2-Dose Series (Moderna) 08/11/2020,07/14/2020 COVID-19, mRNA, LNP-s, PF, B ooster, 100mcg/0.5mg (Moderna) 05/04/2021 Hepatitis B, 20+ yrs 03/11/2021,07/09/2019,05/0811/06/2019 PPD 03/11/2010,03/05/2008,03/02/2006 Pneumococcal Conjugate Vacci ne, 20-valent ([id number]) 10/28/2022 Pneumococcal Polysaccharide PPV23 (Pneumovax) 09/04/2010 SEASONAL [...] [place] [address] [place] [address] Brad Thompson MD [address] [place] [address] 05/09/2023 9:50 AM EST Laboratory Laboratory [address] [facility] [address] [place] [phone] [place], Lab Scenery [address] [place] [address] 05/17/2023 8:30 AM EST Anticoagulation Pharmacy, [facility] [address] [facility] [address] [facility] 132 [place] [address] 06/28/2023 3:00 PM EST Office Visit Cardiology, [facility] [address] [place] [address] Cyndee Paul PA-C 132 [facility] [place] [address] 08/10/2023 11:00 AM EST Office Visit Cardiology, [facility] [address] [place] [address] Louis Mckeon MD [address] [place], [place] [id number] Health Maintenance Due Date Last Done Comments DISCUSS TOBACCO CESSATION (REFER TO SMARTSET #0996) 1960 Cologuard 2005 Colonoscopy 2005 Colorectal Cancer [...] exists LUNG CANCER SCREENING - USE SMARTSET 11667 Completed 03/29/2023, 03/25/2022, 03/24/2021, Additional history exists GARDASIL-HPV IMMUNIZATION SERIES Aged Out No longer eligible based on patient's age to complete this topic MENINGOCOCCAL (MENACTRA/MENVEO) Aged Out No longer eligible based on patient's age to complete this topic documented as of this encounter Medical Devices Implanted Type Area Mobile Plant Operators Device Identifier Shelf Expiration Date Model / Serial / Lot Vavle Aortic 27mm 3300tfx - [id number] - [id number] Implanted:Qty: 1 on 01/07/2017 by Silas Aldana MD at [place] [facility] [place] Heart [email or web address] ABIGAIL 03/29/2020 [id number] / [id number] / documented as of this encounter Procedures Procedure Name Priority Date/Time Associated Diagnosis Comments ECHOCARDIOLOGY SCANNED RESULT 04/07/2023 documented in this encounter Results * ECHOCARDIOLOGY SCANNED RESULT (04/07/2023) 04/07/2023 No Physician Data Unknown ECHOCARDIOLOGY documented in this encounter Advance Directives Latest [...] and were consensually agreed upon. Care Teams Jewel Bearing Grinder Relationship Specialty Start Date End Date Brad Thompson MD [address] [place] [address] PCP - General Internal Medicine 11/20/17 documented as of this encounter
--- OUTSIDE RECORDS SUMMARY | 2023-08-22 23:10 | External Medical Summary | Summary of Care ---
Author Name Unknown Organization [facility] Address [address] [facility] [place] [address] Phone [phone] Care Team Providers Care Buffer Copper Name Role Phone Brad Thompson MD Primary Care Provider + Reason for Referral * Evaluate & Treat - Unlimited Visits (Within 30 days (routine)) - Authorized Specialty Diagnoses / Procedures Referred By Contbhargav brown Referred To Contact Cardiovascular Medicine Diagnoses S/P AVR (aortic valve replacement) Nonrheumatic aortic valve stenosis Stenosis of prosthetic aortic valve, subsequent encounter Cyndee Paul PA-C [address] [place] [address] Referral ID Status Reason Start Date Expiration Date Visits Requested Visits Authorized [id number] Authorized Specialty Services Required 3 999 999 Question Answer Referral Priority Within 30 days (routine) Where should this appointment be scheduled? [facility] Comments Stenosis of Bioprosthetic aortic valve * Precert (Within 10 days (routine)) - Authorized Specialty Diagnoses / Procedures Referred By Contbhargav brown Referred To Contact Cardiac Studies Diagnoses S/P AVR (aortic valve replacement) Nonrheumatic aortic valve stenosis Stenosis of prosthetic aortic valve, subsequent encounter Procedures TRANSESOPHAGEAL ECHO (COMPLETE) Cyndee Paul PA-C [address] [place] [address] Referral ID Status Reason Start Date Expiration Date V isits Requested Visits Authorized [id number] Authorized Precert 03/29/2023 999 999 Reason for Visit * Reason Comments Follow Up Encounter Details Date Type Department Care Team Description 03/22/2023 Office Visit Cardiology, [facility] [address] [place] [address] Cyndee Paul PA-C [address] [place] [address] Stenosis of prosthetic aortic valve, subsequent encounter*; S/P AVR (aortic valve replacement); Nonrheumatic aortic valve stenosis; S/P CABG (coronary artery bypass graft); Dyslipidemia, goal LDL below 70; HTN, goal below 140/90; Coronary artery disease involving the [place] coronary artery of the [place] heart without angina pectoris Allergies Active Allergy Reactions Severity Noted Date Comments Varenicline Tartrate Nausea/vomiting,Psy ch complications High 08/05/2010 Iodinated Contrast Media Nausea/vomiting 2015 Methadone Other (Please comment) 09/04/2010 Shakes Valdecoxib 03/18/2004 felt odd documented as of this encounter (statuses as of 03/31/2023) Medications Medication Sig Dispensed Refills Start Date [...] Tablet Sublingual (Nitrostat)Indica tions:Coronary artery disease involving the [place] coronary artery of the [place] heart without angina pectoris Place 1 Tablet [...] as of this encounter (statuses as of 03/31/2023) Active Problems Problem Noted Date Stenosis of prosthetic aortic valve 03/13 Accelerating angina 11/12/2022 Coronary artery disease of n ative artery of the [place] heart with stable angina pectoris 10/15/2021 Spinal [...] graft) 01/11/2017 Coronary artery disease invo lving the [place] coronary artery of the [place] heart without angina pectoris 03/01/2016 Overview: [facility] 02/25/16 - . Severe single vessel [...] as of this encounter (statuses as of 03/31/2023) Resolved Problems Problem Noted Date Resolved Date [...] as of this encounter (statuses as of 03/31/2023) Immunizations Name Administration Dates Next Due COVID-19 mRNA, LNP-s, No Pre serve, 2-Dose Series (Moderna) 08/11/2020,07/14/2020 COVID-19, mRNA, LNP-s, PF, B ooster, 100mcg/0.5mg (Moderna) 05/04/2021 Hepatitis B, 20+ yrs 03/11/2021,07/09/2019,05/0811/06/2019 PPD 03/11/2010,03/05/2008,03/02/2006 Pneumococcal Conjugate Vacci ne, 20-valent ([id number]) 10/28/2022 Pneumococcal Polysaccharide PPV23 (Pneumovax) 09/04/2010 SEASONAL [...] Tobacco: Never Tobacco Cessation:Ready to Q uit: Not Asked; Counseling Given: Not Answered Comments:Cut back to /2 to 3/4 ppd [...] Sign Reading Time Taken Comments Blood Pressure 114/72 03/22/2023 8:08 AM EDT Pulse 66 03/22/2023 8:08 AM EDT Temperature - - Respiratory Rate - - Oxygen Saturation - - Inhaled Oxygen Concentration - - Weight 113.4 kg (250 lb) 03/22/2023 8:08 AM EDT Height - - Body Mass Index 36.13 10/28/2022 9:02 AM EDT documented in this encounter Functional Status Functional [...] Progress Notes * Cyndee Paul PA-C - 03/31/2023 3:30 PM EDT Images from the original note were not included. 12/21/2022 Cardiology F/U: HPI: Patient is a 62-year-old male here today for close cardiology follow-up. Last clinic evaluation approximately [address] Brower. History is complex and includes: 1. CAD S/P CABG in 2017. Repeat cath in October 2022 with patent bypass grafts, otherwise mild non occlusive disease with moderate ostial disease of the PDA. Med management recommended 2. AVR in 2017 now with possible severe prosthetic aortic valve stenosis (not improved with anticoagulation) 3. Hypertension 4. Dyslipidemia Over the last 6 months, patient was evaluated on several occasions for worsening dyspnea with exertional activities. He underwent cath with stable findings, patent grafts without obstructive disease elsewhere. Med management recommended. AVR was found to have elevated gradients suggesting obstruction. He was started on anticoagulation to see if this would improve and if obstruction was caused by thrombus. Unfortunately no significant improvement. He had repeat echo earlier this month demonstrating persistently elevated gradients (echo images reviewed with Dr. Braswell) Patient is here today to discuss findings/results. He reports ongoing dyspnea with minimal exertion. No chest pain. BP controlled. Taking meds as prescribed. No chest pain, palpitations, dizziness, syncope or near syncope. No [...] 140/90 I10 PAD (peripheral artery disease) ([facility]) I73.9 Coronary artery disease involving the [place] coronary artery of the [place] heart without angina pectoris I25.10 S/P AVR (aortic valve replacement) Z95.2 S/P CABG (coronary artery bypass graft) Z95.1 Chronic bilateral low back pain with bilateral sciatica M54.42, M54.41, G89.29 Type 2 diabetes mellitus with hemoglobin A1c goal of less than 7.5% ([facility]) E11.9 Diabetes mellitus with peripheral angiopathy ([facility]) E11.51 DISH (diffuse idiopathic skeletal hyperostosis) M48.10 Dyslipidemia, goal LDL below 70 E78.5 Moderate single current episode of major depressive disorder ([facility]) F32.1 Spinal stenosis of lumbar region with neurogenic claudication M48.062 Coronary artery disease of the [place] artery of the [place] heart with stable angina pectoris ([facility]) I25.118 Accelerating angina ([facility]) I20.0 Social History Tobacco Use Smoking status: Every Day Packs/day: 1.00 Years: 47.00 Pack years: 47.00 Types: Cigarettes Smokeless tobacco: Never Tobacco comments: Cut back to /2 to 3/ ppd 11/10/22 Vaping Use Vaping Use: Never used Substance Use Topics Alcohol use: Yes Alcohol/week: 70.0 standard drinks Types: 70 12 oz of beer per week Comment: beer Drug use: No Past Surgical History: Procedure Laterality Date CORONARY ARTERIES BYPASS, TWO 01/07/2017 CORONARY ARTERY BYPASS GRAFT WITH 2 VEIN GRAFTS performed by Silas Aldana MD at OR [facility] DECOMPRESS LUMBAR SPINAL CORD SEG 06/13/2013 Dr. Yip, L4/5 DENTAL SURGERY PROCEDURE [facility] wisdom teeth ENDO,VIDEO ASSIST HARVEST KAYDEN 01/07/2017 ENDOSCOPY VIDEO ASSISTED HARVEST VEIN performed by Silas Aldana MD at OR [facility] INFORMATION orif right metacarpal INFORMATION Right 06/2015 [...] performed by Silvio Morgan MD at OR [facility] REMOVE TONSILS & ADENOIDS, UNDER 12 Tonsillectomy/Adenoids,<12 Y/O REPLACEMENT AORTIC VALVE, BYPASS WITH PROSTHETIC VALVE N/A 01/07/2017 REPLACEMENT AORTIC VALVE, BYPASS WITH PROSTHETIC VALVE performed by Silas Aldana MD at OR [facility] RIGHT HEART CATHETERIZATION 06/13/2000 Cardiac Catheterization, Right Heart UPPER GI ENDOSCOPY/EXAM 01/11/2001 Family History Problem Relation Age of Onset Heart Disorder Father age 52 [place] Cancer Mother age 62, unknown [place] Diabetes Mother Blood Disorder Sister age 15 leukemia Diabetes Sister Social History Tobacco Use Smoking status: Every Day Packs/day: 1.00 Years: 47.00 Pack years: 47.00 Types: Cigarettes Smokeless tobacco: Never Tobacco comments: Cut back to / to / ppd 11/10/22 Vaping Use Vaping Use: Never used Substance Use Topics Alcohol use: Yes Alcohol/week: 70.0 standard drinks Types: 70 12 oz of beer per [...] directed by anticoagulation clinic 45 Tablet 5 Warfarin Sodium 10 MG Oral Tablet (Jantoven) [...] TABLET BY MOUTH DAILY 90 Tablet 1 Amoxicillin 500 MG Oral Capsule (Amoxil) TAKE FOUR CAPSULES BY MOUTH ONE HOUR PRIOR TO APPOINTMENT 4 Capsule 0 Current Facility-Administered Medications Medication Dose Route Frequency Provider Last Rate Last Admin Albuterol Sulfate (Proventil) (2.5 MG/3ML) 0.083% inhalation solution 2.5 mg 2.5 mg Nebulizer PRN Brad Thompson MD 2.5 mg at 07/14/22 1323 PHYSICAL EXAMINATION BP 114/72 | Pulse 66 | Wt 113.4 kg (250 lb) | BMI 36.13 kg/m | BSA 2.36 m Body mass index is 36.13 kg/m. Wt Readings from Last 3 Encounters: 03/22/23 113.4 kg (250 lb) 03/02/23 114.4 kg (252 lb 1.6 oz) 12/21/22 116.8 kg (257 lb 8 oz) General: no acute distress and stated [...] cyanosis Neuro: grossly normal exam Cardiac studies/labs: Echo report reviewed from Feb 2023: Normal LVEF at 60-64% Possible severe prosthetic aortic stenosis with elevated gradients. Echocardiogram report reviewed dated October 2022 at [facility]: Cardiac cath report reviewed from October 2022: Summary: 1. Patent bypass grafts 2. Coronary angiography reveals mild nonocclusive disease with moderate ostial disease of the PDA suggested in foreshortened view. 3. Continue guideline directed medical therapy. Evaluate aortic valve prosthesis. Impression: 62 year old male 1. History of AVR with high gradients [...] Patient is agreeable. He will also need [facility] valve clinic evaluation post SANDRA. Referral made. The patient is to continue all current medications as listed above. No changes were made at today'svisit. I spent a total of 30 minutes on the date of service in preparation, delivery, and documentation ofthe care provided to Jonas Dorsey excluding any time spent in the performance of separately billed services. The patient agrees to the above plan and will call with additional questions or concerns. ER with all emergencies advised. Follow-up: Return in about 3 months (around 06/22/2023). | Check-out note: Fasting blood work near future [facility] valve clinic referral placed 3 month visit with Humberto or French Paul PA-C Department of Cardiology This chart was completed in part utilizing [employer] Speech Voice Recognition Software. Grammatical errors, random [...] documented in this encounter Nursing Notes * Candy Francis CMA - 03/22/2023 8:08 AM EDT Examination Room: 6 Name: Jonas Dorsey Date of : (1960) Reason for Visit: 6m Interim Hospitalization(s): none Problems/Concerns: denied Chest Pain/SOB: denied My [facility] is a way you can talk to your provider online through e-mail. Would you like to sign up? I can activate it for you? ALREADY ACTIVE Patient was instructed to not get up on the exam table until directed and assisted by their provider; patient is to remain seated in the chair/ wheelchair/ exam table for fall prevention and safety reasons. Patient is aware to have assistance to step down off exam table with personnel. Patient voiced full comprehension of instructions. documented in this encounter Plan of Treatment Upcoming Encounters Date Type Specialty Care Team Description 04/05/2023 Anticoagulation Pharmacy [facility] [place] [address] [place] [address] 05/09/2023 Office Visit Internal Medicine Brad Thompson MD [address] [place] [address] 05/09/2023 Laboratory Laboratory [facility] [address] [place] [address] 06/28/2023 Office Visit Cardiology Cyndee Paul PA-C [address] [place] [address] Scheduled Orders Name Type Priority Associated Diagnoses Order Schedule TRANSESOPHAGEAL ECHO (COMPLETE) Echocardiology Routine S/P AVR (aortic valve replacement) Nonrheumatic aortic valve stenosis Stenosis of prosthetic aortic valve, subsequent encounter Expected: 03/29/2023, Expires: 04/22/2024 Scheduled Referrals Name Type Priority Associated Diagnoses Orde r Schedule VALVE CLINIC REFERRAL OP Referral Within 30 days (routine) S/P AVR (aortic valve replacement) Nonrheumatic aortic valve stenosis Stenosis of prosthetic aortic valve, subsequent encounter Ordered: 03/22/2023 Health Maintenance Due Date Last Done Comments [...] exists LUNG CANCER SCREENING - USE SMARTSET 01553 Completed 03/29/2023, 03/25/2022, 03/24/2021, Additional history exists GARDASIL-HPV IMMUNIZATION SERIES Aged Out No longer eligible based on patient's age to complete this topic MENINGOCOCCAL (MENACTRA/MENVEO) Aged Out No longer eligible based on patient's age to complete this topic documented as of this encounter Medical Devices Implanted Type Area Mathematics Technician Device Identifier Shelf Expiration Date Model / Serial / Lot Vavle Aortic 27mm [id number] - [id number] - [id number] Implanted:Qty: 1 on 01/07/2017 by Silas Aldana MD at OR [facility] Heart FrockadvisorCIFanGo ABIGAIL 03/29/2020 [id number] / [id number] / documented as of this encounter Results * LIPID PANEL WITH DIRECT LDL IF TG IS HIGH (03/29/2023 8:18 AM EDT) Triglycerides 61 <=174 mg/dL 03/29/2023 5:01 PM EDT LABORATORY [facility] Comment: Triglyceride Reference Ranges (mg/dL): <150 Acceptable 150-174 Borderline high 175-499 High >=500 Very high Cholesterol 117 <200 mg/dL 03/29/2023 5:01 PM EDT LABORATORY [facility] Comment: Total Cholesterol Reference Ranges (mg/dL): <200 Desirable 200-239 Borderline high >=240 High HDL Cholesterol 45 >39 mg/dL 5:01 PM EDT LABORATORY [facility] Comment: HDL Cholesterol Reference Ranges (mg/dL): >=60 High (Desirable) <50 Low (Undesirable) For Females <40 Low (Undesirable) For Males Non-HDL Cholesterol 72 <=159 mg/dL 03/29/2023 5:01 PM EDT LABORATORY [facility] Comment: Non-HDL Cholesterol Reference Range (mg/dL): <100 Target level for high risk ASCVD patient <130 Optimal for general population 130-159 Near optimal for general population 160-189 Borderline High 190-219 High >=220 Very High LDL Cholesterol 60 <=129 mg/dL 03/29/2023 5:01 PM EDT LABORATORY [facility] Comment: LDL Cholesterol Reference Ranges (mg/dL): <70 Target level for high risk ASCVD patient <100 Optimal for general population 100-129 Near optimal for general population 130-159 Borderline high 160-189 High >=190 Very high Blood Venous blood specimen / Unknown Venipuncture / Unknown 03/29/2023 8:18 AM EDT 03/29/2023 8:18 AM EDT Cyndee Paul PA-C LAB BLOOD [facility] [address] [place] [address] * (ABNORMAL) COMPREHENSIVE METABOLIC PANEL (03/29/2023 8:18 AM EDT) BUN 9 6 - 20 mg/dL 03/29/2023 9:49 AM EDT LABORATORY [place] [facility] Creatinine 0.9 0.6 - 1.2 mg/dL 03/29/2023 9:49 AM EDT LABORATORY [place] [facility] Estimated Glomerular Filtration Rate >90 >=60 mL/min 03/29/2023 9:49 AM EDT LABORATORY [place] [facility] Comment:eGFR is calculated b ased on the CKD-EPI 2020 equation Sodium 134(L) 135 - 146 mmol/L 03/29/2023 9:49 AM EDT LABORATORY [place] [facility] Potassium 4.9 3.5 - 5.1 mmol/L 03/29/2023 9:49 AM EDT LAB[facility]ATORY [place] [facility] Chloride 98 98 - 107 mmol/L 03/29/2023 9:49 AM EDT LAB[facility]ATORY [place] [facility] CO2 25 22 - 32 mmol/L 03/29/2023 9:49 AM EDT LAB[facility]AT[facility] [place] [facility] Anion Gap 11 7 - 15 mmol/L 03/29/2023 9:49 AM EDT LAB[facility]AT[facility] [place] [facility] Glucose 121(H) 70 - 120 mg/dL 03/29/2023 9:49 AM EDT LAB[facility]ATORY [place] [facility] Albumin 4.3 3.8 - 5.0 g/dL 03/29/2023 9:49 AM EDT LAB[facility] [place] [facility] AST 40 10 - 50 U/L 03/29/2023 9:49 AM EDT [facility] [place] [facility] Alkaline Phosphatase 103 35 - 130 U/L 03/29/2023 9:49 AM EDT LAB[facility] [place] [facility] Bilirubin, Total 0.4 <=1.2 mg/dL 03/29/2023 9:49 AM EDT LAB[facility] [place] [facility] Calcium 9.5 8.4 - 10.2 mg/dL 03/29/2023 9:49 AM EDT LAB[facility] [place] [facility] Protein 7.2 6.0 - 8.3 g/dL 03/29/2023 9:49 AM EDT LAB[facility] [place] [facility] ALT 45 10 - 50 U/L 03/29/2023 9:49 AM EDT LAB[facility] [place] [facility] Blood Venous blood specimen / Unknown Venipuncture / Unknown 03/29/2023 8:18 AM EDT 03/29/2023 8:18 AM EDT Cyndee Paul PA-C LAB BLOOD [facility] [place] [address] [place] [address] * CBC (03/29/2023 8:18 AM EDT) WBC 8.70 4.00 - 10.80 K/uL 03/29/2023 8:35 AM EDT LABORATORY [place] [facility] RBC 4.79 4.50 - 5.25 M/uL 03/29/2023 8:35 AM EDT LAB[facility]AT[facility] [place] [facility] HGB 14.7 14.0 - 16.8 g/dL 03/29/2023 8:35 AM EDT LAB[facility]ATORY [place] [facility] HCT 43.0 40.0 - 48.4 % 03/29/2023 8:35 AM EDT LAB[facility]ATORY [place] [facility] MCV 89.8 82.0 - 99.5 fL 03/29/2023 8:35 AM EDT LAB[facility]ATORY [place] [facility] MCH 30.7 27.0 - 34.0 pg 03/29/2023 8:35 AM EDT LAB[facility] [place] [facility] MCHC 34.2 32.0 - 36.0 g/dL 03/29/2023 8:35 AM EDT LAB[facility]ATORY [place] [facility] RDW 12.9 11.5 - 15.5 % 03/29/2023 8:35 AM EDT LAB[facility]ATORY [place] [facility] PLT 178 140 - 400 K/uL 03/29/2023 8:35 AM EDT LAB[facility]ORY [place] [facility] MPV 10.4 6.6 - 11.1 fL 03/29/2023 8:35 AM EDT LAB[facility]ATORY [place] [facility] Blood Venous blood specimen / Unknown Venipuncture / Unknown 03/29/2023 8:18 AM EDT 03/29/2023 8:18 AM EDT Cyndee Paul PA-C LAB BLOOD [facility] [facility] [place] [address] [place] [address] documented in this encounter Visit Diagnoses Diagnosis Stenosis of prosthetic aortic valve, subsequent encounter- Primary S/P AVR (aortic valve replacement) Heart valve replaced by other means Nonrheumatic aortic valve stenosis Aortic valve disorders S/P CABG (coronary artery bypass graft) Postsurgical aortocoronary bypass status Dyslipidemia, goal LDL below 70 Other and unspecified hyperlipidemia HTN, goal below 140/90 Unspecified essential hypertension Coronary artery disease involving the [place] coronary artery of the [place] heart without angina pectoris documented in this encounter Advance Directives Latest [...] and were consensually agreed upon. Care Teams Buffer Copper Relationship Specialty Start Date End Date Brad Thompson MD [address] [facility] [place] [address] PCP - General Internal Medicine 11/20/17 documented as of this encounter"
--- OUTSIDE RECORDS SUMMARY | 2023-08-22 23:11 | External Medical Summary | Summary of Care ---
Author Name Unknown Organization [facility] Address [address] [facility] [place] [address] Phone [phone] Care Team Providers Care Colorist Formulator Name Role Phone Brad Thompson MD Primary Care Provider + Encounter Details Date Type Department Care Team Description 03/19/2023 Immunization Ancillary [facility] [address] [place] [address] [place] [facility] [address] [place] [address] Arrived Allergies Active Allergy Reactions Severity Noted Date Comments Varenicline Tartrate Nausea/vomiting,Psy ch complications High 08/05/2010 Iodinated Contrast Media Nausea/vomiting 2015 Methadone Other (Please comment) 09/04/2010 Shakes Valdecoxib 03/18/2004 felt odd documented as of this encounter (statuses as of 03/19/2023) Medications Medication Sig Dispensed Refills Start Date [...] Tablet Sublingual (Nitrostat)Indica tions:Coronary artery disease involving [place] coronary artery of [place] heart without angina pectoris Place 1 Tablet under the tongue every 5 minutes as needed for Pain, Chest. up to 3 doses in 15 minutes 25 Tablet 11 11/01/2022 Active Additional Information Patient not taking.Reported on 11/16/2022 Isosorbide Mononitrate ER 60 MG Oral Tablet [...] as of this encounter (statuses as of 03/19/2023) Active Problems Problem Noted Date Accelerating angina 11/12/2022 Coronary artery disease of n ative artery of [place] heart with stable angina pectoris 10/15/2021 Spinal [...] graft) 01/11/2017 Coronary artery disease invo lving [place] coronary artery of [place] heart without angina pectoris 03/01/2016 Overview: [facility] 02/25/16 - . Severe single [...] as of this encounter (statuses as of 03/19/2023) Resolved Problems Problem Noted Date Resolved Date [...] as of this encounter (statuses as of 03/19/2023) Immunizations Name Administration Dates Next Due COVID-19 mRNA, LNP-s, No Pre serve, 2-Dose Series (Moderna) 08/11/2020,07/14/2020 COVID-19, mRNA, LNP-s, PF, B ooster, 100mcg/0.5mg (Moderna) 05/04/2021 Hepatitis B, 20+ yrs 03/11/2021,07/09/2019,05/0811/06/2019 PPD 03/11/2010,03/05/2008,03/02/2006 Pneumococcal Conjugate Vacci ne, 20-valent ([id number]) 10/28/2022 Pneumococcal Polysaccharide PPV23 (Pneumovax) 09/04/2010 SEASONAL [...] Encounters Date Type Specialty Care Team Description 03/22/2023 Office Visit Cardiology Cyndee Paul PA-C [address] [place] [address] 03/29/2023 Imaging Radiology 04/05/2023 Anticoagulation Pharmacy [facility] [place] [address] [place] [address] 05/09/2023 Office Visit Internal Medicine [facility], Brad Graves MD [address] [place], [place] [address] 05/09/2023 Laboratory Laboratory [place], [address] [place] [address] Health Maintenance Due Date Last Done Comments DISCUSS TOBACCO CESSATION (REFER TO SMARTSET #3799) 1960 Cologuard 2005 Colonoscopy 2005 Colorectal Cancer Screening 2005 Fecal Occult Blood Test 2005 Sigmoidoscopy 2005 Depression, Most Recent Score >= 10 (will fire each visit until score < 10) 10/29/2022 10/28/2022 COVID-19 Vaccine ( season) 2023 05/04/2021, 08/11/2020, 07/14/2020 Influenza Vaccine (FLU shot) (#1) 2023 03/19/2023, 04/26/2022, 03/11/2021, Additional history exists Albumin/Creatinine Ratio 04/26/2023 022, 05/08/2019, 06/12/2014, Additional [...] 05/08/2019 LUNG CANCER SCREENING - USE SMARTSET [id number] Completed 03/25/2022, 03/24/2021, 05/26/2017, Additional history exists Pneumococcal Vaccine: Pediatrics (0 to 5 Years) and At-Risk Patients (6 to 64 Years) Completed 10/28/2022, 09/04/2010 GARDASIL-HPV IMMUNIZATION SERIES Aged Out No longer eligible based on patient's age to complete this topic MENINGOCOCCAL (MENACTRA/MENVEO) Aged Out No longer eligible based on patient's age to complete this topic documented as of this encounter Medical Devices Implanted Type Area Physician Pediatrician Device Identifier Shelf Expiration Date Model / Serial / Lot Vavle Aortic 27mm [id number] - [id number] - [id number] Implanted:Qty: 1 on 01/07/2017 by Silas Aldana MD at [place] [facility] Heart PATEL LIFESCIEstimize ABIGAIL 03/29/2020 [id number] / [id number] / documented as of this encounter Advance [...] and were consensually agreed upon. Care Teams Colorist Formulator Relationship Specialty Start Date End Date Brad Thompson MD [address] [place] [address] PCP - General Internal Medicine 11/20/17 documented as of this encounter
--- OUTSIDE RECORDS SUMMARY | 2023-08-22 23:11 | External Medical Summary ---
Author Name Unknown Address Unknown Organization [id number]:LABORATORY [facility] [address] [place] [address] Laboratory Report Ordering Provider Test Date Status MOSES MONET 03/08/2023 08:00:54 Final Therapeutic ranges for non-o perative patients:
Prophylaxsis/treatment of DVT: (Range:2.0-3.0)
Treatment of pulmonary embolism:(Range:2.0-3.0)
Prevention of systemic embolism from:
-tissue heart valves
-acute myocardial infarction
-valvular heart disease
-atrial fibrillation
(Range: 2.0-3.0)
Mechanical prosthetic valves: (Range: 2.5-3.5) Observation Date Value Abnormality Reference (Units ) Status INR in Capillary blood by Coagulation assay 03/08/2023 08:00:54 1.6 (INR) Final Performing Location LABORATORY [facility] [address] [place] [id number]
--- OUTSIDE RECORDS SUMMARY | 2023-08-22 23:11 | External Medical Summary | Summary of Care ---
Author Name Unknown Organization [facility] Address [address] [place] [address] Phone [phone] Care Team Providers Care Mr Teacher Name Role Phone Brad Thompson MD Primary Care Provider + Reason for Visit * Reason Comments Follow Up Encounter Details Date Type Department Care Team Description 03/02/2023 Office Visit Vascular Surgery, [facility] [address] [facility] [place] [address] Mayito Menjivar MD [address] [place] [address] PAD (peripheral artery disease) ([facility])* Allergies Active Allergy Reactions Severity Noted Date Comments Varenicline Tartrate Nausea/vomiting,Psy ch complications High 08/05/2010 Iodinated Contrast Media Nausea/vomiting 2015 Methadone Other (Please comment) 09/04/2010 Shakes Valdecoxib 03/18/2004 felt odd documented as of this encounter (statuses as of 03/02/2023) Medications Medication Sig Dispensed Refills Start Date [...] Tablet Sublingual (Nitrostat)Indica tions:Coronary artery disease involving [place] coronary artery of [place] heart without angina pectoris Place 1 Tablet [...] as of this encounter (statuses as of 03/02/2023) Active Problems Problem Noted Date Accelerating angina 11/12/2022 Coronary artery disease of n ative artery of [place] heart with stable angina pectoris 10/15/2021 Spinal [...] graft) 01/11/2017 Coronary artery disease invo lving [place] coronary artery of [place] heart without angina pectoris 03/01/2016 Overview: [facility] 02/25/16 - . Severe single vessel [...] as of this encounter (statuses as of 03/02/2023) Resolved Problems Problem Noted Date Resolved Date Food insecurity 01/19/2021 05/27/2022 Overview: Per [facility] Protocol Alcohol abuse 01/11/2017 01/11/2017 Beta-blockers contraindicated 03/01/2016 Overview: Due to ASper cardiology Spinal stenosis of lumbar re gion without neurogenic claudication 11/21/2008 03/11/2021 ADVANCE DIRECTIVE INFORMATION 03/02/2006 Overview: No, Advance Directive brochure given to patient at prior appointment. Displacement of lumbar inter vertebral disc without myelopathy 09/01/2010 documented as of this encounter (statuses as of 03/02/2023) Immunizations Name Administration Dates Next Due COVID-19 mRNA, LNP-s, No Pre serve, 2-Dose Series (Moderna) 08/11/2020,07/14/2020 COVID-19, mRNA, LNP-s, PF, B ooster, 100mcg/0.5mg (Moderna) 05/04/2021 Hepatitis B, 20+ yrs 03/11/2021,07/09/2019,05/0811/06/2019 PPD 03/11/2010,03/05/2008,03/02/2006 Pneumococcal Conjugate Vacci ne, 20-valent ([id number]) 10/28/2022 Pneumococcal Polysaccharide PPV23 (Pneumovax) 09/04/2010 Seasonal Influenza, PF, 6 mo ns & Above, IM , (Flulaval) 04/26/2022,03/11/2021,03/01/2020,04/14,03/11/2017 Seasonal Influenza, Quad, Na june (Flumist) [...] Tobacco: Never Tobacco Cessation:Ready to Q uit: No; Counseling Given: No Comments:Cut back to 1/2 [...] Sign Reading Time Taken Comments Blood Pressure 108/60 03/02/2023 9:53 AM EDT Pulse 63 03/02/2023 9:53 AM EDT Temperature - - Respiratory Rate - - Oxygen Saturation - - Inhaled Oxygen Concentration - - Weight 114.4 kg (252 lb 1.6 oz) 03/02/2023 9:53 AM EDT Height - - Body Mass Index 36.43 10/28/2022 9:02 AM EDT documented in this [...] as of this encounter Progress Notes * Servando Biswas PA-C - 03/02/2023 9:50 AM EDT Date of Service: 03/02/23 Jonas Dorsey is a 62 year old male. Referring Physician: Brad Thompson MD Chief Complaint: Surveillance of PAD prior R SFA stent. Since last visit, patient has retired. Took early fpc due to chronic low back pains Leg complaints, as described below, are unchanged No rest pain or ulcerations Still smoking, 1 ppd HPI: Pleasant smoker with HTN and CAD, with chronic multifactorial pain. He underwent right SFA stent 06/[address] Bright for claudication, which may have minimally improved SOME of his right leg symptoms (fatigue with walking). He still experiences 24/7 R leg tenderness of R leg, and BILATERAL leg fatigue with walking. Current Outpatient Medications Medication Sig Dispense Refill [...] directed by anticoagulation clinic 45 Tablet 5 Amoxicillin 500 MG Oral [...] TABLET BY MOUTH DAILY 90 Tablet 1 Nitroglycerin 0.4 MG Sublingual Tablet Sublingual (Nitrostat) Place 1 Tablet under the tongue every5 minutes as needed for Pain, Chest. up to 3 doses in 15 minutes (Patient not taking: Reported on 11/16/2022) 25 Tablet 11 Current Facility-Administered Medications Medication Dose Route Frequency Provider Last Rate Last Admin Albuterol Sulfate (Proventil) (2.5 MG/3ML) 0.083% inhalation solution 2.5 mg 2.5 mg Nebulizer PRN Brad Thompson MD 2.5 mg at 07/14/22 1323 Review of patient's allergies indicates: Allergen Reactions Chantix [Varenicline Tartrate] Nausea/vomiting and Psych complications Iodinated Contrast Media Nausea/vomiting Methadone Other (Please comment) Shakes Valdecoxib felt odd Patient Active Problem List Diagnosis Code Esophageal reflux K21.9 Tobacco use disorder F17.200 Impotence of organic origin N52.9 Cervical spinal stenosis M48.02 Obesity, Class II, BMI 35-39.9, isolated (see actual BMI) E66.9 HTN, goal below 140/90 I10 PAD (peripheral artery disease) ([facility]) I73.9 Coronary artery disease involving [place] coronary artery of [place] heart without angina pectoris I25.10 S/P AVR (aortic valve replacement) Z95.2 S/P CABG (coronary artery bypass graft) Z95.1 Chronic bilateral low back pain with bilateral sciatica M54.42, M54.41, G89.29 Type 2 diabetes mellitus with hemoglobin A1c goal of less than 7.5% ([facility]) E11.9 Diabetes mellitus with peripheral angiopathy ([facility]) E11.51 DISH (diffuse idiopathic skeletal hyperostosis) M48.10 Dyslipidemia, goal LDL below 70 E78.5 Moderate single current episode of major depressive disorder ([facility]) F32.1 Spinal stenosis of lumbar region with neurogenic claudication M48.062 Coronary artery disease of [place] artery of [place] heart with stable angina pectoris ([facility]) I25.118 Accelerating angina ([facility]) I20.0 Past Medical History: Diagnosis Date Aortic regurgitation 08/20/2015 Aortic valve stenosis 08/20/2015 Beta-blockers contraindicated 03/01/2016 Due to AI per cardiology COPD (chronic obstructive pulmonary disease) ([facility]) DISH (diffuse idiopathic skeletal hyperostosis) 05/15/2019 Displacement of lumbar intervertebral disc without myelopathy 1997 Esophageal reflux HTN (hypertension) Hyperlipidemia PAD (peripheral artery disease) ([facility]) 08/20/2015 Bilateral Past Surgical History: Procedure Laterality Date CORONARY ARTERIES BYPASS, TWO 01/07/2017 CORONARY ARTERY BYPASS GRAFT WITH 2 VEIN GRAFTS performed by Silas Aldana MD at [facility] DECOMPRESS LUMBAR SPINAL CORD SEG 06/13/2013 Dr. Yip, L4/5 DENTAL SURGERY PROCEDURE NEC wisdom teeth ENDO,VIDEO ASSIST HARVEST KAYDEN 01/07/2017 ENDOSCOPY VIDEO ASSISTED HARVEST VEIN performed by Silas Aldana MD at [facility] INFORMATION orif right metacarpal INFORMATION Right 06/2015 [...] performed by Silvio Morgan MD at OR [facility] REMOVE TONSILS & ADENOIDS, UNDER 12 Tonsillectomy/Adenoids,<12 Y/O REPLACEMENT AORTIC VALVE, BYPASS WITH PROSTHETIC VALVE N/A 01/07/2017 REPLACEMENT AORTIC VALVE, BYPASS WITH PROSTHETIC VALVE performed by Silas Aldana MD at [facility] RIGHT HEART CATHETERIZATION 06/13/2000 Cardiac Catheterization, Right Heart UPPER GI ENDOSCOPY/EXAM 01/11/2001 Family History Problem Relation Age of Onset Heart Disorder Father age 52 [place] Cancer Mother age 62, unknown [place] Diabetes Mother Blood Disorder Sister age 15 leukemia Diabetes Sister Social History Socioeconomic History Marital status: Spouse name: Not on file Number of children: Not on file Years of education: Not on file Highest education level: Not on file Occupational History 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 Eyes: Denies amaurosis fugax Ear, Nose, Throat and Mouth: Denies decreased hearing, denies trouble swallowing, denies epistaxis. Cardiovascular: reports chest pains, s/p CABG, s/p PTCI, s/p AVR. Respiratory: denies shortness of breath, denies IRIZARRY. Gastrointestinal: denies melena, denies bright red blood per rectum. Genitourinary: denies hematuria. Musculoskeletal: reports arthritis, reports chronic low back pain, s/p back surgery, s/p neck surgery. Skin: denies rash, denies skin cancer, denies ulcers. Neurological: denies TIA, denies CVA, denies amaurosis fugax. Hematologic: denies anemia, denies blood clotting problems, denies any hx of DVT or PE. Oncologic: denies personal hx of cancer GENERAL MULTI-SYSTEM PHYSICAL EXAM: VITAL SIGNS: Filed Vitals: 03/02/23 0953 BP: 108/60 Pulse: 63 Weight: 114.4 kg (252 lb 1.6 oz) BP Cuff Size: Regular BP Position: Sitting BP Site: Left Arm GENERAL MULTI-SYSTEM PHYSICAL EXAM: GENERAL: Normal grooming habits, no acute distress and appears stated age. NECK: No masses RESPIRATORY: respiratory effort normal and breath sounds normal. CARDIOVASCULAR: RRR, no murmurs GASTROINTESTINAL: no tenderness, protuberant and abdominal aorta not palpable. LYMPHATIC: cervical lymph nodes normal SKIN: no ulcers, no rash, no induration, capillary refill normal and no dependent rubor. PSYCHIATRIC: orientation to time, place and person normal and recent and remote memory normal. EYES: conjunctivae normal, eye lids normal and irises normal. NEUROLOGIC: Motor function intact and Sensory exam intact. Very hesitant with regards to his back. PULSE SCALE: Carotid Right:----Bruit: No Left:----Bruit: No Radial Right: 3 Left: 3 Femoral Right: 2 Left: 2 Popliteal Right: 0 Left: 0 Dorsalis Pedis Right: 1 Left: 1 Posterior Tibial Right: 0 Left: 2 PULSE SCALE: 4=Aneurysmal; 3=Normal; 2=Diminished; 1=Barely Palpable; 0=Absent ADDITIONAL PHYSICAL EXAM DIAGNOSTIC STUDIES: 02/24/23 EFRAIN: 0.64/0.57 02/24/23 RLE Art Duplex: REIA 162, RCFA 115, RDFA 179, RSFA origin 85, RSFA prox 56, RSFA stent 42/103/44, RSFA mid 72, RSFA distal 282/263, R Pop 69 The above diagnostic images were directly visualized and independently interpreted by me on 03/02/2023 with results as above 02/16/2022 EFRAIN 0.75/0.63 02/16/2022 RLE Art Duplex RCIA 141, REIA 206, RCFA 109, RDFA 139, RSFA 90/82, 107/209/95/105 stent 299/165 distal SFA, R pop 71 09/17/20: EFRAIN: 0.9/0.69 09/17/20: RLE Art; REIA 138, RCFA 178, RDFA 146, RSFA stent 139, RSFA distal to stent 307, R-pop 59 07/23/19: EFRAIN: 1/.79 07/23/19: Art duplex; R EIA 125, R INSTALLATION SERVICE REPRESENTATIVE 122, R DFA 122, R SFA 76/97/128 , mid 309, pop 58, AT 73, PT55. 05/26/17: Ex Doppler: RIGHT 0.93 => 0.65 LEFT 1 => 0.81 12/31/16: Carotid Duplex: YAKOV 69/16, LICA 87/16 LABS:. Creatinine (mg/dL) Date Value 01/04/2023 0.8 06/10/2020 1.1 LDL Cholesterol (mg/dL) Date Value 10/21/2021 53 06/10/2020 88 Triglycerides (mg/dL) Date Value 09/06/2022 163 06/10/2020 87 Hemoglobin A1C (%) Date Value 10/28/2022 6.6 (H) 06/10/2020 6.7 (H) The above clinical lab tests were reviewed by me on 03/02/23 IMPRESSIONS: PAD, S/P R SFA stent (5x60 EverFlex) on 06/[address] Bright for claudication. Bilateral <50% carotid stenosis, per 2017 duplex Smoker. CAD. S/P CABG and PTCI. S/P AVR. Chronic back pain with spinal stenosis. S/P back surgery and neck surgery. HTN. Contrast allergy (nausea) PLAN: The patient was counseled regarding the pathophysiology and natural history of peripheral vascular disease, as well as the interventional and noninterventional therapeutic options. R leg art duplex about the same, with some elevated R SFA velocity distal to stent, as before ABIs have dropped over the years but claudication (which is mixed, vascular and neurogenic-from back) is unchanged Continue aspirin 81 mg daily for antiplatelet therapy Continue statin Lipitor 80 mg daily for treatment of HLD RTC in 1 year in [facility] with Dr. Menjivar with efrain and R leg art duplex. AAA screen when 65. The patient was seen and examined with ELIAN Washburn, PAAlixC Section of Vascular and Endovascular Surgery [address] [id number] I have reviewed the advanced practitioner documentation and agree. I saw and evaluated the patient on date of service referenced in note and have performed the following medically appropriate historyand/or exam: Claudication stable or slightly improved since last visit EFRAIN slight decrease bilaterally however duplex stable velocities around right SFA stent Now medically retired due to his back issues Continue walking, medical management RTC 1 year with repeat studies, earlier PRN Mayito Menjivar MD Section of Vascular and Endovascular Surgery [place], [place] [phone] documented in this encounter Plan of Treatment Upcoming Encounters Date Type Specialty Care Team Description 03/08/2023 Anticoagulation Pharmacy [facility] [address] [facility] [place] [address] 03/22/2023 Office Visit Cardiology Cyndee Paul PA-C [address] [place] [address] 03/29/2023 Imaging Radiology 05/09/2023 Office Visit Internal Medicine Brad Thompson MD [address] [place] [address] 05/09/2023 Laboratory [facility] [place], [address] [place] [address] Scheduled Orders Name Type Priority Associated Diagnoses Orde r Schedule [facility] [place] [employer] Medical Imaging Routine PAD (peripheral artery disease) (HCC) Ordered: 03/02/2023 VAS ANKLE BRACHIAL INDICES WITHOUT PPG (PAD) Medical Imaging Routine PAD (peripheral artery disease) (HCC) Ordered: 03/02/2023 Health Maintenance Due Date Last Done Comments DISCUSS TOBACCO CESSATION (REFER TO SMARTSET #3890) 1960 Cologuard 2005 Colonoscopy 2005 Colorectal Cancer Screening 2005 Fecal Occult Blood Test 2005 Sigmoidoscopy 2005 COVID-19 Vaccine (4 - Moderna series) 06/29/2021 05/04/2021, 08/11/2020, 07/14/2020 Depression, Most Recent Score >= 10 (will fire each visit until score < 10) 10/29/2022 10/28/2022 Influenza Vaccine (FLU shot) (#1) 2023 04/26/2022, 03/11/2021, 03/01/2020, Additional history exists Albumin/Creatinine Ratio 04/26/2023 022, [...] 05/08/2019 LUNG CANCER SCREENING - USE SMARTSET [id number] Completed 03/25/2022, 03/24/2021, 05/26/2017, Additional history exists [...] this encounter Medical Devices Implanted Type Area Inside Wirer Device Identifier Shelf Expiration Date Model / Serial / Lot Vavle Aortic 27mm [id number] - [id number] - [id number] Implanted:Qty: 1 on 01/07/2017 by Silas Aldana MD at [facility] [employer] ABIGAIL 03/29/2020 [id number] / [id number] / documented as of this encounter Visit Diagnoses Diagnosis PAD (peripheral artery disease) (HCC)- Primary Peripheral vascular disease, unspecified documented in this encounter Advance Directives Latest [...] and were consensually agreed upon. Care Teams Mr Teacher Relationship Specialty Start Date End Date Brad Thompson MD [address] [place] [address], [place] [address] PCP - General Internal Medicine 11/20/17 documented as of this encounter
--- OUTSIDE RECORDS SUMMARY | 2023-08-22 23:11 | External Medical Summary | Summary of Care ---
Author Name Unknown Organization [facility] Address [address] [facility] [place] [address] Phone [phone] Care Team Providers Care Regional Sales Consultant Name Role Phone Brad Thompson MD Primary Care Provider + Reason for Visit * Reason Comments Dosage Adjustment In Person (Anticoag Cl inic) Encounter Details Date Type Department Care Team Description 03/08/2023 Anticoagulation Pharmacy, [facility] [address] [facility] [place] [address] [facility] [address] [facility] [place] [address] Accelerating angina (HCC)*; S/P CABG (coronary artery bypass graft); S/P AVR (aortic valve replacement) Allergies Active Allergy Reactions Severity Noted Date Comments Varenicline Tartrate Nausea/vomiting,Psy ch complications High 08/05/2010 Iodinated Contrast Media Nausea/vomiting 2015 Methadone Other (Please comment) 09/04/2010 Shakes Valdecoxib 03/18/2004 felt odd documented as of this encounter (statuses as of 03/08/2023) Medications Medication Sig Dispensed Refills Start Date [...] Tablet Sublingual (Nitrostat)Indica tions:Coronary artery disease involving [place] coronary artery of [place] heart without angina pectoris Place 1 Tablet [...] as of this encounter (statuses as of 03/08/2023) Active Problems Problem Noted Date Accelerating angina 11/12/2022 Coronary artery disease of n ative artery of [place] heart with stable angina pectoris 10/15/2021 Spinal [...] graft) 01/11/2017 Coronary artery disease invo lving [place] coronary artery of [place] heart without angina pectoris 03/01/2016 Overview: [facility] 02/25/16 - . Severe single [...] as of this encounter (statuses as of 03/08/2023) Resolved Problems Problem Noted Date Resolved Date [...] as of this encounter (statuses as of 03/08/2023) Immunizations Name Administration Dates Next Due COVID-19 mRNA, LNP-s, No Pre serve, 2-Dose Series (Moderna) 08/11/2020,07/14/2020 COVID-19, mRNA, LNP-s, PF, B ooster, 100mcg/0.5mg (Moderna) 05/04/2021 Hepatitis B, 20+ yrs 03/11/2021,07/09/2019,05/0811/06/2019 PPD 03/11/2010,03/05/2008,03/02/2006 Pneumococcal Conjugate Vacci ne, 20-valent ([id number]) 10/28/2022 Pneumococcal Polysaccharide PPV23 (Pneumovax) 09/04/2010 Seasonal [...] of this encounter Progress Notes * Charisse Bae, [facility] - 03/08/2023 7:55 AM EDT Images from the original note were not included. Medication Therapy Disease Management - Anticoagulation Patient: Jonas Santamaria Willian | : 1960 Subjective Patient-Reported Symptoms: Patient Findings Negatives: Signs/symptoms of thrombosis, Signs/symptoms of bleeding, Change in health, Change in alcohol use, Change in activity, Upcoming invasive procedure, Missed doses, Extra doses, Change in medications, Change in diet/appetite, Bruising Objective Current Warfarin Dose As of 03/08/2023 Warfarin maintenance plan: 10 mg (5 mg x 2) every Mon, Fri; 5 mg (5 mg x 1) all other days INR Result As of 03/08/2023 INR goal: 2.0-3.0 INR used for dosin.6 (03/08/2023) Assessment & Plan Warfarin Plan As of 03/08/2023 Full warfarin instructions: 10 mg every Mon, Fri; 5 mg all other days Next INR check: Repeat PT/INR in 4 week(s) Weekly dose: increased Additional Dosing Information: Charisse Bae [facility] Clinical Pharmacist 03/08/2023, 8:28 AM documented in this encounter Plan of Treatment Upcoming Encounters Date Type Specialty Care Team Description 03/22/2023 Office Visit Cardiology Cyndee Paul PA-C [address] [place] [phone] 03/29/2023 Imaging Radiology 04/05/2023 Anticoagulation Pharmacy [facility] [address] [place] [address] 05/09/2023 Office Visit Internal Medicine Brad Thompson MD [address] [place] [address] 05/09/2023 Laboratory Laboratory [place], [address] [place] [address] Health Maintenance Due Date Last Done Comments DISCUSS TOBACCO CESSATION (REFER TO SMARTSET #0269) 1960 Cologuard 2005 Colonoscopy 2005 Colorectal Cancer [...] 05/08/2019 LUNG CANCER SCREENING - USE SMARTSET [id number] Completed 03/25/2022, 03/24/2021, 05/26/2017, Additional history exists [...] this encounter Medical Devices Implanted Type Area Carburetor Mechanic Device Identifier Shelf Expiration Date Model / Serial / Lot Vavle Aortic 27mm [id number] - [id number] - [id number] Implanted:Qty: 1 on 01/07/2017 by Silas Aldana MD at [facility] Heart [employer]IGAIL 03/29/2020 [id number] / [id number] / documented as of this encounter Procedures Procedure Name Priority Date/Time Associated Diagnosis Comments INR FINGERSTICK, POINT OF CARE STAT 03/08/2023 8:00 AM EDT S/P CABG (coronary artery bypass graft) S/P AVR (aortic valve replacement) documented in this encounter Results * INR FINGERSTICK, POINT OF CARE (03/08/2023 8:00 AM EDT) Fingerstick INR 1.6 INR 8:03 AM EDT [facility] [place] [facility] Blood 03/08/2023 8:00 AM EDT 03/08/2023 8:02 AM EDT Narrative [facility] [place] - 03/08/2023 8:03 AM EDT Therapeutic ranges for non-operative patients: Prophylaxsis/treatment of DVT: (Range:2.0-3.0) Treatment of pulmonary embolism:(Range:2.0-3.0) Prevention of systemic embolism from: -tissue heart valves -acute myocardial infarction -valvular heart disease -atrial fibrillation (Range: 2.0-3.0) Mechanical prosthetic valves: (Range: 2.5-3.5) [facility] LAB POINT O F CARE TEST DOCKED DEVICE UNSOLICITED RESULTS [facility] [place] [facility] [facility] [place] [address] documented in this encounter Visit Diagnoses Diagnosis [...] and were consensually agreed upon. Care Teams Regional Sales Consultant Relationship Specialty Start Date End Date Brad Thompson MD [address] [place], [place] [address] [address] PCP - General Internal Medicine 11/20/17 documented as of this encounter"
[2023-08-23 04:46] LABS: Hematocrit (blood only) 38.2 % (42.0-52.0); Hemoglobin 13.1 g/dl (14.0-18.0); Mean Corpuscular Hemoglobin 29.4 pg (25.0-34.0); Mean Corpuscular Hgb Conc 34.3 g/dL (32.0-36.0); Mean Corpuscular Volume 85.7 fL (80.0-100.0); Mean Platelet Volume 11.3 fL (9.4-12.4); Platelet Count 222 K/uL (130-400); RDW Coefficient of Variation 13.7 % (11.5-14.5); RDW Standard Deviation 42.1 fL (36.4-46.3); Red Blood Count 4.46 M/uL (4.70-6.10); White Blood Count 11.46 K/ul (4.8-10.8)
[2023-08-23 05:19] LABS: BUN Creatinine Ratio 23.9 (10-20); Calcium 9.4 mg/dl (8.6-10.3); Creatinine Clr Calc Pharmacy 114.9 ml/min; Est GFR (Non-African American) 91.4 ml/min; Magnesium 1.8 mg/dl (1.7-2.4); Phosphorus 2.7 mg/dl (2.5-4.9); Potassium 4.4 mmol/L (3.5-5.1)
[2023-08-23 05:22] LABS: INR 2.2 (0.9-1.1); Prothrombin Time 23.4 Seconds (9.0-12.0)
[2023-08-23 05:31] LABS: Ferritin 70.9 ng/ml (8-388)
--- NOTE | 2023-08-23 05:55 | Electrocardiogram Report ---
Test Reason : Blood Pressure : / mmHG Vent. Rate : 101 BPM Atrial Rate : 101 BPM P-R Int : 216 ms QRS Dur : 100 ms QT Int : 350 ms P-R-T Axes : 078 061 128 degrees QTc Int : 453 ms Poor data quality, interpretation may be adversely affected Sinus tachycardia with 1st degree A-V block Minimal voltage criteria for LVH, may be normal variant Abnormal ECG When compared with ECG of 25-FEB-2016 11:36, Vent. rate has increased BY [address] now depressed in Lateral leads Inverted T waves have replaced nonspecific T wave abnormality in Lateral leads Confirmed by Saul Clark ([id number]) on 08/23/2023 5:55:08 AM Referred By: REFERRED SELF Confirmed By:Saul Clark
[2023-08-23 06:53] LABS: Folate (Folic Acid),Ser orPlas 13.73 ng/ml (>5.38)
[2023-08-23 07:01] LABS: Estimated Average Glucose 140 mg/dl; Hemoglobin A1C 6.5 % (4.5-5.6)
--- NOTE | 2023-08-23 07:16 | Critical Care Progress Note ---
Date of Service August 23, 2023 Assessment & Plan (1) Acute on chronic heart failure with reduced ejection fraction and diastolic dysfunction: (2) Elevated troponin: (3) Aortic stenosis, severe: (4) CHF (congestive heart failure): (5) Tobacco abuse disorder: (6) HTN (hypertension): (7) Hyponatremia: (8) Acute respiratory failure with hypoxia: (9) Metabolic acidosis: Plan Reason Critically Ill: 63-year-old male past medical history of CABG and prosthetic aortic valve with severe aortic stenosis presents to the hospital with complaints of shortness of breath. He was found to be in CHF exacerbation Neuro - [facility] ICU: Negative Cardiac - --Acute systolic plus diastolic CHF exacerbation Continue with diuretics to keep the patient negative balance Strict ins and out Will benefit from BiPAP TSH 1.67 2D echo 08/22/2023: Does show new wall motion abnormalities with EF 40-45%, grade 2 diastolic dysfunction --Elevated troponin Likely type II [place] Continue to trend troponin EKG 08/22/2023 6:49 AM: Sinus tachycardia, T wave inversions appreciated in leads I and II, no ST changes, normal axis -- History of coronary artery disease s/p CABG Respiratory - -- Acute hypoxic respiratory failure Secondary to systolic CHF along with severe aortic stenosis BNP 734 Respiratory bio fire negative for everything on 08/22/2023 Chest x-ray 08/22/2023: Portable film, good inspiratory effort, increased pulmonary vascular markings appreciated bilaterally with hilar vascular congestion, increased cardiac silhouette -- Current smoker [id number] smoking history Currently smoking half a pack a day Importance of quitting explained to the patient in depth GI - -- Hematochezia On and off every 2 to 3 days Denies any constipation Was supposed to follow-up with GI RENAL/LYTES - -- Hyponatremia with hypochloremia Hypervolemic Serum osmolality 276, urine osmolality 290, urine sodium 83 -- Normal anion gap metabolic acidosis Follow-up lactic acid - -- Continue with Pierson catheter ENDO - Continue with ICU hyperglycemia protocol HEME - --On chronic anticoagulation a trial of anticoagulation was initiated in November, due to concerns that thrombus could be playing a role in the early prosthetic valve stenosis But given the persistence of prosthetic stenosis on anticoagulation, cardiology feels his transthoracic echocardiogram as well as transesophageal echocardiogram studies are consistent with early prosthetic degeneration. -- Monitor H&H ID - -- No current issues --Prophylaxis VTE: Warfarin, on hold GI: PPI Lines: Peripheral Diet: Cardiac Plan: In/out: -5.8 L, urine output 6600 mL Transition to p.o. Lasix on a daily basis Magnesium being replaced Serum sodium 129 today which is still in the acceptable range and improvement since yesterday. Patient has been accepted at [facility] for possible aortic valve intervention, awaiting bed Patient hemodynamically stable to be downgraded to medical floor Case discussed with Dr Valencia Please note the above document was generated using voice recognition software. It may contain grammatical, syntax or spelling errors.Any formal questions or concerns about the content, text or information contained within the body of this dictation should be directly addressed to the provider for clarification. Admission and Anticipated Discharge Date Admission Date: August 22, 2023 Subjective Patient seen and examined at bedside. No acute distress, notable symptoms overnight He said he is feeling much better. He diuresed well Shortness of breath is improved He was saturating 96-97% on 4 L nasal cannula. I went down to 2 L. Fair appetite. No nausea vomiting Review of Systems 2 Review of Systems: All systems reviewed & are unremarkable except as noted in Subjective Physical Exam 2 Physical Exam: Constitutional: No acute distress HEENT: EOMI, PERRLA Respiratory system: Decreased air entry bilaterally, no wheeze, no rhonchi, no crackles CVS: S1-S2 positive, positive 3 out of 6 systolic murmur appreciated best at aorta Abdomen: Soft, nontender, nondistended, positive bowel sounds x4, obese Extremities: +2 pulses bilaterally radialis/ dorsalis pedis, no cyanosis, +1 pitting edema bilateral lower extremity Neuro: Awake alert oriented x3 Psych: Normal mood and affect G/U: Positive Pierson Skin: no rashes, warm and dry Lymphatic: no cervical or axillary lymphadenopathy Results & Data Results & Data Vital Signs (Past 12 Hours) Vital Signs Pulse Resp BP Pulse Ox O2 Del Method O2 Flow Rate 08/23/23 06:00 73 14 93 08/23/23 06:00 109/66 08/23/23 06:00 109/66 08/23/23 05:00 66 16 94 08/23/23 05:00 105/76 08/23/23 04:00 71 19 94 08/23/23 04:00 117/62 08/23/23 03:00 101/55 L 08/23/23 03:00 66 17 93 08/23/23 02:00 67 15 92 08/23/23 02:00 115/56 L 08/23/23 01:00 111/62 08/23/23 01:00 72 26 H 93 08/23/23 00:00 107/58 L 08/23/23 00:00 71 16 93 08/22/23 23:00 75 15 94 08/22/23 23:00 109/55 L 08/22/23 22:30 76 15 92 08/22/23 22:01 82 19 95 08/22/23 22:01 119/57 L 08/22/23 22:00 86 21 95 08/22/23 21:30 78 35 H 95 08/22/23 21:00 77 18 94 08/22/23 21:00 115/85 08/22/23 20:30 83 20 95 08/22/23 20:00 119/58 L 08/22/23 20:00 86 16 95 08/22/23 20:00 High Flow Nasal Cannula 4 08/22/23 19:30 87 19 94 Laboratory Results 08/23/23 03:59 08/23/23 03:59 Coding Level of Care Code 56058 SUB INP/OBS CARE 3/50MIN Diagnoses Acute on chronic heart failure with reduced ejection fraction and diastolic dysfunction I50.43 Elevated troponin R79.89 Aortic stenosis, severe I35.0 CHF (congestive heart failure) I50.9 Tobacco abuse disorder Z72.0 HTN (hypertension) I10 Hyponatremia E87.1 Acute respiratory failure with hypoxia J96.01 Metabolic acidosis E87.20
[2023-08-23] MEDS: POTASSIUM CHLORIDE CRTAB 20 MEQ TABCR PO SCH (08:47)
[2023-08-23] MEDS: ATORVASTATIN 40 MG TAB PO SCH (08:47)
[2023-08-23] MEDS: EZETIMIBE 10 MG TAB PO SCH (08:47)
[2023-08-23] MEDS: ASPIRIN 81 MG ECTAB PO SCH (08:47)
[2023-08-23] MEDS: FOLIC ACID 1 MG TAB PO SCH (08:47)
[2023-08-23] MEDS: THIAMINE HCL 100 MG TAB PO SCH (08:47)
[2023-08-23] MEDS: LORATADINE 10 MG TAB PO SCH (08:48)
[2023-08-23] MEDS: UMECLIDINIUM BROMIDE 62.5MCG/BLISTER 7 PUFFS/INHALER INH SCH (08:48)
[2023-08-23] MEDS: PANTOprazole 40 MG TAB PO SCH (08:48)
[2023-08-23] MEDS: METOPROLOL SUCC 50MG EXT REL TAB PO SCH (08:48)
[2023-08-23] MEDS: MAGNESIUM SULFATE / D5W 1 GM/100 ML BAG IV SCH (08:49)
[2023-08-23] MEDS: INSULIN ASPART PER UNIT CHARGE SC SCH (08:49)
[2023-08-23] MEDS ORDERED: ATORVASTATIN 40 MG TAB PO SCH (09:00)
[2023-08-23] MEDS ORDERED: EZETIMIBE 10 MG TAB PO SCH (09:00)
--- NOTE | 2023-08-23 09:58 | XRay Report ---
XR chest 1V portable HISTORY: 63 years-old Male f/u acute shortness of breath COMPARISON: 08/22/2023 TECHNIQUE: AP view of the chest FINDINGS: Cardiac silhouette is enlarged. Median sternotomy. Pulmonary vascular congestion with decreased pulmo nary edema. No pneumothorax. Small pleural effusions with mild persistent bibasilar densities. Cervic al spinal fusion hardware. Bones appear grossly intact. IMPRESSION: 1. Cardiomegaly with improved pulmonary edema. 2. Small pleural effusions with mild persistent right greater than left bibasilar opacities. ACT 112: Negative or not required by law. The above report was generated using voice recognition software. It may contain grammatical, syntax o r spelling errors. Electronically signed by: Lauro Cunningham M.D. 08/23/2023 9:56 AM
--- NOTE | 2023-08-23 10:21 | Cardiology Progress Note ---
Date of Service August 23, 2023 Assessment & Plan (1) Acute on chronic heart failure with reduced ejection fraction and diastolic dysfunction: (2) Aortic stenosis, severe: Plan Net negative 5.8 Liters in last 24 hours , having received furosemide 40 mg IV x 2 doses on 08/22/23. Coumadin on hold. INR 2.2. Coumadin started in November, for possible prosthetic valve thrombosis, however, velocities have not been improved and will stop anticoagulation. 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 Continue metoprolol succinate 50 mg daily, lisinopril 10 mg BID (home dose 40 mg). Continue atorvastatin / Ezetimibe. Proceed with furosemide 40 mg IV x 1 dose on 08/23/23. Continue to monitor electrolytes. Plan for transfer to [facility] when bed available for further assessment. Would recommend repeat TTE at [facility] for reassessment of LVEF post diuretic therapy and expedited valve in valve TAVR work up. Will need contrast prophylaxis prior to radiographic contrast for CT. Admission and Anticipated Discharge Date Admission Date: August 22, 2023 Subjective Mr Dorsey is seen in cardiology follow up of shortness of breath. He notes feeling significantly improved compared to 24 hours ago. He is off supplemental oxygen at present with pulse oximetry of 96% on room air. Telemetry reveals SR in the 60s to 70s. Physical Exam Constitutional: + not well developed and no acute distre ss Respiratory: no cough Auscultation: + diminished lung sounds (decreased BS bilaterally at the bases ); no crackles and no wheezes Cardiovascular: Rate/Rhythm: regular rate Heart Sounds: + murmur (2/6 SM ) Extremities: + edema (1+ LE edema ) Gastrointestinal (Abdomen): normal bowel sounds, soft, nontender, no hepatosplenomegaly Neurologic: PERRL, EOMI, accommodation nl, no face palsy, no dysarthria Psychiatric: A+Ox3, euthymic affect Genitourinary: Pierson catheter in place, draining clear yellow urine Results & Data Vital Signs (Past 12 Hours) Vital Signs Pulse Resp BP Pulse Ox 08/23/23 06:00 73 14 93 08/23/23 06:00 109/66 08/23/23 06:00 109/66 08/23/23 05:00 66 16 94 08/23/23 05:00 105/76 08/23/23 04:00 71 19 94 08/23/23 04:00 117/62 08/23/23 03:00 101/55 L 08/23/23 03:00 66 17 93 08/23/23 02:00 67 15 92 08/23/23 02:00 115/56 L 08/23/23 01:00 111/62 08/23/23 01:00 72 26 H 93 08/23/23 00:00 107/58 L 08/23/23 00:00 71 16 93 08/22/23 23:00 75 15 94 08/22/23 23:00 109/55 L 08/22/23 22:30 76 15 92 Laboratory Results Cardiac Enzymes 08/22/23 08/22/23 Range/Units 14:28 20:17 Troponin I High Sens 65.2 H* D 70.9 H* (0-20) pg/ml Coagulation 08/23/23 Range/Units 03:59 PT 23.4 H (9.0-12.0) Seconds INR 2.2 CBC 08/23/23 Range/Units 03:59 WBC 11.46 H (4.8-10.8) K/ul RBC 4.46 L (4.70-6.10) M/uL Hgb 13.1 L (14.0-18.0) g/dl Hct 38.2 L (42.0-52.0) % Plt Count 222 (130-400) K/uL Comprehensive Metabolic Panel 08/22/23 08/23/23 Range/Units 15:55 03:59 Sodium 133 L 129 L (136-145) mmol/L Potassium 3.2 L D 4.4 D (3.5-5.1) mmol/L Chloride 109 H 99 (98-107) mmol/L Carbon Dioxide 18 L 22 (21-32) mmol/L BUN 15 21 (6-23) mg/dl Creatinine 0.67 0.88 (0.6-1.4) mg/dl Glucose 131 H 140 H (70-99(Fasting)) mg/dl Calcium 6.8 L D 9.4 D (8.6-10.3) mg/dl Intake and Output 08/22/23 08/23/23 08/23/23 22:59 06:59 14:59 Intake Total 760 / 760 0 / 760 Output Total 2000 / 6600 2900 / 6600 Balance -1240 / -5840 -2900 / -5840 Intake: Oral 760 / 760 0 / 760 Output: Urine Amount (Catheter) 1999 290 / 6599 Pierson/Indwelling 1999 2900 / 0 Other: Weight 123.4 kg 113.2 kg Weight Measurement Method Built in [facility]
[2023-08-23] MEDS: FUROSEMIDE 40 MG/4 ML VIAL IV ONE (11:00)
--- NOTE | 2023-08-23 16:48 | Hospitalist Progress Note ---
Date of Service August 23, 2023 Assessment & Plan (1) Aortic stenosis, severe: (2) CHF (congestive heart failure): (3) Acute dyspnea: Plan Mr. Jonas Dorsey is a 63 year old year old gentleman with known CAD s/p CABG, aortic stenosis s/p AVR, bioprosthetic , hypertension, hyperlipidemia, PAD, COPD, GERD and tobacco use who presented for acute dyspnea and found to be in acute heart failure secondary to progression for bioprosthetic AVR stenosis. Dyspnea has been an ongoing concern over last year with repeated ECHO/imaging demonstrating severe . Patient established with interventional cardiology for evaluation of SUE replacement or surgical options, but has not yet completed process for moving forward. Per previous provider with addendum: Patient with hemodynamically tenuous circumstances requiring close ICU monitoring for IV diuresis and management of heart failure while awaiting transfer to [facility]. Pt has currently been been downgraded to PCU/tele as he is now hemodynamically stable with significant improvement in his respiratory status. Acute hypoxic respiratory failure In setting of decompensated heart failure 2/2 aortic valve stenosis Didn't tolerate bipap, was on hi-manuel NC, currently on RA -s/p 1 dose of IV Lasix 40mg in the ED and 1 dose IV Lasix 40mg by Cardiology on 08/21 -one additional IV Lasix dose by cardiology on 08/22 -per documentation, currently in negative fluid balance of -5840ml Pt currently resting comfortably, now on RA Continue to monitor Acute heart failure BNP 734 Echo with EF (40-45% 2023), aortic stenosis, velocity 5.2m/s, gradient 66, DI 0.14 Pulmonary hypertension, PASP 57mmhg IV diuresis as above -s/p 1 dose of IV Lasix 40mg in the ED and 1 dose IV Lasix 40mg by Cardiology on 08/21 -one additional IV Lasix dose by cardiology on 08/22 -per documentation, currently in negative fluid balance of -5840ml Cardiology consulted, appreciate recs -recommending repeat TTE at [facility] for reassessment of LVEF post diuretic therap y and expedited valve in valve TAVR work up -Continue Lisinopril 10mg BID, Metoprolol XL 50mg daily Severe aortic stenosis severe bioprosthetic aortic valve stenosis (AVR in 2017) Established with interventional at [facility], Dr Lovell last seen 07/2023 -Plans for CT coronary for surgical planning -per Cardiology, will need contrast prophylaxis prior to radiographic con trast for CT due to contrast allergy -As above, cardiology recommending repeat TTE at [facility] for reassessment of LVEF post diuretic therapy and expedited valve in valve TAVR work up. 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 INR 2.2. Coumadin started in November, for possible prosthetic valve thrombosis, however, velocities have not been improved and will stop anticoagulation." Awaiting transfer to [facility] for further evaluation. Peripheral arterial disease s/p RSFA stenting 2015 Multivessel coronary artery disease s/p LAD PCI 02/25/2016; s/p CABG x 2 (SVG-LAD, SVG-OM) 12/2016 Continue aspirin, statin and ezetimibe Chronic anticoagulation Warfarin started to r/o valve thrombosis as etiology of progressive stenosis Per Cardiology, Coumadin on hold. INR 2.2. Coumadin started in November, for possible prosthetic valve thrombosis, however, velocities have not been improved and will stop anticoagulation." Hypervolemic hyponatremia In setting of congestive heart failure IV diuresis per Cardiology Sodium level of 126 to 133 to 129 Acute anemia, borderline microcytic Reports occasional hematochezia/hemorrhoids On warfarin Iron, folate and b12 levels wnl Likely anemia of chronic disease Discontinue anticoagulation as above. Elevated Troponin likely in setting of decompensated HF Troponin trend range from 23.9 to 70.9 EKG with sinus and first degree block Doubt ACS DMII Hgba1c of 6.5, well controlled at this time ISS while hospitalized PCP follow up for further monitoring on d/c HLD Continue zetia and statin Tobacco use states last cigarette was 1 week ago Declines any need for patch at this time COPD -appears stable, symptoms likely 2/2 ongoing decompensated heart failure albuterol prn, duonebs prn at home duonebs prn while admitted Incruse inhaler daily Continue home loratadine Alcohol Use Reports daily alcohol use AWSS Folate, thiamine supplementation CODE STATUS: Full code DVT prophylaxis: IN 2.2, discontinue warfarin Diet: DMII/HH Dispo: PCU/tele, currently awaiting transfer to [facility] Admission and Anticipated Discharge Date Admission Date: August 22, 2023 Subjective Notified by the ICU that pt can be downgraded. Pt seen in the AM. Was still requiring 2L NC at that time. Later on RA states that he is feeling much better than when he came in. Denied SOB, chest pain at that time. Review of Systems Review of Systems: All systems reviewed & are unremarkable except as noted in Subjective Physical Exam Physical Exam: General: Alert, oriented. No acute distress Skin: No noted rashes or bruises Psych: Appropriate mood and affect Neuro: No gross deficits HEENT: NC/AT Chest: Nontender to palpation. CV: RRR, + murmur appreciated Resp: Breath sounds clear bilaterally, no increased effort of breathing. Abdomen: Soft, nontender, nondistended. Extremities: edema in lower extremities bilaterally. Results & Data Results & Data Vital Signs (Past 12 Hours) Vital Signs Pulse Resp BP Pulse Ox 08/23/23 11:01 66 24 103/62 93 08/23/23 10:00 75 23 110/68 95 08/23/23 09:00 74 21 106/62 93 08/23/23 08:00 72 19 123/57 L 93 08/23/23 07:00 72 15 93/57 L 95 08/23/23 06:00 73 14 93 08/23/23 06:00 109/66 08/23/23 06:00 109/66 08/23/23 05:00 66 16 94 08/23/23 05:00 105/76 08/23/23 04:00 71 19 94 08/23/23 04:00 117/62 08/23/23 03:00 101/55 L 08/23/23 03:00 66 17 93 08/23/23 02:00 67 15 92 08/23/23 02:00 115/56 L 08/23/23 01:00 111/62 08/23/23 01:00 72 26 H 93 08/23/23 00:00 107/58 L 08/23/23 00:00 71 16 93
--- NOTE | 2023-08-23 17:47 | Discharge Summary ---
Discharge Summary Date of Service August 23, 2023 Notes For Next Care Provider See below Medication Changes From Visit See below Admission HPI Per Admitting Provider Mr. Jonas Dorsey is a 63 year old year old gentleman with known CAD s/p CABG, aortic stenosis s/p AVR, bioprosthetic , hypertension, hyperlipidemia, PAD, COPD, GERD and tobacco use who presented to [facility] ED due to for acute dyspnea and found to be in acute heart failure secondary to progression for bioprosthetic AVR stenosis Patient with concerns of dyspnea for nearly the last year and undergoing evaluation for replacement of bioprosthetic valve that is severely stenosis. Patient trialed on coumadin in hopes to assess if thrombosis the source of progressive stenosis with no improvement noted. Patient states symptoms worsened prompting him to stop smoking over 1 week prior to presentation given difficulty breathing. Patient reports occasional chest tightness, mostly IRIZARRY and orthopnea. In the ED, vitals were notable for BP of 90s-160s, HR of 80-100s, and O2 sat of high 90s on HFNC labs with hyponatremia to 128, bicarb 18, gap 12, low osmo 276, lactate 2.9, t rop 30.2 and BNP 734, biofire negative Imaging revealed EKG sinus tachy ACV block,artifact, t wave changes noted ECHO with reduced EF to 40-45%, phtn 57mmhg and severe aortic stenosis noted ED interventions: wright placed, IV lasix 40mg Consultants: Cardiology Patient to be admitted to ICU for further evaluation and management of acute heart failure iso severe aortic bioprosthetic valve stenosis. Awaiting transfer contingent on bed availability Admission Exam Per Admitting Provider GENERAL APPEARANCE: AxOx4, generally uncomfortable appearing male, mild distress with abrupt positional changes HEENT: NC, AT. MMM. EOMI, clear conjunctiva, oropharynx clear. NECK: Supple without lymphadenopathy. No stiffness or restricted ROM. HEART: Normal rate and regular rhythm, +EDNA, 2+edema to mid BLE LUNGS: bilateral crackles appreciated L>R, decreased basilar breath sounds HFNC in place ABDOMEN: Soft, nontender, nondistended with good bowel sounds heard. Wright in place, yellow/clear urine draining BACK: No CVAT, no obvious deformity. EXTREMITIES: Without cyanosis, clubbing or edema. NEUROLOGICAL: Grossly nonfocal. Alert and oriented, moving all 4 extremities. CN not formally tested but appear grossly intact Skin: Warm and dry without any rash, few excoriations/lesions on hands 2/2 career, no signs of superimposed infection Principal Dx & Hospital Course #1 = Principal Diagnosis (1) Aortic stenosis, severe: (2) CHF (congestive heart failure): (3) Acute dyspnea: Plan Mr. Jonas Dorsey is a 63 year old year old gentleman with known CAD s/p CABG, aortic stenosis s/p AVR, bioprosthetic , hypertension, hyperlipidemia, PAD, COPD, GERD and tobacco use who presented for acute dyspnea and found to be in acute heart failure secondary to progression for bioprosthetic AVR stenosis. Dyspnea has been an ongoing concern over last year with repeated ECHO/imaging demonstrating severe . Patient established with interventional cardiology for evaluation of SUE replacement or surgical options, but has not yet completed process for moving forward. Per previous provider with addendum: Patient with hemodynamically tenuous circumstances requiring close ICU monitoring for IV diuresis and management of heart failure while awaiting transfer to [facility]. Pt has currently been been downgraded to PCU/tele as he is now hemodynamically stable with significant improvement in his respiratory status. Acute hypoxic respiratory failure In setting of decompensated heart failure 2/2 aortic valve stenosis Didn't tolerate bipap, was on hi-manuel NC, currently on RA -s/p 1 dose of IV Lasix 40mg in the ED and 1 dose IV Lasix 40mg by Cardiology on 08/21 -one additional IV Lasix dose by cardiology on 08/22 -per documentation, currently in negative fluid balance of -5840ml Pt currently resting comfortably, now on RA Continue to monitor Acute heart failure BNP 734 Echo with EF (40-45% 2023), aortic stenosis, velocity 5.2m/s, gradient 66, DI 0.14 Pulmonary hypertension, PASP 57mmhg IV diuresis as above -s/p 1 dose of IV Lasix 40mg in the ED and 1 dose IV Lasix 40mg by Cardiology on 08/21 -one additional IV Lasix dose by cardiology on 08/22 -per documentation, currently in negative fluid balance of -5840ml Cardiology consulted, appreciate recs -recommending repeat TTE at [facility] for reassessment of LVEF post diuretic therapy and expedited valve in valve TAVR work up -Continue Lisinopril 10mg BID, Metoprolol XL 50mg daily Severe aortic stenosis severe bioprosthetic aortic valve stenosis (AVR in 2017) Established with interventional at [facility], Dr Lovell last seen 07/2023 -Plans for CT coronary for surgical planning -per Cardiology, will need contrast prophylaxis prior to radiographic contrast for CT due to contrast allergy -As above, cardiology recommending repeat TTE at [facility] for reassessment of LVEF post diuretic therapy and expedited valve in valve TAVR work up. Given hemodynamic liability of patient's valvular pathology on admission, he was monitored in the ICU As noted above Cardiology was consulted, additionally recommended the following: -Currently awaiting transfer to [facility] for per cardiology "critically severe symptomatic prosthetic aortic valve stenosis due to prosthetic degeneration." -Was previously anticoagulated with warfarin -Per Cardiology, "Coumadin on hold. INR 2.2. Coumadin started in November, for possible prosthetic valve thrombosis, however, velocities have not been improved and will stop anticoagulation." Awaiting transfer to [facility] for further evaluation. Peripheral arterial disease s/p RSFA stenting 2015 Multivessel coronary artery disease s/p LAD PCI 02/25/2016; s/p CABG x 2 (SVG-LAD, SVG-OM) 12/2016 Continue aspirin, statin and ezetimibe Chronic anticoagulation Warfarin started to r/o valve thrombosis as etiology of progressive stenosis Per Cardiology, Coumadin on hold. INR 2.2. Coumadin started in November, for possible prosthetic valve thrombosis, however, velocities have not been improved and will stop anticoagulation." Hypervolemic hyponatremia In setting of congestive heart failure IV diuresis per Cardiology Sodium level of 126 to 133 to 129 Acute anemia, borderline microcytic Reports occasional hematochezia/hemorrhoids On warfarin Iron, folate and b12 levels wnl Likely anemia of chronic disease Discontinue anticoagulation as above. Elevated Troponin likely in setting of decompensated HF Troponin trend range from 23.9 to 70.9 EKG with sinus and first degree block Doubt ACS DMII Hgba1c of 6.5, well controlled at this time ISS while hospitalized PCP follow up for further monitoring on d/c HLD Continue zetia and statin Tobacco use states last cigarette was 1 week ago Declines any need for patch at this time COPD -appears stable, symptoms likely 2/2 ongoing decompensated heart failure albuterol prn, duonebs prn at home duonebs prn while admitted Incruse inhaler daily Continue home loratadine Alcohol Use Reports daily alcohol use AWSS Folate, thiamine supplementation CODE STATUS: Full code DVT prophylaxis: IN 2.2, discontinue warfarin Diet: DMII/HH Dispo: PCU/tele, currently awaiting transfer to [facility] Discharge Exam General: Alert, oriented. No acute distress Skin: No noted rashes or bruises Psych: Appropriate mood and affect Neuro: No gross deficits HEENT: NC/AT Chest: Nontender to palpation. CV: RRR, + murmur appreciated Resp: Breath sounds clear bilaterally, no increased effort of breathing. Abdomen: Soft, nontender, nondistended. Extremities: edema in lower extremities bilaterally. Updated Medication List Medication Instructions Recorded Confirmed Type lisinopril 40 mg tablet 40 mg PO QAM 06/19/19 08/22/23 History ezetimibe 10 mg tablet (Zetia) 10 mg PO QAM 11/10/22 08/22/23 History albuterol sulfate 90 mcg/actuation 1 inh inhalation QID PRN sob 03/30/23 08/22/23 History aerosol inhaler amlodipine 10 mg tablet 10 mg PO QAM 03/30/23 08/22/23 History amoxicillin 500 mg tablet 2,000 mg PO UD PRN dental work 03/30/23 08/22/23 History aspirin 81 mg capsule 81 mg PO QAM 03/30/23 08/22/23 History atorvastatin 80 mg tablet 80 mg PO QAM 03/30/23 08/22/23 History diphenhydramine HCl 25 mg tablet 25 mg PO 5XWK 03/30/23 08/22/23 History (Benadryl Allergy) diphenhydramine HCl 25 mg tablet 25 mg PO UD 03/30/23 08/22/23 History (Benadryl Allergy) isosorbide mononitrate 60 mg 60 mg PO QAM 03/30/23 08/22/23 History tablet,extended release 24 hr metoprolol tartrate 50 mg tablet 50 mg PO QAM 03/30/23 08/22/23 History omeprazole 40 mg capsule,delayed 40 mg PO QAM 03/30/23 08/22/23 History release Additional Medication Comments Current Inpatient Medications Albuterol (Albut/Ipratrop 3mg/0.5mg Neb 3 Ml Vial) 3 ml NEB Q4H PRN; Protocol PRN Reason: wheezing Stop: 09/21/23 13:14 Aspirin (Aspirin 81 Mg Ectab) 81 mg PO [facility] Stop: 09/22/23 08:59 Last Admin: 08/23/23 08:47 Dose: 81 mg Atorvastatin Calcium (Atorvastatin 40 Mg Tab) 80 mg PO QAM [facility] Stop: 09/22/23 08:59 Last Admin: 08/23/23 08:47 Dose: 80 mg Dextrose (Dextrose 50% 50 Ml Syringe) 25 - 50 ml IV UD PRN; Protocol PRN Reason: Hypoglycemia Protocol Stop: 09/21/23 21:06 Ezetimibe (Ezetimibe 10 Mg Tab) 10 mg PO [facility] Stop: 09/22/23 08:59 Last Admin: 08/23/23 08:47 Dose: 10 mg Folic Acid (Folic Acid 1 Mg Tab) [facility] Stop: 09/22/23 08:59 Last Admin: 08/23/23 08:47 Dose: 1 mg Glucagon (Glucagon For Inj 1 Mg Vial) 1 mg SQ UD PRN; Protocol PRN Reason: Hypoglycemia Protocol Stop: 09/21/23 21:06 Glucose (Glucose 40% Gel 15 Gm Tube) 15 - 30 gm PO UD PRN; Protocol PRN Reason: Hypoglycemia Protocol Stop: 09/21/23 21:06 Glucose (Glucose 10 Tab/Tube) 4 - 8 tab PO UD PRN; Protocol PRN Reason: Hypoglycemia Treatment Stop: 09/21/23 21:06 Insulin Aspart (Insulin Aspart Per Unit Charge) 0 units SC [facility] Stop: 09/22/23 07:29 Last Admin: 08/23/23 16:41 Dose: Not Given Lisinopril (Lisinopril 10 Mg Tab) 10 mg PO BID [facility] Stop: 09/21/23 20:59 Last Admin: 08/23/23 08:47 Dose: 10 mg Loratadine (Loratadine 10 Mg Tab) 10 mg PO [facility] Stop: 09/22/23 08:59 Last Admin: 08/23/23 08:48 Dose: 10 mg Metoprolol Succinate (Metoprolol Succ 50mg Ext Rel Tab) [facility] Stop: 09/22/23 08:59 Last Admin: 08/23/23 08:48 Dose: 50 mg Miscellaneous (Carbohydrates For Hypoglycemia ) 15 - 30 gm PO UD PRN PRN Reason: Hypoglycemia Protocol Stop: 09/21/23 21:06 Pantoprazole Sodium (Pantoprazole 40 Mg Tab) 40 mg PO QAM [facility] Stop: 09/22/23 08:59 Last Admin: 08/23/23 08:48 Dose: 40 mg Potassium Chloride (Potassium Chloride Crtab 20 Meq Tabcr) 20 meq PO QAM [facility] Stop: 09/22/23 08:59 Last Admin: 08/23/23 08:47 Dose: 20 meq Thiamine HCl (Thiamine Hcl 100 Mg Tab) 100 mg PO QAM [facility] Stop: 09/22/23 08:59 Last Admin: 08/23/23 08:47 Dose: 100 mg Umeclidinium [place] (Umeclidinium [place] 62.5mcg/Blister 7 Puffs/Inhaler) 1 puffs INH DAILY [facility] Stop: 09/22/23 08:59 Last Admin: 08/23/23 08:48 Dose: 1 puffs Hospital Stay Data Consultations 08/22/23 10:26 ED Decision to Admit Stat 08/22/23 13:15 Consult Stockroom Attendant Routine 08/22/23 16:50 Consult Cardiology Routine Diagnostic Imagining Performed Chest X-Ray 08/22/23 07:01 XR chest 1V portable HISTORY: Dyspnea COMPARISON: Chest 03/11/2017. FINDINGS: There are poststernotomy changes and cervical spinal fusion hardware again noted. The heart is mildly enlarged. There is diffuse interstitial/vascular thickening consistent with pulmonary edema. There are small bilateral pleural effusions. There is a right lower lobe airspace opacity which is new from the prior study. IMPRESSION: 1. Interval development of mild interstitial pulmonary edema and small bilateral pleural effusions. 2. There is a right lower lobe airspace opacity which is new from the prior study. This may represent a component of the pulmonary edema or superimposed pneumonia. ACT 112: Negative or not required by law. Electronically signed by: Gerson Nobles M.D. 08/22/2023 7:37 AM Chest X-Ray 08/23/23 09:35 XR chest 1V portable HISTORY: 63 years-old Male f/u acute shortness of breath COMPARISON: 08/22/2023 TECHNIQUE: AP view of the chest FINDINGS: Cardiac silhouette is enlarged. Median sternotomy. Pulmonary vascular congestion with decreased pulmonary edema. No pneumothorax. Small pleural effusions with mild persistent bibasilar densities. Cervical spinal fusion hardware. Bones appear grossly intact. IMPRESSION: 1. Cardiomegaly with improved pulmonary edema. 2. Small pleural effusions with mild persistent right greater than left bibasilar opacities. ACT 112: Negative or not required by law. The above report was generated using voice recognition software. It may contain grammatical, syntax or spelling errors. Electronically signed by: Lauro Cunningham M.D. 08/23/2023 9:56 AM Pending Results Patient Have Any Pending Studies at Discharge: No Discharge Instructions Given to Patient (Per Discharging Provider) Mr. Jonas Dorsey is a 63 year old year old gentleman with known CAD s/p CABG, aortic stenosis s/p AVR, bioprosthetic , hypertension, hyperlipidemia, PAD, COPD, GERD and tobacco use who presented for acute dyspnea and found to be in acute heart failure secondary to progression for bioprosthetic AVR stenosis. Dyspnea has been an ongoing onconcern over last year with repeated ECHO/imaging demonstarting severe . Patient established with interventional cardiology for evaluation of SUE replacement or surgical options, but has not yet completed process for moving forward. Patient with hemodynamically tenuous circumstances requiring close ICU monitoring for IV diuersis and management of heart failure while awaiting transfer to [facility]. #Acute hypoxic respiratory failure -ISO decompensated heart failure 2/2 aortic valve stenosis -Didn't tolerate bipap, currently on HFNC -Improving with lasix -CTM and wean as tolerated Management of airway per ICU recommendations #Acute heart failure with mid-rang EF (40-45% 2023) #Pulmonary hypertension, PASP 57mmhg #Severe aortic stenosis now c/b severe bioprosthetic aortic valve stenosis (AVR in 2016) #Multivessel coronary artery disease s/p LAD PCI 02/25/2016; s/p CABG x 2 (SVG- LAD, SVG-OM) 12/2016 #Peripheral arterial disease s/p RSFA stenting 2015 ECHO 08/22/2023 aortic stenosis, velocity 5.2m/s, gradient 66, DI 0.14 [facility] 10/2022 with patent grafts and non obstructive CAD Established with interventional at [facility], Dr Lovell last seen 07/2023 Home regimen:amlodipine 10mg, imdur 60mg, lisinopril 40mg, statin 80mg, asa 81 mg, toprolol xl 50mg -Plans for CT coronary for surgical planning -BNP 734, biofire negative -Cardiology following - Hold home lisinopril-->Lisinopril 10mg BID -Metoprolol XL 50mg daily -Wright placed -Continue ASA -IV diuresis per cards/ICU -s/p IV lasix 40mg x 2 #Chronic anticoagulation -Warfarin started to r/o valve thrombosis as etiology of progressive stenosis -Will discontinue at this time 2/2 cardiology recommendations as there are no other indications for AC at this time Trend INR, SCDs at this time #Hypervolemic hyponatremia iso congestive heart failure -IV diuresis per Cardiology -Repeat BMP q12 #Acute anemia, borderline microcytic -Reports occasional hematochezia/hemorrhoids -on warfarin -Iron studies, B12, folate in am Hold AC at this time #Elevated Troponin likely iso decompensated HF -Trend troponin -Monitor on tele #HLD Continue zetia and statin #Tobacco use -1 week ago last cigarette Declines any need for patch at this time #COPD -appears stable, symptoms likely 2/2 ongoing decompensated heart failure albuterol prn, duonebs prn at home duonebs prn while admitted Incruse inhaler daily Continue home loratadine #Alcohol Use -Reports daily alcohol use -AWSS Folate, thiamine supplementation Total Time Total Time Spent Total Time Spent (In Minutes): > 30 minutes
--- NOTE | 2023-08-24 05:52 | Electrocardiogram Report ---
Test Reason : Blood Pressure : / mmHG Vent. Rate : 081 BPM Atrial Rate : 081 BPM P-R Int : 226 ms QRS Dur : 104 ms QT Int : 404 ms P-R-T Axes : 000 047 141 degrees QTc Int : 469 ms Poor data quality, interpretation may be adversely affected Sinus rhythm with 1st degree A-V block Possible Left atrial enlargement Left ventricular hypertrophy with repolarization abnormality Abnormal ECG When compared with ECG of 22-AUG-2023 06:49, No significant change was found Confirmed by Saul Clark ([id number]) on 08/24/2023 5:52:03 AM Referred By: REFERRED SELF Confirmed By:Saul Clark
== END 2023-08-23 18:22 | disposition short-term general hospital (02) | DRG 314 ==
LOC: ED 06:42 → SUATTDRO 10:30 → 1E 10:30